=== PATIENT | male | born 1970 | race African-American/Black ===

== ENCOUNTER 2021-07-20 08:24 | Inpatient (IN) ==
[2021-07-20] MEDS ORDERED: SODIUM CHLORIDE 0.9% 500 ML IV STA (08:55)
--- NOTE | 2021-07-20 09:01 | Emergency Department Note ---
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 He has had been having trouble urinating and a Campos catheter was placed 4 days ago. He says this is been going on for 2 years off and on. His catheter is had blood in it for the last 4 days and passed clots initially. They did place a catheter 4 days ago. He has been drinking water and it is not clear. He feels his energy now but has a lot of suprapubic pain. No definite fever. No back pain no numbness weakness of the legs. No injury. He was seen recently for constipation but says that is gotten better. He has A. fib and is chronically on Coumadin. Denies any injury or trauma. Home Medications Medication Instructions Recorded Confirmed Type aspirin 81 mg tablet,delayed 81 mg PO DAILY 02/06/20 07/20/21 History release hydrochlorothiazide 25 mg tablet 25 mg PO DAILY 02/06/20 07/20/21 History lisinopril 20 mg tablet 20 mg PO DAILY 02/06/20 07/20/21 History glimepiride 1 mg tablet 1 mg PO QAM 04/18/21 07/20/21 History rosuvastatin 5 mg tablet 5 mg PO HS 04/18/21 07/20/21 History tamsulosin 0.4 mg capsule 0.8 mg PO DAILY 04/18/21 07/20/21 History warfarin 4 mg tablet 8 mg PO DAILY 04/18/21 07/20/21 History acetaminophen 500 mg tablet 1,000 mg PO TID PRN 07/08/21 07/20/21 History finasteride 5 mg tablet 5 mg PO DAILY 07/08/21 07/20/21 History metoprolol tartrate 100 mg tablet 100 mg PO BID 07/08/21 07/20/21 History polyethylene glycol 3350 17 gram 17 g PO TID PRN 07/08/21 07/20/21 History oral powder packet (Miralax) Allergies Allergy/AdvReac Type Severity Reaction Status Date / Time No Known Allergies Allergy Unverified 07/20/21 10:35 Past Med/Surg History Social History Smoking Status: Former smoker Preferred Language: Welsh Feels Safe at Home: Yes Review of Systems A total of 10 systems reviewed and were otherwise negative Physical Exam Vital Signs Vital Signs - 24 hr 07/20/21 08:37 07/20/21 09:19 07/20/21 10:25 Temperature 37.0 C Temperature Source Temporal Artery Scan Pulse Rate 89 Pulse Rate [Apical] 90 Respiratory Rate 18 23 Respiratory Effort / Characteristics Non-Labored Non-Labored Spontaneous Respiratory Depth Normal Normal Respiratory Pattern Regular Blood Pressure 137/82 Blood Pressure [Right Arm] 150/89 H Blood Pressure Mean 100 Blood Pressure Mean [Right Arm] 109 Blood Pressure Position Sitting Pulse Oximetry 96 98 96 Oxygen Delivery Method Room Air Room Air Room Air Sepsis Recent Fever Within 48 Hours No Sepsis New/Unexplained Change in Mental Status No Sepsis Action Taken by Nursing No Action Required 07/20/21 12:00 07/20/21 12:44 07/20/21 12:50 Temperature Temperature Source Pulse Rate Pulse Rate [Apical] 83 84 Respiratory Rate 18 17 18 Respiratory Effort / Characteristics Non-Labored Spontaneous Non-Labored Spontaneous Non-Labored Spontaneous Respiratory Depth Normal Normal Normal Respiratory Pattern Blood Pressure Blood Pressure [Right Arm] 122/83 99/60 L 120/65 Blood Pressure Mean Blood Pressure Mean [Right Arm] 96 73 83 Blood Pressure Position Pulse Oximetry 96 98 93 Oxygen Delivery Method Room Air Room Air Sepsis Recent Fever Within 48 Hours Sepsis New/Unexplained Change in Mental Status Sepsis Action Taken by Nursing 07/20/21 13:00 Temperature Temperature Source Pulse Rate Pulse Rate [Apical] 78 Respiratory Rate 22 Respiratory Effort / Characteristics Non-Labored Spontaneous Respiratory Depth Normal Respiratory Pattern Blood Pressure Blood Pressure [Right Arm] 106/73 Blood Pressure Mean Blood Pressure Mean [Right Arm] 84 Blood Pressure Position Pulse Oximetry 97 Oxygen Delivery Method Room Air Sepsis Recent Fever Within 48 Hours Sepsis New/Unexplained Change in Mental Status Sepsis Action Taken by Nursing General: Well developed well nourished middle-age male who appears uncomfortable mildly uncomfortable secondary to pain but otherwise in no acute respiratory distress, breathing comfortably on room air. Normal speech HEENT: Normal cephalic atraumatic. Pupils are equal round and reactive to lig ht. Extraocular movements are intact. Oropharynx is pink with moist mucous membranes. No swelling of the mouth lips or tongue. Neck: Supple with a midline trachea. No meningeal signs or stiffness, no JVD or bruits. No Stridor. Chest: Clear to auscultation bilaterally. No wheezes or rhonchi. No increased work of breathing. Heart: Regular rate and rhythm without murmurs or gallops. Abdomen: Soft, mildly tender in the suprapubic area, nondistended without rebound guarding or rigidity. Campos catheter is in place with bloody appearing urine in the bag. Extremities: No cyanosis clubbing or edema. No calf tenderness or assymetry Spine/Back. Non tender to palpation. No CVA tenderness Skin: Good turgor without rashes. Neurologic exam: Motor and sensation are intact and symmetrical throughout lower extremities. Course Administered Medications Discontinued Medications Sodium Chloride (Nss) 500 mls @ 999 mls/hr IV .Q31M STA Stop: 07/20/21 09:25 Last Infusion: 07/20/21 09:52 Dose: 0 mls/hr Documented by: [id number] Admin: 07/20/21 09:21 Dose: 999 mls/hr Documented by: [id number] Phytonadione 5 mg/ Dextrose 50.5 mls @ 101 mls/hr IV ONE ONE Stop: 07/20/21 11:37 Last Infusion: 07/20/21 12:58 Dose: 0 mls/hr Documented by: [id number] Admin: 07/20/21 12:25 Dose: 101 mls/hr Documented by: [id number] Ioversol (Optiray 320 100ml) 94 ml IV ONCE ONE Stop: 07/20/21 10:37 Last Admin: 07/20/21 10:38 Dose: 94 ml Documented by: [id number] Morphine Sulfate (Morphine Sulfate 4 Mg/Ml 1 Ml Carp\Vial) 4 mg IV NOW STA Stop: 07/20/21 10:12 Last Admin: 07/20/21 10:23 Dose: 4 mg Documented by: [id number] Morphine Sulfate (Morphine Sulfate 4 Mg/Ml 1 Ml Carp\Vial) 4 mg IV NOW STA Stop: 07/20/21 11:07 Last Admin: 07/20/21 11:23 Dose: 4 mg Documented by: [id number] Morphine Sulfate (Morphine Sulfate 4 Mg/Ml 1 Ml Carp\Vial) 4 mg IV NOW STA Stop: 07/20/21 13:58 Last Admin: 07/20/21 14:02 Dose: 4 mg Documented by: [id number] Ondansetron HCl (Ondansetron Inj 2 Mg/Ml 2 Ml Vial) 4 mg IV NOW STA Stop: 07/20/21 10:12 Last Admin: 07/20/21 10:22 Dose: 4 mg Documented by: [id number] Critical Care Time Critical Care Time: Yes Total Critical Care Time: 40 Due to the patient's ongoing pain and concern for ongoing bleed pelvic hematoma, supratherapeutic INR, need to reverse his INR, consultation with urologist and hospitalist and frequent reassessment and evaluation of the patient I have personally spent greater than 40 minutes of critical care time in the direct management of this patient. This includes bedside care, interpretation of diagnostic studies, and testing, discussion with consultants, patient, and family members, and other required patient management activities. This 40 minutes is in excess of all separately billable procedures. Medical Decision Making Differential Diagnosis Prostate disease, urinary retention, hematuria, anticoagulation use, intra-abdom inal process, infection, electrolyte or metabolic abnormality Medical Records Attestation: I reviewed the patient's medical records. Home Medications Current Medication List: was personally reviewed by me Laboratory Data Attestation: I reviewed the patient's lab results. Result diagrams: 07/20/21 08:25 07/20/21 08:25 Lab Results 07/20/21 07/20/21 07/20/21 Range/Units 08:25 08:25 08:25 WBC 12.17 H (4.8-10.8) K/uL RBC 4.86 (4.7-6.1) M/uL Hgb 15.0 (14.0-18.0) g/dL Hct 43.6 (42-52) % MCV 89.7 (80-100) fL MCH 30.9 (25-34) pg MCHC 34.4 (32-36) g/dL RDW Std Deviation 42.0 (36.4-46.3) fL RDW Coeff of Rossy 12.9 (11.5-14.5) % Plt Count 304 (130-400) K/uL MPV 10.3 (7.4-10.4) fL Immature Gran % (Auto) 0.3 % Neut % (Auto) 66.5 % Lymph % (Auto) 21.7 % Dundy % (Auto) 10.8 % Eos % (Auto) 0.6 % Baso % (Auto) 0.1 % Neut # (Auto) 8.09 H (1.4-6.5) K/uL Lymph # (Auto) 2.64 (1.2-3.4) K/uL Dundy # (Auto) 1.32 H (0.11-0.59) K/uL Eos # (Auto) 0.07 (0-0.5) K/uL Baso # (Auto) 0.01 (0-0.2) K/uL Immature Gran # (Auto) 0.04 H (0.00-0.02) K/uL PT 39.0 H (9.0-12.0) Seconds INR 3.9 H (0.9-1.1) APTT 51.6 H* (21.0-31.0) Seconds PTT Ratio 1.9 Sodium 131 L (136-145) mmol/L Potassium 4.7 (3.5-5.1) mmol/L Chloride 94 L (98-107) mmol/L Carbon Dioxide 28 (21-32) mmol/L Anion Gap 9 (3-11) BUN 17 (6-23) mg/dl Creatinine 1.19 (0.6-1.4) mg/dl Est Cr Clr Drug Dosing 80.8 ml/min Est GFR ( Amer) 80.3 ml/min Est GFR (Non-Af Amer) 69.3 ml/min BUN/Creatinine Ratio 14.3 (10-20) Glucose 161 H (70-99(Fasting)) mg/dl Calcium 9.5 (8.5-10.1) mg/dl Total Bilirubin 1.1 H (0.2-1.0) mg/dl AST 19 (13-39) U/L ALT 17 (7-52) U/L Alkaline Phosphatase 58 (34-104) U/L Total Protein 7.1 (6.0-8.3) gm/dl Albumin 4.0 (3.4-5.0) gm/dl Globulin 3.1 (2.5-4.0) gm/dl Albumin/Globulin Ratio 1.3 (0.9-2) Lipase 18 (11-82) U/L Prostate Specific Ag (0-4) ng/ml Urine Color Urine Appearance (Clear) Urine pH (4.5-7.5) Ur Specific [place] (1.000-1.030) Urine Protein (Negative) Urine Glucose (UA) (Negative) Urine Ketones (Negative) Urine Blood (Negative) Urine Nitrite (Negative) Urine Bilirubin (Negative) Urine Urobilinogen (Negative) Ur Leukocyte Esterase (Negative) Urine WBC (Auto) (0-5) /hpf Urine RBC (Auto) (0-4) /hpf U Hyaline Cast (Auto) (0-5) /lpf U Epithel Cells (Auto) (0-5) /lpf Urine Bacteria (Auto) (Negative) SARS-CoV-2, RNA, NAAT (NEGATIVE) Blood Type Blood Type Recheck Antibody Screen Crossmatch 07/20/21 07/20/21 07/20/21 Range/Units 10:55 11:24 11:40 WBC (4.8-10.8) K/uL RBC (4.7-6.1) M/uL Hgb (14.0-18.0) g/dL Hct (42-52) % MCV (80-100) fL MCH (25-34) pg MCHC (32-36) g/dL RDW Std Deviation (36.4-46.3) fL RDW Coeff of Rossy (11.5-14.5) % Plt Count (130-400) K/uL MPV (7.4-10.4) fL Immature Gran % (Auto) % Neut % (Auto) % Lymph % (Auto) % Dundy % (Auto) % Eos % (Auto) % Baso % (Auto) % Neut # (Auto) (1.4-6.5) K/uL Lymph # (Auto) (1.2-3.4) K/uL [place] # (Auto) (0.11-0.59) K/uL Eos # (Auto) (0-0.5) K/uL Baso # (Auto) (0-0.2) K/uL Immature Gran # (Auto) (0.00-0.02) K/uL PT (9.0-12.0) Seconds INR (0.9-1.1) APTT (21.0-31.0) Seconds PTT Ratio Sodium (136-145) mmol/L Potassium (3.5-5.1) mmol/L Chloride (98-107) mmol/L Carbon Dioxide (21-32) mmol/L Anion Gap (3-11) BUN (6-23) mg/dl Creatinine (0.6-1.4) mg/dl Est Cr Clr Drug Dosing ml/min Est GFR ( Amer) ml/min Est GFR (Non-Af Amer) ml/min BUN/Creatinine Ratio (10-20) Glucose (70-99(Fasting)) mg/dl Calcium (8.5-10.1) mg/dl Total Bilirubin (0.2-1.0) mg/dl AST (13-39) U/L ALT (7-52) U/L Alkaline Phosphatase (34-104) U/L Total Protein (6.0-8.3) gm/dl Albumin (3.4-5.0) gm/dl Globulin (2.5-4.0) gm/dl Albumin/Globulin Ratio (0.9-2) Lipase (11-82) U/L Prostate Specific Ag 103.838 H (0-4) ng/ml Urine Color Yellow Urine Appearance Clear (Clear) Urine pH 7.5 (4.5-7.5) Ur Specific [place] 1.017 (1.000-1.030) Urine Protein 1+ H (Negative) Urine Glucose (UA) Negative (Negative) Urine Ketones Negative (Negative) Urine Blood 3+ H (Negative) Urine Nitrite Negative (Negative) Urine Bilirubin Negative (Negative) Urine Urobilinogen Negative (Negative) Ur Leukocyte Esterase 1+ H (Negative) Urine WBC (Auto) 5-10 H (0-5) /hpf Urine RBC (Auto) >30 H (0-4) /hpf U Hyaline Cast (Auto) 0 (0-5) /lpf U Epithel Cells (Auto) 0-5 (0-5) /lpf Urine Bacteria (Auto) Negative (Negative) SARS-CoV-2, RNA, NAAT NEGATIVE (NEGATIVE) Blood Type Blood Type Recheck Antibody Screen Crossmatch 07/20/21 07/20/21 Range/Units 11:40 12:39 WBC (4.8-10.8) K/uL RBC (4.7-6.1) M/uL Hgb (14.0-18.0) g/dL Hct (42-52) % MCV (80-100) fL MCH (25-34) pg MCHC (32-36) g/dL RDW Std Deviation (36.4-46.3) fL RDW Coeff of Rossy (11.5-14.5) % Plt Count (130-400) K/uL MPV (7.4-10.4) fL Immature Gran % (Auto) % Neut % (Auto) % Lymph % (Auto) % [place] % (Auto) % Eos % (Auto) % Baso % (Auto) % Neut # (Auto) (1.4-6.5) K/uL Lymph # (Auto) (1.2-3.4) K/uL [place] # (Auto) (0.11-0.59) K/uL Eos # (Auto) (0-0.5) K/uL Baso # (Auto) (0-0.2) K/uL Immature Gran # (Auto) (0.00-0.02) K/uL PT (9.0-12.0) Seconds INR (0.9-1.1) APTT (21.0-31.0) Seconds PTT Ratio Sodium (136-145) mmol/L Potassium (3.5-5.1) mmol/L Chloride (98-107) mmol/L Carbon Dioxide (21-32) mmol/L Anion Gap (3-11) BUN (6-23) mg/dl Creatinine (0.6-1.4) mg/dl Est Cr Clr Drug Dosing ml/min Est GFR ( Amer) ml/min Est GFR (Non-Af Amer) ml/min BUN/Creatinine Ratio (10-20) Glucose (70-99(Fasting)) mg/dl Calcium (8.5-10.1) mg/dl Total Bilirubin (0.2-1.0) mg/dl AST (13-39) U/L ALT (7-52) U/L Alkaline Phosphatase (34-104) U/L Total Protein (6.0-8.3) gm/dl Albumin (3.4-5.0) gm/dl Globulin (2.5-4.0) gm/dl Albumin/Globulin Ratio (0.9-2) Lipase (11-82) U/L Prostate Specific Ag (0-4) ng/ml Urine Color Urine Appearance (Clear) Urine pH (4.5-7.5) Ur Specific [place] (1.000-1.030) Urine Protein (Negative) Urine Glucose (UA) (Negative) Urine Ketones (Negative) Urine Blood (Negative) Urine Nitrite (Negative) Urine Bilirubin (Negative) Urine Urobilinogen (Negative) Ur Leukocyte Esterase (Negative) Urine WBC (Auto) (0-5) /hpf Urine RBC (Auto) (0-4) /hpf U Hyaline Cast (Auto) (0-5) /lpf U Epithel Cells (Auto) (0-5) /lpf Urine Bacteria (Auto) (Negative) SARS-CoV-2, RNA, NAAT (NEGATIVE) Blood Type B Positive Blood Type Recheck B Positive Antibody Screen NEGATIVE Crossmatch See Detail Imaging Data Attestation: I personally reviewed and interpreted this imaging study as follows: My Impression: CT of the abdomen pelvis. I did review the films when I discussed it with Dr. Huggins and he does have a pelvic mass as well as a hematoma. Radiologist's Impression: Abdomen/Pelvis CT 07/20/21 10:11 CT SCAN OF THE ABDOMEN AND PELVIS WITH IV CONTRAST CLINICAL HISTORY: Lower abdominal pain. COMPARISON STUDY: Abdominal CT dated 02/07/2020. TECHNIQUE: Following the IV administration of 94 cc of Optiray 320, CT scan of the abdomen and pelvis is performed from the lung bases to the proximal femora. Images are reviewed in the axial, sagittal, and coronal planes. IV contrast was administered without complication. A dose lowering technique was utilized adhering to the principles of ALARA. CT DOSE: 592.45 mGy.cm FINDINGS: Lung bases: The heart is enlarged noting a small to moderate pericardial effusion. The lung bases are clear. Liver: The contrast-enhanced liver is normal in size, contour, and attenuation. There is no intrahepatic biliary ductal dilatation. The hepatic veins and portal veins are patent. Gallbladder: Unremarkable. Spleen: Normal in size and attenuation. Pancreas: Unremarkable. Adrenal glands: Unremarkable. Kidneys: The contrast enhanced kidneys are normal in size and without hydronephrosis. The kidneys enhance symmetrically. Bilateral renal cysts measure up to 3.3 cm. Additional subcentimeter cortical hypodensities also likely represent cysts but are too small for definitive characterization. Abdominal vasculature: The abdominal aorta is normal in course and caliber noting mild atherosclerotic calcification. Bowel: There is no bowel obstruction. Fecal retention is seen throughout the colon. The appendix is well-visualized and normal. Peritoneum: There is trace fluid in the left paracolic gutter. No intra-axial free air is identified. See below under pelvic viscera for discussion of pelvic findings/hematoma. There is a large fat-containing umbilical/periumbilical hernia. Lymphadenopathy: There is an enlarged right pelvic sidewall lymph node on image #343. This measures 2.6 x 1.4 cm. No iliac chain or retroperitoneal lymphadenopathy is identified. Pelvic viscera: The bladder is decompressed around a Campos catheter. The bladder wall is markedly thickened and hyperemic with surrounding inflammation. Nonspecific gas is seen within the bladder lumen. There is the suggestion of a mass lesion in the central pelvis slightly to the right of midline on image #357. This measures approximately 6 x 6 x 3.5 cm and may arise from the prostate. This extends into the right pelvic sidewall, extends inferiorly along the course of the urethra. There is a large complex fluid collection typical for a hematoma identified in the left lower pelvis. This is best seen on image #366 and measures approximately 12 x 11 x 6 cm. This is largely perirectal in location and extends from the level of the seminal vesicles nearly to the level of the anus. This contains an a hematocrit level and there is mild surrounding infiltration. This causes mass effect on the adjacent rectum which is deviated to the right. Skeletal structures: No lytic or blastic lesions are seen. IMPRESSION: 1. Findings suggest cystitis. Correlate with clinical findings and urinalysis. 2. Findings are highly suspicious for a lobulated mass lesion in the central pelvis as detailed above, likely arising from the prostate gland. Neoplasm is the diagnosis of exclusion. 3. There is a pathologically enlarged right pelvic sidewall lymph node. 4. There is a large complex fluid collection typical for a hematoma in the left lower pelvis. This is largely perirectal in location, and extends from the level of the seminal vesicles nearly to the anus. This causes mass effect on the adjacent rectum. 5. There is trace fluid in the left paracolic gutter. 6. Moderate colonic fecal retention. 7. Cardiomegaly with a small to moderate pericardial effusion. 8. Additional findings as above. Findings were discussed with Dr. Rae in the emergency department at the time of interpretation on 07/20/2021. ACT 112: Negative or not required by law. Electronically signed by: Saman Huggins M.D. 07/20/2021 11:12 AM MDM Narrative This patient comes in as described above, He was placed in room C9. He is here for treatment and evaluation of a what he describes as prostate issues he says he has had this off and on for years. He has a Campos catheter and that is pro ducing blood. He is also on a blood thinner. IV access established we did a bladder scan to see if he is retaining any and we flushed his catheter. In the meantime. blood work was obtained he was hydrated with IV normal saline and reassessed. He was not retaining any urine and his Campos flushed clear. He has no fever or white count to suggest significant infection he is not anemic with a hemoglobin of over 15. Has normal renal function. He continued have pain and required several dose of IV morphine. I did do a CT and Dr. Reyes, the radiologist called and discussed it with me as he has what appears to be a mass off the prostate as well as a hematoma that extends oh it is compressing the rectal area. He does not see any active extravasation. The patient's INR came back at 3.9. I did give him vitamin K 5 mg IV and he will need to hold the Coumadin. Without evidence of active bleeding, I do not feel he needs Kcentra at this point. I discussed this with Dr. Hernandez, the on-call urologist, who does feel that he needs to be admitted to medicine with holding of his blood thi nner reversal of his blood thinner and they can scope him. He felt that with the hematomas they hurt as they tend to get compressed but they also tend to stop bleeding. He will need to be monitored from a hemodynamic and hemoglobin standpoint. I did discuss the case with Dr. Vivek Ashraf and also typed and crossed him in the event and he would need a blood transfusion which at present he does not but were to be ready. The patient has remained stable and will be admitted for further treatment and evaluation. Impression & Plan Abdominal pain, Pelvic mass, Current use of intermediate card tender anticoagulation, Haematoma of pelvis, Pain in rectum, Lab test negative for COVID-19 virus Discharge Plan Visit Data Chief Complaint: Abdominal Pain Stated Complaint: ABD/PELVIC PAIN ED Provider: Jose Rae Discharge Problem: Abdominal pain, Pelvic mass, Current use of detention anticoagulation, Haematoma of pelvis, Pain in rectum, Lab test negative for COVID-19 virus Patient Disposition: Admitted As Inpatient Discharge Instructions Interventions: ED Discharge Assessment Last Done: 07/20/21 14:45 Discharge Problem: Abdominal pain Qualifiers: Abdominal location: lower abdomen, unspecified Qualified Code(s): R10.30 - Lower abdominal pain, unspecified
[2021-07-20 09:37] LABS: Basophils # (auto) 0.01 K/uL (0-0.2); Basophils % (auto) 0.1 %; Eosinophils # (auto) 0.07 K/uL (0-0.5); Eosinophils % (auto) 0.6 %; Hematocrit (blood only) 43.6 % (42-52); Immature Granulocytes # (auto) 0.04 K/uL (0.00-0.02); Immature Granulocytes % (auto) 0.3 %; Lymphocytes # (auto) 2.64 K/uL (1.2-3.4); Lymphocytes % (auto) 21.7 %; Mean Corpuscular Hemoglobin 30.9 pg (25-34); Mean Corpuscular Hgb Conc 34.4 g/dL (32-36); Mean Corpuscular Volume 89.7 fL (80-100); Mean Platelet Volume 10.3 fL (7.4-10.4); Monocytes # (auto) 1.32 K/uL (0.11-0.59); Monocytes % (auto) 10.8 %; Neutrophils # (auto) 8.09 K/uL (1.4-6.5); Neutrophils % (auto) 66.5 %; Platelet Count 304 K/uL (130-400); RDW Coefficient of Variation 12.9 % (11.5-14.5); Red Blood Count 4.86 M/uL (4.7-6.1); White Blood Count 12.17 K/uL (4.8-10.8)
[2021-07-20 09:54] LABS: Albumin Globulin Ratio 1.3 (0.9-2); BUN Creatinine Ratio 14.3 (10-20); Bilirubin,Total 1.1 mg/dl (0.2-1.0); Calcium 9.5 mg/dl (8.5-10.1); Creatinine Clr Calc Pharmacy 80.8 ml/min; Est GFR (African American) 80.3 ml/min; Est GFR (Non-African American) 69.3 ml/min; Globulin 3.1 gm/dl (2.5-4.0); Potassium 4.7 mmol/L (3.5-5.1); Total Protein 7.1 gm/dl (6.0-8.3)
[2021-07-20 10:01] LABS: INR 3.9 (0.9-1.1); Partial Thromboplastin Ratio 1.9
[2021-07-20] MEDS ORDERED: MoRPHine SULFATE 4 MG/ML 1 ML CARP\\VIAL IV STA ×3 (10:11→13:57)
[2021-07-20] MEDS ORDERED: ONDANSETRON INJ 2 MG/ML 2 ML VIAL IV STA (10:11)
[2021-07-20 10:19] LABS: Partial Thromboplastin Time 51.6 Seconds (21.0-31.0)
[2021-07-20] MEDS ORDERED: OPTIRAY 320 100ml IV ONE (10:36)
[2021-07-20] MEDS ORDERED: PHYTONADIONE 5 MG in DEXTROSE 5% 50 ML IV ONE (11:08)
--- NOTE | 2021-07-20 11:15 | CT Scan Report ---
CT SCAN OF THE ABDOMEN AND PELVIS WITH IV CONTRAST CLINICAL HISTORY: Lower abdominal pain. COMPARISON STUDY: Abdominal CT dated 02/07/2020. TECHNIQUE: Following the IV administration of 94 cc of Optiray 320, CT scan of the abdomen and pelvi s is performed from the lung bases to the proximal femora. Images are reviewed in the axial, sagittal , and coronal planes. IV contrast was administered without complication. A dose lowering technique wa s utilized adhering to the principles of ALARA. CT DOSE: 592.45 mGy.cm FINDINGS: Lung bases: The heart is enlarged noting a small to moderate pericardial effusion. The lung bases are clear. Liver: The contrast-enhanced liver is normal in size, contour, and attenuation. There is no intrahepa tic biliary ductal dilatation. The hepatic veins and portal veins are patent. Gallbladder: Unremarkable. Spleen: Normal in size and attenuation. Pancreas: Unremarkable. Adrenal glands: Unremarkable. Kidneys: The contrast enhanced kidneys are normal in size and without hydronephrosis. The kidneys enh ance symmetrically. Bilateral renal cysts measure up to 3.3 cm. Additional subcentimeter cortical hyp odensities also likely represent cysts but are too small for definitive characterization. Abdominal vasculature: The abdominal aorta is normal in course and caliber noting mild atheroscleroti c calcification. Bowel: There is no bowel obstruction. Fecal retention is seen throughout the colon. The appendix is well-visualized and normal. Peritoneum: There is trace fluid in the left paracolic gutter. No intra-axial free air is identified. See below under pelvic viscera for discussion of pelvic findings/hematoma. There is a large fat-cont aining umbilical/periumbilical hernia. Lymphadenopathy: There is an enlarged right pelvic sidewall lymph node on image #343. This measures 2 .6 x 1.4 cm. No iliac chain or retroperitoneal lymphadenopathy is identified. Pelvic viscera: The bladder is decompressed around a Campos catheter. The bladder wall is markedly thi ckened and hyperemic with surrounding inflammation. Nonspecific gas is seen within the bladder lumen. There is the suggestion of a mass lesion in the central pelvis slightly to the right of midline on i mage #357. This measures approximately 6 x 6 x 3.5 cm and may arise from the prostate. This extends i nto the right pelvic sidewall, extends inferiorly along the course of the urethra. There is a large c omplex fluid collection typical for a hematoma identified in the left lower pelvis. This is best seen on image #366 and measures approximately 12 x 11 x 6 cm. This is largely perirectal in location and extends from the level of the seminal vesicles nearly to the level of the anus. This contains an a he matocrit level and there is mild surrounding infiltration. This causes mass effect on the adjacent re ctum which is deviated to the right. Skeletal structures: No lytic or blastic lesions are seen. IMPRESSION: 1. Findings suggest cystitis. Correlate with clinical findings and urinalysis. 2. Findings are highly suspicious for a lobulated mass lesion in the central pelvis as detailed above , likely arising from the prostate gland. Neoplasm is the diagnosis of exclusion. 3. There is a pathologically enlarged right pelvic sidewall lymph node. 4. There is a large complex fluid collection typical for a hematoma in the left lower pelvis. This is largely perirectal in location, and extends from the level of the seminal vesicles nearly to the gabriela s. This causes mass effect on the adjacent rectum. 5. There is trace fluid in the left paracolic gutter. 6. Moderate colonic fecal retention. 7. Cardiomegaly with a small to moderate pericardial effusion. 8. Additional findings as above. Findings were discussed with Dr. Rae in the emergency department at the time of interpretation on 07/20/2021. ACT 112: Negative or not required by law. Electronically signed by: Saman Huggins M.D. 07/20/2021 11:12 AM
[2021-07-20 11:16] LABS: Appearance Urine Clear (Clear); Bacteria Urine Automated Negative (Negative); Bilirubin Urine Negative (Negative); Blood Urine 3+ (Negative); Cast Urine Automated 0 /lpf (0-5); Color Urine Yellow; Epithelial Cell Urine Auto 0-5 /lpf (0-5); Glucose Urine UA Negative (Negative); Ketones Urine Negative (Negative); Leukocyte Esterase Urine 1+ (Negative); Nitrite Urine Negative (Negative); RBC Urine Automated >30 /hpf (0-4); Specific Gravity Urine 1.017 (1.000-1.030); Urobilinogen Urine Negative (Negative); pH Urine 7.5 (4.5-7.5)
[2021-07-20] MEDS ORDERED: SODIUM CHLORIDE 0.9% 250 ML IV PRN (11:17)
[2021-07-20 11:20] LABS: Protein Urine 1+ (Negative)
--- NOTE | 2021-07-20 12:21 | History & Physical Report ---
Date of Service July 20, 2021 Assessment & Plan (1) Pelvic mass: Plan: - Lobulated, central pelvis measuring 6 x 6 x 3.5 cm, ? arise from prostate. Associated with 12 pound weight loss over the last 3 weeks, night sweats, fatigue, intermittent episodes of chills and fevers over the past few months. Family history of prostate cancer in a cousin, who recently . Associated with pathologic enlarged right pelvic sidewall lymph node. Concerning for malignancy. - PSA 103.838. Per patient, its been elevated for the past 3 years. No previous/baseline PSA in our system. - Urology consult placed, discussed with Dr. Hernandez. Patient will be n.p.o. at midnight pending possible cystoscopy in a.m. He is on Coumadin as well as ASA 81, today PT 39, INR 3.9, APTT 51.6, received vitamin K in ED. - Recheck coag panel in a.m. (2) Perirectal hematoma: Plan: - Left lower pelvis, largely perirectal location, extends from seminal vesicles to anus causing mass-effect of adjacent rectum. - No history of trauma or falls, this could be result of frequent Campos catheter placement versus subsequent effect of the pelvic mass. - Will hold aspirin and Coumadin, patient received vitamin K in ED. - PT/INR in AM. - Hgb stable at 15, will continue to monitor on CBC. (3) Constipation: Plan: - Patient was seen in our ED this month for constipation, was given laxatives. However patient now has a known pelvic mass and perirectal hematomathat is causing his rectum to be deviated, therefore it is unlikely continuation of stool softeners or laxatives will improve much. - Pending urology's decision to proceed with procedure tomorrow morning, can consider a GI versus general surgery consult in the future to discuss options to alleviate patient's constipation, i.e. therapeutic colonoscopy versus ostomy? (4) Hyponatremia: Plan: - Na 131, was 139 on outpatient labs from 05/28/2021. - Hold HCTZ. - Follow on labs. (5) Benign enlargement of prostate: Plan: - Takes Flomax 0.8 mg daily and finasteride 5 mg daily. - Campos catheter placed 4 days ago. With gross hematuria. - With complaints of fever/chills, elevated WBC, porsttae pain, will cover with ceftriaxone for prostatitis. (6) Hypertension: Plan: - Continue lisinopril 10 mg daily and metoprolol 100 mg twice daily. - Hold HCTZ due to hyponatremia. (7) Persistent atrial fibrillation: Plan: - Persistent since April 2020 per cardiology note. - Continue metoprolol as above, holding warfarin given hematoma and supratherapeutic INR. (8) Type 2 diabetes mellitus: Plan: - On glimepiride at home, will hold this while inpatient. - Accu-Chek achs with SSI. - A1c in AM. - Diabetic/HH diet. Will be n.p.o. at midnight pending possible procedure in a.m. (9) Dyslipidemia: Plan: - Continue rosuvastatin, increased from 5 mg to 10 mg daily at cardiology visit on 06/09. (10) Sleep apnea: Plan: - No formal diagnosis per records, Recommended to have sleep study by cardiology on 06/09 due to ongoing fatigue. He reports he has had it done, but was not given results. (11) CKD (chronic kidney disease) stage 2, GFR 60-89 ml/min: Plan: - eGFR 80.3, CrCl 80.8. - Seems to be about baseline, no evidence of KAT. Plan: - Admit to med/tele. - SCDs, chemo PPx contraindicated in setting of supratherapeutic INR, hematoma. - Full code. History of Present Illness Chief Complaint: Hematuria, urinary retention Primary Care Provider: LEE Mon Mr. Hernández is a 51-year-old male with a past medical history of DM2, HTN, HLD, BPH, and A. fib on warfarin who presents today with rectal pain and trouble urinating. Per patient, over the last 3 months he has had pain between his rectum and scrotum, describes it as if he is sitting on a ball. He is also been having ongoing constipation, saying he has not had a formed, normal bowel movement in 3 months, rather they have been infrequent liquid stools, but without rossy blood, do not appear dark or tarry. He has also had intermittent issues with urination, feeling as though it is burning when he goes and does not feel like he can empty his bladder fully. For this, he has had Campos's placed several times at the [facility] at the [facility], each time with blood clots and gross hematuria. This is all associated with a 12 pound weight loss over the past 3 weeks, night sweats, and fatigue. Patient does have history of A. fib, not sure if fatigue is due to this versus sleep apnea, for which he had a sleep study done recently, however has not been told of the results. In ED slightly hypertensive 150/89, other vital signs with normal limits and stable. Labs significant for WBC 12.17, PT 39, INR 3.9, PTT 51.6. Sodium 131, glucose 161, T bili 1.1. PSA pending. UA with blood, >30 RBCs, 5-10 WBCs, 1+ leuk esterase, negative for bacteria. COVID-negative. CT A/P significant for suspected hematoma in left lower pelvis, perirectal location with extension from Simulect cycles to anus causing mass-effect of rectum. Pathologically enlarged right pelvic sidewall lymph node. Lobulated mass lesion in central pelvis, measuring 6 x 6 x 3.5 cm, likely from prostate gland suspicious for neoplasm. Evidence of cystitis also seen. Patient received vitamin K, NS IVF, and morphine in ED, case was discussed with urology, and hospitalist service consulted for further evaluation and admission. Allergies Allergy/AdvReac Type Severity Reaction Status Date / Time No Known Allergies Allergy Unverified 07/20/21 10:35 Home Medications Medication Instructions Recorded Confirmed Type aspirin 81 mg tablet,delayed 81 mg PO DAILY 02/06/20 07/20/21 History release hydrochlorothiazide 25 mg tablet 25 mg PO DAILY 02/06/20 07/20/21 History lisinopril 20 mg tablet 20 mg PO DAILY 02/06/20 07/20/21 History glimepiride 1 mg tablet 1 mg PO QAM 04/18/21 07/20/21 History rosuvastatin 5 mg tablet 5 mg PO HS 04/18/21 07/20/21 History tamsulosin 0.4 mg capsule 0.8 mg PO DAILY 04/18/21 07/20/21 History warfarin 4 mg tablet 8 mg PO DAILY 04/18/21 07/20/21 History acetaminophen 500 mg tablet 1,000 mg PO TID PRN 07/08/21 07/20/21 History finasteride 5 mg tablet 5 mg PO DAILY 07/08/21 07/20/21 History metoprolol tartrate 100 mg tablet 100 mg PO BID 07/08/21 07/20/21 History polyethylene glycol 3350 17 gram 17 g PO TID PRN 07/08/21 07/20/21 History oral powder packet (Miralax) Past Med/Surg History Medical History (Updated 07/20/21 @ 15:55 by Catherine Williamson PA-C) CKD (chronic kidney disease) stage 2, GFR 60-89 ml/min Constipation Dyslipidemia Hypertension Perirectal hematoma Persistent atrial fibrillation Type 2 diabetes mellitus Social History Smoking Status: Former smoker Second Hand Exposure: No; Do You Dip or Chew Tobacco: No; Tobacco Cessation Education Requested by Patient: No Hx Alcohol Use: No Hx Substance Use: No Preferred Language: Guamanian Communication Ability: Effective Category Manager Required: No Beliefs That Will Affect Care: None Current Living Situation Comment: [facility] - guards at bedside. Other Information That Helps Us Care for You: No Feels Safe at Home: Yes Review of Systems Review of Systems: All systems reviewed & are unremarkable except as noted in HPI & below Physical Exam Physical Exam: General: awake, alert, verbalizes rectal pain but no apparent distress Head: Normocephalic, atraumatic ENT: PERRL, EOMI, no pharyngeal exudate, mucous membranes moist Chest: Clear to auscultation, on room air, no adventitious breath sounds Cardiac: Regular rate and rhythm, no murmur, no JVD, normal peripheral pulses, good capillary refill Abdominal: suprapubic tenderness; NABS x 4 quadrants, soft, nontender to palpation, no rebound, guarding or tenderness Extremities: Normal inspection, no peripheral edema or erythema, calfs nontender to palpation Psych: Normal mood and affect Neuro: AAO x 3, strength intact bilaterally and rated 5/5, no motor deficits, speech is clear, no peripheral sensory deficits Skin: no rash or erythema Results & Data Results & Data ([facility]) Vital Signs (Past 12 Hours) Vital Signs Temp Pulse Pulse Resp BP BP Pulse Ox 07/20/21 10:25 90 23 150/89 H 96 07/20/21 09:19 98 07/20/21 08:37 37.0 C 89 18 137/82 96 Laboratory Results Abnormal lab results 07/20/21 07/20/21 07/20/21 Range/Units 08:25 08:25 08:25 WBC 12.17 H (4.8-10.8) K/uL Neut # (Auto) 8.09 H (1.4-6.5) K/uL Warrick # (Auto) 1.32 H (0.11-0.59) K/uL Immature Gran # (Auto) 0.04 H (0.00-0.02) K/uL PT 39.0 H (9.0-12.0) Seconds INR 3.9 H (0.9-1.1) APTT 51.6 H* (21.0-31.0) Seconds Sodium 131 L (136-145) mmol/L Chloride 94 L (98-107) mmol/L Glucose 161 H (70-99(Fasting)) mg/dl Total Bilirubin 1.1 H (0.2-1.0) mg/dl Urine Protein (Negative) Urine Blood (Negative) Ur Leukocyte Esterase (Negative) Urine WBC (Auto) (0-5) /hpf Urine RBC (Auto) (0-4) /hpf Crossmatch 07/20/21 07/20/21 Range/Units 10:55 11:40 WBC (4.8-10.8) K/uL Neut # (Auto) (1.4-6.5) K/uL Warrick # (Auto) (0.11-0.59) K/uL Immature Gran # (Auto) (0.00-0.02) K/uL PT (9.0-12.0) Seconds INR (0.9-1.1) APTT (21.0-31.0) Seconds Sodium (136-145) mmol/L Chloride (98-107) mmol/L Glucose (70-99(Fasting)) mg/dl Total Bilirubin (0.2-1.0) mg/dl Urine Protein 1+ H (Negative) Urine Blood 3+ H (Negative) Ur Leukocyte Esterase 1+ H (Negative) Urine WBC (Auto) 5-10 H (0-5) /hpf Urine RBC (Auto) >30 H (0-4) /hpf Crossmatch See Detail Diagnostic Findings Abdomen/Pelvis CT 07/20/21 10:11 CT SCAN OF THE ABDOMEN AND PELVIS WITH IV CONTRAST CLINICAL HISTORY: Lower abdominal pain. COMPARISON STUDY: Abdominal CT dated 02/07/2020. TECHNIQUE: Following the IV administration of 94 cc of Optiray 320, CT scan of the abdomen and pelvis is performed from the lung bases to the proximal femora. Images are reviewed in the axial, sagittal, and coronal planes. IV contrast was administered without complication. A dose lowering technique was utilized adhering to the principles of ALARA. CT DOSE: 592.45 mGy.cm FINDINGS: Lung bases: The heart is enlarged noting a small to moderate pericardial effusion. The lung bases are clear. Liver: The contrast-enhanced liver is normal in size, contour, and attenuation. There is no intrahepatic biliary ductal dilatation. The hepatic veins and portal veins are patent. Gallbladder: Unremarkable. Spleen: Normal in size and attenuation. Pancreas: Unremarkable. Adrenal glands: Unremarkable. Kidneys: The contrast enhanced kidneys are normal in size and without hydronephrosis. The kidneys enhance symmetrically. Bilateral renal cysts measure up to 3.3 cm. Additional subcentimeter cortical hypodensities also likely repres ent cysts but are too small for definitive characterization. Abdominal vasculature: The abdominal aorta is normal in course and caliber noting mild atherosclerotic calcification. Bowel: There is no bowel obstruction. Fecal retention is seen throughout the colon. The appendix is well-visualized and normal. Peritoneum: There is trace fluid in the left paracolic gutter. No intra-axial free air is identified. See below under pelvic viscera for discussion of pelvic findings/hematoma. There is a large fat-containing umbilical/periumbilical hernia. Lymphadenopathy: There is an enlarged right pelvic sidewall lymph node on image #343. This measures 2.6 x 1.4 cm. No iliac chain or retroperitoneal lymphadenopathy is identified. Pelvic viscera: The bladder is decompressed around a Campos catheter. The bladder wall is markedly thickened and hyperemic with surrounding inflammation. Nonspecific gas is seen within the bladder lumen. There is the suggestion of a mass lesion in the central pelvis slightly to the right of midline on image #357. This measures approximately 6 x 6 x 3.5 cm and may arise from the prostate. This extends into the right pelvic sidewall, extends inferiorly along the course of the urethra. There is a large complex fluid collection typical for a hematoma identified in the left lower pelvis. This is best seen on image #366 and measures approximately 12 x 11 x 6 cm. This is largely perirectal in location and extends from the level of the seminal vesicles nearly to the level of the anus. This contains an a hematocrit level and there is mild surrounding infiltration. This causes mass effect on the adjacent rectum which is deviated to the right. Skeletal structures: No lytic or blastic lesions are seen. IMPRESSION: 1. Findings suggest cystitis. Correlate with clinical findings and urinalysis. 2. Findings are highly suspicious for a lobulated mass lesion in the central pelvis as detailed above, likely arising from the prostate gland. Neoplasm is t he diagnosis of exclusion. 3. There is a pathologically enlarged right pelvic sidewall lymph node. 4. There is a large complex fluid collection typical for a hematoma in the left lower pelvis. This is largely perirectal in location, and extends from the level of the seminal vesicles nearly to the anus. This causes mass effect on the adjacent rectum. 5. There is trace fluid in the left paracolic gutter. 6. Moderate colonic fecal retention. 7. Cardiomegaly with a small to moderate pericardial effusion. 8. Additional findings as above. Findings were discussed with Dr. Rae in the emergency department at the time of interpretation on 07/20/2021. ACT 112: Negative or not required by law. Electronically signed by: Saman Huggins M.D. 07/20/2021 11:12 AM Code Status & VTE Plan Code Status Full code. Supervising Physician Co-Signing Physician Notes I supervised Catherine Williamson PA-C on this admission. I interviewed and examined the patient independently of her. The plan is as written in the PA/DELIVERY DRIVER ASSISTANT's note except for any following changes/exceptions: None 51yo M w/ hx of afib who presents with likely prostate cancer. The patient has been experiencing constipation and abdominal issues for at least 2 months. Has had intermittent troubles with urination requiring a catheter. However, presented to the ER with increasing abdominal pain and found to have a large prostate mass with obstruction. Campos in the ER was flushed with some resolution of the hematuria. Discussed case with the on-call urologist who recommends reversing his anticoagulation with plan for cystoscop and possible further surgery at that point. PG Care Time/CCT Total # of Minutes Spent Total Time Spent with Patient: Total time spent is greater than 50% in coordination of care (as documented) at patient's floor/unit and/or counseling patient: Coding Level of Care Code 59519 Initial Inpt Care Lvl 3 Diagnoses Sleep apnea G47.30 Hypertension I10 Type 2 diabetes mellitus E11.9 Dyslipidemia E78.5 Persistent atrial fibrillation I48.19 Constipation K59.00 Constipation type: unspecified constipation type Benign enlargement of prostate N40.1; R33.8 Lower urinary tract symptom detail: urinary retention Lower urinary tract symptom presence: symptoms present Pelvic mass R19.00 Perirectal hematoma S36.62XA Hyponatremia E87.1 CKD (chronic kidney disease) stage 2, GFR 60-89 ml/min N18.2 (1) Benign enlargement of prostate Lower urinary tract symptom detail: urinary retention Lower urinary tract symptom presence: symptoms present Qualified Code(s): N40.1 - Benign prostatic hyperplasia with lower urinary tract symptoms; R33.8 - Other retention of urine (2) Constipation Constipation type: unspecified constipation type Qualified Code(s): K59.00 - Constipation, unspecified
[2021-07-20] MEDS ORDERED: GLUCOSE 10 TAB/TUBE PO PRN (15:07)
[2021-07-20] MEDS ORDERED: DEXTROSE 50% 50 ML SYRINGE IV PRN (15:07)
[2021-07-20] MEDS ORDERED: ACETAMINOPHEN 500 MG TAB PO PRN (15:07)
[2021-07-20] MEDS ORDERED: GLUCOSE 40% GEL 15 GM TUBE PO PRN (15:07)
[2021-07-20] MEDS ORDERED: POLYETHYLENE (MIRALAX) 17 GM PACK PO PRN (15:07)
[2021-07-20] MEDS ORDERED: CARBOHYDRATES FOR HYPOGLYCEMIA PO PRN (15:07)
[2021-07-20] MEDS ORDERED: ONDANSETRON INJ 2 MG/ML 2 ML VIAL IV PRN (15:07)
[2021-07-20] MEDS ORDERED: GLUCAGON FOR INJ 1 MG VIAL SQ PRN (15:07)
[2021-07-20] MEDS: MoRPHine SULFATE 4 MG/ML 1 ML CARP\\VIAL IV PRN ×2 (15:54→18:20)
[2021-07-20] MEDS ORDERED: METOPROLOL TARTRATE 1 MG/ML VIAL IV PRN (17:58)
[2021-07-20] MEDS ORDERED: cefTRIAXone SODIUM 2,000 MG in DEXTROSE 5% 50 ML IV SCH (18:00)
[2021-07-20] MEDS: INSULIN ASPART PER UNIT SC SCH ×2 (18:05→22:33)
[2021-07-20] MEDS: METOPROLOL TARTRATE 100 MG TAB PO SCH (20:48)
[2021-07-20] MEDS: ROSUVASTATIN CALCIUM 10 MG TAB PO SCH (20:48)
--- NOTE | 2021-07-20 21:28 | Urology Consultation ---
Date of Consultation July 20, 2021 Assessment & Plan (1) Haematoma of pelvis: Patient has been admitted on the hospitalist service we recommend proceeding as follows: Maintain Campos catheter for symptomatic relief. If this becomes clogged with clots he can be irrigated manually to relieve obstruction Hydrate with IV fluids Contain patient on antibiotics in form of Rocephin and tailor his antibiotics based on culture results Follow serial labs Hold patient's anticoagulation There is concern the patient has a prostate mass. Patient is made n.p.o. in the event that he will undergo cystoscopy tomorrow for further evaluation of this History of Present Illness Reason for Consultation: Hematuria, prostate mass Attending Physician: Vivek Ashraf MD History of Present Illness This is a 51-year-old male who presented to the emergency department secondary to difficulty urinating as well as perirectal pain. Patient notes for several months he has been having difficulty urinating. He says he has a great deal of difficulty initiating urine stream with some dysuria. He also notes that he cannot fully empty his bladder. He does report unspecified weight loss over the past several months. In addition the patient reports hematuria over the past approximately 3 days. He also notes he is passing some blood clots. In addition the patient reports perianal pain in the area between his scrotum and anus. Because the symptoms the patient presented to the emergency department where he had labs and imaging which independent reviewed. A CT scan of the abdomen and pelvis showed findings concerning for cystitis. He was also noted to have a lobulated mass in the central pelvic region that was felt to arise from the prostate gland. There is also noted to be a fluid complex in the left lower pelvis concerning for a hematoma. Labs include a CBC her white blood cell count was 12.1. Hemoglobin, hematocrit, and platelet count were all noted to be normal. He did have an INR of 3.9. Chemistry profile showed a sodium was 131 and potassium was 4.7. BUN and creatinine were normal. A urinalysis did show 1+ leukocyte Estrace but was otherwise on concerning for urinary tract infection. A COVID test was noted be negative. Since admission to the hospital the patient has had a Campos catheter placed and he has achieved symptomatic relief with this. He was in no distress at the time of my interview Allergies Allergy/AdvReac Type Severity Reaction Status Date / Time No Known Allergies Allergy Unverified 07/20/21 10:35 Home Medications Medication Instructions Recorded Confirmed Type aspirin 81 mg tablet,delayed 81 mg PO DAILY 02/06/20 07/20/21 History release hydrochlorothiazide 25 mg tablet 25 mg PO DAILY 02/06/20 07/20/21 History lisinopril 20 mg tablet 20 mg PO DAILY 02/06/20 07/20/21 History glimepiride 1 mg tablet 1 mg PO QAM 04/18/21 07/20/21 History rosuvastatin 5 mg tablet 5 mg PO HS 04/18/21 07/20/21 History tamsulosin 0.4 mg capsule 0.8 mg PO DAILY 04/18/21 07/20/21 History warfarin 4 mg tablet 8 mg PO DAILY 04/18/21 07/20/21 History acetaminophen 500 mg tablet 1,000 mg PO TID PRN 07/08/21 07/20/21 History finasteride 5 mg tablet 5 mg PO DAILY 07/08/21 07/20/21 History metoprolol tartrate 100 mg tablet 100 mg PO BID 07/08/21 07/20/21 History polyethylene glycol 3350 17 gram 17 g PO TID PRN 07/08/21 07/20/21 History oral powder packet (Miralax) Patient History Medical History CKD (chronic kidney disease) stage 2, GFR 60-89 ml/min Constipation Dyslipidemia Hypertension Perirectal hematoma Persistent atrial fibrillation Type 2 diabetes mellitus Social History Smoking Status: Former smoker Second Hand Exposure: No; Do You Dip or Chew Tobacco: No; Tobacco Cessation Education Requested by Patient: No Hx Alcohol Use: No Hx Substance Use: No Preferred Language: Urdu Communication Ability: Effective [employer] Required: No Beliefs That Will Affect Care: None Current Living Situation Comment: [facility] - guards at bedside. Other Information That Helps Us Care for You: No Feels Safe at Home: Yes Review of Systems Constitutional: no fever Eyes: no diplopia Ear, Nose, Mouth, Throat: no ear pain Respiratory: no cough Cardiovascular: no chest pain Gastrointestinal: no abdominal pain, no nausea and no vomiting Genitourinary: + as per Subjective / HPI Musculoskeletal: no back pain Integumentary: no rash Neurologic: no localized weakness Physical Exam Physical Exam: Patient's perineal area was examined. There were no cuts or excoriations. There were no areas of erythema, eschar, or areas of purulent drainage. There is no crepitus noted in the soft tissue Constitutional: WD/WN, vitals as above Eyes: no conjunctival abnormality ENMT: Ears: no hearing impairment and no external ear abnormality Mouth: no oropharynx abnormality Neck: trachea midline Respiratory: normal respiratory effort; no respiratory distress and no labored breathing Cardiovascular: Rate/Rhythm: regular rate and regular rhythm Gastrointestinal (Abdomen): Soft, nontender, nondistended Musculoskeletal: No calf tenderness Skin: no rashes Neurologic: moves all extremities Psychiatric: A+Ox3, euthymic affect Results & Data ([facility]) Vital Signs (Past 12 Hours) Vital Signs Temp Pulse Pulse Pulse Resp BP Pulse Ox 07/20/21 20:47 85 94/60 L 07/20/21 20:02 36.9 C 96 H 18 93/58 L 95 07/20/21 17:13 94 H 07/20/21 16:00 36.8 C 100 H 18 104/67 97 07/20/21 14:00 75 20 111/71 07/20/21 13:45 75 21 133/87 97 07/20/21 13:30 84 14 101/65 98 07/20/21 13:00 78 22 106/73 97 07/20/21 12:50 18 120/65 93 07/20/21 12:44 84 17 99/60 L 98 07/20/21 12:00 83 18 122/83 96 07/20/21 10:25 90 23 150/89 H 96 PG Care Time/CCT Total # of Minutes Spent Total Time Spent with Patient: Total time spent is greater than 50% in coordination of care (as documented) at patient's floor/unit and/or counseling patient: Coding Level of Care Code 12579 Inpt Consult Level 5 Diagnoses Haematoma of pelvis
[2021-07-20] MEDS: MoRPHine SULFATE 2 MG/ML CARP IV PRN (22:01)
[2021-07-21] MEDS: LACTATED RINGER'S 1,000 ML IV SCH ×3 (00:09→23:04)
[2021-07-21] MEDS: MoRPHine SULFATE 4 MG/ML 1 ML CARP\\VIAL IV PRN ×7 (03:19→23:03)
[2021-07-21] MEDS ORDERED: CIPROFLOXACIN / D5W 400 MG/200 ML BAG IV SCH (06:00)
[2021-07-21] MEDS: INSULIN ASPART PER UNIT SC SCH ×4 (08:15→21:48)
[2021-07-21] MEDS: TAMSULOSIN HCL 0.4 MG CAP PO SCH (08:16)
[2021-07-21] MEDS: FINASTERIDE 5 MG TAB PO SCH (08:16)
[2021-07-21] MEDS: METOPROLOL TARTRATE 100 MG TAB PO SCH ×2 (08:16→20:53)
[2021-07-21] MEDS: lisinopril 20 MG TAB PO SCH (08:16)
[2021-07-21 08:17] LABS: Basophils # (auto) 0.02 K/uL (0-0.2); Basophils % (auto) 0.2 %; Eosinophils # (auto) 0.11 K/uL (0-0.5); Eosinophils % (auto) 1.3 %; Hematocrit (blood only) 38.7 % (42-52); Hemoglobin 13.6 g/dL (14.0-18.0); Immature Granulocytes # (auto) 0.01 K/uL (0.00-0.02); Immature Granulocytes % (auto) 0.1 %; Lymphocytes # (auto) 2.24 K/uL (1.2-3.4); Lymphocytes % (auto) 26.3 %; Mean Corpuscular Hemoglobin 30.8 pg (25-34); Mean Corpuscular Hgb Conc 35.1 g/dL (32-36); Mean Corpuscular Volume 87.8 fL (80-100); Mean Platelet Volume 10.3 fL (7.4-10.4); Monocytes # (auto) 0.93 K/uL (0.11-0.59); Monocytes % (auto) 10.9 %; Neutrophils # (auto) 5.21 K/uL (1.4-6.5); Neutrophils % (auto) 61.2 %; Platelet Count 246 K/uL (130-400); RDW Standard Deviation 41.9 fL (36.4-46.3); Red Blood Count 4.41 M/uL (4.7-6.1); White Blood Count 8.52 K/uL (4.8-10.8)
[2021-07-21 08:33] LABS: INR 1.2 (0.9-1.1); Partial Thromboplastin Ratio 1.3; Partial Thromboplastin Time 36.1 Seconds (21.0-31.0); Prothrombin Time 12.8 Seconds (9.0-12.0)
--- NOTE | 2021-07-21 08:37 | Hospitalist Progress Note ---
Date of Service July 21, 2021 Assessment & Plan (1) Pelvic mass: Plan: Lobulated, central pelvis measuring 6 x 6 x 3.5 cm, ? arise from prostate. Associated with 12 pound weight loss over the last 3 weeks, night sweats, fatigue, intermittent episodes of chills and fevers over the past few months. Family history of prostate cancer in a cousin, who recently -- AGE 56 Associated with pathologic enlarged right pelvic sidewall lymph node. Concerning for malignancy PSA 103.838. * Per patient, its been elevated for the past 3 years. No previous/baseline PSA in our system. Urology consult placed NPO for cysto + TURP vs TURBT with Dr Hernandez this afternoon Ceftriaxone for possible On coumadin for hx afib (afib on monitor), given Vit K and INR acceptable today but will need to monitor on tele/reume when able Pain control, antiemetics prn Monitor labs ALso with BPH --Takes flomax 0.8mg daily, finasteride 5mg daily. --Jerez placed 4 days ago, with gross hematuria --> Complains of fever/chills/elevated WBC on admission with prostate pain and placed on ceftriaxone for coverage. (2) Perirectal hematoma: Plan: Left lower pelvis, largely perirectal location, extends from seminal vesicles to anus causing mass-effect of adjacent rectum. No history of trauma or falls, this could be result of frequent Jerez catheter placement versus subsequent effect of the pelvic mass. Will hold aspirin and Coumadin, patient received vitamin K in ED. PT/INR in AM --> INR 1.2 after VIt K Hgb stable at 13.6 and suspect some dilutional since being on IVF Jerez without continued hematuria Monitor CBC (3) Hyponatremia: Plan: Na 131, was 139 on outpatient labs from 05/28/2021. Hold HCTZ. IVF increased to 100cc/hr Will also check TSH with AM labs, especially given afib/constipation issues as well Monitor BMP in AM (4) Hypertension: Plan: Continue lisinopril 10 mg daily and metoprolol 100 mg twice daily. - Hold HCTZ due to hyponatremia. (5) Persistent atrial fibrillation: Plan: Persistent since April 2020 per cardiology note. - Continue metoprolol as above, holding warfarin given hematoma and supratherapeutic INR. Monitor on telemetry (6) Type 2 diabetes mellitus: Plan: On glimepiride at home, will hold this while inpatient. - Accu-Chek achs with SSI. A1c 8.1 - Diabetic/HH diet. Will be n.p.o. pending procedure Monitor BSgs (7) Dyslipidemia: Plan: Continue rosuvastatin, increased from 5 mg to 10 mg daily at cardiology visit on 06/09. (8) Sleep apnea: Plan: No formal diagnosis per records, Recommended to have sleep study by cardiology on 06/09 due to ongoing fatigue. He reports he has had it done, but was not given results. Consider overnight pulse ox study while inpatient to arrange for O2 HS if needed if unable to obtain records. Will check with billiard table assembler if able to follow up on this (9) CKD (chronic kidney disease) stage 2, GFR 60-89 ml/min: Plan: eGFR 80.3, CrCl 80.8. - Seems to be about baseline, no evidence of KAT. Constipation - Patient was seen in our ED this month for constipation, was given laxatives. However patient now has a known pelvic mass and perirectal hematoma that is causing his rectum to be deviated, therefore it is unlikely continuation of stool softeners or laxatives will improve much. - Pending urology's decision to proceed with procedure tomorrow morning, can consider a GI versus general surgery consult in the future to discuss options to alleviate patient's constipation, i.e. therapeutic colonoscopy versus ostomy? Plan: - Admit to med/tele. - SCDs, chemo PPx contraindicated in setting of supratherapeutic INR, hematoma. - Full code. Admission and Anticipated Discharge Date Admission Date: July 20, 2021 Supervising Physician Co-Signing Physician Notes Attending Attestation - Chart reviewed in detail, care plan d/w VINICIUS Cabezas. I agree w/ the lemons components of her documentation. Appreciate urology assistance; operative note from today reviewed. Florin Masters MD Subjective Patient evaluated this morning. Recently seen by Urology provider, plans for cysto + TURBT for TURP this afternoon. Remains NPO. Pain comes and goes, primarily between rectum and testicles. About every two hours, pain controlled with ordered medications. Did have some weight loss over past 2-3 months. No night sweats. Issues with associated constipation. Does have cousin who from Prostate Ca and believes he was about age 54 when this occurred. Unsure when diagnosed. No fever/chills. No chest pain, shortness of breath, abdominal pain, nausea or vomiting at this time. Questions/concerns addressed. Review of Systems Review of Systems: All systems reviewed & are unremarkable except as noted in HPI & below Physical Exam Physical Exam: General: WD male resting in bed, two guards at bedside, no acute distress and reportedly just got washed up HEENT: head normocephalic, atraumatic, mm slightly dry, trachea midline without deviation Resp: CTAB, no w/c/r, on room air CV: irregularly irregular, no m/r/g, no edema, calves non-tender, pulses palpable GI: +BS, distended, non-tender, no guarding/rigidity : jerez draining yellow urine MSK/Neuro: moves all extremities, follows commands, speech clear, no focal deficit, strength full throughout Skin: warm, dry, no rashes Results & Data Results & Data ([facility]) Vital Signs (Past 12 Hours) Vital Signs Temp Pulse Pulse Resp BP BP Pulse Ox 07/21/21 08:15 37.0 C 98 H 18 113/70 93 07/21/21 03:21 36.7 C 93 H 18 97/60 L 95 07/21/21 00:04 97 H 07/20/21 23:16 36.6 C 88 18 107/63 91 07/20/21 20:47 85 94/60 L Laboratory Results 07/21/21 07/21/21 07/21/21 Range/Units 07:28 07:28 07:28 WBC (4.8-10.8) K/uL RBC (4.7-6.1) M/uL Hgb (14.0-18.0) g/dL Hct (42-52) % MCV (80-100) fL MCH (25-34) pg MCHC (32-36) g/dL RDW Std Deviation (36.4-46.3) fL RDW Coeff of Rossy (11.5-14.5) % Plt Count (130-400) K/uL MPV (7.4-10.4) fL Immature Gran % (Auto) % Neut % (Auto) % Lymph % (Auto) % [place] % (Auto) % Eos % (Auto) % Baso % (Auto) % Neut # (Auto) (1.4-6.5) K/uL Lymph # (Auto) (1.2-3.4) K/uL [place] # (Auto) (0.11-0.59) K/uL Eos # (Auto) (0-0.5) K/uL Baso # (Auto) (0-0.2) K/uL Immature Gran # (Auto) (0.00-0.02) K/uL PT 12.8 H (9.0-12.0) Seconds INR 1.2 H (0.9-1.1) APTT 36.1 H (21.0-31.0) Seconds PTT Ratio 1.3 Sodium 131 L (136-145) mmol/L Potassium 4.2 (3.5-5.1) mmol/L Chloride 96 L (98-107) mmol/L Carbon Dioxide 28 (21-32) mmol/L Anion Gap 7 (3-11) BUN 21 (6-23) mg/dl Creatinine 1.08 (0.6-1.4) mg/dl Est Cr Clr Drug Dosing 89.4 ml/min Est GFR ( Amer) 90.3 ml/min Est GFR (Non-Af Amer) 77.9 ml/min BUN/Creatinine Ratio 19.4 (10-20) Glucose 130 H (70-99(Fasting)) mg/dl POC Glucose (70-99) mg/dl Estimat Average Glucose 186 mg/dl Hemoglobin A1c 8.1 H (4.5-5.6) % Calcium 8.9 (8.5-10.1) mg/dl Total Bilirubin (0.2-1.0) mg/dl AST (13-39) U/L ALT (7-52) U/L Alkaline Phosphatase (34-104) U/L Total Protein (6.0-8.3) gm/dl Albumin (3.4-5.0) gm/dl Globulin (2.5-4.0) gm/dl Albumin/Globulin Ratio (0.9-2) Lipase (11-82) U/L Prostate Specific Ag (0-4) ng/ml Urine Color Urine Appearance (Clear) Urine pH (4.5-7.5) Ur Specific [place] (1.000-1.030) Urine Protein (Negative) Urine Glucose (UA) (Negative) Urine Ketones (Negative) Urine Blood (Negative) Urine Nitrite (Negative) Urine Bilirubin (Negative) Urine Urobilinogen (Negative) Ur Leukocyte Esterase (Negative) Urine WBC (Auto) (0-5) /hpf Urine RBC (Auto) (0-4) /hpf U Hyaline Cast (Auto) (0-5) /lpf U Epithel Cells (Auto) (0-5) /lpf Urine Bacteria (Auto) (Negative) Nasal Screen MRSA (PCR) (Negative) SARS-CoV-2, RNA, NAAT (NEGATIVE) Blood Type Blood Type Recheck Antibody Screen Crossmatch 07/21/21 07/21/21 07/21/21 Range/Units 07:28 05:44 00:10 WBC 8.52 (4.8-10.8) K/uL RBC 4.41 L (4.7-6.1) M/uL Hgb 13.6 L (14.0-18.0) g/dL Hct 38.7 L (42-52) % MCV 87.8 (80-100) fL MCH 30.8 (25-34) pg MCHC 35.1 (32-36) g/dL RDW Std Deviation 41.9 (36.4-46.3) fL RDW Coeff of Rossy 13.0 (11.5-14.5) % Plt Count 246 (130-400) K/uL MPV 10.3 (7.4-10.4) fL Immature Gran % (Auto) 0.1 % Neut % (Auto) 61.2 % Lymph % (Auto) 26.3 % [place] % (Auto) 10.9 % Eos % (Auto) 1.3 % Baso % (Auto) 0.2 % Neut # (Auto) 5.21 (1.4-6.5) K/uL Lymph # (Auto) 2.24 (1.2-3.4) K/uL [place] # (Auto) 0.93 H (0.11-0.59) K/uL Eos # (Auto) 0.11 (0-0.5) K/uL Baso # (Auto) 0.02 (0-0.2) K/uL Immature Gran # (Auto) 0.01 (0.00-0.02) K/uL PT (9.0-12.0) Seconds INR (0.9-1.1) APTT (21.0-31.0) Seconds PTT Ratio Sodium (136-145) mmol/L Potassium (3.5-5.1) mmol/L Chloride (98-107) mmol/L Carbon Dioxide (21-32) mmol/L Anion Gap (3-11) BUN (6-23) mg/dl Creatinine (0.6-1.4) mg/dl Est Cr Clr Drug Dosing ml/min Est GFR ( Amer) ml/min Est GFR (Non-Af Amer) ml/min BUN/Creatinine Ratio (10-20) Glucose (70-99(Fasting)) mg/dl POC Glucose 130 H 119 H (70-99) mg/dl Estimat Average Glucose mg/dl Hemoglobin A1c (4.5-5.6) % Calcium (8.5-10.1) mg/dl Total Bilirubin (0.2-1.0) mg/dl AST (13-39) U/L ALT (7-52) U/L Alkaline Phosphatase (34-104) U/L Total Protein (6.0-8.3) gm/dl Albumin (3.4-5.0) gm/dl Globulin (2.5-4.0) gm/dl Albumin/Globulin Ratio (0.9-2) Lipase (11-82) U/L Prostate Specific Ag (0-4) ng/ml Urine Color Urine Appearance (Clear) Urine pH (4.5-7.5) Ur Specific [place] (1.000-1.030) Urine Protein (Negative) Urine Glucose (UA) (Negative) Urine Ketones (Negative) Urine Blood (Negative) Urine Nitrite (Negative) Urine Bilirubin (Negative) Urine Urobilinogen (Negative) Ur Leukocyte Esterase (Negative) Urine WBC (Auto) (0-5) /hpf Urine RBC (Auto) (0-4) /hpf U Hyaline Cast (Auto) (0-5) /lpf U Epithel Cells (Auto) (0-5) /lpf Urine Bacteria (Auto) (Negative) Nasal Screen MRSA (PCR) (Negative) SARS-CoV-2, RNA, NAAT (NEGATIVE) Blood Type Blood Type Recheck Antibody Screen Crossmatch 07/20/21 07/20/21 07/20/21 Range/Units 20:50 20:43 18:03 WBC (4.8-10.8) K/uL RBC (4.7-6.1) M/uL Hgb (14.0-18.0) g/dL Hct (42-52) % MCV (80-100) fL MCH (25-34) pg MCHC (32-36) g/dL RDW Std Deviation (36.4-46.3) fL RDW Coeff of Rossy (11.5-14.5) % Plt Count (130-400) K/uL MPV (7.4-10.4) fL Immature Gran % (Auto) % Neut % (Auto) % Lymph % (Auto) % [place] % (Auto) % Eos % (Auto) % Baso % (Auto) % Neut # (Auto) (1.4-6.5) K/uL Lymph # (Auto) (1.2-3.4) K/uL [place] # (Auto) (0.11-0.59) K/uL Eos # (Auto) (0-0.5) K/uL Baso # (Auto) (0-0.2) K/uL Immature Gran # (Auto) (0.00-0.02) K/uL PT (9.0-12.0) Seconds INR (0.9-1.1) APTT (21.0-31.0) Seconds PTT Ratio Sodium (136-145) mmol/L Potassium (3.5-5.1) mmol/L Chloride (98-107) mmol/L Carbon Dioxide (21-32) mmol/L Anion Gap (3-11) BUN (6-23) mg/dl Creatinine (0.6-1.4) mg/dl Est Cr Clr Drug Dosing ml/min Est GFR ( Amer) ml/min Est GFR (Non-Af Amer) ml/min BUN/Creatinine Ratio (10-20) Glucose (70-99(Fasting)) mg/dl POC Glucose 181 H 166 H (70-99) mg/dl Estimat Average Glucose mg/dl Hemoglobin A1c (4.5-5.6) % Calcium (8.5-10.1) mg/dl Total Bilirubin (0.2-1.0) mg/dl AST (13-39) U/L ALT (7-52) U/L Alkaline Phosphatase (34-104) U/L Total Protein (6.0-8.3) gm/dl Albumin (3.4-5.0) gm/dl Globulin (2.5-4.0) gm/dl Albumin/Globulin Ratio (0.9-2) Lipase (11-82) U/L Prostate Specific Ag (0-4) ng/ml Urine Color Urine Appearance (Clear) Urine pH (4.5-7.5) Ur Specific [place] (1.000-1.030) Urine Protein (Negative) Urine Glucose (UA) (Negative) Urine Ketones (Negative) Urine Blood (Negative) Urine Nitrite (Negative) Urine Bilirubin (Negative) Urine Urobilinogen (Negative) Ur Leukocyte Esterase (Negative) Urine WBC (Auto) (0-5) /hpf Urine RBC (Auto) (0-4) /hpf U Hyaline Cast (Auto) (0-5) /lpf U Epithel Cells (Auto) (0-5) /lpf Urine Bacteria (Auto) (Negative) Nasal Screen MRSA (PCR) Negative (Negative) SARS-CoV-2, RNA, NAAT (NEGATIVE) Blood Type Blood Type Recheck Antibody Screen Crossmatch 07/20/21 07/20/21 07/20/21 Range/Units 12:39 11:40 11:40 WBC (4.8-10.8) K/uL RBC (4.7-6.1) M/uL Hgb (14.0-18.0) g/dL Hct (42-52) % MCV (80-100) fL MCH (25-34) pg MCHC (32-36) g/dL RDW Std Deviation (36.4-46.3) fL RDW Coeff of Rossy (11.5-14.5) % Plt Count (130-400) K/uL MPV (7.4-10.4) fL Immature Gran % (Auto) % Neut % (Auto) % Lymph % (Auto) % [place] % (Auto) % Eos % (Auto) % Baso % (Auto) % Neut # (Auto) (1.4-6.5) K/uL Lymph # (Auto) (1.2-3.4) K/uL [place] # (Auto) (0.11-0.59) K/uL Eos # (Auto) (0-0.5) K/uL Baso # (Auto) (0-0.2) K/uL Immature Gran # (Auto) (0.00-0.02) K/uL PT (9.0-12.0) Seconds INR (0.9-1.1) APTT (21.0-31.0) Seconds PTT Ratio Sodium (136-145) mmol/L Potassium (3.5-5.1) mmol/L Chloride (98-107) mmol/L Carbon Dioxide (21-32) mmol/L Anion Gap (3-11) BUN (6-23) mg/dl Creatinine (0.6-1.4) mg/dl Est Cr Clr Drug Dosing ml/min Est GFR ( Amer) ml/min Est GFR (Non-Af Amer) ml/min BUN/Creatinine Ratio (10-20) Glucose (70-99(Fasting)) mg/dl POC Glucose (70-99) mg/dl Estimat Average Glucose mg/dl Hemoglobin A1c (4.5-5.6) % Calcium (8.5-10.1) mg/dl Total Bilirubin (0.2-1.0) mg/dl AST (13-39) U/L ALT (7-52) U/L Alkaline Phosphatase (34-104) U/L Total Protein (6.0-8.3) gm/dl Albumin (3.4-5.0) gm/dl Globulin (2.5-4.0) gm/dl Albumin/Globulin Ratio (0.9-2) Lipase (11-82) U/L Prostate Specific Ag 103.838 H (0-4) ng/ml Urine Color Urine Appearance (Clear) Urine pH (4.5-7.5) Ur Specific [place] (1.000-1.030) Urine Protein (Negative) Urine Glucose (UA) (Negative) Urine Ketones (Negative) Urine Blood (Negative) Urine Nitrite (Negative) Urine Bilirubin (Negative) Urine Urobilinogen (Negative) Ur Leukocyte Esterase (Negative) Urine WBC (Auto) (0-5) /hpf Urine RBC (Auto) (0-4) /hpf U Hyaline Cast (Auto) (0-5) /lpf U Epithel Cells (Auto) (0-5) /lpf Urine Bacteria (Auto) (Negative) Nasal Screen MRSA (PCR) (Negative) SARS-CoV-2, RNA, NAAT (NEGATIVE) Blood Type B Positive Blood Type Recheck B Positive Antibody Screen NEGATIVE Crossmatch See Detail 07/20/21 07/20/21 07/20/21 Range/Units 11:24 10:55 08:25 WBC (4.8-10.8) K/uL RBC (4.7-6.1) M/uL Hgb (14.0-18.0) g/dL Hct (42-52) % MCV (80-100) fL MCH (25-34) pg MCHC (32-36) g/dL RDW Std Deviation (36.4-46.3) fL RDW Coeff of Rossy (11.5-14.5) % Plt Count (130-400) K/uL MPV (7.4-10.4) fL Immature Gran % (Auto) % Neut % (Auto) % Lymph % (Auto) % [place] % (Auto) % Eos % (Auto) % Baso % (Auto) % Neut # (Auto) (1.4-6.5) K/uL Lymph # (Auto) (1.2-3.4) K/uL [place] # (Auto) (0.11-0.59) K/uL Eos # (Auto) (0-0.5) K/uL Baso # (Auto) (0-0.2) K/uL Immature Gran # (Auto) (0.00-0.02) K/uL PT 39.0 H (9.0-12.0) Seconds INR 3.9 H (0.9-1.1) APTT 51.6 H* (21.0-31.0) Seconds PTT Ratio 1.9 Sodium (136-145) mmol/L Potassium (3.5-5.1) mmol/L Chloride (98-107) mmol/L Carbon Dioxide (21-32) mmol/L Anion Gap (3-11) BUN (6-23) mg/dl Creatinine (0.6-1.4) mg/dl Est Cr Clr Drug Dosing ml/min Est GFR ( Amer) ml/min Est GFR (Non-Af Amer) ml/min BUN/Creatinine Ratio (10-20) Glucose (70-99(Fasting)) mg/dl POC Glucose (70-99) mg/dl Estimat Average Glucose mg/dl Hemoglobin A1c (4.5-5.6) % Calcium (8.5-10.1) mg/dl Total Bilirubin (0.2-1.0) mg/dl AST (13-39) U/L ALT (7-52) U/L Alkaline Phosphatase (34-104) U/L Total Protein (6.0-8.3) gm/dl Albumin (3.4-5.0) gm/dl Globulin (2.5-4.0) gm/dl Albumin/Globulin Ratio (0.9-2) Lipase (11-82) U/L Prostate Specific Ag (0-4) ng/ml Urine Color Yellow Urine Appearance Clear (Clear) Urine pH 7.5 (4.5-7.5) Ur Specific [place] 1.017 (1.000-1.030) Urine Protein 1+ H (Negative) Urine Glucose (UA) Negative (Negative) Urine Ketones Negative (Negative) Urine Blood 3+ H (Negative) Urine Nitrite Negative (Negative) Urine Bilirubin Negative (Negative) Urine Urobilinogen Negative (Negative) Ur Leukocyte Esterase 1+ H (Negative) Urine WBC (Auto) 5-10 H (0-5) /hpf Urine RBC (Auto) >30 H (0-4) /hpf U Hyaline Cast (Auto) 0 (0-5) /lpf U Epithel Cells (Auto) 0-5 (0-5) /lpf Urine Bacteria (Auto) Negative (Negative) Nasal Screen MRSA (PCR) (Negative) SARS-CoV-2, RNA, NAAT NEGATIVE (NEGATIVE) Blood Type Blood Type Recheck Antibody Screen Crossmatch 07/20/21 07/20/21 Range/Units 08:25 08:25 WBC 12.17 H (4.8-10.8) K/uL RBC 4.86 (4.7-6.1) M/uL Hgb 15.0 (14.0-18.0) g/dL Hct 43.6 (42-52) % MCV 89.7 (80-100) fL MCH 30.9 (25-34) pg MCHC 34.4 (32-36) g/dL RDW Std Deviation 42.0 (36.4-46.3) fL RDW Coeff of Rossy 12.9 (11.5-14.5) % Plt Count 304 (130-400) K/uL MPV 10.3 (7.4-10.4) fL Immature Gran % (Auto) 0.3 % Neut % (Auto) 66.5 % Lymph % (Auto) 21.7 % [place] % (Auto) 10.8 % Eos % (Auto) 0.6 % Baso % (Auto) 0.1 % Neut # (Auto) 8.09 H (1.4-6.5) K/uL Lymph # (Auto) 2.64 (1.2-3.4) K/uL [place] # (Auto) 1.32 H (0.11-0.59) K/uL Eos # (Auto) 0.07 (0-0.5) K/uL Baso # (Auto) 0.01 (0-0.2) K/uL Immature Gran # (Auto) 0.04 H (0.00-0.02) K/uL PT (9.0-12.0) Seconds INR (0.9-1.1) APTT (21.0-31.0) Seconds PTT Ratio Sodium 131 L (136-145) mmol/L Potassium 4.7 (3.5-5.1) mmol/L Chloride 94 L (98-107) mmol/L Carbon Dioxide 28 (21-32) mmol/L Anion Gap 9 (3-11) BUN 17 (6-23) mg/dl Creatinine 1.19 (0.6-1.4) mg/dl Est Cr Clr Drug Dosing 80.8 ml/min Est GFR ( Amer) 80.3 ml/min Est GFR (Non-Af Amer) 69.3 ml/min BUN/Creatinine Ratio 14.3 (10-20) Glucose 161 H (70-99(Fasting)) mg/dl POC Glucose (70-99) mg/dl Estimat Average Glucose mg/dl Hemoglobin A1c (4.5-5.6) % Calcium 9.5 (8.5-10.1) mg/dl Total Bilirubin 1.1 H (0.2-1.0) mg/dl AST 19 (13-39) U/L ALT 17 (7-52) U/L Alkaline Phosphatase 58 (34-104) U/L Total Protein 7.1 (6.0-8.3) gm/dl Albumin 4.0 (3.4-5.0) gm/dl Globulin 3.1 (2.5-4.0) gm/dl Albumin/Globulin Ratio 1.3 (0.9-2) Lipase 18 (11-82) U/L Prostate Specific Ag (0-4) ng/ml Urine Color Urine Appearance (Clear) Urine pH (4.5-7.5) Ur Specific [place] (1.000-1.030) Urine Protein (Negative) Urine Glucose (UA) (Negative) Urine Ketones (Negative) Urine Blood (Negative) Urine Nitrite (Negative) Urine Bilirubin (Negative) Urine Urobilinogen (Negative) Ur Leukocyte Esterase (Negative) Urine WBC (Auto) (0-5) /hpf Urine RBC (Auto) (0-4) /hpf U Hyaline Cast (Auto) (0-5) /lpf U Epithel Cells (Auto) (0-5) /lpf Urine Bacteria (Auto) (Negative) Nasal Screen MRSA (PCR) (Negative) SARS-CoV-2, RNA, NAAT (NEGATIVE) Blood Type Blood Type Recheck Antibody Screen Crossmatch Diagnostic Findings Abdomen/Pelvis CT 07/20/21 10:11 CT SCAN OF THE ABDOMEN AND PELVIS WITH IV CONTRAST CLINICAL HISTORY: Lower abdominal pain. COMPARISON STUDY: Abdominal CT dated 02/07/2020. TECHNIQUE: Following the IV administration of 94 cc of Optiray 320, CT scan of the abdomen and pelvis is performed from the lung bases to the proximal femora. Images are reviewed in the axial, sagittal, and coronal planes. IV contrast was administered without complication. A dose lowering technique was utilized adhering to the principles of ALARA. CT DOSE: 592.45 mGy.cm FINDINGS: Lung bases: The heart is enlarged noting a small to moderate pericardial effusion. The lung bases are clear. Liver: The contrast-enhanced liver is normal in size, contour, and attenuation. There is no intrahepatic biliary ductal dilatation. The hepatic veins and portal veins are patent. Gallbladder: Unremarkable. Spleen: Normal in size and attenuation. Pancreas: Unremarkable. Adrenal glands: Unremarkable. Kidneys: The contrast enhanced kidneys are normal in size and without hydronephrosis. The kidneys enhance symmetrically. Bilateral renal cysts measure up to 3.3 cm. Additional subcentimeter cortical hypodensities also likely represent cysts but are too small for definitive characterization. Abdominal vasculature: The abdominal aorta is normal in course and caliber noting mild atherosclerotic calcification. Bowel: There is no bowel obstruction. Fecal retention is seen throughout the colon. The appendix is well-visualized and normal. Peritoneum: There is trace fluid in the left paracolic gutter. No intra-axial free air is identified. See below under pelvic viscera for discussion of pelvic findings/hematoma. There is a large fat-containing umbilical/periumbilical hernia. Lymphadenopathy: There is an enlarged right pelvic sidewall lymph node on image #343. This measures 2.6 x 1.4 cm. No iliac chain or retroperitoneal lymphadenopathy is identified. Pelvic viscera: The bladder is decompressed around a Jerez catheter. The bladder wall is markedly thickened and hyperemic with surrounding inflammation. Nonspecific gas is seen within the bladder lumen. There is the suggestion of a mass lesion in the central pelvis slightly to the right of midline on image #357. This measures approximately 6 x 6 x 3.5 cm and may arise from the prostate. This extends into the right pelvic sidewall, extends inferiorly along the course of the urethra. There is a large complex fluid collection typical for a hematoma identified in the left lower pelvis. This is best seen on image #366 and measures approximately 12 x 11 x 6 cm. This is largely perirectal in location and extends from the level of the seminal vesicles nearly to the level of the anus. This contains an a hematocrit level and there is mild surrounding infiltration. This causes mass effect on the adjacent rectum which is deviated to the right. Skeletal structures: No lytic or blastic lesions are seen. IMPRESSION: 1. Findings suggest cystitis. Correlate with clinical findings and urinalysis. 2. Findings are highly suspicious for a lobulated mass lesion in the central pelvis as detailed above, likely arising from the prostate gland. Neoplasm is the diagnosis of exclusion. 3. There is a pathologically enlarged right pelvic sidewall lymph node. 4. There is a large complex fluid collection typical for a hematoma in the left lower pelvis. This is largely perirectal in location, and extends from the level of the seminal vesicles nearly to the anus. This causes mass effect on the adjacent rectum. 5. There is trace fluid in the left paracolic gutter. 6. Moderate colonic fecal retention. 7. Cardiomegaly with a small to moderate pericardial effusion. 8. Additional findings as above. Findings were discussed with Dr. Rae in the emergency department at the time of interpretation on 07/20/2021. ACT 112: Negative or not required by law. Electronically signed by: Saman Huggins M.D. 07/20/2021 11:12 AM PG Care Time/CCT Total # of Minutes Spent Total Time Spent with Patient: Total time spent is greater than 50% in coordination of care (as documented) at patient's floor/unit and/or counseling patient: Coding Level of Care Code 71416 Subseq Hosp Care Lvl 3 Diagnoses Pelvic mass R19.00 Perirectal hematoma S36.62XA Hyponatremia E87.1 Hypertension I10 Persistent atrial fibrillation I48.19 Type 2 diabetes mellitus E11.9 Dyslipidemia E78.5 Sleep apnea G47.30 CKD (chronic kidney disease) stage 2, GFR 60-89 ml/min N18.2
[2021-07-21 08:40] LABS: BUN Creatinine Ratio 19.4 (10-20); Calcium 8.9 mg/dl (8.5-10.1); Creatinine Clr Calc Pharmacy 89.4 ml/min; Est GFR (African American) 90.3 ml/min; Est GFR (Non-African American) 77.9 ml/min; Potassium 4.2 mmol/L (3.5-5.1)
[2021-07-21 09:03] LABS: Estimated Average Glucose 186 mg/dl; Hemoglobin A1C 8.1 % (4.5-5.6)
--- NOTE | 2021-07-21 09:20 | Urology Progress Note ---
Date of Service July 21, 2021 Assessment & Plan (1) Haematoma of pelvis: (2) Elevated PSA: Plan: 51yo M who presented with rectal pain, difficulty with urination, and hematuria. CT imaging obtained and was remarkable for a lobulated mass in the central pelvic region that was felt to arise from the prostate gland and a large complex fluid collection typical for a hematoma identified in the left lower pelvis. - Pt afebrile, hemodynamically stable. - White count and creatinine normal. Hemoglobin stable at 13.6. PSA 103.8. - INR 1.2 this morning. Anticoagulants on hold per primary team. - Plan of care reviewed with Dr. Hernandez. - Given the concern for bladder vs prostate mass suspicious for malignancy, will plan to proceed to OR today for TURBT with Dr. Hernandez. - Patient agreeable to proceeding, all questions were answered. - Risks and benefits to be reviewed with patient by Dr. Hernandez. OR notified. Covid test negative. Covered with scheduled IV Ceftriaxone. - Keep NPO. - Continue supportive care, antibiotic therapy, and pain management. - Will continue to follow. ATTENDING NOTE: Independently evaluated and assessed and examined. Agree with above. Large mass/pelvic lesion with possible pelvic hematoma with obstruction Risks and benefits discussed at length for procedure. These include bleeding, infection, injury to surrounding tissues or organs, and risks associated with anesthesia. Patient states understanding and agrees to proceed. Will sign consent and proceed. Plan for cystoscopy with possible resection. Admission and Anticipated Discharge Date Admission Date: July 20, 2021 Subjective Pt examined at bedside this AM, x2 guards at bedside. Awake, resting in bed on arrival. No acute distress. Denies fevers or chills. Denies nausea/vomiting. Still with perianal pain in the area between his scrotum and anus, has improved some with medication. Campos catheter intact, draining clear yellow urine. Has been NPO except for sips of water with meds. Review of Systems Constitutional: as per Subjective / HPI Gastrointestinal: as per Subjective / HPI Genitourinary: + as per Subjective / HPI Physical Exam Constitutional: well developed and well nourished; no acute distress Respiratory: no respiratory distress and no labored breathing Gastrointestinal (Abdomen): Inspection/Auscultation: abdomen normal to inspection Skin: No visible rashes or lesions to exposed skin areas Neurologic: awake Psychiatric: Orientation: alert, oriented x 3 and cooperative Genitourinary: Campos catheter intact, draining clear yellow urine Results & Data ([facility]) Vital Signs (Past 12 Hours) Vital Signs Temp Pulse Pulse Resp BP BP Pulse Ox 07/21/21 08:15 37.0 C 98 H 18 113/70 93 07/21/21 03:21 36.7 C 93 H 18 97/60 L 95 07/21/21 00:04 97 H 07/20/21 23:16 36.6 C 88 18 107/63 91 07/20/21 20:47 85 94/60 L PG Care Time/CCT Total # of Minutes Spent Total Time Spent with Patient: Total time spent is greater than 50% in coordination of care (as documented) at patient's floor/unit and/or counseling patient: Coding Level of Care Code 29872 Subseq Hosp Care Lvl 2 Diagnoses Haematoma of pelvis Elevated PSA R97.20
[2021-07-21] MEDS ORDERED: PROPOFOL IV EMULSION 10 MG/ML 20 ML VIAL IV ONE (10:44)
[2021-07-21] MEDS ORDERED: fentaNYL citrate 100 MCG/2 ML VIAL ONE (10:48)
[2021-07-21] MEDS ORDERED: MIDAZOLAM HCL 1 MG/ML 2ML VIAL ONE (10:48)
[2021-07-21] MEDS ORDERED: ATROPINE SULFATE 0.1 MG/ML 10ML SYR IV PRN (10:53)
[2021-07-21] MEDS ORDERED: HYDROmorphone INJ 1 MG/ML SYRINGE IV PRN (10:53)
[2021-07-21] MEDS ORDERED: ePHEDrine sulfate 50 MG/ML AMP IV PRN (10:53)
[2021-07-21] MEDS ORDERED: ONDANSETRON INJ 2 MG/ML 2 ML VIAL IV PRN (10:53)
--- NOTE | 2021-07-21 10:57 | Anesthesiology Consultation ---
Date of Service July 21, 2021 Assessment & Plan (1) Encounter for pre-operative examination: Chart Review Chart Review: Acceptable Risk for Surgery and Patient NOT seen in Pre Admission Testing Consults Requested none History Surgery Operation Date: 07/21/21 11:55 Proposed Procedures p Transurethral Resection Bladder Tumor - Bassam Hernandez, Height/Weight Height: 5 ft 7 in Weight: 100.7 kg Allergies Allergy/AdvReac Type Severity Reaction Status Date / Time No Known Allergies Allergy Unverified 07/20/21 10:35 Medications Home Medications Medication Instructions Recorded Confirmed Last Taken aspirin 81 mg tablet,delayed 81 mg PO DAILY 02/06/20 07/20/21 07/06/21 release hydrochlorothiazide 25 mg tablet 25 mg PO DAILY 02/06/20 07/20/21 07/06/21 lisinopril 20 mg tablet 20 mg PO DAILY 02/06/20 07/20/21 07/06/21 glimepiride 1 mg tablet 1 mg PO QAM 04/18/21 07/20/21 07/06/21 rosuvastatin 5 mg tablet 5 mg PO HS 04/18/21 07/20/21 07/01/21 tamsulosin 0.4 mg capsule 0.8 mg PO DAILY 04/18/21 07/20/21 07/06/21 warfarin 4 mg tablet 8 mg PO DAILY 04/18/21 07/20/21 07/07/21 acetaminophen 500 mg tablet 1,000 mg PO TID PRN 07/08/21 07/20/21 Unknown finasteride 5 mg tablet 5 mg PO DAILY 07/08/21 07/20/21 07/06/21 metoprolol tartrate 100 mg tablet 100 mg PO BID 07/08/21 07/20/21 07/06/21 polyethylene glycol 3350 17 gram 17 g PO TID PRN 07/08/21 07/20/21 Unknown oral powder packet (Miralax) Active Medications Generic Name Dose Route Start Last Admin Trade Name Freq PRN Reason Stop Dose Admin Finasteride 5 mg 07/21/21 09:00 07/21/21 08:16 Finasteride 5 Mg Tab PO 08/20/21 08:59 5 mg DAILY FABIANO Administration Lactated Ringer's 1,000 mls @ 100 mls/hr 07/21/21 00:01 07/21/21 00:09 Lr IV 08/20/21 00:00 80 mls/hr .Q10H FABIANO Administration Insulin Aspart 0 units 07/20/21 16:30 07/21/21 08:15 Insulin Aspart Per Unit SC 08/19/21 16:29 Not Given ACHS FABIANO Lisinopril 20 mg 07/21/21 09:00 07/21/21 08:16 Lisinopril 20 Mg Tab PO 08/20/21 08:59 20 mg DAILY FABIANO Administration Metoprolol Tartrate 100 mg 07/20/21 21:00 07/21/21 08:16 Metoprolol Tartrate 100 Mg Tab PO 08/19/21 20:59 100 mg BID FABIANO Administration Morphine Sulfate 2 mg 07/20/21 15:07 07/20/21 22:01 Morphine Sulfate 2 Mg/Ml Carp IV 08/03/21 15:06 2 mg Q2H PRN Administration Moderate Pain (4,5,6) on NRS Morphine Sulfate 4 mg 07/20/21 15:07 07/21/21 08:14 Morphine Sulfate 4 Mg/Ml 1 Ml Carp\Vial IV 08/03/21 15:06 4 mg Q2H PRN Administration Severe Pain (7,8,9,10) on NRS Rosuvastatin Calcium 10 mg 07/20/21 21:00 07/20/21 20:48 Rosuvastatin Calcium 10 Mg Tab PO 08/19/21 20:59 10 mg HS FABIANO Administration Tamsulosin HCl 0.8 mg 07/21/21 09:00 07/21/21 08:16 Tamsulosin Hcl 0.4 Mg Cap PO 08/20/21 08:59 0.8 mg DAILY FABIANO Administration NPO Date Last Intake of Fluids: 07/20/21 Time Last Intake of Fluids: 08:00 Last Intake of Fluids Comment: sips with meds Date Last Intake of Solids: 07/20/21 Time Last Intake of Solids: 21:00 Past Medical History Medical History (Updated 07/21/21 @ 11:04 by Liu Hardin MD) CKD (chronic kidney disease) stage 2, GFR 60-89 ml/min Constipation Current use of fdc anticoagulation Dyslipidemia Hypertension Hyponatremia Pelvic mass Perirectal hematoma Persistent atrial fibrillation Sleep apnea Type 2 diabetes mellitus Past Surgical History hand surgery and lip surgery Past Anesthesia History No Hx of Anesthesia Complications and No Family Hx of Anesthesia Complications History of PONV No Hx of PONV and No Hx of Motion Sickness Social History Smoking Status: Former smoker Do You Dip or Chew Tobacco: No Hx Alcohol Use: No Hx Substance Use: No Physical Exam Vital Signs Last Vital Signs Temp 37 C 07/21/21 10:30 Pulse 82 07/21/21 10:30 Resp 20 07/21/21 10:30 BP 105/75 07/21/21 10:30 Pulse Ox 97 07/21/21 10:30 Testing Laboratory Results 07/21/21 07:28 07/21/21 07:28 PT 12.8 Seconds (9.0-12.0) H 07/21/21 07: INR 1.2 (0.9-1.1) H 07/21/21 07: APTT 36.1 Seconds (21.0-31.0) H 07/21/21 07:28 Hemoglobin A1c 8.1 % (4.5-5.6) H 07/21/21 07:28 Urine Color Yellow 07/20/21 10:55 Urine Appearance Clear (Clear) 07/20/21 10:55 Urine pH 7.5 (4.5-7.5) 07/20/21 10:55 Ur Specific Achille 1.017 (1.000-1.030) 07/20/21 10:55 Urine Protein 1+ (Negative) H 07/20/21 10:55 Urine Glucose (UA) Negative (Negative) 07/20/21 10:55 Urine Ketones Negative (Negative) 07/20/21 10:55 Urine Nitrite Negative (Negative) 07/20/21 10:55 Ur Leukocyte Esterase 1+ (Negative) H 07/20/21 10:55 Urine WBC (Auto) 5-10 /hpf (0-5) H 07/20/21 10:55 Urine RBC (Auto) >30 /hpf (0-4) H 07/20/21 10:55 U Hyaline Cast (Auto) 0 /lpf (0-5) 07/20/21 10:55 U Epithel Cells (Auto) 0-5 /lpf (0-5) 07/20/21 10:55 Urine Bacteria (Auto) Negative (Negative) 07/20/21 10:55 Blood Type B Positive 07/20/21 11:40 Antibody Screen NEGATIVE 07/20/21 11:40 07/21/21 07/21/21 05:44 00:10 POC Glucose 130 H 119 H Electrocardiogram Date: 04/29/20 A fib. HR 62. Nonspecific ST changes. Echocardiogram Date: 03/19/21 Rhythm during this study is a fib. Normal LV systolic function with probably no regional abnormalities. Estimated EF 65% Small pericardial effusion.
[2021-07-21] MEDS ORDERED: CIPROFLOXACIN 400MG / 200ML D5W IV ONE (11:15)
[2021-07-21] MEDS ORDERED: ePHEDrine sulfate 50 MG/ML AMP ONE (11:49)
[2021-07-21] MEDS ORDERED: VASOPRESSIN 20 UNIT/ML VIAL ONE (11:49)
[2021-07-21] MEDS ORDERED: LIDOCAINE 2% 2 ML VIAL/AMP(20MG/ML) INFIL ONE (12:02)
--- NOTE | 2021-07-21 13:10 | Operative Report ---
PG Post Operative Report Pre & Post Diagnosis Operation Date: 07/21/21 11:55 Pre-Op Diagnosis: Hematoma of pelvis, elevated PSA Post-Op Diagnosis: Hematoma of pelvis, elevated PSA I identified the patient and participated in the time-out.: Yes Procedure Operation Date: 07/21/21 11:55 Actual Procedures p Transurethral Resection of prostate/mass, drainage of prostatic abscess, and exam under anesthesia - Bassam Hernandez DO Surgeon Bassam Hernandez, II, DO Glove [employer] Inspector None Estimated Blood Loss 5 Findings Consistent with Post-Op Diagnosis Very large mass versus fluid collection causing considerable mass-effect and displacement of rectum and inability to palpate the prostate transrectally. Considerable bulging with obstruction of the prostate on transurethral assessment with significant displacement of tissue with into the bladder causing severe obstructive issues. Bladder is severely inflamed with considerable edema and irritation. Purulent drainage coming from the bladder neck/prostatic region at approximately 7:00. Mid prostate from approximately 2:00 to 5:00 necrotic vascular appearing tissue on deep resection of prostate. Specimens Prostate resection Drains 24 Malay three-way catheter connected to CBI Anesthesia Type General Complications none Disposition Disposition: Recovery Room Indications Patient with obstruction and possible pelvic mass with extremely elevated PSA. Risks and benefits discussed at length. Description of Procedure Patient was consented and brought back to the operating room. Patient was placed under anesthesia in the supine position and moved to the dorsal lithotomy position. Patient was prepped and draped in the regular sterile fashion. A time out was completed. An exam under anesthesia with digital rectal exam was completed. A large masslike versus fluid filled tumor along the left pelvic wall causing considerable displacement of the rectum with difficulty palpating deep. No masses within the rectum were palpated. Considerable displacement by the mass or fluid collection. Does displace the prostate as well making palpation by DRAKE of the prostate unable to be completed. A 30degree Cystoscope was placed into the bladder and the entire bladder was examined. The UO's were identified as well as the bladder neck, trigone, dome, and the other important landmarks. The prostatic urethra and large lobes/adenoma was assessed and the veru and bladder neck identified and area/size was assessed. The bladder was found to be significantly inflamed. Severe obstruction was occurring with significant projection of prostate within the bladder causing considerable obstructive issues. Extremely high bladder neck with difficult access. The resection scope was placed and the fine bipolar loop was selected. Starting at the 5 and 7 o'clock positions, a channel was created from bladder neck to the veru. Throughout the 7 o'clock position a large pocket of purulent fluid was found and drained by unroofing the cystic areas. Large crypt/vascular appearing tissue was disrupted and purulent fluid was able to be drained. The channel was then further resected to allow better access into the bladder. Severe edema throughout the bladder neck and base of the bladder as well as significant edema and irritation at the dome. The left UO was able to be identified however the right UO was not able to be identified and appeared to be located within a more significant area of edema on the right trigone region. Additional tissue was resected from the anterior prostate as well as the lateral pierce. On the left side on resection a large vascular/necrotic appearing area was discovered. No purulence was noted however the tissue did appear significantly abnormal compared to the prostatic tissue. Did appear to be solid mass material versus adenoma with significant vascular tissue. Further resection was halted and bleeding was controlled throughout this area. The Specimen was removed and sent for analysis. The resection bed and any bleeding areas were fulgurated/cauterized and the entire area inspected. All bleeding was controlled. The bladder was inspected a final time. The bladder was emptied and irrigated. All specimen and debris was removed. The scope was removed with the bladder partially full. A catheter was placed and balloon elevated. This was easily irrigated. The patient was cleaned, aroused from anesthesia, and transferred to the pacu in stable condition having tolerated the procedure well with no complications. I was present and participated in all aspects of the procedure. The patient will be monitored in the PACU until transferred. We will plan to monitor the patient overnight. The general surgery team was alerted of the findings on the DRAKE. They recommended possible further assessment with interventional radiology for possible biopsy or drainage. We will plan to continue CBI for drainage. Will await pathology for final results. I attest to the content of the Intraoperative Record and any orders documented therein. Any exceptions are noted below.
[2021-07-21] MEDS: fentaNYL citrate 100 MCG/2 ML VIAL IV PRN ×4 (13:20→13:35)
--- NOTE | 2021-07-21 13:48 | Anesthesiology Progress Note ---
Date of Service July 21, 2021 Anesthesia Post Procedure Vital Signs Vital Signs: Temp Pulse Pulse Pulse Resp BP BP 07/21/21 13:40 89 18 116/87 07/21/21 13:30 88 18 121/80 07/21/21 13:20 92 H 18 110/83 07/21/21 13:11 36.7 C 104 H 18 97/81 L 07/21/21 10:30 37 C 82 20 105/75 07/21/21 08:15 37.0 C 98 H 18 113/70 07/21/21 08:00 100 H 07/21/21 03:21 36.7 C 93 H 18 97/60 L 07/21/21 00:04 97 H 07/20/21 23:16 36.6 C 88 18 107/63 07/20/21 20:47 85 94/60 L 07/20/21 20:02 36.9 C 96 H 18 93/58 L 07/20/21 17:13 94 H 07/20/21 16:00 36.8 C 100 H 18 104/67 07/20/21 14:00 75 20 111/71 Pulse Ox 07/21/21 13:40 94 07/21/21 13:30 100 07/21/21 13:20 100 07/21/21 13:11 100 07/21/21 10:30 97 07/21/21 08:15 93 07/21/21 08:00 07/21/21 03:21 95 07/21/21 00:04 07/20/21 23:16 91 07/20/21 20:47 07/20/21 20:02 95 07/20/21 17:13 07/20/21 16:00 97 07/20/21 14:00 Pain Intensity Lower Groin: Pain Intensity: 5 Transfer of Care Handoff Completed per policy Notes Mental Status: alert / awake / arousable and participated in evaluation Patient Amnestic to Procedure: Yes Nausea / Vomiting: adequately controlled Pain: improving with treatment Airway Patency, RR, SpO2: stable & adequate BP & HR: stable & adequate Hydration State: stable & adequate Anesthetic Complications: no major complications apparent and Pt Satisfied with anesthetic care
--- NOTE | 2021-07-21 16:12 | XCELERA ---
[id number]
[2021-07-21] MEDS: DOCUSATE SODIUM/SENNA 50/8.6MG TAB PO SCH (17:12)
[2021-07-21] MEDS: cefTRIAXone SODIUM 1,000 MG in DEXTROSE 5% 50 ML IV SCH (17:15)
[2021-07-21] MEDS: POLYETHYLENE (MIRALAX) 17 GM PACK PO SCH (20:53)
[2021-07-21] MEDS: ROSUVASTATIN CALCIUM 10 MG TAB PO SCH (20:53)
[2021-07-21] MEDS: ACETAMINOPHEN 325 MG TAB PO PRN (23:04)
[2021-07-21] MEDS: LIDOCAINE 2% JELLY 5 ML TUBE EXT PRN (23:04)
[2021-07-22] MEDS: MoRPHine SULFATE 4 MG/ML 1 ML CARP\\VIAL IV PRN ×4 (04:35→23:00)
--- NOTE | 2021-07-22 07:40 | Hospitalist Progress Note ---
Date of Service July 22, 2021 Assessment & Plan (1) Pelvic mass: Plan: Lobulated, central pelvis measuring 6 x 6 x 3.5 cm, ? arise from prostate. Associated with 12 pound weight loss over the last 3 weeks, night sweats, fatigue, intermittent episodes of chills and fevers over the past few months. Family history of prostate cancer in a cousin, who recently -- AGE 56 Associated with pathologic enlarged right pelvic sidewall lymph node. Concerning for malignancy PSA 103.838. * Per patient, its been elevated for the past 3 years. No previous/baseline PSA in our system. Urology consult placed POD#1 s/p Transurethral Resection of prostate/mass, drainage of prostatic abscess, and exam under anesthesia - Bassam Hernandez, DO Per Urology, our radiologist may be able to get to area of concern regarding concerns found on DRAKE as they alerted general surgery for possible biopsy or drainage Pathology pending Ceftriaxone for possible infection.--> Complains of fever/chills/elevated WBC on admission with prostate pain and placed on ceftriaxone for coverage however may not be infectious and could be from underlying malignancy. No urine cx on admission. Will ask lab to see if UA from admit able to be sent for culture (does not have sample from 07/20). Will repeat however has been on abx since admission, check procal Discussed with micro, all path sent from OR formalinized and unable to do culture from such. If improving on Ceftriaxone, will need to consider 6 wks cefdinir to cover for prostatitis. On coumadin for hx afib (afib on monitor), given Vit K and INR and has remained rate controlled on monitor. Resume when able but holding off currently in setting of hematoma ECHO obtained given pericardial effusion on CT scan--> with hypertrophic cardiomyopathy, EF >70%, moderate effusion noted. Cards on consult as well, appreciate assistance Stopped IVF for now, encouraging PO. HOlding diuretics for now given KAT with Cr up to 2 with normal baseline, likely degree of ATN from anesthesia/low BP. Denied lightheadedness/dizziness currently and d/c IVF as has been on continuous and possible slight JVD on examination Pain control, antiemetics prn -- add PO oxycodone as needed for oral option --> added bowel regimen as has not moved bowels since admission Discussed with Urology and General Surgery regarding need for pelvic mass biopsy vs need for drain. [place] nothing surgical at this time and can have repeat CT in 2-4 weeks for surveillance. ALso with BPH -Flomax 0.8mg daily, finasteride 5mg daily. --Jerez placed 4 days ago, with gross hematuria (2) Perirectal hematoma: Plan: Left lower pelvis, largely perirectal location, extends from seminal vesicles to anus causing mass-effect of adjacent rectum. No history of trauma or falls, this could be result of frequent Jerez catheter placement versus subsequent effect of the pelvic mass. Will hold aspirin and Coumadin, patient received vitamin K in ED. PT/INR in AM --> INR 1.2 after VIt K Hgb stable at but diluted some from continuous IVF Jerez without continued hematuria but improved with CBI Monitor CBC (3) Hyponatremia: Plan: Na 130, was 139 on outpatient labs from 05/28/2021. Hold HCTZ. Suspect volume overload from excess IVF. Will hold off further for now and monitor BMP in AM TSH wnl BMP in AM (4) Hypertension: Plan: Continue metoprolol 100 mg twice daily. - Hold HCTZ due to hyponatremia, holding lisinopril due to low BP Asymptomatic currently, 92/59 (5) Persistent atrial fibrillation: Plan: Persistent since April 2020 per cardiology note. Continue metoprolol as above, holding warfarin given hematoma and supratherapeutic INR. Monitor on telemetry -- has been rate controlled in 70-80s (6) Type 2 diabetes mellitus: Plan: On glimepiride at home, will hold this while inpatient. A1c 8.1 BSG AC/HS, SSI while inpatient BSGs acceptable, monitor (7) Dyslipidemia: Plan: Continue rosuvastatin, increased from 5 mg to 10 mg daily at cardiology visit on 06/09. (8) Sleep apnea: Plan: No formal diagnosis per records, Recommended to have sleep study by cardiology on 06/09 due to ongoing fatigue. He reports he has had it done, but was not given results. Consider overnight pulse ox study while inpatient to arrange for O2 HS if needed if unable to obtain records. Will check with copier operator if able to follow up on this but check overnight study in case and arrange O2 HS if needed (9) CKD (chronic kidney disease) stage 2, GFR 60-89 ml/min: Plan: eGFR 80.3, CrCl 80.8. Bumped to 2 today, likely KAT from hypotension. Repeat UA pending. Constipation Patient was seen in our ED this month for constipation, was given laxatives. However patient now has a known pelvic mass and perirectal hematoma that is causing his rectum to be deviated, therefore it is unlikely continuation of sto ol softeners or laxatives will improve much. Bowel regimen ordered --> passing lots of gas but no BM. Encouraged guards to get patient up/ambulating. Limit opiates/use PO when able Increased bowel regimen General surgery also on consult for above, can consider i.e. therapeutic colonoscopy versus ostomy? (10) Pericardial effusion: Plan: noted on CT Lyme checked, negative No CP/SOB ECHO obtained, moderate effusion, EF >70% with hypertrophic cardiomyopathy noted Slightly volume overloaded on exam, d/c IVF Cards on consult -- appreciate input Plan: - Admit to med/tele. - SCDs, chemo PPx contraindicated in setting of supratherapeutic INR, hematoma. - Full code Admission and Anticipated Discharge Date Admission Date: July 20, 2021 Subjective Patient evaluated this afternoon. Pain controlled, just received medication. Eating/drinking no issue. Urology clamped CBI this morning. Jerez remains in place, darker urine draining. States improvement in pain to rectum with IV meds but will order PO for non- severe pain. Also notes improvement in penile pain with addition of lidocaine jelly. No abdominal pain/nausea. Passing gas but has not moved his bowels. Has not been up out of bed much, and requested guards ambulate in room today to assist with BM. Denies fever/chill,chest pain, shortness of breath. Discussed Urology recs for general surgery/possible IR if unable to complete biopsy vs drainage of possible fluid collection noted on DRAKE during OR yesterday. Dr Negron on consult. Per Urology IJEOMA, possibly to arrange outpatient but unclear what actual wants from Dr Hernandez were regarding mass bx vs surgical drain as noted yesterday. Discussed with patient if need for more emergent/urgent IR not able to be performed at this institution will need to look into arranging transfer for IR. Patient states he just wants to do anything he needs to to feel better. Questions/concerns addressed at this time. Review of Systems Review of Systems: All systems reviewed & are unremarkable except as noted in HPI & below Physical Exam Physical Exam: General: WD male resting in bed, two guards at bedside, no acute distress HEENT: head normocephalic, atraumatic, mm moist, trachea midline without deviation Resp: CTAB, no w/c/r, on room air CV: irregularly irregular (rate 74bpm), no m/r/g, no edema, calves non-tender, pulses palpable GI: +BS, distended, non-tender, no guarding/rigidity : jerez draining concentrated darkened urine MSK/Neuro: moves all extremities, follows commands, speech clear, no focal deficit, strength full throughout Skin: warm, dry, no rashes Results & Data Results & Data ([facility]) Vital Signs (Past 12 Hours) Vital Signs Temp Pulse Pulse Resp BP BP Pulse Ox 07/22/21 05:16 79 07/22/21 04:31 102/69 07/22/21 04:13 36.7 C 70 18 99/61 L 98 07/21/21 23:29 36.8 C 73 18 81/57 L 96 Laboratory Results 07/22/21 07/22/21 07/22/21 Range/Units 11:50 07:56 07:00 WBC (4.8-10.8) K/uL RBC (4.7-6.1) M/uL Hgb (14.0-18.0) g/dL Hct (42-52) % MCV (80-100) fL MCH (25-34) pg MCHC (32-36) g/dL RDW Std Deviation (36.4-46.3) fL RDW Coeff of Rossy (11.5-14.5) % Plt Count (130-400) K/uL MPV (7.4-10.4) fL PT (9.0-12.0) Seconds INR (0.9-1.1) Sodium (136-145) mmol/L Potassium (3.5-5.1) mmol/L Chloride (98-107) mmol/L Carbon Dioxide (21-32) mmol/L Anion Gap (3-11) BUN (6-23) mg/dl Creatinine (0.6-1.4) mg/dl Est Cr Clr Drug Dosing ml/min Est GFR ( Amer) ml/min Est GFR (Non-Af Amer) ml/min BUN/Creatinine Ratio (10-20) Glucose (70-99(Fasting)) mg/dl POC Glucose 125 H 108 H (70-99) mg/dl Calcium (8.5-10.1) mg/dl Magnesium (1.7-2.4) mg/dl TSH (0.300-4.500) uIu/ml Lyme Disease IgG Ab Negative (Negative) Lyme Disease IgM Ab Negative (Negative) 07/22/21 07/22/21 07/22/21 Range/Units 07:00 07:00 07:00 WBC (4.8-10.8) K/uL RBC (4.7-6.1) M/uL Hgb (14.0-18.0) g/dL Hct (42-52) % MCV (80-100) fL MCH (25-34) pg MCHC (32-36) g/dL RDW Std Deviation (36.4-46.3) fL RDW Coeff of Rossy (11.5-14.5) % Plt Count (130-400) K/uL MPV (7.4-10.4) fL PT 12.2 H (9.0-12.0) Seconds INR 1.2 H (0.9-1.1) Sodium 130 L (136-145) mmol/L Potassium 4.3 (3.5-5.1) mmol/L Chloride 96 L (98-107) mmol/L Carbon Dioxide 30 (21-32) mmol/L Anion Gap 4 (3-11) BUN 35 H (6-23) mg/dl Creatinine 2.06 H D (0.6-1.4) mg/dl Est Cr Clr Drug Dosing 47.6 ml/min Est GFR ( Amer) 41.4 ml/min Est GFR (Non-Af Amer) 35.7 ml/min BUN/Creatinine Ratio 17.0 (10-20) Glucose 114 H (70-99(Fasting)) mg/dl POC Glucose (70-99) mg/dl Calcium 8.6 (8.5-10.1) mg/dl Magnesium 2.2 (1.7-2.4) mg/dl TSH 0.854 (0.300-4.500) uIu/ml Lyme Disease IgG Ab (Negative) Lyme Disease IgM Ab (Negative) 07/22/21 07/21/21 07/21/21 Range/Units 07:00 20:12 16:57 WBC 9.77 (4.8-10.8) K/uL RBC 4.11 L (4.7-6.1) M/uL Hgb 12.6 L (14.0-18.0) g/dL Hct 36.3 L (42-52) % MCV 88.3 (80-100) fL MCH 30.7 (25-34) pg MCHC 34.7 (32-36) g/dL RDW Std Deviation 42.0 (36.4-46.3) fL RDW Coeff of Rossy 13.1 (11.5-14.5) % Plt Count 246 (130-400) K/uL MPV 10.6 H (7.4-10.4) fL PT (9.0-12.0) Seconds INR (0.9-1.1) Sodium (136-145) mmol/L Potassium (3.5-5.1) mmol/L Chloride (98-107) mmol/L Carbon Dioxide (21-32) mmol/L Anion Gap (3-11) BUN (6-23) mg/dl Creatinine (0.6-1.4) mg/dl Est Cr Clr Drug Dosing ml/min Est GFR ( Amer) ml/min Est GFR (Non-Af Amer) ml/min BUN/Creatinine Ratio (10-20) Glucose (70-99(Fasting)) mg/dl POC Glucose 135 H 145 H (70-99) mg/dl Calcium (8.5-10.1) mg/dl Magnesium (1.7-2.4) mg/dl TSH (0.300-4.500) uIu/ml Lyme Disease IgG Ab (Negative) Lyme Disease IgM Ab (Negative) PG Care Time/CCT Total # of Minutes Spent Total Time Spent with Patient: Total time spent is greater than 50% in coordination of care (as documented) at patient's floor/unit and/or counseling patient: Coding Level of Care Code 24883 Subseq Hosp Care Lvl 3 Diagnoses Pelvic mass R19.00 Perirectal hematoma S36.62XA Hyponatremia E87.1 Hypertension I10 Persistent atrial fibrillation I48.19 Type 2 diabetes mellitus E11.9 Dyslipidemia E78.5 Sleep apnea G47.30 CKD (chronic kidney disease) stage 2, GFR 60-89 ml/min N18.2 Pericardial effusion I31.3
[2021-07-22 07:49] LABS: Hematocrit (blood only) 36.3 % (42-52); Hemoglobin 12.6 g/dL (14.0-18.0); Mean Corpuscular Hemoglobin 30.7 pg (25-34); Mean Corpuscular Hgb Conc 34.7 g/dL (32-36); Mean Corpuscular Volume 88.3 fL (80-100); Mean Platelet Volume 10.6 fL (7.4-10.4); Platelet Count 246 K/uL (130-400); RDW Coefficient of Variation 13.1 % (11.5-14.5); Red Blood Count 4.11 M/uL (4.7-6.1); White Blood Count 9.77 K/uL (4.8-10.8)
[2021-07-22 08:02] LABS: INR 1.2 (0.9-1.1); Prothrombin Time 12.2 Seconds (9.0-12.0)
[2021-07-22] MEDS: INSULIN ASPART PER UNIT SC SCH ×5 (08:05→21:24)
[2021-07-22] MEDS: LACTATED RINGER'S 1,000 ML IV SCH (08:06)
[2021-07-22] MEDS: TAMSULOSIN HCL 0.4 MG CAP PO SCH (08:06)
[2021-07-22] MEDS: FINASTERIDE 5 MG TAB PO SCH (08:07)
[2021-07-22] MEDS: DOCUSATE SODIUM/SENNA 50/8.6MG TAB PO SCH (08:07)
[2021-07-22] MEDS: METOPROLOL TARTRATE 100 MG TAB PO SCH ×2 (08:08→19:41)
[2021-07-22] MEDS: POLYETHYLENE (MIRALAX) 17 GM PACK PO SCH ×3 (08:08→19:42)
[2021-07-22 09:14] LABS: Calcium 8.6 mg/dl (8.5-10.1); Creatinine Clr Calc Pharmacy 47.6 ml/min; Est GFR (African American) 41.4 ml/min; Est GFR (Non-African American) 35.7 ml/min; Magnesium 2.2 mg/dl (1.7-2.4); Potassium 4.3 mmol/L (3.5-5.1)
[2021-07-22 09:21] LABS: Lyme Ab IgG w/WB Rflx Negative (Negative); Lyme Ab IgM w/WB Rflx Negative (Negative)
[2021-07-22] MEDS ORDERED: bisacodyL 5 MG TABEC PO ONE (12:28)
--- NOTE | 2021-07-22 13:07 | Urology Progress Note ---
Date of Service July 22, 2021 Assessment & Plan (1) Elevated PSA: (2) Haematoma of pelvis: Plan: Postop day 1 status post TUR with Dr. Hernandez Subjectively feels okay He feels less pressure He has a catheter in place which is causing expected levels of irritation He has not yet moved his bowels CBI has cleared his urine appropriately Pathology pending Ultimately, depending on the findings of pathology he may require further interrogation, possible interventional radiology biopsying the area further from the prostate and bladder to determine if this is driven by malignancy versus infection/inflammation Admission and Anticipated Discharge Date Admission Date: July 20, 2021 Subjective No major issues overnight Tolerated CBI and his catheter Denies any pain Not yet moving his bowels Physical Exam Physical Exam: Comfortable appearing Abdomen soft Urine clear with slow CBI Results & Data ([facility]) Vital Signs (Past 12 Hours) Vital Signs Temp Pulse Pulse Resp BP BP Pulse Ox 07/22/21 11:20 37.3 C 83 19 92/59 L 98 07/22/21 08:00 36.8 C 80 93 H 19 96/60 L 98 07/22/21 05:16 79 07/22/21 04:31 102/69 07/22/21 04:13 36.7 C 70 18 99/61 L 98 PG Care Time/CCT Total # of Minutes Spent Total Time Spent with Patient: Total time spent is greater than 50% in coordination of care (as documented) at patient's floor/unit and/or counseling patient: Coding Level of Care Code 86437 Subseq Hosp Care Lvl 2 Diagnoses Elevated PSA R97.20 Haematoma of pelvis
[2021-07-22] MEDS: LIDOCAINE 2% JELLY 5 ML TUBE EXT PRN (13:20)
--- NOTE | 2021-07-22 13:41 | Surgery Consultation ---
Date of Consultation July 22, 2021 Assessment & Plan (1) Haematoma of pelvis: Await pathology results from yesterdays TURP. CT was reviewed with radiology who is recommending against perc drainage at this time due to the likelihood that this is hematoma. INR was 3.9 on admission and normal white count and temps would also argue against abscess. If diagnosis remains in question, would recommend further evaluation by IR or colorectal surgery for drainage/biopsy. Supervising Physician Co-Signing Physician Notes Pnt d/w VINICIUS [place], labs and imaging reviewed, agree with above. pelvic mass and hematoma, elevated PSA. Mass/hematoma was seen on prior imaging study. unlikely to be abscess. await prostate biopsies, if inconclusive then IR for biopsy. surgery will follow peripherally. History of Present Illness Attending Physician: Ruel Del Rio MD History of Present Illness 51 y/o male inmate with complaints of difficulty urinating and hematuria and constipation or watery stools for the past 3 weeks. He had TURP yesterday and has discomfort from catheter and also perineal pressure he has been having for some time "like sitting on a ball." Had regular lunch. Has not had BM in past two days. Had Miralax and Dulcolax today. Allergies Allergy/AdvReac Type Severity Reaction Status Date / Time No Known Allergies Allergy Unverified 07/20/21 10:35 Home Medications Medication Instructions Recorded Confirmed Type aspirin 81 mg tablet,delayed 81 mg PO DAILY 02/06/20 07/20/21 History release hydrochlorothiazide 25 mg tablet 25 mg PO DAILY 02/06/20 07/20/21 History lisinopril 20 mg tablet 20 mg PO DAILY 02/06/20 07/20/21 History glimepiride 1 mg tablet 1 mg PO QAM 04/18/21 07/20/21 History rosuvastatin 5 mg tablet 5 mg PO HS 04/18/21 07/20/21 History tamsulosin 0.4 mg capsule 0.8 mg PO DAILY 04/18/21 07/20/21 History warfarin 4 mg tablet 8 mg PO DAILY 04/18/21 07/20/21 History acetaminophen 500 mg tablet 1,000 mg PO TID PRN 07/08/21 07/20/21 History finasteride 5 mg tablet 5 mg PO DAILY 07/08/21 07/20/21 History metoprolol tartrate 100 mg tablet 100 mg PO BID 07/08/21 07/20/21 History polyethylene glycol 3350 17 gram 17 g PO TID PRN 07/08/21 07/20/21 History oral powder packet (Miralax) Patient History Medical History CKD (chronic kidney disease) stage 2, GFR 60-89 ml/min Constipation Current use of nursing home anticoagulation Dyslipidemia Hypertension Hyponatremia Pelvic mass Perirectal hematoma Persistent atrial fibrillation Sleep apnea Type 2 diabetes mellitus Social History Smoking Status: Former smoker Second Hand Exposure: No; Do You Dip or Chew Tobacco: No; Tobacco Cessation Education Requested by Patient: No Hx Alcohol Use: No Hx Substance Use: No Preferred Language: Turkmen Communication Ability: Effective Research Professional Required: No Beliefs That Will Affect Care: None Current Living Situation Comment: [facility] - guards at bedside. Other Information That Helps Us Care for You: No Feels Safe at Home: Yes Review of Systems Constitutional: + weight loss; no fever and no chills Gastrointestinal: + abdominal pain, + bloating, + constipation and + diarrhea/loose stools; no nausea and no blood in stools Genitourinary: + difficulty urinating and + hematuria Physical Exam Constitutional: WD/WN, vitals as above Respiratory: normal respiratory effort; no respiratory distress Cardiovascular: RRR, no murmur, no edema Gastrointestinal (Abdomen): Inspection/Auscultation: abdomen not distended Percussion/Palpation: + abdomen tender (mild) and abdomen soft; no guarding Skin: no rashes, warm and dry Results & Data ([facility]) Vital Signs (Past 12 Hours) Vital Signs Temp Pulse Pulse Resp BP BP Pulse Ox 07/22/21 11:20 37.3 C 83 19 92/59 L 98 07/22/21 08:00 36.8 C 80 93 H 19 96/60 L 98 07/22/21 05:16 79 07/22/21 04:31 102/69 07/22/21 04:13 36.7 C 70 18 99/61 L 98 PG Care Time/CCT Total # of Minutes Spent Total Time Spent with Patient: Total time spent is greater than 50% in coordination of care (as documented) at patient's floor/unit and/or counseling patient: Coding Level of Care Code INT OBSERVATION CARE 70M LVL 3 Diagnoses Haematoma of pelvis
[2021-07-22] MEDS: oxyCODONE HCL IR 5 MG TAB (IMMEDIATE RELEASE) PO PRN ×2 (14:22→18:07)
--- NOTE | 2021-07-22 15:12 | Cardiology Consultation ---
Date of Consultation July 22, 2021 Assessment & Plan (1) Pericardial effusion: (2) Hypertrophic cardiomyopathy: (3) Unspecified atrial fibrillation: (4) Anticoagulant long-term use: 1. Pericardial effusion: His pericardial effusion appears to have increased from February 2021 when it was first identified on an echocardiogram done elsewhere until it is hard to be sure now when it is moderate although there is no sign of tamponade. Whether it is much different because we cannot compare the images side to side. There is no need to tap the effusion therapeutically since he does not show tamponade, however I did discuss this with Dr. Milton as a diagnostic tap however he does not feel that the effusion is large enough and he would graded as mild to moderate and therefore I do not think we should perform this procedure. 2. Hypertrophic cardiomyopathy: He does have a hypertrophic cardiomyopathy, he does have a history of hypertension although he is currently not hypertensive. Continuation of beta-blockade is probably the best option for this. 3. Atrial fibrillation: There are electrocardiograms in his records from April 2017 showing sinus rhythm, however by April 29, 2020 he was in atrial fibrillation and on Holter monitoring April 11, 2021 he remained in atrial f ibrillation. His left atrium is severely dilated. I believe he most likely has permanent atrial fibrillation at this time and I would recommend continuation of rate control rather than attempts at cardioversion or ablation (which apparently had been raised in the past). 4. Anticoagulation: He has been anticoagulated with warfarin, however that is being held and his INR is normal. I would continue to hold it until his evaluation has been completed. I would consider one of the newer agents when anticoagulation is reinstituted. History of Present Illness Reason for Consultation: Atrial fibrillation, pericardial effusion Attending Physician: Ruel Del Rio MD History of Present Illness This is a 51-year-old incarcerated male with a history of hypertension who has had atrial fibrillation initially documented in 2020. He was started on anticoagulation with warfarin and he is on rate control with metoprolol tartrate. He did have a Holter monitor performed on April 11, 2021 where his heart rate ranged from 42 to 194 bpm with an average of 77. He presented to the office on June 09, [address] He, he was having difficulty with dyspnea on exertion, fatigue and chest discomfort. A stress echo was recommended to evaluate his ventricular response to exercise and to look for myocardial ischemia. It was also recommended to consider switching to one of the newer oral anticoagulants from warfarin. He has been in the emergency room several times recently, most recently on July 20, 2021 with difficulty urinating. He was admitted, echocardiography done July 21, 2021 showed a hyperdynamic left ventricle with hypertrophic cardiomyopathy and severe left atrial dilatation. He did have mild to moderate mitral regurgitation and a moderate sized pericardial effusion. There was no evidence of tamponade. There is a prior echocardiogram in his records from March 19, 2021 where a small pericardial effusion was identified. He did have evaluation on July 21, 2021 of a mass near his prostate. This is possibly malignancy versus infection and inflammation. I discussed cardiovascular symptoms with him and he seems to feel well from that standpoint. He is anxious about his cardiac diagnoses but does not seem to have much in the way of cardiovascular symptoms. He exercises regularly and wanted to be sure that he could go back to doing that. He does not have lightheadedness, dizziness and seems unaware of his palpitations from atrial fibrillation. Allergies Allergy/AdvReac Type Severity Reaction Status Date / Time No Known Allergies Allergy Unverified 07/20/21 10:35 Home Medications Medication Instructions Recorded Confirmed Type aspirin 81 mg tablet,delayed 81 mg PO DAILY 02/06/20 07/20/21 History release hydrochlorothiazide 25 mg tablet 25 mg PO DAILY 02/06/20 07/20/21 History lisinopril 20 mg tablet 20 mg PO DAILY 02/06/20 07/20/21 History glimepiride 1 mg tablet 1 mg PO QAM 04/18/21 07/20/21 History rosuvastatin 5 mg tablet 5 mg PO HS 04/18/21 07/20/21 History tamsulosin 0.4 mg capsule 0.8 mg PO DAILY 04/18/21 07/20/21 History warfarin 4 mg tablet 8 mg PO DAILY 04/18/21 07/20/21 History acetaminophen 500 mg tablet 1,000 mg PO TID PRN 07/08/21 07/20/21 History finasteride 5 mg tablet 5 mg PO DAILY 07/08/21 07/20/21 History metoprolol tartrate 100 mg tablet 100 mg PO BID 07/08/21 07/20/21 History polyethylene glycol 3350 17 gram 17 g PO TID PRN 07/08/21 07/20/21 History oral powder packet (Miralax) Patient History Medical History CKD (chronic kidney disease) stage 2, GFR 60-89 ml/min Constipation Current use of bobbin cleaner anticoagulation Dyslipidemia Hypertension Hyponatremia Pelvic mass Perirectal hematoma Persistent atrial fibrillation Sleep apnea Type 2 diabetes mellitus Social History Smoking Status: Former smoker Second Hand Exposure: No; Do You Dip or Chew Tobacco: No; Tobacco Cessation Education Requested by Patient: No Hx Alcohol Use: No Hx Substance Use: No Preferred Language: Yemeni Communication Ability: Effective Relay Mechanic Required: No Beliefs That Will Affect Care: None Current Living Situation Comment: [facility] - guards at bedside. Other Information That Helps Us Care for You: No Feels Safe at Home: Yes Review of Systems Review of Systems: All systems reviewed & are unremarkable except as noted in HPI & below Physical Exam Physical Exam: Constitutional: Alert, cooperative and in no distress. HEENT: Unremarkable Neck: No jugular venous distention, carotid pulses are irregular but otherwise normal and equal bilaterally without bruits. Pulmonary: Clear to auscultation bilaterally. Cardiac: Irregular rhythm with no murmur, gallop or rub. Abdomen: Soft, nontender with normal bowel sounds. Extremities: No edema. Distal pulses intact. Neurologic: No focal findings. Gait was not tested. Skin: No rash, ecchymoses or petechiae. Results & Data ([facility]) Vital Signs (Past 12 Hours) Vital Signs Temp Pulse Pulse Resp BP BP Pulse Ox 07/22/21 11:20 37.3 C 83 19 92/59 L 98 07/22/21 08:00 36.8 C 80 93 H 19 96/60 L 98 07/22/21 05:16 79 07/22/21 04:31 102/69 07/22/21 04:13 36.7 C 70 18 99/61 L 98 Laboratory Results Coagulation 07/22/21 Range/Units 07:00 PT 12.2 H (9.0-12.0) Seconds CBC 07/22/21 Range/Units 07:00 WBC 9.77 (4.8-10.8) K/uL RBC 4.11 L (4.7-6.1) M/uL Hgb 12.6 L (14.0-18.0) g/dL Hct 36.3 L (42-52) % Plt Count 246 (130-400) K/uL Comprehensive Metabolic Panel 07/22/21 Range/Units 07:00 Sodium 130 L (136-145) mmol/L Potassium 4.3 (3.5-5.1) mmol/L Chloride 96 L (98-107) mmol/L Carbon Dioxide 30 (21-32) mmol/L BUN 35 H (6-23) mg/dl Creatinine 2.06 H D (0.6-1.4) mg/dl Glucose 114 H (70-99(Fasting)) mg/dl Calcium 8.6 (8.5-10.1) mg/dl Intake and Output 07/22/21 07/22/21 07/22/21 06:59 14:59 22:59 Intake Total 1093.333 / 5053.333 1516.666 / 1516.666 Output Total 550 / 550 850 / 850 Balance 543.333 / 4503.333 666.666 / 666.666 Intake: IV 843.333 / 3966.517 7059.666 / 1516.666 Lactated Ringer's 1,000 ml @ 75 843.333 / 0080.325 1477.666 / 1516.666 mls/hr IV .[id number] [facility] Rx#: [id number] Oral 250 / 450 Output: Urine Amount (Catheter) 550 / 550 850 / 850 3-way Urethral 550 / 550 850 / 850 Other: Weight 103.9 kg Weight Measurement Method Built in [facility] Diagnostic Findings Telemetry: Atrial fibrillation with a relatively well controlled heart rate averaging 70 to 100 bpm. PG Care Time/CCT Total # of Minutes Spent Total Time Spent with Patient: Total time spent is greater than 50% in coordination of care (as documented) at patient's floor/unit and/or counseling patient: Coding Level of Care Code 87860 Inpt Consult Level 4 Diagnoses Pericardial effusion I31.3 Hypertrophic cardiomyopathy I42.2 Unspecified atrial fibrillation I48.91 Anticoagulant long-term use Z79.01
[2021-07-22 16:24] LABS: Appearance Urine Clear (Clear); Bacteria Urine Automated Negative (Negative); Bilirubin Urine Negative (Negative); Blood Urine 3+ (Negative); Color Urine Yellow; Glucose Urine UA Negative (Negative); Ketones Urine Negative (Negative); Leukocyte Esterase Urine Trace (Negative); Nitrite Urine Negative (Negative); Protein Urine Negative (Negative); RBC Urine Automated 0-4 /hpf (0-4); Specific Gravity Urine 1.006 (1.000-1.030); Urobilinogen Urine Negative (Negative); pH Urine 5.5 (4.5-7.5)
[2021-07-22] MEDS: cefTRIAXone SODIUM 1,000 MG in DEXTROSE 5% 50 ML IV SCH (17:37)
[2021-07-22] MEDS: MoRPHine SULFATE 2 MG/ML CARP IV PRN ×2 (19:09→19:40)
[2021-07-22] MEDS: ACETAMINOPHEN 325 MG TAB PO PRN (19:42)
[2021-07-22] MEDS: ROSUVASTATIN CALCIUM 10 MG TAB PO SCH (19:42)
[2021-07-23] MEDS: oxyCODONE HCL IR 5 MG TAB (IMMEDIATE RELEASE) PO PRN ×2 (01:55→08:25)
[2021-07-23] MEDS: MoRPHine SULFATE 4 MG/ML 1 ML CARP\\VIAL IV PRN ×2 (04:16→13:30)
[2021-07-23] MEDS ORDERED: diphenhydrAMINE HCl 12.5 MG/5 ML UDC PO ONE (04:30)
[2021-07-23 07:20] LABS: Basophils # (auto) 0.01 K/uL (0-0.2); Basophils % (auto) 0.1 %; Eosinophils # (auto) 0.16 K/uL (0-0.5); Eosinophils % (auto) 1.7 %; Hematocrit (blood only) 36.9 % (42-52); Hemoglobin 12.6 g/dL (14.0-18.0); Immature Granulocytes # (auto) 0.02 K/uL (0.00-0.02); Immature Granulocytes % (auto) 0.2 %; Lymphocytes # (auto) 1.94 K/uL (1.2-3.4); Lymphocytes % (auto) 20.9 %; Mean Corpuscular Hemoglobin 30.6 pg (25-34); Mean Corpuscular Hgb Conc 34.1 g/dL (32-36); Mean Corpuscular Volume 89.6 fL (80-100); Mean Platelet Volume 10.1 fL (7.4-10.4); Neutrophils # (auto) 5.84 K/uL (1.4-6.5); Neutrophils % (auto) 63.1 %; Platelet Count 287 K/uL (130-400); RDW Coefficient of Variation 13.1 % (11.5-14.5); Red Blood Count 4.12 M/uL (4.7-6.1); White Blood Count 9.27 K/uL (4.8-10.8)
--- NOTE | 2021-07-23 07:26 | Hospitalist Progress Note ---
Date of Service July 23, 2021 Assessment & Plan (1) Pelvic mass: Plan: Lobulated, central pelvis measuring 6 x 6 x 3.5 cm, ? arise from prostate. Associated with pathologic enlarged right pelvic sidewall lymph node, concerning for malignancy Also noted 12 pound weight loss over the last 3 weeks, night sweats, fatigue, intermittent episodes of chills and fevers over the past few months. Family history of prostate cancer in a cousin, who recently -- AGE 56 PSA 103.838. Per patient, its been elevated for the past 3 years however we have no previous baseline in system Urology consulted POD#2 s/p Transurethral Resection of prostate/mass, drainage of prostatic abscess, and exam under anesthesia - Bassam Hernandez, DO Pathology pending Unable to cx path from OR as in formalin --> discussed if improving on rocephin, consider 6 weeks cefdinir to cover for prostatitis Ceftriaxone for possible infection given prostatic abscess noted to be drained on OR report and reports of fever/chills/leukocytosis on admission however could be also related to underlying malignancy and as discussed with Urology, they felt the purulant drainage more of a retention issue, however given overall clinical picture would tx extened course for prostatitis w/ abscess Stopped IVF for now, encouraging PO. Given lasix 20mg x 1 this morning for some volume overload as had been on continuous IVF. Held off yesterday due to KAT with Cr to 2 likely 2nd to ATN from hypotension evening before but given this morning with improvement in SpO2. CXR without acute process General surgery consulted to see about biopsy/drainage of fluid collection --> felt very likely to be hematoma and rec not to drain and have repeat imaging outpt 2-4 wks for surveillance Pain control --> morphine for breakthrough, had been given PO oxycodone but with itchiness/rash and required benadryl. Tramadol ordered to see if able to tolerate. Constipation --> encouraging ambulation. has been up moving in room more frequently. passing gas. small BM this morning. Continue bowel regimen. Suppository available prn if needed, consider enema if needed. KUB without obstruction. Consulted GI to see about possible sigmoidoscopy. Also [facility] with [facility] and inquired about f/u colorectal surgery/IR as outpatient and recs for repeat imaging in couple weeks to ensure improving. They are to call me back BPH--Flomax 0.8mg daily, finasteride 5mg daily. Maintain bowen (2) Perirectal hematoma: Plan: Left lower pelvis, largely perirectal location, extends from seminal vesicles to anus causing mass-effect of adjacent rectum. No history of trauma or falls, this could be result of frequent Bowen catheter placement versus subsequent effect of the pelvic mass Holding aspirin and Coumadin - patient received vitamin K in ED --> INR 1.2 after VIt K Hgb stable at but diluted some from continuous IVF but since have discontinued Bowen with improvement in hematuria but still RBC on UA Monitor CBC, check iron studies (3) Hyponatremia: Plan: Na 130, was 139 on outpatient labs from 05/28/2021. TSH wnl Continue to hold HCTZ, suspect volume overloaded though from continuous IVF and this has been stopped. Lasix 20mg x 1 now that Cr normalized and Na 134 on Am labs BMP in AM (4) Hypertension: Plan: Continue metoprolol 100 mg twice daily. Hold HCTZ due to hyponatremia, holding lisinopril due to low BP day prior and given Lasix 20mg PO x 1 today BP improved 135/76 today (5) Persistent atrial fibrillation: Plan: Persistent since April 2020 per cardiology note. Continue metoprolol as above, holding warfarin given hematoma and supratherapeutic INR. Monitor on telemetry -- has been rate controlled in 80-90s/low 100s today but did have increased pain when trying to have BM this morning and rates 140-160 when up to restroom --> Rates improved to 80-90s this afternoon Keep K>4, Mag >2 Coumadin vs DOAC when able to resume (6) Type 2 diabetes mellitus: Plan: On glimepiride at home, will hold this while inpatient. A1c 8.1 BSG AC/HS, SSI while inpatient BSGs acceptable, monitor (7) Dyslipidemia: Plan: Continue rosuvastatin, increased from 5 mg to 10 mg daily at cardiology visit on 06/09. (8) Sleep apnea: Plan: No formal diagnosis per records, Recommended to have sleep study by cardiology on 06/09 due to ongoing fatigue. He reports he has had it done, but was not given results. Likely would need BiPAP given apneic periods on overnight pox study but did not drop for extended periods of time, will need to follow up on outpt formal sleep study --Will check with soda flaker if able to follow up on this (9) CKD (chronic kidney disease) stage 2, GFR 60-89 ml/min: Plan: eGFR 80.3, CrCl 80.8. Bumped to 2 but after IVF discontinued/BP improved normalized (10) Pericardial effusion: Plan: noted on CT. No CP/SOB. No evidence for tamponade ECHO obtained, moderate effusion, EF >70% with hypertrophic cardiomyopathy noted Slightly volume overloaded on exam day prior and IVF discontinued Cards on consult -- appreciate input. Recommends against drainage at this time. Continue BB (11) Hypertrophic cardiomyopathy: Plan: noted on echo BB/BP control Plan: SCDs, chemo PPx contraindicated in setting of supratherapeutic INR, hematoma. Continued inpatient stay Admission and Anticipated Discharge Date Admission Date: July 20, 2021 Supervising Physician Co-Signing Physician Notes PA Supervision Note: I did not personally see or examine the patient today, but I verified all lemons points of VINICIUS Cabezas's assessment and plan with the following exceptions/additions: None Subjective Patient initially attempted to be seen early this afternoon. Some scrotal edema reported overnight, redness with itching after oxycodone and improved with Benadryl. Attempting to have BM in bathroom currently but tele pack fell/pulled on catheter and patient requesting pain medication at this time but did get small amount of formed stool out. Believes having increased rectal pain from hemorrhoids and straining. Patient evaluated later this afternoon. Improvement in pain with the morphine and resting comfortable. Had about a "spoonful" of stool this afternoon but passing some gas. No nausea/vomiting or increased abdominal pain. Has not gotten lidocaine to penis since yesterday, would like some today. Encouraged guards to get up every 2 hours to ambulate to assist with bowels and discussed GI consultation to see if they would be willing to perform c-scope vs sigmoidoscopy vs additional recs but that I also spoke [facility] and they will work on arranging outpatient colorectal surgery/IR. No fever/chills. No chest pain or shortness ofbreath, palpitations, lightheadedness, or dizziness at this time. Bowen draining clearer yellow urine in tubing, some concentration/darkened urine in the bag. No clots. Did have oxycodone last night and states while pain improved he did get itchy. Has issues with sleep and has taken benadryl at [facility] to help. Discussed visatril for tonight and also will order tramadol to see if any less side effects/improvement in pain control to allow to avoid morphine but is available as needed for breakthrough. Review of Systems Review of Systems: All systems reviewed & are unremarkable except as noted in HPI & below Physical Exam Physical Exam: General: WD male resting in bed, two guards at bedside, no acute distress HEENT: head normocephalic, atraumatic, mm moist, trachea midline without deviation Resp: CTAB, no w/c/r, on room air CV: irregularly irregular (rate 92bpm), no m/r/g, no edema, calves non-tender, pulses palpable GI: +BS, distended, non-tender, no guarding/rigidity : bowen draining clear yellow urine in tubing, penis with tenderness around catheter site, minimal scrotal swelling Rectum tender to palpation, external hemorrhoids MSK/Neuro: moves all extremities, follows commands, speech clear, no focal deficit, strength full throughout Skin: warm, dry, no rashes Results & Data Results & Data ([facility]) Vital Signs (Past 12 Hours) Vital Signs Temp Pulse Pulse Pulse Resp BP BP 07/23/21 07:12 88 07/23/21 05:37 97 H 07/23/21 04:43 36.7 C 97 H 20 137/85 07/23/21 02:29 72 07/22/21 23:11 36.8 C 91 H 18 100/63 07/22/21 22:36 90 07/22/21 19:27 37.9 C H 121 H 18 112/63 Pulse Ox Pulse Ox 07/23/21 07:12 07/23/21 05:37 07/23/21 04:43 93 07/23/21 02:29 93 07/22/21 23:11 91 07/22/21 22:36 92 07/22/21 19:27 96 Laboratory Results 07/23/21 07/23/21 07/23/21 Range/Units 12:51 12:26 07:54 WBC (4.8-10.8) K/uL RBC (4.7-6.1) M/uL Hgb (14.0-18.0) g/dL Hct (42-52) % MCV (80-100) fL MCH (25-34) pg MCHC (32-36) g/dL RDW Std Deviation (36.4-46.3) fL RDW Coeff of Rossy (11.5-14.5) % Plt Count (130-400) K/uL MPV (7.4-10.4) fL Immature Gran % (Auto) % Neut % (Auto) % Lymph % (Auto) % [place] % (Auto) % Eos % (Auto) % Baso % (Auto) % Neut # (Auto) (1.4-6.5) K/uL Lymph # (Auto) (1.2-3.4) K/uL [place] # (Auto) (0.11-0.59) K/uL Eos # (Auto) (0-0.5) K/uL Baso # (Auto) (0-0.2) K/uL Immature Gran # (Auto) (0.00-0.02) K/uL Sodium (136-145) mmol/L Potassium (3.5-5.1) mmol/L Chloride (98-107) mmol/L Carbon Dioxide (21-32) mmol/L Anion Gap (3-11) BUN (6-23) mg/dl Creatinine (0.6-1.4) mg/dl Est Cr Clr Drug Dosing ml/min Est GFR ( Amer) ml/min Est GFR (Non-Af Amer) ml/min BUN/Creatinine Ratio (10-20) Glucose (70-99(Fasting)) mg/dl POC Glucose 150 H 148 H (70-99) mg/dl Calcium (8.5-10.1) mg/dl Magnesium (1.7-2.4) mg/dl Total Bilirubin (0.2-1.0) mg/dl Direct Bilirubin (0-0.2) mg/dl AST (13-39) U/L ALT (7-52) U/L Alkaline Phosphatase (34-104) U/L Total Creatine Kinase 197 (30-223) U/L B-Natriuretic Peptide (0-100) pg/ml Total Protein (6.0-8.3) gm/dl Albumin (3.4-5.0) gm/dl Crossmatch 07/23/21 07/23/21 07/23/21 Range/Units 06:53 06:53 06:53 WBC 9.27 (4.8-10.8) K/uL RBC 4.12 L (4.7-6.1) M/uL Hgb 12.6 L (14.0-18.0) g/dL Hct 36.9 L (42-52) % MCV 89.6 (80-100) fL MCH 30.6 (25-34) pg MCHC 34.1 (32-36) g/dL RDW Std Deviation 43.0 (36.4-46.3) fL RDW Coeff of Rossy 13.1 (11.5-14.5) % Plt Count 287 (130-400) K/uL MPV 10.1 (7.4-10.4) fL Immature Gran % (Auto) 0.2 % Neut % (Auto) 63.1 % Lymph % (Auto) 20.9 % [place] % (Auto) 14.0 % Eos % (Auto) 1.7 % Baso % (Auto) 0.1 % Neut # (Auto) 5.84 (1.4-6.5) K/uL Lymph # (Auto) 1.94 (1.2-3.4) K/uL [place] # (Auto) 1.30 H (0.11-0.59) K/uL Eos # (Auto) 0.16 (0-0.5) K/uL Baso # (Auto) 0.01 (0-0.2) K/uL Immature Gran # (Auto) 0.02 (0.00-0.02) K/uL Sodium 134 L (136-145) mmol/L Potassium 4.4 (3.5-5.1) mmol/L Chloride 100 (98-107) mmol/L Carbon Dioxide 30 (21-32) mmol/L Anion Gap 4 (3-11) BUN 21 (6-23) mg/dl Creatinine 1.13 D (0.6-1.4) mg/dl Est Cr Clr Drug Dosing 86.4 ml/min Est GFR ( Amer) 85.5 ml/min Est GFR (Non-Af Amer) 73.8 ml/min BUN/Creatinine Ratio 18.6 (10-20) Glucose 145 H (70-99(Fasting)) mg/dl POC Glucose (70-99) mg/dl Calcium 8.8 (8.5-10.1) mg/dl Magnesium 2.1 (1.7-2.4) mg/dl Total Bilirubin 0.8 (0.2-1.0) mg/dl Direct Bilirubin 0.1 (0-0.2) mg/dl AST 36 (13-39) U/L ALT 37 (7-52) U/L Alkaline Phosphatase 72 (34-104) U/L Total Creatine Kinase (30-223) U/L B-Natriuretic Peptide 487 H (0-100) pg/ml Total Protein 6.4 (6.0-8.3) gm/dl Albumin 3.4 (3.4-5.0) gm/dl Crossmatch 07/22/21 07/20/21 Range/Units 20:12 11:40 WBC (4.8-10.8) K/uL RBC (4.7-6.1) M/uL Hgb (14.0-18.0) g/dL Hct (42-52) % MCV (80-100) fL MCH (25-34) pg MCHC (32-36) g/dL RDW Std Deviation (36.4-46.3) fL RDW Coeff of Rossy (11.5-14.5) % Plt Count (130-400) K/uL MPV (7.4-10.4) fL Immature Gran % (Auto) % Neut % (Auto) % Lymph % (Auto) % [place] % (Auto) % Eos % (Auto) % Baso % (Auto) % Neut # (Auto) (1.4-6.5) K/uL Lymph # (Auto) (1.2-3.4) K/uL [place] # (Auto) (0.11-0.59) K/uL Eos # (Auto) (0-0.5) K/uL Baso # (Auto) (0-0.2) K/uL Immature Gran # (Auto) (0.00-0.02) K/uL Sodium (136-145) mmol/L Potassium (3.5-5.1) mmol/L Chloride (98-107) mmol/L Carbon Dioxide (21-32) mmol/L Anion Gap (3-11) BUN (6-23) mg/dl Creatinine (0.6-1.4) mg/dl Est Cr Clr Drug Dosing ml/min Est GFR ( Amer) ml/min Est GFR (Non-Af Amer) ml/min BUN/Creatinine Ratio (10-20) Glucose (70-99(Fasting)) mg/dl POC Glucose 187 H (70-99) mg/dl Calcium (8.5-10.1) mg/dl Magnesium (1.7-2.4) mg/dl Total Bilirubin (0.2-1.0) mg/dl Direct Bilirubin (0-0.2) mg/dl AST (13-39) U/L ALT (7-52) U/L Alkaline Phosphatase (34-104) U/L Total Creatine Kinase (30-223) U/L B-Natriuretic Peptide (0-100) pg/ml Total Protein (6.0-8.3) gm/dl Albumin (3.4-5.0) gm/dl Crossmatch See Detail Diagnostic Findings KUB X-Ray 07/23/21 07:42 KUB HISTORY: constipation, pelvic mass COMPARISON: Abdomen and pelvis CT 07/20/2021. FINDINGS: Moderate well-formed stool again seen throughout the proximal colon. Gas-filled nondilated colon is also noted. No dilated loops of bowel to suggest an obstruction. The patient's known pelvic mass is better appreciated on the recent abdomen and pelvis CT. No renal calculi. No ureteral calculi. No pneumoperitoneum or pneumatosis. IMPRESSION: 1. Moderate well-formed stool again seen throughout the colon. 2. No dilated loops of bowel to suggest an obstruction at this time. ACT 112: Negative or not required by law. Electronically signed by: Charli Blanc M.D. 07/23/2021 10:29 AM Chest X-Ray 07/23/21 12:47 XR chest 1V portable HISTORY: 51 years-old Male eval volume overload/atelectasis volume overload. COMPARISON: Acute abdominal series radiographs 02/07/2020 TECHNIQUE: AP view of the chest FINDINGS: The cardiac silhouette is enlarged. No pneumothorax, pleural effusion, airspace consolidation or overt pulmonary edema. The bones of the chest appear grossly intact. Mild degenerative changes of the shoulders. IMPRESSION: Cardiomegaly without pulmonary edema. ACT 112: Negative or not required by law. The above report was generated using voice recognition software. It may contain grammatical, syntax or spelling errors. Electronically signed by: Krishna Gloria M.D. 07/23/2021 1:09 PM PG Care Time/CCT Total # of Minutes Spent Total Time Spent with Patient: Total time spent is greater than 50% in coordination of care (as documented) at patient's floor/unit and/or counseling patient: Coding Level of Care Code 72168 Subseq Hosp Care Lvl 3 Diagnoses Pelvic mass R19.00 Perirectal hematoma S36.62XA Hyponatremia E87.1 Hypertension I10 Persistent atrial fibrillation I48.19 Type 2 diabetes mellitus E11.9 Dyslipidemia E78.5 Sleep apnea G47.30 CKD (chronic kidney disease) stage 2, GFR 60-89 ml/min N18.2 Pericardial effusion I31.3 Hypertrophic cardiomyopathy I42.2
[2021-07-23 07:52] LABS: Albumin Level 3.4 gm/dl (3.4-5.0); BUN Creatinine Ratio 18.6 (10-20); Bilirubin Direct 0.1 mg/dl (0-0.2); Bilirubin,Total 0.8 mg/dl (0.2-1.0); Calcium 8.8 mg/dl (8.5-10.1); Creatinine Clr Calc Pharmacy 86.4 ml/min; Est GFR (African American) 85.5 ml/min; Est GFR (Non-African American) 73.8 ml/min; Magnesium 2.1 mg/dl (1.7-2.4); Potassium 4.4 mmol/L (3.5-5.1); Total Protein 6.4 gm/dl (6.0-8.3)
[2021-07-23] MEDS: DOCUSATE SODIUM/SENNA 50/8.6MG TAB PO SCH (08:18)
[2021-07-23] MEDS: INSULIN ASPART PER UNIT SC SCH ×4 (08:19→21:29)
[2021-07-23] MEDS: FINASTERIDE 5 MG TAB PO SCH (08:19)
[2021-07-23] MEDS: METOPROLOL TARTRATE 100 MG TAB PO SCH ×2 (08:19→19:55)
[2021-07-23] MEDS: POLYETHYLENE (MIRALAX) 17 GM PACK PO SCH ×3 (08:20→19:56)
[2021-07-23] MEDS: TAMSULOSIN HCL 0.4 MG CAP PO SCH (08:20)
[2021-07-23] MEDS ORDERED: FUROSEMIDE 20 MG TAB PO ONE (08:42)
[2021-07-23] MEDS ORDERED: bisacodyL 10 MG SUPP PR PRN (09:33)
--- NOTE | 2021-07-23 09:57 | Urology Progress Note ---
Date of Service July 23, 2021 Assessment & Plan (1) Elevated PSA: (2) Haematoma of pelvis: Plan: - POD #2 s/p Transurethral Resection of prostate/mass, drainage of prostatic abscess, and exam under anesthesia with Dr. Hernandez. - Afebrile, Labs reviewed - Wbc and creatinine normal. - No urine cx on admission.On Ceftriaxone for possible infection. - Campos catheter intact, draining clear yellow urine. - He has not yet moved his bowels. - Pathology pending. Plan - - Maintain Campos catheter. - Continue bowel regimen. - Continue supportive care, antibiotic therapy, and pain management. - Additional recommendations pending findings of pathology. - Will continue to follow. Admission and Anticipated Discharge Date Admission Date: July 20, 2021 Supervising Physician Co-Signing Physician Notes I have discussed Mr. Hernández's case with SYLVIA Lala and agree with the above documentation. Subjective Pt examined at bedside this AM. Awake, ambulating in room on arrival. Campos catheter intact, draining clear yellow urine. Low grade temp last evening of 37.9 - 07/22/2021 at 1927. +Flatus, no BM yet. Reported increased swelling of scrotum overnight, was given ice pack, and has resolved this morning. Denies nausea/vomiting. Denies significant pain at present. Review of Systems Constitutional: as per Subjective / HPI Gastrointestinal: as per Subjective / HPI Genitourinary: + as per Subjective / HPI Physical Exam Constitutional: no acute distress Respiratory: no respiratory distress and no labored breathing Gastrointestinal (Abdomen): Inspection/Auscultation: abdomen normal to inspection Neurologic: moves all extremities and awake Psychiatric: Orientation: alert, oriented x 3 and cooperative Genitourinary: Campos catheter intact, draining clear yellow urine. No scrotal swelling noted on exam this morning. Mild tenderness with palpation to posterior scrotum/perineum area. Results & Data ([facility]) Vital Signs (Past 12 Hours) Vital Signs Temp Pulse Pulse Pulse Pulse Resp BP 07/23/21 07:30 37.3 C 104 H 20 07/23/21 07:12 88 07/23/21 05:37 97 H 07/23/21 04:43 36.7 C 97 H 20 137/85 07/23/21 02:29 72 07/22/21 23:11 36.8 C 91 H 18 07/22/21 22:36 90 BP Pulse Ox Pulse Ox 07/23/21 07:30 136/96 94 07/23/21 07:12 07/23/21 05:37 07/23/21 04:43 93 07/23/21 02:29 93 07/22/21 23:11 100/63 91 07/22/21 22:36 92 PG Care Time/CCT Total # of Minutes Spent Total Time Spent with Patient: Total time spent is greater than 50% in coordination of care (as documented) at patient's floor/unit and/or counseling patient: Coding Level of Care Code 21790 Subseq Hosp Care Lvl 2 Diagnoses Elevated PSA R97.20 Haematoma of pelvis
--- NOTE | 2021-07-23 10:30 | XRay Report ---
KUB HISTORY: constipation, pelvic mass COMPARISON: Abdomen and pelvis CT 07/20/2021. FINDINGS: Moderate well-formed stool again seen throughout the proximal colon. Gas-filled nondilated colon is also noted. No dilated loops of bowel to suggest an obstruction. The patient's known pelvic mass is better appreciated on the recent abdomen and pelvis CT. No renal calculi. No ureteral calcul i. No pneumoperitoneum or pneumatosis. IMPRESSION: 1. Moderate well-formed stool again seen throughout the colon. 2. No dilated loops of bowel to suggest an obstruction at this time. ACT 112: Negative or not required by law. Electronically signed by: Charli Blanc M.D. 07/23/2021 10:29 AM
--- NOTE | 2021-07-23 13:10 | XRay Report ---
XR chest 1V portable HISTORY: 51 years-old Male eval volume overload/atelectasis volume overload. COMPARISON: Acute abdominal series radiographs 02/07/2020 TECHNIQUE: AP view of the chest FINDINGS: The cardiac silhouette is enlarged. No pneumothorax, pleural effusion, airspace consolidation or over t pulmonary edema. The bones of the chest appear grossly intact. Mild degenerative changes of the odette ulders. IMPRESSION: Cardiomegaly without pulmonary edema. ACT 112: Negative or not required by law. The above report was generated using voice recognition software. It may contain grammatical, syntax o r spelling errors. Electronically signed by: Krishna Gloria M.D. 07/23/2021 1:09 PM
[2021-07-23] MEDS: traMADol HCL 50 MG TABLET PO PRN (15:59)
[2021-07-23] MEDS: cefTRIAXone SODIUM 1,000 MG in DEXTROSE 5% 50 ML IV SCH (17:25)
[2021-07-23] MEDS: MoRPHine SULFATE 2 MG/ML CARP IV PRN ×2 (19:51→23:23)
[2021-07-23] MEDS: ROSUVASTATIN CALCIUM 10 MG TAB PO SCH (19:56)
[2021-07-23] MEDS: hydrOXYzine HCl 25 MG TAB PO SCH (21:30)
[2021-07-23] MEDS: LIDOCAINE 2% JELLY 5 ML TUBE EXT PRN (21:30)
[2021-07-24] MEDS ORDERED: MAGNESIUM HYDROXIDE SUSP 30 ML UDC PO PRN (01:11)
[2021-07-24] MEDS: MoRPHine SULFATE 4 MG/ML 1 ML CARP\\VIAL IV PRN (01:55)
[2021-07-24] MEDS ORDERED: HYDROmorphone INJ 0.5 MG/0.5 ML SYR IV STA (03:26)
[2021-07-24] MEDS ORDERED: ACETAMINOPHEN 500 MG TAB PO STA (03:26)
[2021-07-24 07:08] LABS: Basophils # (auto) 0.02 K/uL (0-0.2); Basophils % (auto) 0.2 %; Eosinophils % (auto) 1.1 %; Hematocrit (blood only) 35.6 % (42-52); Hemoglobin 12.2 g/dL (14.0-18.0); Immature Granulocytes # (auto) 0.01 K/uL (0.00-0.02); Immature Granulocytes % (auto) 0.1 %; Lymphocytes # (auto) 2.42 K/uL (1.2-3.4); Lymphocytes % (auto) 25.8 %; Mean Corpuscular Hemoglobin 30.5 pg (25-34); Mean Corpuscular Hgb Conc 34.3 g/dL (32-36); Mean Platelet Volume 9.7 fL (7.4-10.4); Monocytes # (auto) 1.22 K/uL (0.11-0.59); Neutrophils % (auto) 59.8 %; Platelet Count 280 K/uL (130-400); RDW Standard Deviation 42.4 fL (36.4-46.3); White Blood Count 9.37 K/uL (4.8-10.8)
--- NOTE | 2021-07-24 07:12 | Gastrointestinal Consultation ---
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 GI asked to evaluate regarding constipation and if he would benefit from a colonoscopy. No acute indication for colonoscopy, given external mass effect on colon, a colonic stent would be unlikely to improve any of his current symptoms or stay in place. I Will discuss this further with my attending. Agree with bowel purge and regimen to include Miralax 2 capfuls three times daily x 2 days followed by maintenance miralax 1 capful 2-3 times daily to aid in daily BMs. Ultimately, he should have a colonoscopy for colon cancer screening as he notes that this has not been completed. This can be arranged as an outpatient. Will defer to urology/general surgery team regarding pelvic mass and fluid collection. Thank you for allowing us to participate in the care of this patient. Please call with any acute changes, questions or concerns. Please see addendum below with additional recommendation from my supervising physician. Supervising Physician Co-Signing Physician Notes Patient is sleeping but arousable- voices no complaints when woken up, abdomen is soft, moving bowels slowly. Just drank his miralax. Labs/imaging reviewed S/p turp on 07/21 with findings of prostate cancer, now with concerns for hematoma/abscess with mild compression of the colon as a result likely leading to mild constipation. Would ensure he is on a regular bowel regimen. There appears to be no intrinsic colonic narrowing per imaging therefore no indication for a colonic stent at this time. Would ensure he is on a regular bowel regimen and an outpatient colonoscopy could be considered after 8-12 weeks when likely the hematoma/abscess hopefully will have resolved. History of Present Illness Reason for Consultation: colonscopy Requesting Physician: Brandy Attending Physician: Sara Nava MD History of Present Illness 51 year old male with history of afib anticoagulated who was admitted through the ED found to have a large pelvic mass, s/p transurethral resection of prostate/mass, drainage of prostatic abscess. Urology and general surgery following, GI was asked to evaluate for a colonoscopy. Pt was sen and evaluated, chart reviewed. Two guards at bedside. Notes he has had difficulty moving his bowels for a few months. Was started on laxative therapy by senior care staff a few weeks ago when he noted no BM in a week. Since starting, he has been moving soft/liquid stools with straining. Denies seeing any black or bloody stools. Feels bloated, full. No abd pain. No nausea, vomiting. Denies upper GI symptoms. Leading up to admission he had rossy hematuria and weight loss. 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 No dilated loops of bowel to suggest an obstruction at this time. CTAP 2021: Findings suggest cystitis. Correlate with clinical findings and urinalysis. Findings are highly suspicious for a lobulated mass lesion in the central pelvis as detailed above, likely arising from the prostate gland. Neoplasm is the diagnosis of exclusion.There is a pathologically enlarged right pelvic sidewall lymph node.There is a large complex fluid collection typical for a hematoma in the left lower pelvis. This is largely perirectal in location, and extends from the level of the seminal vesicles nearly to the anus. This causes mass effect on the adjacent rectum. There is trace fluid in the left paracolic gutter.Moderate colonic fecal retention. CTAP 2020: No bowel obstruction or bowel wall thickening. Campos catheter is noted within a decompressed urinary bladder. There is hematoma interposed between the urinary bladder and rectum obscuring the prostate measuring up to 6.7 cm with extension into the right extraperitoneal tissues of the lower pelvis. Trace hemorrhage is also noted extending into the urinary bladder lumen. This finding was called/faxed to the emergency department at time of dictation.12 x 9 mm lesion of the inferior pole right kidney is indeterminate. Correlation with a follow-up nonemergent MRI of the kidneys with and without the use of IV contrast is recommended to exclude a small renal cell carcinoma. This finding was also called/faxed to the emergency department at time of dictation. Colonoscopy: denies Allergies Allergy/AdvReac Type Severity Reaction Status Date / Time No Known Allergies Allergy Unverified 07/20/21 10:35 Home Medications Medication Instructions Recorded Confirmed Type aspirin 81 mg tablet,delayed 81 mg PO DAILY 02/06/20 07/20/21 History release hydrochlorothiazide 25 mg tablet 25 mg PO DAILY 02/06/20 07/20/21 History lisinopril 20 mg tablet 20 mg PO DAILY 02/06/20 07/20/21 History glimepiride 1 mg tablet 1 mg PO QAM 04/18/21 07/20/21 History rosuvastatin 5 mg tablet 5 mg PO HS 04/18/21 07/20/21 History tamsulosin 0.4 mg capsule 0.8 mg PO DAILY 04/18/21 07/20/21 History warfarin 4 mg tablet 8 mg PO DAILY 04/18/21 07/20/21 History acetaminophen 500 mg tablet 1,000 mg PO TID PRN 07/08/21 07/20/21 History finasteride 5 mg tablet 5 mg PO DAILY 07/08/21 07/20/21 History metoprolol tartrate 100 mg tablet 100 mg PO BID 07/08/21 07/20/21 History polyethylene glycol 3350 17 gram 17 g PO TID PRN 07/08/21 07/20/21 History oral powder packet (Miralax) Patient History Medical History CKD (chronic kidney disease) stage 2, GFR 60-89 ml/min Constipation 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 Feels Safe at Home: Yes Review of Systems Review of Systems: All systems reviewed & are unremarkable except as noted in HPI & below Physical Exam Constitutional: WD/WN, vitals as above Neck: normal visual inspection and trachea midline Respiratory: normal respiratory effort, lungs clear to auscultation Cardiovascular: Rate/Rhythm: + tachycardic Extremities: no edema Gastrointestinal (Abdomen): Inspection/Auscultation: abdomen normal to inspection, + abdomen distended and normal bowel sounds Percussion/Palpation: + abdomen tender (mild with palpation) and abdomen soft; no guarding and abdomen not rigid Skin: no rashes, warm and dry Results & Data ([facility]) Vital Signs (Past 12 Hours) Vital Signs Temp Pulse Pulse Resp BP BP Pulse Ox 07/24/21 04:32 37 C 95 H 18 149/97 H 97 07/24/21 00:32 37.5 C 96 H 18 173/104 H 96 07/23/21 21:49 37.2 C 80 20 161/110 H 93 Laboratory Results 07/24/21 07/24/21 07/24/21 Range/Units 07:57 06:42 06:42 WBC 9.37 (4.8-10.8) K/uL RBC 4.00 L (4.7-6.1) M/uL Hgb 12.2 L (14.0-18.0) g/dL Hct 35.6 L (42-52) % MCV 89.0 (80-100) fL MCH 30.5 (25-34) pg MCHC 34.3 (32-36) g/dL RDW Std Deviation 42.4 (36.4-46.3) fL RDW Coeff of Rossy 13.0 (11.5-14.5) % Plt Count 280 (130-400) K/uL MPV 9.7 (7.4-10.4) fL Immature Gran % (Auto) 0.1 % Neut % (Auto) 59.8 % Lymph % (Auto) 25.8 % [place] % (Auto) 13.0 % Eos % (Auto) 1.1 % Baso % (Auto) 0.2 % Neut # (Auto) 5.60 (1.4-6.5) K/uL Lymph # (Auto) 2.42 (1.2-3.4) K/uL [place] # (Auto) 1.22 H (0.11-0.59) K/uL Eos # (Auto) 0.10 (0-0.5) K/uL Baso # (Auto) 0.02 (0-0.2) K/uL Immature Gran # (Auto) 0.01 (0.00-0.02) K/uL Sodium 133 L (136-145) mmol/L Potassium 4.5 (3.5-5.1) mmol/L Chloride 99 (98-107) mmol/L Carbon Dioxide 30 (21-32) mmol/L Anion Gap 4 (3-11) BUN 12 (6-23) mg/dl Creatinine 0.99 (0.6-1.4) mg/dl Est Cr Clr Drug Dosing 97.8 ml/min Est GFR ( Amer) 100.4 ml/min Est GFR (Non-Af Amer) 86.6 ml/min BUN/Creatinine Ratio 12.1 (10-20) Glucose 162 H (70-99(Fasting)) mg/dl POC Glucose 161 H (70-99) mg/dl Calcium 8.8 (8.5-10.1) mg/dl Magnesium 2.0 (1.7-2.4) mg/dl Iron 34 L (35-175) mcg/dl TIBC 241 L (250-450) mcg/dl Unsaturated IBC 207 (155-355) mcg/dl Transferrin % Sat 14 L (20-50) % Ferritin 251.5 (8-388) ng/ml Total Creatine Kinase (30-223) U/L Crossmatch 07/23/21 07/23/21 07/23/21 Range/Units 20:55 17:10 12:51 WBC (4.8-10.8) K/uL RBC (4.7-6.1) M/uL Hgb (14.0-18.0) g/dL Hct (42-52) % MCV (80-100) fL MCH (25-34) pg MCHC (32-36) g/dL RDW Std Deviation (36.4-46.3) fL RDW Coeff of Rossy (11.5-14.5) % Plt Count (130-400) K/uL MPV (7.4-10.4) fL Immature Gran % (Auto) % Neut % (Auto) % Lymph % (Auto) % [place] % (Auto) % Eos % (Auto) % Baso % (Auto) % Neut # (Auto) (1.4-6.5) K/uL Lymph # (Auto) (1.2-3.4) K/uL [place] # (Auto) (0.11-0.59) K/uL Eos # (Auto) (0-0.5) K/uL Baso # (Auto) (0-0.2) K/uL Immature Gran # (Auto) (0.00-0.02) K/uL Sodium (136-145) mmol/L Potassium (3.5-5.1) mmol/L Chloride (98-107) mmol/L Carbon Dioxide (21-32) mmol/L Anion Gap (3-11) BUN (6-23) mg/dl Creatinine (0.6-1.4) mg/dl Est Cr Clr Drug Dosing ml/min Est GFR ( Amer) ml/min Est GFR (Non-Af Amer) ml/min BUN/Creatinine Ratio (10-20) Glucose (70-99(Fasting)) mg/dl POC Glucose 189 H 180 H (70-99) mg/dl Calcium (8.5-10.1) mg/dl Magnesium (1.7-2.4) mg/dl Iron (35-175) mcg/dl TIBC (250-450) mcg/dl Unsaturated IBC (155-355) mcg/dl Transferrin % Sat (20-50) % Ferritin (8-388) ng/ml Total Creatine Kinase 197 (30-223) U/L Crossmatch 07/23/21 07/20/21 Range/Units 12:26 11:40 WBC (4.8-10.8) K/uL RBC (4.7-6.1) M/uL Hgb (14.0-18.0) g/dL Hct (42-52) % MCV (80-100) fL MCH (25-34) pg MCHC (32-36) g/dL RDW Std Deviation (36.4-46.3) fL RDW Coeff of Rossy (11.5-14.5) % Plt Count (130-400) K/uL MPV (7.4-10.4) fL Immature Gran % (Auto) % Neut % (Auto) % Lymph % (Auto) % [place] % (Auto) % Eos % (Auto) % Baso % (Auto) % Neut # (Auto) (1.4-6.5) K/uL Lymph # (Auto) (1.2-3.4) K/uL [place] # (Auto) (0.11-0.59) K/uL Eos # (Auto) (0-0.5) K/uL Baso # (Auto) (0-0.2) K/uL Immature Gran # (Auto) (0.00-0.02) K/uL Sodium (136-145) mmol/L Potassium (3.5-5.1) mmol/L Chloride (98-107) mmol/L Carbon Dioxide (21-32) mmol/L Anion Gap (3-11) BUN (6-23) mg/dl Creatinine (0.6-1.4) mg/dl Est Cr Clr Drug Dosing ml/min Est GFR ( Amer) ml/min Est GFR (Non-Af Amer) ml/min BUN/Creatinine Ratio (10-20) Glucose (70-99(Fasting)) mg/dl POC Glucose 150 H (70-99) mg/dl Calcium (8.5-10.1) mg/dl Magnesium (1.7-2.4) mg/dl Iron (35-175) mcg/dl TIBC (250-450) mcg/dl Unsaturated IBC (155-355) mcg/dl Transferrin % Sat (20-50) % Ferritin (8-388) ng/ml Total Creatine Kinase (30-223) U/L Crossmatch See Detail
[2021-07-24 07:14] LABS: BUN Creatinine Ratio 12.1 (10-20); Calcium 8.8 mg/dl (8.5-10.1); Creatinine Clr Calc Pharmacy 97.8 ml/min; Est GFR (African American) 100.4 ml/min; Est GFR (Non-African American) 86.6 ml/min; Potassium 4.5 mmol/L (3.5-5.1)
[2021-07-24 07:31] LABS: Ferritin 251.5 ng/ml (8-388)
[2021-07-24] MEDS ORDERED: hydrALAZINE HCL 20 MG/ML VIAL IV STA (09:00)
[2021-07-24] MEDS ORDERED: IRON SUCROSE 300 MG in SODIUM CHLORIDE 0.9% 250 ML IV ONE (09:30)
--- NOTE | 2021-07-24 09:56 | Hospitalist Progress Note ---
Date of Service July 24, 2021 Assessment & Plan (1) Prostate cancer: Plan: Patient presented with lobulated, central pelvis measuring 6 x 6 x 3.5 cm, suspected to arise from prostate. Associated with pathologic enlarged right pelvic sidewall lymph node, concerning for malignancy. Area or fluid collection/mass could be tumor outgrew blood supply/maybe abscessed. He noted 12 pound weight loss over the last 3 weeks, night sweats, fatigue, intermittent episodes of chills and fevers over the past few months. Family history of prostate cancer in a cousin, who recently -- AGE 56 PSA 103.838. 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 Tertiary pattern 5 Oncology consulted, recs for CT chest and did a repeat A/P given "hematoma" causing mass effect on initial imaging * Was going to start docetaxel tomorrow, but concerns for the hematoma given presence as discussed since 2019 on prior imaging, and question if fluid collection malignant vs mass cystic structure and recs to have bx/drainage for further eval and wouldn't want to start therapy with active infection and worsen counts CTAP:No significant change in the large intermediate density left perirectal fluid collection which measures approximately 11 x 9 x 6 cm. This favors a hematoma. However, an abscess or less likely a cystic mass could also have a similar appearance. This results in significant mass effect along the rectum with severe decompression. The large bowel proximal to this site is mildly distended and filled with stool. Therefore, this is concerning for a developing large bowel obstruction. 2. There is again suggestion of an enhancing mass within the right deep pelvis which appears contiguous with the right side of the prostate gland and extends to the right seminal vesicle. This is highly suspicious for extraprostatic extension of a prostate malignancy. 3. A single enlarged and heterogeneous right pelvic sidewall lymph node concerning for metastatic disease. 4. Increase in size in a 1.4 cm exophytic hypodense lesion within the lower pole of the right kidney. This may represent a slightly complex cyst. Follow-up renal ultrasound or MRI is recommended to exclude the less likely possibility of a renal mass. General surgery consulted prior, no need to drain. Did discuss with on-call given updated CTAP and agreed needed addressed, but no safe way to drain at this institution (noted prostatic abscess drained on OR report from [facility] 07/21, no cx obtained but maintained on Rocephin without elevation in WBC/fever) --> Consideration for IR to bx/drain through ischiorectal fossa Pain control, decreased diet and encouraged ambulation. No n/v at this time but if develops, would drop NGT. Is passing gas but lots of rectal discomfort, likely from pass effect from above Contacted [facility], accepting physician Dr Ibrahim, when bed available. Imaging pushed for their radiologist to review Possible bed tonight, paperwork filled out. Face sheet faxed. Awaiting bed/transportation (2) Pelvic mass: Plan: as above (3) Perirectal hematoma: Plan: Left lower pelvis, largely perirectal location, extends from seminal vesicles to anus causing mass-effect of adjacent rectum. No history of trauma or falls, this could be result of frequent Bowen catheter placement versus subsequent effect of the pelvic mass Holding aspirin and Coumadin - patient received vitamin K in ED --> INR 1.2 after VIt K Hgb stable at but diluted some from continuous IVF but since have discontinued, may need to resume if need for NPO given possible developing LBO Bowen with improvement in hematuria hgb stable but checking iron studies --> Venofer ordered, repeat in AM if still inpatient vs at tertiary care Repeat CTAP as above for re-eval hematoma/fluid collection Tx planned (4) Hyponatremia: Plan: Na 130, was 139 on outpatient labs from 05/28/2021. TSH wnl Continue to hold HCTZ, suspect volume overloaded though from continuous IVF and this has been stopped. Lasix 20mg x 1 now that Cr normalized and Na 134 on Am labs Na 133, no further lasix given contrast as above for imaging to prevent worsening CR Monitor in am if still inpatient (5) Hypertension: Plan: Continue metoprolol 100 mg twice daily, holding HCTZ due to hyponatremia but will resume given elevated BNP and improvement in Na after administration of lasix on 07/23 and BP elevated Lisinopril continued given Cr back to normal (6) Persistent atrial fibrillation: Plan: Persistent since April 2020 per cardiology note. Continue metoprolol as above, holding warfarin given hematoma and supratherapeutic INR. Monitor on telemetry -- has been rate controlled in 80-90s/low 100s today but did have increased pain when trying to have BM this morning and rates 140-160 when up to restroom --> Rates improved to 80-90s this afternoon Keep K>4, Mag >2 Coumadin vs DOAC when able to resume (7) Type 2 diabetes mellitus: Plan: On glimepiride at home, will hold this while inpatient. A1c 8.1 BSG AC/HS, SSI while inpatient BSGs acceptable, monitor (8) Dyslipidemia: Plan: Continue rosuvastatin, increased from 5 mg to 10 mg daily at cardiology visit on 06/09. (9) Sleep apnea: Plan: No formal diagnosis per records, Recommended to have sleep study by cardiology on 06/09 due to ongoing fatigue. He reports he has had it done, but was not given results. Likely would need BiPAP given apneic periods on overnight pox study but did not drop for extended periods of time, will need to follow up on outpt formal sleep study --Will check with [employer] if able to follow up on this --> SLEEP STUDY FROM [facility] WITH AHI 45.9, needs CPAP (10) CKD (chronic kidney disease) stage 2, GFR 60-89 ml/min: Plan: eGFR 80.3, CrCl 80.8. Bumped to 2, normalized with improvement in BP. suspect degree of ATN post-op TURP (11) Pericardial effusion: Plan: noted on CT. No CP/SOB. No evidence for tamponade ECHO obtained, moderate effusion, EF >70% with hypertrophic cardiomyopathy noted Slightly volume overloaded on exam day prior and IVF discontinued Cards on consult -- appreciate input. Recommends against drainage at this time. Continue BB (12) Hypertrophic cardiomyopathy: Plan: noted on echo BB/BP control -- pain causing elevation in BP --> changed pain control, monitor response Hydralazine if needed (13) Anemia: Plan: normocytic iron studies checked, low, likely 2nd to malignancy venofer x 1 today, repeat tomorrow vs at tertiary if bed available tonight Plan: SCDs, chemo PPx contraindicated in setting of supratherapeutic INR, hematoma. Arranging transportation to [facility] when available Admission and Anticipated Discharge Date Admission Date: July 20, 2021 Supervising Physician Co-Signing Physician Notes PA Supervision Note: I personally saw and examined the patient. I verified all lemons points and agree with VINICIUS Cabezas with the following exceptions and/or additions: S-Pt having sensation of having to move his bowels and abd distension but no p ain, no nausea. Otherwise has questions about prognosis. Awaiting transfer O- Vitals reviewed Gen: [AAOx3, NAD] HEENT: [anicteric sclerae, EOMI] CV: [RRR no mgr nl S1S2] Pulm: [CTAB no wcr] Abd: [+BS +distended but soft, nontender] Ext: [no edema, 2+ DP pulses] Skin: [no rashes, warm/dry] Neuro: [full strength throughout] A/P-51 yo male here with prostate cancer and pelvic mass with suspected hematoma causing mass effect on rectum and possible developing large bowel obstruction. Make NPO and start maintenance fluids, watch closely while awaiting transfer to [place] Subjective eval this morning only had spooful BM yesterday, nothing since. is passing gas but having some abdominal discomfort lower abdomen. states pain worsened last evening and meds were effective. will switch and monitor results. discussed pathology and waiting to hear back from oncology. urology to see/discuss as well, as recs for possible hormonal therapy first then surgery. urology does not feel needs tx for bx or drainage of hematoma, which has been present on prior imaging results. Encouraged staff to continue ambulation attempts and bowel regimen to assist with BM. GI does not plan on inpatient c-scope. Discussed oxygen -- he denies any chest pain, shortness of breath. He states he thinks his numbers might have been low but not sure. RN did not get any information in report. Waiting outpt sleep report, possible apnea/need for cpap. BP elevated this morning but denies any headache/lightheadedness/dizziness. No palpitations but HR did get up to 180s when attempting to strain in restroom. Resting more around 90-100s today, likely element of pain. Remains in permanent afib. Discussed with Dr Valles, recs for Ct chest and bone scan prior to recs. Consult placed. If needed, can consider transfer for higher level of care pending eval by oncology, but per specialists, no need for bx or drainage of hematoma at this time (although clearly causing issue with ability to move bowels). Review of Systems Review of Systems: All systems reviewed & are unremarkable except as noted in HPI & below Physical Exam Physical Exam: General: WD male resting in bed, two guards at bedside, no acute distress but mildly uncomfortable HEENT: head normocephalic, atraumatic, mm moist, trachea midline without deviation Resp: CTAB, no w/c/r, on room air CV: irregularly irregular (rate 98bpm), no m/r/g, no edema, calves non-tender, pulses palpable GI: +BS (less active then yesterday but still present 4 quadrants), distended (more), tender to suprapubic region, no guarding/rigidity : bowen draining pink tinged urine, penis with tenderness around catheter site, minimal scrotal swelling Rectum tender to palpation, external hemorrhoids MSK/Neuro: moves all extremities, follows commands, speech clear, no focal deficit, strength full throughout Skin: warm, dry, no rashes Results & Data Results & Data ([facility]) Vital Signs (Past 12 Hours) Vital Signs Temp Pulse Pulse Resp BP BP Pulse Ox 07/24/21 08:17 36.6 C 91 H 16 144/101 H 100 07/24/21 04:32 37 C 95 H 18 149/97 H 97 07/24/21 00:32 37.5 C 96 H 18 173/104 H 96 Laboratory Results 07/24/21 07/24/21 07/24/21 Range/Units 07:57 06:42 06:42 WBC 9.37 (4.8-10.8) K/uL RBC 4.00 L (4.7-6.1) M/uL Hgb 12.2 L (14.0-18.0) g/dL Hct 35.6 L (42-52) % MCV 89.0 (80-100) fL MCH 30.5 (25-34) pg MCHC 34.3 (32-36) g/dL RDW Std Deviation 42.4 (36.4-46.3) fL RDW Coeff of Rossy 13.0 (11.5-14.5) % Plt Count 280 (130-400) K/uL MPV 9.7 (7.4-10.4) fL Immature Gran % (Auto) 0.1 % Neut % (Auto) 59.8 % Lymph % (Auto) 25.8 % [place] % (Auto) 13.0 % Eos % (Auto) 1.1 % Baso % (Auto) 0.2 % Neut # (Auto) 5.60 (1.4-6.5) K/uL Lymph # (Auto) 2.42 (1.2-3.4) K/uL [place] # (Auto) 1.22 H (0.11-0.59) K/uL Eos # (Auto) 0.10 (0-0.5) K/uL Baso # (Auto) 0.02 (0-0.2) K/uL Immature Gran # (Auto) 0.01 (0.00-0.02) K/uL Sodium 133 L (136-145) mmol/L Potassium 4.5 (3.5-5.1) mmol/L Chloride 99 (98-107) mmol/L Carbon Dioxide 30 (21-32) mmol/L Anion Gap 4 (3-11) BUN 12 (6-23) mg/dl Creatinine 0.99 (0.6-1.4) mg/dl Est Cr Clr Drug Dosing 97.8 ml/min Est GFR ( Amer) 100.4 ml/min Est GFR (Non-Af Amer) 86.6 ml/min BUN/Creatinine Ratio 12.1 (10-20) Glucose 162 H (70-99(Fasting)) mg/dl POC Glucose 161 H (70-99) mg/dl Calcium 8.8 (8.5-10.1) mg/dl Magnesium 2.0 (1.7-2.4) mg/dl Iron 34 L (35-175) mcg/dl TIBC 241 L (250-450) mcg/dl Unsaturated IBC 207 (155-355) mcg/dl Transferrin % Sat 14 L (20-50) % Ferritin 251.5 (8-388) ng/ml 07/23/21 07/23/21 Range/Units 20:55 17:10 WBC (4.8-10.8) K/uL RBC (4.7-6.1) M/uL Hgb (14.0-18.0) g/dL Hct (42-52) % MCV (80-100) fL MCH (25-34) pg MCHC (32-36) g/dL RDW Std Deviation (36.4-46.3) fL RDW Coeff of Rossy (11.5-14.5) % Plt Count (130-400) K/uL MPV (7.4-10.4) fL Immature Gran % (Auto) % Neut % (Auto) % Lymph % (Auto) % [place] % (Auto) % Eos % (Auto) % Baso % (Auto) % Neut # (Auto) (1.4-6.5) K/uL Lymph # (Auto) (1.2-3.4) K/uL [place] # (Auto) (0.11-0.59) K/uL Eos # (Auto) (0-0.5) K/uL Baso # (Auto) (0-0.2) K/uL Immature Gran # (Auto) (0.00-0.02) K/uL Sodium (136-145) mmol/L Potassium (3.5-5.1) mmol/L Chloride (98-107) mmol/L Carbon Dioxide (21-32) mmol/L Anion Gap (3-11) BUN (6-23) mg/dl Creatinine (0.6-1.4) mg/dl Est Cr Clr Drug Dosing ml/min Est GFR ( Amer) ml/min Est GFR (Non-Af Amer) ml/min BUN/Creatinine Ratio (10-20) Glucose (70-99(Fasting)) mg/dl POC Glucose 189 H 180 H (70-99) mg/dl Calcium (8.5-10.1) mg/dl Magnesium (1.7-2.4) mg/dl Iron (35-175) mcg/dl TIBC (250-450) mcg/dl Unsaturated IBC (155-355) mcg/dl Transferrin % Sat (20-50) % Ferritin (8-388) ng/ml Diagnostic Findings Chest CT 07/24/21 10:56 CT SCAN OF THE CHEST WITH IV CONTRAST CLINICAL HISTORY: Prostate cancer. COMPARISON STUDY: Chest x-ray dated 07/23/2021. TECHNIQUE: Following the IV administration of 95 cc of Optiray 320, CT scan of the thorax was performed from the thoracic inlet to the upper abdomen. Images are reviewed in the axial, sagittal, and coronal planes. IV contrast was administered without complication. A dose lowering technique was utilized adhering to the principles of ALARA. CT DOSE: 1107.77 mGy.cm FINDINGS: Thyroid: Normal in size and heterogeneous in attenuation. Thoracic aorta: There is mild atherosclerotic calcification of the thoracic aorta, which is normal in caliber and demonstrates bovine variant arch anatomy. No dissection is seen. Pulmonary vasculature: The pulmonary trunk is normal in caliber. There are no filling defects identified in the central pulmonary vessels to indicate pulmonary embolus. Note that this examination was not protocoled for evaluation of the pulmonary arteries. Heart: The heart is enlarged noting a small to moderate pericardial effusion. Lungs and pleural spaces: There are trace pleural effusions. No airspace consolidation is seen typical for pneumonia. The trachea and central airways are clear. Mediastinum: There are prominent subcentimeter mediastinal lymph nodes. These are not pathologically enlarged by size criteria. Lia: Clear. Axillae: There is no axillary lymphadenopathy. Upper abdomen: There is a small hiatal hernia. Partially visualized upper abdominal viscera is otherwise grossly unremarkable. Skeletal structures: The skeletal structures are osteopenic. Arthritic change is seen in the shoulders. No lytic or blastic bony lesions are seen. IMPRESSION: 1. There is no evidence of intrathoracic metastatic disease. 2. Cardiomegaly noting a small to moderate pericardial effusion. 3. There is no airspace consolidation typical for pneumonia. 4. Trace pleural effusions. 5. Additional findings as above ACT 112: Negative or not required by law. Electronically signed by: Saman Huggins M.D. 07/24/2021 1:07 PM Abdomen/Pelvis CT 07/24/21 11:[address] WITH IV CONTRAST CT DOSE: HISTORY: Prostate cancer. Evaluate for metastatic disease. Pelvic hematoma follow-up. re-eval hematoma TECHNIQUE: Multiaxial CT images of the abdomen and pelvis were performed following the use of intravenous contrast. A dose lowering technique was utilized adhering to the principles of ALARA. COMPARISON STUDY: Abdomen and pelvis CT 07/20/2021. FINDINGS: Small pericardial effusion and a trace right pleural effusion are noted. The heart is enlarged. This remains unchanged. The lung bases are clear. No pneumoperitoneum. No pneumatosis. No suspicious lytic or blastic osseous lesions. Small fat-containing periumbilical hernia again noted. The liver, spleen, adrenal glands, gallbladder, and pancreas unremarkable. There is a 1.5 cm exophytic hypodense lesion within the lower pole the right kidney containing a punctate peripheral calcification. This is indeterminate but could represent a hyperdense cyst. This is increased in size compared to the 2020 examination. The main portal vein is patent. No retroperitoneal lymphadenopathy. Normal caliber abdominal aorta. The bladder is decompressed by a Bowen catheter which appears in good position. Moderate bladder wall thickening and adjacent fat stranding remains unchanged. Large left perirectal intermediate density fluid collection is again noted. This measures approximately 11 x 9 x 6 cm and results in mass effect with severe decompression of the adjacent rectum. Proximal to this site the large bowel is mildly distended and filled with stool. Therefore, this could result present a developing large bowel obstruction. There is abnormal enhancing soft tissue focus seen along the right side of the prostate gland which extends superiorly into the right seminal vesicle. This measures approximately 4.6 x 2.6. This is along the right anterior surface of the left perirectal fluid collection. This could represent extraprostatic extension of a prostate malignancy. There is a heterogeneous enhancing enlarged right pelvic sidewall lymph node on image 350 which measures 2.9 x 1.2 cm. Normal appendix. No bowel wall thickening. IMPRESSION: 1. No significant change in the large intermediate density left perirectal fluid collection which measures approximately 11 x 9 x 6 cm. This favors a hematoma. However, an abscess or less likely a cystic mass could also have a similar appe arance. This results in significant mass effect along the rectum with severe decompression. The large bowel proximal to this site is mildly distended and filled with stool. Therefore, this is concerning for a developing large bowel obstruction. 2. There is again suggestion of an enhancing mass within the right deep pelvis which appears contiguous with the right side of the prostate gland and extends to the right seminal vesicle. This is highly suspicious for extraprostatic extension of a prostate malignancy. 3. A single enlarged and heterogeneous right pelvic sidewall lymph node concerning for metastatic disease. ACT 112: Negative or not required by law. Electronically signed by: Charli Blanc M.D. 07/24/2021 1:09 PM PG Care Time/CCT Total # of Minutes Spent Total Time Spent with Patient: Total time spent is greater than 50% in coordination of care (as documented) at patient's floor/unit and/or counseling patient: Prolonged Care Time Prolonged Care Time: Yes 120 additional minutes on top of usual time spent discussing with multiple specialists including Urology, General Surgery, Oncology, Gastroenterology at this institution, as well as surgical oncology at [facility], the [facility] medical provider this morning to review findings, and arranging transport to [facility] for internal medicine service Coding Level of Care Code 78675 Subseq Hosp Care Lvl 3 (25 - SIGNIFICANT, SEPARATELY IDENTIFIABLE ) Diagnoses Pelvic mass R19.00 Perirectal hematoma S36.62XA Hyponatremia E87.1 Hypertension I10 Persistent atrial fibrillation I48.19 Type 2 diabetes mellitus E11.9 Dyslipidemia E78.5 Sleep apnea G47.30 CKD (chronic kidney disease) stage 2, GFR 60-89 ml/min N18.2 Pericardial effusion I31.3 Hypertrophic cardiomyopathy I42.2 Prostate cancer C61 Anemia D64.9 Additional Codes Prolonged Care Time - Prolonged Care Time: Yes ([id number])
[2021-07-24] MEDS ORDERED: amLODIPine BESYLATE 5 MG TAB PO ONE (10:00)
[2021-07-24] MEDS: INSULIN ASPART PER UNIT SC SCH ×4 (10:07→22:13)
[2021-07-24] MEDS: METOPROLOL TARTRATE 100 MG TAB PO SCH ×2 (10:13→21:59)
[2021-07-24] MEDS: POLYETHYLENE (MIRALAX) 17 GM PACK PO SCH ×3 (10:13→21:59)
[2021-07-24] MEDS: DOCUSATE SODIUM/SENNA 50/8.6MG TAB PO SCH (10:13)
[2021-07-24] MEDS: FINASTERIDE 5 MG TAB PO SCH (10:13)
[2021-07-24] MEDS: TAMSULOSIN HCL 0.4 MG CAP PO SCH (10:13)
[2021-07-24] MEDS: HYDROmorphone INJ 0.5 MG/0.5 ML SYR IV PRN ×3 (10:17→20:10)
[2021-07-24] MEDS: LIDOCAINE 2% JELLY 5 ML TUBE EXT PRN ×2 (10:21→17:31)
--- NOTE | 2021-07-24 12:28 | Urology Progress Note ---
Date of Service July 24, 2021 Assessment & Plan (1) Haematoma of pelvis: (2) Prostate cancer: (3) Pain in rectum: (4) Pelvic mass: Plan: POD #3 s/p Transurethral Resection of prostate/mass, drainage of prostatic abscess, and exam under anesthesia Pathology has returned with a very high risk prostate cancer with initial PSA over 100. Patient is a pT1b [place] 4+3+5. Clinically on imaging concerning for possible involvement of the pelvic sidewall and clinically concerning. On DRAKE patient had a fixed pelvis which the large hematoma was causing a considerable amount of mass-effect on. A considerable mass-effect on the rectum and prostate from likely the large fluid collection/hematoma. Significantly abnormal tissue on transurethral resection which a large pocket of purulent material at the right side of median lobe and necrotic versus congested tissue along the left lateral lobe on deep resection. Endoscopic images were captured during the transurethral resection. Patient has been tolerating catheter. Has had good drainage without major issues. Is not having considerable amounts of gross hematuria or clot. Is continue to monitor. Patient had a wide area that was resected. Did discuss possible catheter removal however will plan to finalize further work-up. Extensively reviewed prostate cancer. Discussed concerns and issues. Discussed locally advanced disease including early advanced disease and possibility of metastatic disease. Discussed need for full staging imaging. Discussed different options for this. We will set patient up in coordination with the oncology team as well as the hospitalist team. Have recommended oncologic assessment and this patient is an excellent candidate for some of the more advanced management options including chemotherapies with docetaxel versus other therapies. Reviewed with patient some of these options. Discussed some of the expectations. Discussed expectations of prognosis and possible issues related to prostate cancer. Discussed possible issues and concerns. Also discussed patient's family history with a recent cousin who had passed from metastatic prostate cancer. Did discuss possible risks with patient's male family members. Discussion with the hospitalist team plans are in place to involve oncology. They also recommended the staging imaging. Patient is going to be set up for chest CT scan as the pelvic hematoma also needs to be reevaluated will likely do CT abdomen pelvis chest with contrast to fully assess. We will be paying particular attention to the pelvic lymph nodes as well as the pelvic hematoma. Patient will likely need bone scan. Alk phos level is not considerably elevated however with the concern for early systemic disease will need to fully evaluate. Will defer to oncology for discussion of options related to systemic therapies including androgen deprivation and chemotherapies. We will plan to continue to actively manage patient for catheter and possible removal depending on his improvement overall. Did discuss possible medications for management of some of the bladder discomforts and pains as well as the prostate irritation. Did warn patient that the concern up to this point has been the worsening of the patient's bowel function with medication such as anticholinergics. We will plan to continue to monitor for now. Patient is tolerating diet and passing flatus without considerable issue. We will continue continue to follow. Admission and Anticipated Discharge Date Admission Date: July 20, 2021 Subjective Postop from urologic surgery. Patient had presented with inability to have bowel movements and severe obstruction underwent CT scan which found a large pelvic hematoma/fluid collection with possible mass on the prostate. Patient underwent urgent resection with findings of considerable mass-effect on the rectum and prostate from likely the large fluid collection/hematoma. Significantly abnormal tissue on transurethral resection which a large pocket of purulent material at the right side of median lobe and necrotic versus congested tissue along the left lateral lobe on deep resection. Patient has Campos catheter in place with CBI. Patient has been tolerating well, but is having some pain and discomfort. Groin and posterior portion of scrotum have been mild sore. Having some abdominal distension/gas pains. Has tolerated catheter. Has not had severe pain or uncontrollable pain. Patient has been ambulating. Has not had considerable bowel movement or major change. Does have likely a moderate amount of mass-effect from pelvic hematoma. Continues to have considerable issues with bowel function. No new nausea or vomiting. Had tolerated anesthesia without major problems Tolerated diet postoperatively. Review of Systems Review of Systems: All systems reviewed & are unremarkable except as noted in HPI & below Physical Exam Physical Exam: General: Alert in no acute distress. HEENT: Normocephalic Atraumatic. Inspection normal. Cranial Nerves 2-12 Grossly intact. Normal inspection of face. Normal inspection of neck. Psychologic: Normal affect. Respiratory: Nonlabored. No use of accessory muscles. No tachypnea or dyspnea. Cardiovascular: No tachycardia Skin: [place] and Dry. No rashes or visible lesions. Abdomen: Appropriately tender. Moderately distended. No rebound or guarding : Campos in place draining light pink urine. Results & Data ([facility]) Vital Signs (Past 12 Hours) Vital Signs Temp Pulse Pulse Resp BP BP Pulse Ox 07/24/21 12:09 36.8 C 73 73 18 137/95 97 07/24/21 10:54 36.6 C 91 H 18 139/89 97 07/24/21 08:17 36.6 C 91 H 16 144/101 H 100 07/24/21 04:32 37 C 95 H 18 149/97 H 97 07/24/21 00:32 37.5 C 96 H 18 173/104 H 96 PG Care Time/CCT Total # of Minutes Spent Total Time Spent with Patient: Total time spent is greater than 50% in coordination of care (as documented) at patient's floor/unit and/or counseling patient: Coding Level of Care Code 77694 Subseq Hosp Care Lvl 3 Diagnoses Haematoma of pelvis Prostate cancer C61 Pain in rectum K62.89 Pelvic mass R19.00
[2021-07-24] MEDS ORDERED: OPTIRAY 320 100ml IV ONE (12:50)
--- NOTE | 2021-07-24 13:10 | CT Scan Report ---
CT SCAN OF THE CHEST WITH IV CONTRAST CLINICAL HISTORY: Prostate cancer. COMPARISON STUDY: Chest x-ray dated 07/23/2021. TECHNIQUE: Following the IV administration of 95 cc of Optiray 320, CT scan of the thorax was perform ed from the thoracic inlet to the upper abdomen. Images are reviewed in the axial, sagittal, and yoon nal planes. IV contrast was administered without complication. A dose lowering technique was utilize d adhering to the principles of ALARA. CT DOSE: 1107.77 mGy.cm FINDINGS: Thyroid: Normal in size and heterogeneous in attenuation. Thoracic aorta: There is mild atherosclerotic calcification of the thoracic aorta, which is normal in caliber and demonstrates bovine variant arch anatomy. No dissection is seen. Pulmonary vasculature: The pulmonary trunk is normal in caliber. There are no filling defects identif ied in the central pulmonary vessels to indicate pulmonary embolus. Note that this examination was no t protocoled for evaluation of the pulmonary arteries. Heart: The heart is enlarged noting a small to moderate pericardial effusion. Lungs and pleural spaces: There are trace pleural effusions. No airspace consolidation is seen typica l for pneumonia. The trachea and central airways are clear. Mediastinum: There are prominent subcentimeter mediastinal lymph nodes. These are not pathologically enlarged by size criteria. Lia: Clear. Axillae: There is no axillary lymphadenopathy. Upper abdomen: There is a small hiatal hernia. Partially visualized upper abdominal viscera is otherw ise grossly unremarkable. Skeletal structures: The skeletal structures are osteopenic. Arthritic change is seen in the shoulder s. No lytic or blastic bony lesions are seen. IMPRESSION: 1. There is no evidence of intrathoracic metastatic disease. 2. Cardiomegaly noting a small to moderate pericardial effusion. 3. There is no airspace consolidation typical for pneumonia. 4. Trace pleural effusions. 5. Additional findings as above ACT 112: Negative or not required by law. Electronically signed by: Saman Huggins M.D. 07/24/2021 1:07 PM
--- NOTE | 2021-07-24 13:10 | CT Scan Report ---
ABDOMEN AND PELVIS CT WITH IV CONTRAST CT DOSE: HISTORY: Prostate cancer. Evaluate for metastatic disease. Pelvic hematoma follow-up. re-eval hemato ma TECHNIQUE: Multiaxial CT images of the abdomen and pelvis were performed following the use of intrave nous contrast. A dose lowering technique was utilized adhering to the principles of ALARA. COMPARISON STUDY: Abdomen and pelvis CT 07/20/2021. FINDINGS: Small pericardial effusion and a trace right pleural effusion are noted. The heart is enlar ged. This remains unchanged. The lung bases are clear. No pneumoperitoneum. No pneumatosis. No suspic ious lytic or blastic osseous lesions. Small fat-containing periumbilical hernia again noted. The faustino er, spleen, adrenal glands, gallbladder, and pancreas unremarkable. There is a 1.5 cm exophytic hypod ense lesion within the lower pole the right kidney containing a punctate peripheral calcification. Th is is indeterminate but could represent a hyperdense cyst. This is increased in size compared to the 2020 examination. The main portal vein is patent. No retroperitoneal lymphadenopathy. Normal caliber abdominal aorta. The bladder is decompressed by a Campos catheter which appears in good position. Mode rate bladder wall thickening and adjacent fat stranding remains unchanged. Large left perirectal inte rmediate density fluid collection is again noted. This measures approximately 11 x 9 x 6 cm and resul ts in mass effect with severe decompression of the adjacent rectum. Proximal to this site the large b owel is mildly distended and filled with stool. Therefore, this could result present a developing lar ge bowel obstruction. There is abnormal enhancing soft tissue focus seen along the right side of the prostate gland which extends superiorly into the right seminal vesicle. This measures approximately 4 .6 x 2.6. This is along the right anterior surface of the left perirectal fluid collection. This coul d represent extraprostatic extension of a prostate malignancy. There is a heterogeneous enhancing enl arged right pelvic sidewall lymph node on image 350 which measures 2.9 x 1.2 cm. Normal appendix. No bowel wall thickening. IMPRESSION: 1. No significant change in the large intermediate density left perirectal fluid collection which malika sures approximately 11 x 9 x 6 cm. This favors a hematoma. However, an abscess or less likely a cysti c mass could also have a similar appearance. This results in significant mass effect along the rectum with severe decompression. The large bowel proximal to this site is mildly distended and filled with stool. Therefore, this is concerning for a developing large bowel obstruction. 2. There is again suggestion of an enhancing mass within the right deep pelvis which appears contiguo us with the right side of the prostate gland and extends to the right seminal vesicle. This is highly suspicious for extraprostatic extension of a prostate malignancy. 3. A single enlarged and heterogeneous right pelvic sidewall lymph node concerning for metastatic dis ease. ACT 112: Negative or not required by law. Electronically signed by: Charli Blanc M.D. 07/24/2021 1:09 PM
[2021-07-24] MEDS: traMADol HCL 50 MG TABLET PO PRN ×2 (13:22→21:58)
[2021-07-24] MEDS: hydroCHLOROthiazide 25 MG TAB PO SCH (15:27)
--- NOTE | 2021-07-24 16:15 | Discharge Summary ---
Date of Service July 24, 2021 Admission HPI Per Admitting Provider Mr. Hernández is a 51-year-old male with a past medical history of DM2, HTN, HLD, BPH, and A. fib on warfarin who presents today with rectal pain and trouble urinating. Per patient, over the last 3 months he has had pain between his rectum and scrotum, describes it as if he is sitting on a ball. He is also been having ongoing constipation, saying he has not had a formed, normal bowel movement in 3 months, rather they have been infrequent liquid stools, but without rossy blood, do not appear dark or tarry. He has also had intermittent issues with urination, feeling as though it is burning when he goes and does not feel like he can empty his bladder fully. For this, he has had Bowen's placed several times at the [facility] the care home, each time with blood clots and gross hematuria. This is all associated with a 12 pound weight loss over the past 3 weeks, night sweats, and fatigue. Patient does have history of A. fib, not sure if fatigue is due to this versus sleep apnea, for which he had a sleep study done recently, however has not been told of the results. In ED slightly hypertensive 150/89, other vital signs with normal limits and stable. Labs significant for WBC 12.17, PT 39, INR 3.9, PTT 51.6. Sodium 131, glucose 161, T bili 1.1. PSA pending. UA with blood, >30 RBCs, 5-10 WBCs, 1+ leuk esterase, negative for bacteria. COVID-negative. CT A/P significant for suspected hematoma in left lower pelvis, perirectal location with extension from Simulect cycles to anus causing mass-effect of rectum. Pathologically enlarged right pelvic sidewall lymph node. Lobulated mass lesion in central pelvis, measuring 6 x 6 x 3.5 cm, likely from prostate gland suspicious for neoplasm. Evidence of cystitis also seen. Patient received vitamin K, NS IVF, and morphine in ED, case was discussed with urology, and hospitalist service consulted for further evaluation and admission. Admission Exam Per Admitting Provider General: awake, alert, verbalizes rectal pain but no apparent distress Head: Normocephalic, atraumatic ENT: PERRL, EOMI, no pharyngeal exudate, mucous membranes moist Chest: Clear to auscultation, on room air, no adventitious breath sounds Cardiac: Regular rate and rhythm, no murmur, no JVD, normal peripheral pulses, good capillary refill Abdominal: suprapubic tenderness; NABS x 4 quadrants, soft, nontender to palpation, no rebound, guarding or tenderness Extremities: Normal inspection, no peripheral edema or erythema, calfs nontender to palpation Psych: Normal mood and affect Neuro: AAO x 3, strength intact bilaterally and rated 5/5, no motor deficits, speech is clear, no peripheral sensory deficits Skin: no rash or erythema Principal Diagnosis Pelvic Mass, Prostate Ca Discharge Exam General: WD male resting in bed, two guards at bedside, no acute distress but mildly uncomfortable (states improving pain since medication) HEENT: head normocephalic, atraumatic, mm moist, trachea midline without deviation Resp: CTAB, no w/c/r, on room air CV: irregularly irregular (rate 92bpm), no m/r/g, no edema, calves non-tender, pulses palpable GI: +BS, distended, non-tender, no guarding/rigidity : bowen draining clear yellow urine in tubing, penis with tenderness around catheter site, minimal scrotal swelling Rectum tender to palpation, external hemorrhoids MSK/Neuro: moves all extremities, follows commands, speech clear, no focal deficit, strength full throughout Skin: warm, dry, no rashes Discharge Data Allergies Allergy/AdvReac Type Severity Reaction Status Date / Time No Known Allergies Allergy Unverified 07/20/21 10:35 Consultations 07/20/21 12:17 ED Decision to Admit Stat 07/20/21 15:07 Consult Urology Routine 07/22/21 07:42 Consult Cardiology Routine 07/22/21 12:09 Consult General Surgery Routine 07/23/21 13:33 Consult Gastroenterology Routine 07/24/21 09:36 Consult Oncology Routine Procedures Performed Operation Date: 07/21/21 11:55 Actual Procedures p Transurethral Resection Bladder Tumor(Not Applicable) - Bassam Hernandez DO Ordered Studies 07/20/21 10:11 CT abd pelvis IV con only Stat 07/24/21 10:56 CT chest diagnostic w con Routine 07/24/21 11:01 CT abd pelvis IV con only Urgent Hospital Course (1) Pelvic mass: Lobulated, central pelvis measuring 6 x 6 x 3.5 cm, ? arise from prostate. Associated with pathologic enlarged right pelvic sidewall lymph node, concerning for malignancy Also noted 12 pound weight loss over the last 3 weeks, night sweats, fatigue, intermittent episodes of chills and fevers over the past few months. Family history of prostate cancer in a cousin, who recently -- AGE 56 PSA 103.838. Per patient, its been elevated for the past 3 years however we have no previous baseline in system Urology consulted POD#2 s/p Transurethral Resection of prostate/mass, drainage of prostatic abscess, and exam under anesthesia - Bassam Hernandez, DO Pathology pending Unable to cx path from OR as in formalin --> discussed if improving on rocephin, consider 6 weeks cefdinir to cover for prostatitis Ceftriaxone for possible infection given prostatic abscess noted to be drained on OR report and reports of fever/chills/leukocytosis on admission however could be also related to underlying malignancy and as discussed with Urology, they felt the purulant drainage more of a retention issue, however given overall clinical picture would tx extened course for prostatitis w/ abscess Stopped IVF for now, encouraging PO. Given lasix 20mg x 1 this morning for some volume overload as had been on continuous IVF. Held off yesterday due to KAT with Cr to 2 likely 2nd to ATN from hypotension evening before but given this morning with improvement in SpO2. CXR without acute process General surgery consulted to see about biopsy/drainage of fluid collection --> felt very likely to be hematoma and rec not to drain and have repeat imaging outpt 2-4 wks for surveillance Pain control --> morphine for breakthrough, had been given PO oxycodone but with itchiness/rash and required benadryl. Tramadol ordered to see if able to tolerate. Constipation --> encouraging ambulation. has been up moving in room more frequently. passing gas. small BM this morning. Continue bowel regimen. Suppository available prn if needed, consider enema if needed. KUB without obstruction. Consulted GI to see about possible sigmoidoscopy. Also spoke with care home [facility] and inquired about f/u colorectal surgery/IR as outpatient and recs for repeat imaging in couple weeks to ensure improving. They are to call me back BPH--Flomax 0.8mg daily, finasteride 5mg daily. 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 Tertiary pattern 5. Discussed with Urology pathology returned, to see patient today to discuss as well Continues with bowen Continues to have issues with bowel movement but is passing gas, small amt stool 07/23. Discussed with Oncology, obtaining CT chest for eval met disease and also repeating CTAP to re-eval hematoma Consideration for hormonal therapy prior to intervention vs treatment pending eval for metastatic disease Bone scan also ordered Correction able to arrange outpt colorectal once back at care home, unless needs arise sooner/need for tx (2) Perirectal hematoma: Left lower pelvis, largely perirectal location, extends from seminal vesicles to anus causing mass-effect of adjacent rectum. No history of trauma or falls, this could be result of frequent Bowen catheter placement versus subsequent effect of the pelvic mass Holding aspirin and Coumadin - patient received vitamin K in ED --> INR 1.2 after VIt K Hgb stable at but diluted some from continuous IVF but since have discontinued Bowen with improvement in hematuria hgb stable but checking iron studies --> Venofer ordered, repeat in AM Repeat CTAP as above for re-eval hematoma (3) Hyponatremia: Na 130, was 139 on outpatient labs from 05/28/2021. TSH wnl Continue to hold HCTZ, suspect volume overloaded though from continuous IVF and this has been stopped. Lasix 20mg x 1 now that Cr normalized and Na 134 on Am labs Na 133, consider additional dose lasix today, lungs not overly congested but has been on 2L while sleeping/pain meds (got sleep study outpt and sign sleep apnea, ordered CPAP for tonight if able to tolerate) BMP in AM (4) Hypertension: Continue metoprolol 100 mg twice daily, holding HCTZ due to hyponatremia but will resume given elevated BNP and improvement in Na after administration of lasix on 07/23 and BP elevated Lisinopril continued given Cr back to normal (5) Persistent atrial fibrillation: Persistent since April 2020 per cardiology note. Continue metoprolol as above, holding warfarin given hematoma and supratherapeutic INR. Monitor on telemetry -- has been rate controlled in 80-90s/low 100s today but did have increased pain when trying to have BM this morning and rates 140-160 when up to restroom --> Rates improved to 80-90s this afternoon Keep K>4, Mag >2 Coumadin vs DOAC when able to resume (6) Type 2 diabetes mellitus: On glimepiride at home, will hold this while inpatient. A1c 8.1 BSG AC/HS, SSI while inpatient BSGs acceptable, monitor (7) Dyslipidemia: Continue rosuvastatin, increased from 5 mg to 10 mg daily at cardiology visit on 06/09. (8) Sleep apnea: No formal diagnosis per records, Recommended to have sleep study by cardiology on 06/09 due to ongoing fatigue. He reports he has had it done, but was not given results. Likely would need BiPAP given apneic periods on overnight pox study but did not drop for extended periods of time, will need to follow up on outpt formal sleep study --Will check with [facility] if able to follow up on this (9) CKD (chronic kidney disease) stage 2, GFR 60-89 ml/min: eGFR 80.3, CrCl 80.8. Bumped to 2 but after IVF discontinued/BP improved normalized (10) Pericardial effusion: noted on CT. No CP/SOB. No evidence for tamponade ECHO obtained, moderate effusion, EF >70% with hypertrophic cardiomyopathy noted Slightly volume overloaded on exam day prior and IVF discontinued Cards on consult -- appreciate input. Recommends against drainage at this time. Continue BB (11) Hypertrophic cardiomyopathy: noted on echo BB/BP control (12) Prostate cancer: SCDs, chemo PPx contraindicated in setting of supratherapeutic INR, hematoma. Continued inpatient stay Discharge Plan Discharge Items Patient Disposition: Transfer Acute Care Hospital Reason For Visit: PELVIC MASS AND PERIRECTAL HEMATOMA W URINARY RETE Discharge Diagnosis: Prostate Ca, Pelvic mass causing obstruction Goals: You have been hospitalized for an urgent problem which required surgery. During your stay at [facility], we have made an effort to correct the problem that brought you to the hospital while keeping you as comfortable as possible. Surgery and medications were used to bring your condition under control and your discharge instructions will include directions for any medications you should take after leaving the hospital. Please make sure to follow the advice of your surgeon regarding follow up with the surgeon and with your primary care provider. Activity: As commented below Follow-up/Referrals: Yaa HOWARD [Primary Care Provider] - Stand-Alone Forms: My [facility] Medications and DC Order Prescriptions: No Action tamsulosin 0.4 mg capsule 0.8 mg PO DAILY RF: 0 rosuvastatin 5 mg tablet 5 mg PO HS RF: 0 glimepiride 1 mg tablet 1 mg PO QAM RF: 0 warfarin 4 mg tablet 8 mg PO DAILY RF: 0 aspirin [Aspirin Low-Strength] 81 mg Tablet,Delayed Release (Dr/Ec) 81 mg PO DAILY RF: 0 lisinopril 20 mg Tablet 20 mg PO DAILY RF: 0 hydrochlorothiazide 25 mg Tablet 25 mg PO DAILY RF: 0 metoprolol tartrate 100 mg Tablet 100 mg PO BID RF: 0 finasteride 5 mg Tablet 5 mg PO DAILY RF: 0 polyethylene glycol 3350 [Miralax] 17 gram Powder In Packet 17 g PO TID PRN (Reason: Constipation) RF: 0 acetaminophen 500 mg Tablet 1,000 mg PO TID PRN (Reason: Unknown) RF: 0 Krames/Other Patient Handouts: Managing Type 2 Diabetes Admission Data Admit Date/Time: 07/20/21 13:29 Attending Provider: Sara Nava Admit Provider: Vivek Ashraf Primary Care Provider: Yaa HOWARD Other Providers: Vivek Ashraf ; Bassam Hernandez ; Tyrone Norris ; Zaid Negron ; Marilee Alcala ; Zulema Valles Coding Diagnoses Pelvic mass R19.00 Perirectal hematoma S36.62XA Hyponatremia E87.1 Hypertension I10 Persistent atrial fibrillation I48.19 Type 2 diabetes mellitus E11.9 Dyslipidemia E78.5 Sleep apnea G47.30 CKD (chronic kidney disease) stage 2, GFR 60-89 ml/min N18.2 Pericardial effusion I31.3 Hypertrophic cardiomyopathy I42.2 Prostate cancer C61
--- NOTE | 2021-07-24 17:29 | Discharge Summary ---
Date of Service July 24, 2021 Admission HPI Per Admitting Provider Chief Complaint: Hematuria, urinary retention Primary Care Provider: LEE Mon Mr. Hernández is a 51-year-old male with a past medical history of DM2, HTN, HLD, BPH, and A. fib on warfarin who presents today with rectal pain and trouble urinating. Per patient, over the last 3 months he has had pain between his rectum and scrotum, describes it as if he is sitting on a ball. He is also been having ongoing constipation, saying he has not had a formed, normal bowel movement in 3 months, rather they have been infrequent liquid stools, but without rossy blood, do not appear dark or tarry. He has also had intermittent issues with urination, feeling as though it is burning when he goes and does not feel like he can empty his bladder fully. For this, he has had Bowen's placed several times at the [facility], each time with blood clots and gross hematuria. This is all associated with a 12 pound weight loss over the past 3 weeks, night sweats, and fatigue. Patient does have history of A. fib, not sure if fatigue is due to this versus sleep apnea, for which he had a sleep study done recently, however has not been told of the results. In ED slightly hypertensive 150/89, other vital signs with normal limits and stable. Labs significant for WBC 12.17, PT 39, INR 3.9, PTT 51.6. Sodium 131, glucose 161, T bili 1.1. PSA pending. UA with blood, >30 RBCs, 5-10 WBCs, 1+ leuk esterase, negative for bacteria. COVID-negative. CT A/P significant for suspected hematoma in left lower pelvis, perirectal location with extension from Simulect cycles to anus causing mass-effect of rectum. Pathologically enlarged right pelvic sidewall lymph node. Lobulated mass lesion in central pelvis, measuring 6 x 6 x 3.5 cm, likely from prostate gland suspicious for neoplasm. Evidence of cystitis also seen. Patient received vitamin K, NS IVF, and morphine in ED, case was discussed with urology, and hospitalist service consulted for further evaluation and admission. Admission Exam Per Admitting Provider General: awake, alert, verbalizes rectal pain but no apparent distress Head: Normocephalic, atraumatic ENT: PERRL, EOMI, no pharyngeal exudate, mucous membranes moist Chest: Clear to auscultation, on room air, no adventitious breath sounds Cardiac: Regular rate and rhythm, no murmur, no JVD, normal peripheral pulses, good capillary refill Abdominal: suprapubic tenderness; NABS x 4 quadrants, soft, nontender to palpation, no rebound, guarding or tenderness Extremities: Normal inspection, no peripheral edema or erythema, calfs nontender to palpation Psych: Normal mood and affect Neuro: AAO x 3, strength intact bilaterally and rated 5/5, no motor deficits, speech is clear, no peripheral sensory deficits Skin: no rash or erythema Principal Diagnosis Prostate CA,Zuleima- Rectal/Pelvic Mass, Fluid Collection causing mass effect on rectum Discharge Exam General: WD male resting in bed, two guards at bedside, no acute distress but mildly uncomfortable HEENT: head normocephalic, atraumatic, mm moist, trachea midline without deviation Resp: CTAB, no w/c/r, on room air CV: irregularly irregular, normal rate, no m/r/g, no edema, calves non-tender, pulses palpable GI: +BS, moderate distension but improved from yesterday, tender to suprapubic region, no guarding/rigidity : bowen draining pink tinged urine MSK/Neuro: moves all extremities, follows commands, speech clear, no focal deficit, strength full throughout Skin: warm, dry, no rashes Discharge Data Allergies Allergy/AdvReac Type Severity Reaction Status Date / Time No Known Allergies Allergy Unverified 07/20/21 10:35 Consultations 07/20/21 12:17 ED Decision to Admit Stat 07/20/21 15:07 Consult Urology Routine 07/22/21 07:42 Consult Cardiology Routine 07/22/21 12:09 Consult General Surgery Routine 07/23/21 13:33 Consult Gastroenterology Routine 07/24/21 09:36 Consult Oncology Routine Procedures Performed Operation Date: 07/21/21 11:55 Actual Procedures p Transurethral Resection Bladder Tumor(Not Applicable) - Bassam Hernandez, Ordered Studies 07/20/21 10:11 CT abd pelvis IV con only Stat 07/24/21 10:56 CT chest diagnostic w con Routine 07/24/21 11:01 CT abd pelvis IV con only Urgent Hospital Course (1) Prostate cancer: Patient presented with lobulated, central pelvis measuring 6 x 6 x 3.5 cm, suspected to arise from prostate. Associated with pathologic enlarged right pelvic sidewall lymph node, concerning for malignancy. Area or fluid collection/mass could be tumor outgrew blood supply/maybe abscessed. He noted 12 pound weight loss over the last 3 weeks, night sweats, fatigue, intermittent episodes of chills and fevers over the past few months. Family history of prostate cancer in a cousin, who recently -- AGE 56 PSA 103.838. 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 Tertiary pattern 5 Oncology consulted, recs for CT chest and did a repeat A/P given "hematoma" causing mass effect on initial imaging * Was going to start docetaxel, but concerns for the hematoma given presence as discussed since 2020 on prior imaging, and question if fluid collection malignant vs mass cystic structure and recs to have bx/drainage for further eval and wouldn't want to start therapy with active infection and worsen counts CT A/P:No significant change in the large intermediate density left perirectal fluid collection which measures approximately 11 x 9 x 6 cm. This favors a hematoma. However, an abscess or less likely a cystic mass could also have a similar appearance. This results in significant mass effect along the rectum with severe decompression. The large bowel proximal to this site is mildly distended and filled with stool. Therefore, this is concerning for a developing large bowel obstruction. 2. There is again suggestion of an enhancing mass within the right deep pelvis which appears contiguous with the right side of the prostate gland and extends to the right seminal vesicle. This is highly suspicious for extraprostatic extension of a prostate malignancy. 3. A single enlarged and heterogeneous right pelvic sidewall lymph node concerning for metastatic disease. 4. Increase in size in a 1.4 cm exophytic hypodense lesion within the lower pole of the right kidney. This may represent a slightly complex cyst. Follow-up renal ultrasound or MRI is recommended to exclude the less likely possibility of a renal mass. General surgery consulted prior, no need to drain. Did discuss with on-call given updated CTAP and agreed needed addressed, but no safe way to drain at this institution (noted prostatic abscess drained on OR report from [facility] 07/21, no cx obtained but maintained on Rocephin without elevation in WBC/fever) --> Consideration for IR to bx/drain through ischiorectal fossa Pain control, decreased diet and encouraged ambulation. No n/v at this time but if develops, would drop NGT. Is passing gas and some stool but lots of rectal discomfort, likely from mass effect [place] [facility] physician Dr Ibrahim, when bed available. Imaging pushed for their radiologist to review (2) Pelvic mass: as above (3) Perirectal hematoma: Left lower pelvis, largely perirectal location, extends from seminal vesicles to anus causing mass-effect of adjacent rectum. No history of trauma or falls, question if coming from tumor in setting of taking anticoagulation Holding aspirin and Coumadin - patient received vitamin K in ED --> INR 1.2 Hgb stable Bowen with improvement in hematuria Hgb stable but checking iron studies --> Venofer given x 1 Repeat CTAP as above for re-eval hematoma/fluid collection show sno active extravasation (4) Hyponatremia: Na 130, was 139 on outpatient labs from 05/28/2021. TSH wnl improved to 133 could be secondary to HCTZ monitor BMP (5) Hypertension: Continue metoprolol 100 mg twice daily, holding HCTZ due to hyponatremia Lisinopril continued given Cr back to normal (6) Persistent atrial fibrillation: Persistent since April 2020 per cardiology note. Continue metoprolol as above, holding warfarin given hematoma and supratherapeutic INR. Monitored on telemetry -- has been rate controlled in 80-90s/low 100s today but did have increased pain when trying to have BM this morning and rates 140-160 when up to restroom Keep K>4, Mag >2 Coumadin when able to resume as DOAC not typically available in [facility] system (7) Type 2 diabetes mellitus: On glimepiride at home, will hold this while inpatient. A1c 8.1 BSG AC/HS, SSI while inpatient BSGs acceptable, monitor (8) Dyslipidemia: Continue rosuvastatin, increased from 5 mg to 10 mg daily at cardiology visit on 06/09. (9) Sleep apnea: No formal diagnosis per records, Recommended to have sleep study by cardiology on 06/09 due to ongoing fatigue. --> SLEEP STUDY FROM CORRECTION WITH AHI 45.9, likely need CPAP (10) CKD (chronic kidney disease) stage 2, GFR 60-89 ml/min: eGFR 80.3, CrCl 80.8. Bumped to 2, normalized with improvement in BP. suspect degree of ATN post-op TURP (11) Pericardial effusion: noted on CT. No CP/SOB. No evidence for tamponade ECHO obtained, moderate effusion, EF >70% with hypertrophic cardiomyopathy noted Cards on consult -- appreciate input. Recommends against drainage at this time. Continue BB follow as outpt (12) Hypertrophic cardiomyopathy: noted on echo BB/BP control -- pain causing elevation in BP (13) Anemia: normocytic iron studies checked, low, likely 2nd to malignancy/bleeding venofer x 1 given SCDs, chemo PPx contraindicated in setting of supratherapeutic INR, hematoma. Dispo-dc to [facility] today for eval for perirectal mass/collection drainage Total Time Total Time Spent Total Time Spent (In Minutes): 40 min Discharge Plan Discharge Items Patient Disposition: Transfer Acute Care Hospital Reason For Visit: PELVIC MASS AND PERIRECTAL HEMATOMA W URINARY RETE Discharge Diagnosis: Prostate Ca, Pelvic mass causing obstruction Goals: You have been hospitalized for an urgent problem which required surgery. During your stay at [facility], we have made an effort to correct the problem that brought you to the hospital while keeping you as comfortable as possible. Surgery and medications were used to bring your condition under control and your discharge instructions will include directions for any medications you should take after leaving the hospital. Please make sure to follow the advice of your surgeon regarding follow up with the surgeon and with your primary care provider. Activity: As commented below Non-emergency contact: Primary Care Provider Call non-emergency contact if: you have any medication questions and your symptoms worsen Follow-up/Referrals: Yaa HOWARD [Primary Care Provider] - Diet: Nothing by Mouth Addtl Attending Provider Instructions: Transferred to [facility] Pending Studies at Discharge: Yes (blood cultures-no growth to date) Stand-Alone Forms: My [facility] Skilled Items Patient informed of condition?: Yes DNR: No Discharge Level of Care: Other Communicable Disease: No Discharge Prognosis: Stable Lines: Saline Lock Urinary Catheter: Yes Medications and DC Order Prescriptions: New polyethylene glycol 3350 [Miralax] 17 gram Powder In Packet 17 g PO TID Qty: 90 RF: 0 sennosides-docusate sodium [Senokot-S] 8.6-50 mg Tablet 1 tab PO QAM Qty: 30 RF: 0 ceftriaxone 1 gram recon soln 1 g IV DAILY Qty: 10 RF: 0 Continued tamsulosin 0.4 mg capsule 0.8 mg PO DAILY RF: 0 rosuvastatin 5 mg tablet 5 mg PO HS RF: 0 lisinopril 20 mg Tablet 20 mg PO DAILY RF: 0 metoprolol tartrate 100 mg Tablet 100 mg PO BID RF: 0 finasteride 5 mg Tablet 5 mg PO DAILY RF: 0 polyethylene glycol 3350 [Miralax] 17 gram Powder In Packet 17 g PO TID PRN (Reason: Constipation) RF: 0 acetaminophen 500 mg Tablet 1,000 mg PO TID PRN (Reason: Unknown) RF: 0 Discontinued glimepiride 1 mg tablet 1 mg PO QAM RF: 0 warfarin 4 mg tablet 8 mg PO DAILY RF: 0 aspirin [Aspirin Low-Strength] 81 mg Tablet,Delayed Release (Dr/Ec) 81 mg PO DAILY RF: 0 hydrochlorothiazide 25 mg Tablet 25 mg PO DAILY RF: 0 Discharge Orders: Discharge Order (Routine); Ordered 07/25/21 Ordered By: Sara Lopez/Other Patient Handouts: Managing Type 2 Diabetes Admission Data Admit Date/Time: 07/20/21 13:29 Attending Provider: Sara Nava Admit Provider: Vivek Ashraf Primary Care Provider: Yaa HOWARD Other Providers: Vivek Ashraf ; Bassam Hernandez ; Tyrone Norris ; Zaid Negron ; Marilee Alcala ; Zulema Valles Other Interventions: Discharge Summary Assessment (RN) Last Done: 07/25/21 09:40 Coding Level of Care Code D/C DAY MANAGEMENT >30 MINS Diagnoses Prostate cancer C61 Pelvic mass R19.00 Perirectal hematoma S36.62XA Hyponatremia E87.1 Hypertension I10 Persistent atrial fibrillation I48.19 Type 2 diabetes mellitus E11.9 Dyslipidemia E78.5 Sleep apnea G47.30 CKD (chronic kidney disease) stage 2, GFR 60-89 ml/min N18.2 Pericardial effusion I31.3 Hypertrophic cardiomyopathy I42.2 Anemia D64.9
[2021-07-24] MEDS: cefTRIAXone SODIUM 1,000 MG in DEXTROSE 5% 50 ML IV SCH (17:34)
--- NOTE | 2021-07-24 17:56 | Consultation Report ---
DATE OF SERVICE: 07/24/2021. REASON FOR CONSULTATION: New prostate cancer. HISTORY OF PRESENT ILLNESS: The patient is a 51-year-old gentleman who is currently an inmate at [facility], who presented on 07/20/2021 with complaints of rectal pain and difficulty urinating. On arrival to the emergency room, CT abdomen and pelvis was performed, which revealed findings suspicious for cystitis as well as lobulated mass lesion in the central pelvis, likely arising from the prostate gland suspicious for malignancy, pathologically enlarged right pelvic sidewall lymph node and large complex fluid collection typical for hematoma in the left lower pelvis. Of note, patient indicated that he had had a longstanding history of elevated PSA for which he did not undergo workup and also indicated that he also had a cousin who from prostate cancer in his 50s. The patient was then evaluated by Dr. Hernandez, who performed transurethral resection of prostate mass and drainage of prostatic abscess on 07/21/2021. Pathology revealed Gagna 4+3 equal to 7 acinar adenocarcinoma. PAST MEDICAL HISTORY: 1. Diabetes mellitus type 2. 2. Hypertension. 3. Hyperlipidemia. 4. BPH. 5. Atrial fibrillation, on chronic anticoagulation. PAST SURGICAL HISTORY: Nonsignificant. MEDICATIONS PRIOR TO ADMISSION: 1. Aspirin 81 mg p.o. daily. 2. Hydrochlorothiazide 25 mg p.o. daily. 3. Lisinopril 20 mg p.o. daily. 4. Glimepiride 1 mg p.o. q.a.m. 5. Rosuvastatin 5 mg p.o. at bedtime. 6. Tamsulosin 0.4 mg p.o. daily. 7. Warfarin 8 mg p.o. daily. 8. Tylenol as needed. 9. Finasteride 5 mg p.o. daily. 10. Metoprolol 100 mg p.o. b.i.d. 11. MiraLax as needed. SOCIAL HISTORY: Denies smoking, alcohol and illicit drug use. FAMILY HISTORY: Significant for prostate cancer in his cousin in his 50s. REVIEW OF SYSTEMS: CONSTITUTIONAL: Endorses weight loss. Denies fever, chills, or night sweats. CARDIOVASCULAR: Denies chest pain, palpitations, dizziness, or diaphoresis. RESPIRATORY: Denies shortness of breath, hemoptysis or cough. GASTROINTESTINAL: Denies diarrhea, hematemesis, melena, nausea, vomiting or dyspepsia. GENITOURINARY: Endorses urinary frequency. Denies hematuria or dysuria. NEUROLOGIC: Denies headaches or dizziness. LYMPHATICS AND HEMATOLOGIC: Denies abnormal bleeding or new adenopathy. MUSCULOSKELETAL: Denies bone pain. PHYSICAL EXAMINATION: VITAL SIGNS: Blood pressure 137/95, heart rate 73, respiratory rate 18, temperature 36.8, oxygen saturation 97% on 2 liters per minute intranasal oxygen. CONSTITUTIONAL: Vitals are stable. EYES: Without conjunctival erythema or icterus. RESPIRATORY: Lung sounds were generally clear bilaterally. CARDIOVASCULAR: Heart was irregularly irregular. GASTROINTESTINAL: Abdomen is soft with normal bowel sounds. He has no palpable hepatosplenomegaly. LYMPHATIC SYSTEM: No palpable peripheral lymphadenopathy. EXTREMITIES: Negative for edema. LABORATORY DATA: CBC on 07/24/2021 revealed white count of 9.37, hemoglobin 12.2, hematocrit 37.6, platelet count 280,000. Chemistry significant for sodium of 133, potassium 4.5, chloride 99, bicarbonate 30. IMAGING STUDIES: CT abdomen and pelvis performed on 07/20/2021. Impression: 1. Findings suggest cystitis. 2. Findings are highly suspicious for lobulated mass lesion in the central pelvis, likely arising from the prostate gland. Neoplasm is a diagnosis of exclusion. 3. Pathologically enlarged right pelvic sidewall lymph node. 4. There is large complex fluid collection typical for hematoma in the left lower pelvis. This is largely perirectal in location and extends from the level of the seminal vesicles nearly to the anus, this causes mass effect on the adjacent rectum. 5. There is trace fluid in the left paracolic gutter. 6. Moderate colonic fecal retention. 7. Cardiomegaly with a small to moderate pericardial effusion. IMPRESSION: 1. Newly diagnosed adenocarcinoma of the prostate, [place] 4+3 with pelvic mass, possibly arising from the prostate. 2. Large complex fluid collection, possible hematoma in the left lower pelvis. 3. Pathologically enlarged right pelvic sidewall lymph node. Pleasant 51-year-old gentleman with family history of prostate cancer who was recently diagnosed with [place] 4+3 adenocarcinoma of the prostate. Based on imaging, he seems to have possible extension into the pelvic sidewall of his prostate cancer. At this time, we would recommend full staging workup with a CT chest and bone scan to rule out distant metastatic disease. Would also recommend checking a PSA as well as testosterone levels. If staging studies confirm distant metastatic disease, he would require androgen deprivation therapy with Lupron in addition to either IV chemotherapy with docetaxel or complete androgen blockade with abiraterone or enzalutamide or apalutamide. Addendum: Following discussion with radiology, it is unclear what the large chronic lower pelvic mass is and as such would recommend considering transfer to tertiary center for possible exploration/resection of mass given concern for bowel obstruction. Thank you for this consult. The patient would be followed up in Oncology clinic upon discharge from hospital. Please feel free to call if you have any further questions. Job ID: [id number] [facility] HOSPITALNida
[2021-07-24] MEDS ORDERED: SODIUM CHLORIDE 0.9% 1000ML 1,000 ML IV SCH (19:30)
[2021-07-24] MEDS: hydrOXYzine HCl 25 MG TAB PO SCH (21:58)
[2021-07-24] MEDS: ROSUVASTATIN CALCIUM 10 MG TAB PO SCH (21:59)
[2021-07-25] MEDS: HYDROmorphone INJ 0.5 MG/0.5 ML SYR IV PRN ×3 (00:22→09:31)
[2021-07-25] MEDS: ACETAMINOPHEN 325 MG TAB PO PRN (02:33)
[2021-07-25 08:00] VITALS: TEMP 98.8; O2SAT 97
[2021-07-25] MEDS: lisinopril 20 MG TAB PO SCH (09:26)
[2021-07-25] MEDS: FINASTERIDE 5 MG TAB PO SCH (09:26)
[2021-07-25] MEDS: TAMSULOSIN HCL 0.4 MG CAP PO SCH (09:26)
[2021-07-25] MEDS: hydroCHLOROthiazide 25 MG TAB PO SCH (09:26)
[2021-07-25] MEDS: DOCUSATE SODIUM/SENNA 50/8.6MG TAB PO SCH (09:26)
[2021-07-25] MEDS: INSULIN ASPART PER UNIT SC SCH (09:27)
[2021-07-25] MEDS: POLYETHYLENE (MIRALAX) 17 GM PACK PO SCH (09:27)
[2021-07-25 09:42] VITALS: BP 161/92; PULSE 90
--- NOTE | 2021-07-25 09:43 | Urology Progress Note ---
Date of Service July 25, 2021 Assessment & Plan (1) Haematoma of pelvis: (2) Prostate cancer: (3) Pain in rectum: (4) Pelvic mass: Plan: - POD #4 s/p Transurethral Resection of prostate/mass, drainage of prostatic abscess, and exam under anesthesia with Dr. Hernandez. - Pathology returned with high risk prostate cancer with initial PSA over 100. Patient is a pT1b [place] 4+3+5. - Oncology consulted, recommended staging imaging and reevaluation of pelvic hematoma. - Repeat CTAP noted no significant change in fluid collection. - Consideration for IR to bx/drain pelvic hematoma. - Pt afebrile, hemodynamically stable. - No urine cx on admission.On Ceftriaxone for possible infection. - Campos catheter intact, currently draining clear yellow urine. Plan - - Maintain Campos catheter. - Continue supportive care, antibiotic therapy, and pain management. - Pt awaiting transfer to [facility] this morning for IR bx/drainage. - Will continue to follow. Admission and Anticipated Discharge Date Admission Date: July 20, 2021 Subjective Pt examined at bedside this AM. Awake, resting in bed on arrival. No acute distress. Campos catheter intact, draining clear yellow urine. No fevers. Awaiting transfer to [facility] this morning. Review of Systems Constitutional: as per Subjective / HPI Genitourinary: + as per Subjective / HPI Physical Exam Constitutional: no acute distress Respiratory: no respiratory distress and no labored breathing Gastrointestinal (Abdomen): Inspection/Auscultation: abdomen normal to inspection Neurologic: moves all extremities and awake Psychiatric: Orientation: alert, oriented x 3 and cooperative Genitourinary: Campos catheter intact, draining clear yellow urine. Results & Data ([facility]) Vital Signs (Past 12 Hours) Vital Signs Temp Pulse Pulse Pulse Resp BP BP 07/25/21 07:59 37.1 C 100 H 16 136/86 07/25/21 07:50 97 H 07/25/21 04:58 36.9 C 90 18 161/92 H 07/25/21 00:48 128 H 07/24/21 23:00 36.8 C 98 H 18 172/113 H 07/24/21 22:17 95 H 17 Pulse Ox 07/25/21 07:59 97 07/25/21 07:50 07/25/21 04:58 96 07/25/21 00:48 07/24/21 23:00 92 07/24/21 22:17 95 PG Care Time/CCT Total # of Minutes Spent Total Time Spent with Patient: Total time spent is greater than 50% in coordination of care (as documented) at patient's floor/unit and/or counseling patient: Coding Level of Care Code 92027 Subseq Hosp Care Lvl 2 Diagnoses Haematoma of pelvis Prostate cancer C61 Pain in rectum K62.89 Pelvic mass R19.00
[2021-07-25] MEDS: METOPROLOL TARTRATE 100 MG TAB PO SCH (10:22)
[2021-07-25] MEDS: traMADol HCL 50 MG TABLET PO PRN (10:27)
== END 2021-07-25 10:37 | disposition short-term general hospital (02) | DRG 713 ==
LOC: ED 08:24 → 2W 13:29 → SUATTDRO 13:29 → 2W 14:45

== ENCOUNTER 2021-08-06 12:28 | Inpatient (IN) ==
[2021-08-06 13:41] LABS: Basophils # (auto) 0.04 K/uL (0-0.2); Basophils % (auto) 0.5 %; Eosinophils % (auto) 2.4 %; Hematocrit (blood only) 38.3 % (42-52); Hemoglobin 13.7 g/dL (14.0-18.0); Immature Granulocytes # (auto) 0.01 K/uL (0.00-0.02); Immature Granulocytes % (auto) 0.1 %; Lymphocytes # (auto) 2.68 K/uL (1.2-3.4); Lymphocytes % (auto) 32.8 %; Mean Corpuscular Hemoglobin 31.9 pg (25-34); Mean Corpuscular Hgb Conc 35.8 g/dL (32-36); Mean Corpuscular Volume 89.1 fL (80-100); Mean Platelet Volume 9.8 fL (7.4-10.4); Monocytes # (auto) 0.97 K/uL (0.11-0.59); Monocytes % (auto) 11.9 %; Neutrophils # (auto) 4.28 K/uL (1.4-6.5); Neutrophils % (auto) 52.3 %; Platelet Count 349 K/uL (130-400); RDW Coefficient of Variation 12.9 % (11.5-14.5); RDW Standard Deviation 41.8 fL (36.4-46.3); White Blood Count 8.18 K/uL (4.8-10.8)
[2021-08-06 14:08] LABS: Albumin Globulin Ratio 1.1 (0.9-2); Albumin Level 4.1 gm/dl (3.4-5.0); BUN Creatinine Ratio 16.8 (10-20); Bilirubin,Total 0.5 mg/dl (0.2-1.0); Calcium 9.7 mg/dl (8.5-10.1); Creatinine Clr Calc Pharmacy 60.6 ml/min; Est GFR (African American) 58.4 ml/min; Est GFR (Non-African American) 50.4 ml/min; Globulin 3.8 gm/dl (2.5-4.0); Potassium 5.4 mmol/L (3.5-5.1); Total Protein 7.9 gm/dl (6.0-8.3)
[2021-08-06] MEDS ORDERED: DEXTROSE 50% 50 ML SYRINGE IV ONE (14:43)
[2021-08-06] MEDS ORDERED: NovoLIN-R INSULIN PER UNIT CHARGE IV STA (14:43)
--- NOTE | 2021-08-06 14:50 | Emergency Department Note ---
History of Present Illness General Chief complaint: Constipation Stated complaint: BOWEL BLOCKAGE, [facility] FALG[facility] CALLED Time Seen by Provider: 08/06/21 14:24 Source: patient and other (trudy GALLAGHER from neuropathy present) History of Present Illness Provider complaint: Abdominal pain Onset (ago): week(s) Location: abdomen and right Radiation: non-radiation Pain Consistency: + intermittent Maximum Pain Intensity: 8 Quality: + aching Exacerbated By: + other (Palpation) Associated symptoms: no chest pain, no cough, no fever/chills, no nausea/vomiting or no shortness of breath This is a 51-year-old male sent here from [facility] presenting for evaluation of right lower quadrant abdominal pain and constipation. The patient has had the symptoms for weeks. He describes it as an ache in his right lower quadrant. No modifying factors. He rates it an 8 out of 10 in severity. He does state that he had a mass near his prostate which was removed here. He was subsequently diagnosed with a hematoma and then sent to [place]. He had the hematoma drained but then it recollected as the patient was on Eliquis for A. fib. He was subsequently taken off of A. fib. He was sent to the hospital here on the and had a repeat CT scan which showed the hematoma. The patient states that he had a very large bowel movement after using laxatives and he was sent back to the intermediate. He states over the past 3 days he has been passing gas and very small amounts of stool. He is not nauseous or vomiting. He states his abdominal pain has not changed at all. He denies any fever, chest pain, shortness of breath, cough or cold symptoms or urinary symptoms. He has a Campos catheter with normal output. Home Medications Medication Instructions Recorded Confirmed Type lisinopril 20 mg tablet 20 mg PO DAILY 02/06/20 08/06/21 History rosuvastatin 5 mg tablet 5 mg PO HS 04/18/21 08/06/21 History tamsulosin 0.4 mg capsule 0.8 mg PO DAILY 04/18/21 08/06/21 History acetaminophen 500 mg tablet 1,000 mg PO TID PRN 07/08/21 08/06/21 History finasteride 5 mg tablet 5 mg PO DAILY 07/08/21 08/06/21 History metoprolol tartrate 100 mg tablet 100 mg PO BID 07/08/21 08/06/21 History polyethylene glycol 3350 17 gram 17 g PO TID PRN 07/08/21 08/06/21 History oral powder packet (Miralax) acetaminophen 300 mg-codeine 30 mg 2 tab PO Q4H PRN 08/03/21 08/06/21 History tablet bisacodyl 5 mg tablet,delayed 5 mg PO BID 08/03/21 08/06/21 History release glimepiride 1 mg tablet 1 mg PO QAM 08/03/21 08/06/21 History hydrochlorothiazide 25 mg tablet 25 mg PO DAILY 08/03/21 08/06/21 History lactulose 20 gram/30 mL oral 20 g PO TID PRN 08/03/21 08/06/21 History solution lidocaine HCl 2 % mucosal jelly 1 applic TOPICAL BID PRN 08/03/21 08/06/21 History sulfamethoxazole 800 1 tab PO BID 08/03/21 08/06/21 History mg-trimethoprim 160 mg tablet (Bactrim DS) Allergies Allergy/AdvReac Type Severity Reaction Status Date / Time oxycodone AdvReac Mild Unknown Unverified 08/06/21 16:22 Past Med/Surg History Medical History CKD (chronic kidney disease) stage 2, GFR 60-89 ml/min Constipation Current use of correction anticoagulation Dyslipidemia Hypertension Hyponatremia Pelvic mass Perirectal hematoma Persistent atrial fibrillation Sleep apnea Type 2 diabetes mellitus Social History Smoking Status: Never smoker Tobacco Type: Cigarettes Second Hand Exposure: No; Hx Alcohol Use: No Hx Substance Use: No Preferred Language: American Communication Ability: Effective Change Management Analyst Required: No Beliefs That Will Affect Care: None Current Living Situation Comment: [facility] - guards at bedside. Feels Safe at Home: Yes Review of Systems See HPI for pertinent positives & negatives. and A total of 10 systems reviewed and were otherwise negative Physical Exam Vital Signs Vital Signs - 24 hr 08/06/21 12:43 08/06/21 14:28 08/06/21 16:00 Temperature 37 C Temperature Source Oral Pulse Rate 84 Pulse Rate [Apical] 88 89 Pulse Rhythm [Apical] Irregular Respiratory Rate 18 18 17 Respiratory Effort / Characteristics Non-Labored Respiratory Depth Blood Pressure 101/76 Blood Pressure [Right Arm] 111/80 173/105 H Blood Pressure Mean 84 Blood Pressure Mean [Right Arm] 90 127 Blood Pressure Position Sitting Pulse Oximetry 100 99 98 Oxygen Delivery Method Room Air Room Air Room Air Sepsis Recent Fever Within 48 Hours No Sepsis New/Unexplained Change in Mental Status No Sepsis Action Taken by Nursing No Action Required 08/06/21 16:43 08/06/21 17:34 08/06/21 19:00 Temperature Temperature Source Pulse Rate Pulse Rate [Apical] 89 89 Pulse Rhythm [Apical] Respiratory Rate 18 19 Respiratory Effort / Characteristics Respiratory Depth Blood Pressure Blood Pressure [Right Arm] 164/121 H 137/86 123/91 Blood Pressure Mean Blood Pressure Mean [Right Arm] 135 103 101 Blood Pressure Position Pulse Oximetry 96 99 Oxygen Delivery Method Room Air Sepsis Recent Fever Within 48 Hours Sepsis New/Unexplained Change in Mental Status Sepsis Action Taken by Nursing 08/06/21 19:32 Temperature Temperature Source Pulse Rate Pulse Rate [Apical] 88 Pulse Rhythm [Apical] Respiratory Rate 18 Respiratory Effort / Characteristics Non-Labored Spontaneous Respiratory Depth Normal Blood Pressure Blood Pressure [Right Arm] 113/79 Blood Pressure Mean Blood Pressure Mean [Right Arm] 90 Blood Pressure Position Pulse Oximetry 96 Oxygen Delivery Method Sepsis Recent Fever Within 48 Hours Sepsis New/Unexplained Change in Mental Status Sepsis Action Taken by Nursing Constitutional: Vital signs reviewed. Eyes: Pupils are equal round reactive to light. Conjunctiva are noninjected. ENT: Pharynx is clear without erythema or exudate. Mucous membranes are moist. Neck supple without meningeal signs. Respiratory: Clear to auscultation bilaterally. Breath sounds are equal bilaterally. Cardiovascular: Irregularly irregular rhythm. Normal rate. GI: Soft, nondistended with tenderness over a what appears to be subcutaneous sausagelike mass in the right lower quadrant. There is no increased warmth or fluctuance. There is no erythema surrounding it. Bowel sounds are present. Musculoskeletal: No peripheral edema. No lower extremity tenderness. Integumentary: No cyanosis. or jaundice. Neurological: The patient is awake and alert. No focal deficits. Psychiatric: Normal affect. Not anxious appearing. Course Administered Medications Discontinued Medications Dextrose (Dextrose 50% 50 Ml Syringe) 25 ml IV NOW ONE Stop: 08/06/21 14:44 Last Admin: 08/06/21 15:13 Dose: 25 ml Documented by: [id number] Sodium Chloride (Nss 1000ml) 1,000 mls @ 999 mls/hr IV .Q1H1M ONE Stop: 08/06/21 16:02 Last Infusion: 08/06/21 16:14 Dose: 0 mls/hr Documented by: [id number] Admin: 08/06/21 15:13 Dose: 999 mls/hr Documented by: [id number] Insulin Human Regular (Novolin-R Insulin Per Unit Charge) 5 units IV NOW STA Stop: 08/06/21 14:44 Last Admin: 08/06/21 15:13 Dose: 5 units Documented by: [id number] Cosigned by: [id number] Lidocaine HCl (Lidocaine Viscous 2% 15 Ml Udc) 3 ml TOP NOW ONE Stop: 08/06/21 18:02 Last Admin: 08/06/21 18:14 Dose: 3 ml Documented by: [id number] Medical Decision Making Differential Diagnosis Bowel obstruction, partial bowel obstruction, hematoma, abscess, prostate cancer Medical Records Attestation: I reviewed the patient's medical records. I did perform a limited focused review of portions of the patient's old chart on the electronic medical record. The patient was just seen here several days ago for constipation and similar symptoms. He had a CT of the abdomen pelvis which showed persistent hematoma in the pelvis causing mass-effect on the rectum. He was noted to have developed some subcu edema over the right lower quadrant since last CT. He was also admitted prior to that for a mass in his abdomen which was drained by Dr. Hernandez of urology. Home Medications Current Medication List: was personally reviewed by me Laboratory Data Result diagrams: 08/06/21 13:15 08/06/21 13:15 Lab Results 08/06/21 08/06/21 08/06/21 Range/Units 13:15 13:15 15:19 WBC 8.18 (4.8-10.8) K/uL RBC 4.30 L (4.7-6.1) M/uL Hgb 13.7 L (14.0-18.0) g/dL Hct 38.3 L (42-52) % MCV 89.1 (80-100) fL MCH 31.9 (25-34) pg MCHC 35.8 (32-36) g/dL RDW Std Deviation 41.8 (36.4-46.3) fL RDW Coeff of [place] 12.9 (11.5-14.5) % Plt Count 349 (130-400) K/uL MPV 9.8 (7.4-10.4) fL Immature Gran % (Auto) 0.1 % Neut % (Auto) 52.3 % Lymph % (Auto) 32.8 % [place] % (Auto) 11.9 % Eos % (Auto) 2.4 % Baso % (Auto) 0.5 % Neut # (Auto) 4.28 (1.4-6.5) K/uL Lymph # (Auto) 2.68 (1.2-3.4) K/uL [place] # (Auto) 0.97 H (0.11-0.59) K/uL Eos # (Auto) 0.20 (0-0.5) K/uL Baso # (Auto) 0.04 (0-0.2) K/uL Immature Gran # (Auto) 0.01 (0.00-0.02) K/uL Sodium 131 L (136-145) mmol/L Potassium 5.4 H (3.5-5.1) mmol/L Chloride 99 (98-107) mmol/L Carbon Dioxide 27 (21-32) mmol/L Anion Gap 5 (3-11) BUN 26 H (6-23) mg/dl Creatinine 1.55 H (0.6-1.4) mg/dl Est Cr Clr Drug Dosing 60.6 ml/min Est GFR ( Amer) 58.4 ml/min Est GFR (Non-Af Amer) 50.4 ml/min BUN/Creatinine Ratio 16.8 (10-20) Glucose 103 H (70-99(Fasting)) mg/dl Calcium 9.7 (8.5-10.1) mg/dl Total Bilirubin 0.5 (0.2-1.0) mg/dl AST 30 (13-39) U/L ALT 45 (7-52) U/L Alkaline Phosphatase 90 (34-104) U/L Total Protein 7.9 (6.0-8.3) gm/dl Albumin 4.1 (3.4-5.0) gm/dl Globulin 3.8 (2.5-4.0) gm/dl Albumin/Globulin Ratio 1.1 (0.9-2) Lipase 41 (11-82) U/L Urine Color Yellow Urine Appearance Clear (Clear) Urine pH 6.5 (4.5-7.5) Ur Specific [place] 1.018 (1.000-1.030) Urine Protein Trace H (Negative) Urine Glucose (UA) Negative (Negative) Urine Ketones Negative (Negative) Urine Blood 2+ H (Negative) Urine Nitrite Negative (Negative) Urine Bilirubin Negative (Negative) Urine Urobilinogen Negative (Negative) Ur Leukocyte Esterase Trace H (Negative) Urine WBC (Auto) 1-5 (0-5) /hpf Urine RBC (Auto) 10-30 H (0-4) /hpf U Hyaline Cast (Auto) 1-5 (0-5) /lpf U Epithel Cells (Auto) 10-20 H (0-5) /lpf Urine Bacteria (Auto) Negative (Negative) Imaging Data Radiologist's Impression: Abdomen/Pelvis CT 08/06/21 14:43 CT SCAN OF THE ABDOMEN AND PELVIS WITHOUT IV CONTRAST CLINICAL HISTORY: Lower abdominal pain. COMPARISON STUDY: Prior abdominal CT scans, most recently dated 08/03/2021. TECHNIQUE: Unenhanced CT scan of the abdomen and pelvis is performed from the lung bases to the proximal femora. Images are reviewed in the axial, sagittal, and coronal planes. IV contrast was not administered for this examination. Note that the examination was performed in suboptimal fashion without oral and IV contrast. A dose lowering technique was utilized adhering to the principles of ALARA. CT DOSE: 484.05 mGy.cm FINDINGS: Lung bases: The heart is enlarged noting a small to moderate pericardial effusion. The lung bases are clear. Liver: The unenhanced liver is normal in size, contour, and attenuation. There is no intrahepatic biliary ductal dilatation. Gallbladder: Unremarkable. Spleen: Normal in size and attenuation. Pancreas: The unenhanced pancreas is grossly unremarkable. Adrenal glands: Unremarkable. Kidneys: The abdomen and kidneys are normal in size and without hydronephrosis. No renal calculi are identified. A 3.1 cm cyst is noted in the right upper pole. Abdominal vasculature: The abdominal aorta is normal in course and caliber noting mild atherosclerotic calcification. Bowel: There is no bowel obstruction. Moderate fecal retention is seen throughout the colon. The appendix is well-visualized and normal. Peritoneum: No intraperitoneal free air or abdominal ascites is seen. See below under pelvic viscera for discussion of pelvic findings/collection. There is a large fat-containing umbilical/periumbilical hernia. Lymphadenopathy: There is an enlarged right pelvic sidewall lymph node on image #350. This measures 2.5 x 1.3 cm. No iliac chain or retroperitoneal lymphadenop athy is identified. Pelvic viscera: The bladder is decompressed around a Campos catheter. The bladder wall is thickening with surrounding infiltration. Gas is noted within the bladder lumen. A mass lesion is again suggested in the central pelvis arising from the prostate. This is best seen on axial image 364 and is not well delineated without IV contrast. Again seen is a large complex fluid collection in the left lower pelvis. This is best seen on image #373 and measures approximately 12 x 10 x 6.5 cm. This is largely perirectal in location and extends from the level of the seminal vesicles nearly to the level of the anus. This causes mass effect on the adjacent rectum which is deviated to the right. Skeletal structures: No lytic or blastic lesions are seen. IMPRESSION: 1. No significant change as compared to 08/03/2021. 2. Again seen is a large complex fluid collection in the left pelvis which causes significant mass effect on the rectum. 3. The previously suggested mass lesion the central pelvis arising from the pr ostate gland is not well delineated without IV contrast. 4. Findings suggest cystitis. Correlate with clinical findings and urinalysis. 5. Unchanged appearance of a pathologically enlarged right pelvic sidewall lymph node. 6. Moderate colonic fecal retention. 7. Cardiomegaly with a small to moderate pericardial effusion. 8. Additional findings as above. ACT 112: Negative or not required by law. Electronically signed by: Saman Huggins M.D. 08/06/2021 4:40 PM ECG Data Attestation: I personally reviewed and interpreted this ECG as follows: Indication: + abdominal pain Rate (beats per minute): 93 Rhythm: + atrial fibrillation ECG Intervals/blocks: + Normal QRS ECG [place]: + Left axis deviation ECG ST segments: no ST elevation ECG Findings: no PVCs or no Peaked T waves Comparison ECG Date: no prior available MDM Narrative I did evaluate the patient as noted above. The patient states he was sent here to see an oncologist. He states that he is woken up from sleep and told to go to the hospital. He has had ongoing issues with constipation due to a intra- abdominal mass and hematoma. He denies any symptoms of obstruction such as nausea vomiting or significant abdominal pain. He has had abdominal pain for weeks which is unchanged. I did obtain history from the patient as well as the nurse Trudy from [facility]. IV access was established. I did place an order for continuous cardiac monitoring. The monitor showed Atrial fibrillation at a rate of 88 bpm. I did order and personally review the patient's 12-lead EKG as described above. He has no acute ischemic changes. I did order a urine analysis. He has no convincing signs of infection. I did order and review the patient's blood work as noted in the electronic medical record. CBC shows a mild anemia with a hemoglobin 13.7. CMP is unremarkable other than a sodium of 131, potassium of 5.4. His BUN and creatinine are elevated at 26 and 1.5 respectively. When he was discharged from the hospital after his admission his last creatinine was 0.99. I did treated with IV insulin and glucose. I did order a CT of the abdomen and pelvis. I did review the images myself as well as the radiology report as described above. His CT is not much changed from 3 days ago. He continues to have a mass as well as hematoma. I did talk to Dr. Liang of urology who stated he would inform Dr. Hernandez but was not sure if there would be any surgical intervention needed. I did speak to Dr. Malini Rivera of urology at [facility]. She did read through the notes of his last admission. She stated that it appeared that they did not feel repeat drainage of the hematoma was indicated and carries significant risk. She stated that he is scheduled to see urology next month and will contact his urologist to see if they can bump that up sooner. I did discuss this with the patient who was very concerned about not having the hematoma drained given his continued issues with constipation and discomfort. He requested that I talk to somebody else so I did speak to Dr. Yen who is the hospitalist at [facility]. She reiterated that there was no current indication for hematoma drainage and that it would put him at risk. I did discuss this with him. He will be hospitalized here for his KAT and hyperkalemia. I did discuss case with the hospitalist and caser up. He did have some discomfort at the meatus of his penis due to the Campos and so he was given some viscous lidocaine which she states he was given previously and helped. Impression & Plan KAT (acute kidney injury), Pelvic mass, Haematoma of pelvis, Acute hyperkalemia, Acute hyponatremia Discharge Plan Visit Data Chief Complaint: Constipation Stated Complaint: BOWEL BLOCKAGE, SCI FALGUNI CALLED ED Provider: Lauri Montes De Oca Discharge Problem: KAT (acute kidney injury), Pelvic mass, Haematoma of pelvis, Acute hyperkalemia, Acute hyponatremia Patient Disposition: Admitted As Inpatient Discharge Instructions Interventions: ED Discharge Assessment Last Done: 08/06/21 21:09
[2021-08-06] MEDS ORDERED: SODIUM CHLORIDE 0.9% 1000ML 1,000 ML IV ONE (15:02)
[2021-08-06 15:39] LABS: Appearance Urine Clear (Clear); Bacteria Urine Automated Negative (Negative); Bilirubin Urine Negative (Negative); Blood Urine 2+ (Negative); Color Urine Yellow; Glucose Urine UA Negative (Negative); Ketones Urine Negative (Negative); Leukocyte Esterase Urine Trace (Negative); Nitrite Urine Negative (Negative); Protein Urine Trace (Negative); Specific Gravity Urine 1.018 (1.000-1.030); Urobilinogen Urine Negative (Negative); pH Urine 6.5 (4.5-7.5)
--- NOTE | 2021-08-06 16:11 | Electrocardiogram Report ---
Test Reason : Blood Pressure : / mmHG Vent. Rate : 093 BPM Atrial Rate : 241 BPM P-R Int : 000 ms QRS Dur : 076 ms QT Int : 342 ms P-R-T Axes : 000 -34 013 degrees QTc Int : 425 ms Atrial fibrillation Left axis deviation Poor R wave progression, consider anterior FL vs. lead placement vs. LVH Abnormal ECG No previous ECGs available Confirmed by Benny Warner ([id number]) on 08/06/2021 4:10:39 PM Referred By: Confirmed By:Sal Warner
--- NOTE | 2021-08-06 16:42 | CT Scan Report ---
CT SCAN OF THE ABDOMEN AND PELVIS WITHOUT IV CONTRAST CLINICAL HISTORY: Lower abdominal pain. COMPARISON STUDY: Prior abdominal CT scans, most recently dated 08/03/2021. TECHNIQUE: Unenhanced CT scan of the abdomen and pelvis is performed from the lung bases to the proxi mal femora. Images are reviewed in the axial, sagittal, and coronal planes. IV contrast was not admin istered for this examination. Note that the examination was performed in suboptimal fashion without o ral and IV contrast. A dose lowering technique was utilized adhering to the principles of ALARA. CT DOSE: 484.05 mGy.cm FINDINGS: Lung bases: The heart is enlarged noting a small to moderate pericardial effusion. The lung bases are clear. Liver: The unenhanced liver is normal in size, contour, and attenuation. There is no intrahepatic renuka iary ductal dilatation. Gallbladder: Unremarkable. Spleen: Normal in size and attenuation. Pancreas: The unenhanced pancreas is grossly unremarkable. Adrenal glands: Unremarkable. Kidneys: The abdomen and kidneys are normal in size and without hydronephrosis. No renal calculi are identified. A 3.1 cm cyst is noted in the right upper pole. Abdominal vasculature: The abdominal aorta is normal in course and caliber noting mild atheroscleroti c calcification. Bowel: There is no bowel obstruction. Moderate fecal retention is seen throughout the colon. The appe ndix is well-visualized and normal. Peritoneum: No intraperitoneal free air or abdominal ascites is seen. See below under pelvic viscera for discussion of pelvic findings/collection. There is a large fat-containing umbilical/periumbilical hernia. Lymphadenopathy: There is an enlarged right pelvic sidewall lymph node on image #350. This measures 2 .5 x 1.3 cm. No iliac chain or retroperitoneal lymphadenopathy is identified. Pelvic viscera: The bladder is decompressed around a Campos catheter. The bladder wall is thickening w ith surrounding infiltration. Gas is noted within the bladder lumen. A mass lesion is again suggested in the central pelvis arising from the prostate. This is best seen on axial image 364 and is not wel l delineated without IV contrast. Again seen is a large complex fluid collection in the left lower pe lvis. This is best seen on image #373 and measures approximately 12 x 10 x 6.5 cm. This is largely pe rirectal in location and extends from the level of the seminal vesicles nearly to the level of the an us. This causes mass effect on the adjacent rectum which is deviated to the right. Skeletal structures: No lytic or blastic lesions are seen. IMPRESSION: 1. No significant change as compared to 08/03/2021. 2. Again seen is a large complex fluid collection in the left pelvis which causes significant mass ef fect on the rectum. 3. The previously suggested mass lesion the central pelvis arising from the prostate gland is not wel l delineated without IV contrast. 4. Findings suggest cystitis. Correlate with clinical findings and urinalysis. 5. Unchanged appearance of a pathologically enlarged right pelvic sidewall lymph node. 6. Moderate colonic fecal retention. 7. Cardiomegaly with a small to moderate pericardial effusion. 8. Additional findings as above. ACT 112: Negative or not required by law. Electronically signed by: Saman Huggins M.D. 08/06/2021 4:40 PM
[2021-08-06] MEDS ORDERED: LIDOCAINE VISCOUS 2% 15 ML UDC TOP ONE (18:01)
--- NOTE | 2021-08-06 19:59 | History & Physical Report ---
Date of Service August 06, 2021 Assessment & Plan (1) Pelvic mass: Plan: 51yo male with recent hospitalization for prostate mass, pelvic hematoma s/p TURP, Campos placement and drainage presenting with difficulty having a bowel movement. Imaging with persistence of fluid collection as well as pelvic mass that is causing significant mass effect on the rectum, moderate fecal retention. Prostate CA Ganga 7 -Obtain records and images from [facility] [facility] -Continue bowel regimen Bisacodyl, Senna, Colace, Lactulose and Miralax -Maintain Campos catheter -Urology consultation appreciated -Oncology consultation appreciated -Will keep NPO after midnight tonight (2) Haematoma of pelvis: Plan: s/p drainage with apparent reaccumulation -Obtain records from [facility] -Monitor CBC -Continue to hold anticoagulation (3) KAT (acute kidney injury): Plan: On chronic kidney disease stage 2. Mild elevation of BUN and Cr. Mild elevation of K to 5.5. No EKG changes. Patient has been on Bactrim which may be causing laboratory findings -IV hydration with LR at 125mL/hr -Avoid nephrotoxic agents -Will hold Bactrim as well as Lisinopril, HCTZ -Renal dosing where needed -Repeat chemistry in AM (4) Unspecified atrial fibrillation: Plan: Rate controlled. No anticoagulation due to pelvic hematoma -Continue metoprolol 100mg po BID -Hold anticoagulation (5) Dyslipidemia: Plan: Chronic -Continue Crestor 5mg po qHS (6) Hypertension: Plan: Blood pressure acceptable -Continue Metoprolol -Hold Lisinopril, HCTZ -Continue to monitor (7) Type 2 diabetes mellitus: Plan: Blood sugar acceptable -Lantus 5u BID -ISS -Hold Glimepride -Check A1C (8) Sleep apnea: Plan: Trial of CPAP (9) Urinary retention: Plan: Maintain Campos. Monitor output -Continue Finasteride and Flomax Plan: F/E/N - LR at 125mL/hr, Mg repletion, NPO after midnight Ppx - SCDs Code - Full per discussion with patient Dispo -Observation to medical History of Present Illness Chief Complaint: Difficulty passing stool Primary Care Provider: LEE Yaa Hernández is a 51yo male with history of HTN, HLP, DM, AF previously on Eliquis anticoagulation presenting with difficulty having a BM. Patient was admitted to [facility] from 07/20 - 07/24 with complaint of rectal pain and difficulty urinating and constipation. Patient had a CT of the abdomen which was suspicious for cystitis as well as a large lobulated mass lesion in the central pelvis measuring 6 x 6 x 3.5cm thought to be secondary to prostate malignancy. Also with pathologically enlarged right pelvic sidewall lymph node and large complex fluid collection typical for hematoma in the left lower pelvis. Patient had a TURP and drainage of prostatic abscess on 07/21/21 by Urology. 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 Elevated PSA of 103.838. Patient was evaluated by Oncology as well during that hospitalization. Was considering starting Docetaxel but was concerned about the pelvic fluid collection (hematoma vs abscess). Patient was ultimately sent to [facility] for drainage of fluid collection. Patient returns today with complaint of difficulty having a bowel movement. He is taking an aggressive bowel regimen at home consisting of Bisacodyl, Lactulose, Miralax. He reports passing liquid stool, no blood/melena. Has not had a normal bowel movement for weeks. Campos is in place draining clear, yellow urine. Patient manages Campos at home. Reports no difficulties. Has had consistent UOP. Patient seen by Dr. Sanford in the ER who discussed case with Urology as well as Hospitalist service at [facility]. Discussed with [facility] as well. Patient denies fever, chills, chest pain, cough, SOB, abdominal pain, nausea, vomiting. No additional complaints at this time. He does not like taking his current bowel regimen as it causes him to have diarrhea and to shake. ER Course: Insulin/Dextrose, NSS x 1 liter Allergies Allergy/AdvReac Type Severity Reaction Status Date / Time oxycodone AdvReac Mild Unknown Unverified 08/06/21 16:22 Home Medications Medication Instructions Recorded Confirmed Type lisinopril 20 mg tablet 20 mg PO DAILY 02/06/20 08/06/21 History rosuvastatin 5 mg tablet 5 mg PO HS 04/18/21 08/06/21 History tamsulosin 0.4 mg capsule 0.8 mg PO DAILY 04/18/21 08/06/21 History acetaminophen 500 mg tablet 1,000 mg PO TID PRN 07/08/21 08/06/21 History finasteride 5 mg tablet 5 mg PO DAILY 07/08/21 08/06/21 History metoprolol tartrate 100 mg tablet 100 mg PO BID 07/08/21 08/06/21 History polyethylene glycol 3350 17 gram 17 g PO TID PRN 07/08/21 08/06/21 History oral powder packet (Miralax) acetaminophen 300 mg-codeine 30 mg 2 tab PO Q4H PRN 08/03/21 08/06/21 History tablet bisacodyl 5 mg tablet,delayed 5 mg PO BID 08/03/21 08/06/21 History release glimepiride 1 mg tablet 1 mg PO QAM 08/03/21 08/06/21 History hydrochlorothiazide 25 mg tablet 25 mg PO DAILY 08/03/21 08/06/21 History lactulose 20 gram/30 mL oral 20 g PO TID PRN 08/03/21 08/06/21 History solution lidocaine HCl 2 % mucosal jelly 1 applic TOPICAL BID PRN 08/03/21 08/06/21 History sulfamethoxazole 800 1 tab PO BID 08/03/21 08/06/21 History mg-trimethoprim 160 mg tablet (Bactrim DS) Past Med/Surg History Medical History (Updated 08/06/21 @ 22:38 by Sherrie Boyd DO) CKD (chronic kidney disease) stage 2, GFR 60-89 ml/min Constipation Current use of [facility] Dyslipidemia Hypertension Hyponatremia Pelvic mass Perirectal hematoma Persistent atrial fibrillation Sleep apnea Type 2 diabetes mellitus Social History Smoking Status: Never smoker Tobacco Type: Cigarettes Second Hand Exposure: No; Hx Alcohol Use: No Hx Substance Use: No Preferred Language: Swiss Communication Ability: Effective Kettle Firer Required: No Beliefs That Will Affect Care: None Current Living Situation Comment: [facility] - guards at bedside. Feels Safe at Home: Yes Review of Systems Review of Systems: All systems reviewed & are unremarkable except as noted in HPI & below Physical Exam Physical Exam: General: patient resting comfortably, NAD, non-toxic in appearance, AA&O x 4 Skin: warm, dry, intact, no rashes or lesions HEENT: NC/AT, PERRL, EOMI, anicteric sclera, conjunctiva without injection, external ear normal to inspection and nontender, nares patent, moist mucus membranes, dentition intact, no oropharyngeal lesions, neck supple, trachea midline, no LAD, no thyromegaly, no JVD Heart: +S1/S2, irregularly irregular, no m/r/g Lungs: equal air entry bilaterally, no rales/rhonchi/wheezes Abd: +BS, soft, NT/ND, no masses/organomegaly/ascites, firm tender area in RLQ marked with pen - states this is where he was given injections while at [place] - Campos in place draining clear, yellow urine, no bleeding Ext: warm, 2+ pulses in UE/LE bilaterally, no clubbing/cyanosis or edema Neuro: nonfocal, patient AA&O x 4, speech intact, no facial droop, moving all extremities on command with equal strength 5/5 Results & Data Results & Data ([facility]) Vital Signs (Past 12 Hours) Vital Signs Temp Pulse Pulse Resp BP BP Pulse Ox 08/06/21 19:32 88 18 113/79 96 08/06/21 19:00 89 19 123/91 99 08/06/21 17:34 89 18 137/86 96 08/06/21 16:43 164/121 H 08/06/21 16:00 89 17 173/105 H 98 08/06/21 14:28 88 18 111/80 99 08/06/21 12:43 37 C 84 18 101/76 100 Laboratory Results Laboratory Results WBC 8.18 K/uL (4.8-10.8) 08/06/21 13:15 RBC 4.30 M/uL (4.7-6.1) L 08/06/21 13:15 Hgb 13.7 g/dL (14.0-18.0) L 08/06/21 13:15 Hct 38.3 % (42-52) L 08/06/21 13:15 MCV 89.1 fL (80-100) 08/06/21 13:15 MCH 31.9 pg (25-34) 08/06/21 13:15 MCHC 35.8 g/dL (32-36) 08/06/21 13:15 RDW Std Deviation 41.8 fL (36.4-46.3) 08/06/21 13:15 RDW Coeff of Rossy 12.9 % (11.5-14.5) 08/06/21 13:15 Plt Count 349 K/uL (130-400) 08/06/21 13:15 MPV 9.8 fL (7.4-10.4) 08/06/21 13:15 Immature Gran % (Auto) 0.1 % 08/06/21 13:15 Neut % (Auto) 52.3 % 08/06/21 13:15 Lymph % (Auto) 32.8 % 08/06/21 13:15 Solano % (Auto) 11.9 % 08/06/21 13:15 Eos % (Auto) 2.4 % 08/06/21 13:15 Baso % (Auto) 0.5 % 08/06/21 13:15 Neut # (Auto) 4.28 K/uL (1.4-6.5) 08/06/21 13:15 Lymph # (Auto) 2.68 K/uL (1.2-3.4) 08/06/21 13:15 Solano # (Auto) 0.97 K/uL (0.11-0.59) H 08/06/21 13:15 Eos # (Auto) 0.20 K/uL (0-0.5) 08/06/21 13:15 Baso # (Auto) 0.04 K/uL (0-0.2) 08/06/21 13:15 Immature Gran # (Auto) 0.01 K/uL (0.00-0.02) 08/06/21 13:15 Sodium 131 mmol/L (136-145) L 08/06/21 13:15 Potassium 5.4 mmol/L (3.5-5.1) H 08/06/21 13:15 Chloride 99 mmol/L (98-107) 08/06/21 13:15 Carbon Dioxide 27 mmol/L (21-32) 08/06/21 13:15 Anion Gap 5 (3-11) 08/06/21 13:15 BUN 26 mg/dl (6-23) H 08/06/21 13:15 Creatinine 1.55 mg/dl (0.6-1.4) H 08/06/21 13:15 Est Cr Clr Drug Dosing 60.6 ml/min 08/06/21 13:15 Est GFR ( Amer) 58.4 ml/min 08/06/21 13:15 Est GFR (Non-Af Amer) 50.4 ml/min 08/06/21 13:15 BUN/Creatinine Ratio 16.8 (10-20) 08/06/21 13:15 Glucose 103 mg/dl (70-99(Fasting)) H 08/06/21 13:15 Calcium 9.7 mg/dl (8.5-10.1) 08/06/21 13:15 Phosphorus 4.5 mg/dl (2.5-4.9) 08/06/21 13:15 Magnesium 2.3 mg/dl (1.7-2.4) 08/06/21 13:15 Total Bilirubin 0.5 mg/dl (0.2-1.0) 08/06/21 13:15 AST 30 U/L (13-39) 08/06/21 13:15 ALT 45 U/L (7-52) 08/06/21 13:15 Alkaline Phosphatase 90 U/L (34-104) 08/06/21 13:15 Total Protein 7.9 gm/dl (6.0-8.3) 08/06/21 13:15 Albumin 4.1 gm/dl (3.4-5.0) 08/06/21 13:15 Globulin 3.8 gm/dl (2.5-4.0) 08/06/21 13:15 Albumin/Globulin Ratio 1.1 (0.9-2) 08/06/21 13:15 Lipase 41 U/L (11-82) 08/06/21 13:15 Urine Color Yellow 08/06/21 15:19 Urine Appearance Clear (Clear) 08/06/21 15:19 Urine pH 6.5 (4.5-7.5) 08/06/21 15:19 Ur Specific Richards 1.018 (1.000-1.030) 08/06/21 15:19 Urine Protein Trace (Negative) H 08/06/21 15:19 Urine Glucose (UA) Negative (Negative) 08/06/21 15:19 Urine Ketones Negative (Negative) 08/06/21 15:19 Urine Blood 2+ (Negative) H 08/06/21 15:19 Urine Nitrite Negative (Negative) 08/06/21 15:19 Urine Bilirubin Negative (Negative) 08/06/21 15:19 Urine Urobilinogen Negative (Negative) 08/06/21 15:19 Ur Leukocyte Esterase Trace (Negative) H 08/06/21 15:19 Urine WBC (Auto) 1-5 /hpf (0-5) 08/06/21 15:19 Urine RBC (Auto) 10-30 /hpf (0-4) H 08/06/21 15:19 U Hyaline Cast (Auto) 1-5 /lpf (0-5) 08/06/21 15:19 U Epithel Cells (Auto) 10-20 /lpf (0-5) H 08/06/21 15:19 Urine Bacteria (Auto) Negative (Negative) 08/06/21 15:19 SARS-CoV-2, RNA, NAAT NEGATIVE (NEGATIVE) 08/06/21 Unknown Impressions Abdomen/Pelvis CT 08/06/21 14:43 CT SCAN OF THE ABDOMEN AND PELVIS WITHOUT IV CONTRAST CLINICAL HISTORY: Lower abdominal pain. COMPARISON STUDY: Prior abdominal CT scans, most recently dated 08/03/2021. TECHNIQUE: Unenhanced CT scan of the abdomen and pelvis is performed from the lung bases to the proximal femora. Images are reviewed in the axial, sagittal, and coronal planes. IV contrast was not administered for this examination. Note that the examination was performed in suboptimal fashion without oral and IV contrast. A dose lowering technique was utilized adhering to the principles of ALARA. CT DOSE: 484.05 mGy.cm FINDINGS: Lung bases: The heart is enlarged noting a small to moderate pericardial effusion. The lung bases are clear. Liver: The unenhanced liver is normal in size, contour, and attenuation. There is no intrahepatic biliary ductal dilatation. Gallbladder: Unremarkable. Spleen: Normal in size and attenuation. Pancreas: The unenhanced pancreas is grossly unremarkable. Adrenal glands: Unremarkable. Kidneys: The abdomen and kidneys are normal in size and without hydronephrosis. No renal calculi are identified. A 3.1 cm cyst is noted in the right upper pole. Abdominal vasculature: The abdominal aorta is normal in course and caliber noting mild atherosclerotic calcification. Bowel: There is no bowel obstruction. Moderate fecal retention is seen throughout the colon. The appendix is well-visualized and normal. Peritoneum: No intraperitoneal free air or abdominal ascites is seen. See below under pelvic viscera for discussion of pelvic findings/collection. There is a large fat-containing umbilical/periumbilical hernia. Lymphadenopathy: There is an enlarged right pelvic sidewall lymph node on image #350. This measures 2.5 x 1.3 cm. No iliac chain or retroperitoneal lymphadenopathy is identified. Pelvic viscera: The bladder is decompressed around a Campos catheter. The bladder wall is thickening with surrounding infiltration. Gas is noted within the bladder lumen. A mass lesion is again suggested in the central pelvis arising from the prostate. This is best seen on axial image 364 and is not well delineated without IV contrast. Again seen is a large complex fluid collection in the left lower pelvis. This is best seen on image #373 and measures approximately 12 x 10 x 6.5 cm. This is largely perirectal in location and extends from the level of the seminal vesicles nearly to the level of the anus. This causes mass effect on the adjacent rectum which is deviated to the right. Skeletal structures: No lytic or blastic lesions are seen. IMPRESSION: 1. No significant change as compared to 08/03/2021. 2. Again seen is a large complex fluid collection in the left pelvis which causes significant mass effect on the rectum. 3. The previously suggested mass lesion the central pelvis arising from the prostate gland is not well delineated without IV contrast. 4. Findings suggest cystitis. Correlate with clinical findings and urinalysis. 5. Unchanged appearance of a pathologically enlarged right pelvic sidewall lymph node. 6. Moderate colonic fecal retention. 7. Cardiomegaly with a small to moderate pericardial effusion. 8. Additional findings as above. ACT 112: Negative or not required by law. Electronically signed by: Saman Huggins M.D. 08/06/2021 4:40 PM Code Status & VTE Plan VTE Prophylaxis Plan VTE Prophylaxis will be ordered: Yes PG Care Time/CCT Total # of Minutes Spent Total Time Spent with Patient: Total time spent is greater than 50% in coordination of care (as documented) at patient's floor/unit and/or counseling patient: Coding Level of Care Code INT OBSERVATION CARE 70M LVL 3 Diagnoses KAT (acute kidney injury) N17.9 Pelvic mass R19.00 Unspecified atrial fibrillation I48.91 Haematoma of pelvis Dyslipidemia E78.5 Hypertension I10 Type 2 diabetes mellitus E11.9 Sleep apnea G47.30 Urinary retention R33.9
[2021-08-06] MEDS ORDERED: POLYETHYLENE (MIRALAX) 17 GM PACK PO PRN (21:39)
[2021-08-06] MEDS ORDERED: DEXTROSE 50% 50 ML SYRINGE IV PRN (21:39)
[2021-08-06] MEDS ORDERED: DOCUSATE SODIUM 100 MG CAP PO PRN (21:39)
[2021-08-06] MEDS ORDERED: GLUCOSE 10 TABS/TUBE PO PRN (21:39)
[2021-08-06] MEDS ORDERED: CARBOHYDRATES FOR HYPOGLYCEMIA PO PRN (21:39)
[2021-08-06] MEDS ORDERED: GLUCOSE 40% GEL 15 GM TUBE PO PRN (21:39)
[2021-08-06] MEDS ORDERED: GLUCAGON FOR INJ 1 MG VIAL SQ PRN (21:39)
[2021-08-06 22:12] LABS: Magnesium 2.3 mg/dl (1.7-2.4); Phosphorus 4.5 mg/dl (2.5-4.9)
[2021-08-06] MEDS: INSULIN ASPART PER UNIT SC SCH (22:47)
[2021-08-06] MEDS: bisacodyL 5 MG TABEC PO SCH (22:47)
[2021-08-06] MEDS: INSULIN GLARGINE SOLOSTAR 100 UNITS/ML 3 ML PEN SC SCH (22:50)
[2021-08-06] MEDS: METOPROLOL TARTRATE 100 MG TAB PO SCH (22:52)
[2021-08-06] MEDS: LACTULOSE SYRUP 20 GM/30 ML UDC PO SCH (22:53)
[2021-08-06] MEDS: ROSUVASTATIN CALCIUM 5 MG TAB PO SCH (22:53)
[2021-08-06] MEDS: LACTATED RINGER'S 1,000 ML IV SCH (22:57)
[2021-08-06] MEDS: ACETAMINOPHEN W/CODEINE #3 1 TAB PO PRN (23:01)
[2021-08-06] MEDS: cefTRIAXone SODIUM 2,000 MG in DEXTROSE 5% 50 ML IV SCH (23:17)
--- NOTE | 2021-08-06 23:34 | Urology Consultation ---
Date of Consultation August 06, 2021 Assessment & Plan (1) Prostate cancer: Patient has been admitted on the hospitalist service. From a urologic standpoint we recommend proceeding as follows: Maintain Campos catheter for bladder drainage Continue patient on bowel regimen which will hopefully assist with having bowel movements I discussed case with my attending physician Dr. Liang who notes it would be ideal to let patient recover more fully from his recent urologic procedures. Once he is more fully recovered discussion will be had with the patient about the possibility of addressing his prostate cancer. History of Present Illness Reason for Consultation: Prostate mass/fluid collection Attending Physician: Sherrie Boyd DO History of Present Illness This is a 51-year-old male who is known to the urology service. Patient was initially seen by [facility] physician group urology on July 20 of this year. He presented to the emergency department secondary to difficulty urinating as well as perirectal pain. The patient notes that the symptoms have been ongoing for several months and he reported symptoms such as difficulty initiating a urine stream along with some dysuria and inability to completely empty his bladder. During that visit the patient had a CT scan of the abdomen and pelvis that showed findings concerning for cystitis as well as a lobulated mass in the central pelvic region that was felt to arise from the prostate gland. The patient was ultimately taken to the operating room by Dr. Hernandez on 07/21/2021 where he underwent a transurethral resection of the prostate with drainage of a prostatic abscess and an exam under anesthesia. There was concern that patient's mass was impeding his rectum so a surgical consultation was obtained. Is felt by general surgery that the mass in question likely represented a hematoma and was recommended the patient be transferred to a tertiary care facility where this can be drained by an interventional radiologist or colorectal surgeon. The patient was ultimately discharged to [facility] to undergo this procedure and he was transferred there on 07/24/2021. It is nowhere the mention that the pathology from the procedure performed by Dr. Hernandez did show adenocarcinoma of the prostate. The patient notes that he read presented to [facility] emergency department today as he is having difficulty moving his bowels. He says despite having aggressive bowel regimen he is having considerable pain and difficulty moving his bowels. He notes that his bowel movements have been not been normal for weeks. He does report that when he was at [facility] they did attempt a drainage procedure but he is unsure of the exact details of this. He also notes that he had a Campos catheter that was placed at [facility] and has been in place since. He does report some discomfort from the Campos catheter. He denies any abdominal pain. He also denies any nausea or vomiting. He notes that his appetite is somewhat decreased from usual. Again his main complaint is difficulty moving his bowels and he does note that when his bowels move he has considerable rectal pain. Today in the emergency department the patient had labs and imaging which I independent reviewed. Patient was noted to have a large complex fluid collection in the left pelvis causing mass-effect on the rectum. Labs include a CBC her white blood cell count and platelet count were normal. His hemoglobin and hematocrit were 13.7 and 38.3. Chemistry profile showed sodium and potassium are 131 and 5.4. BUN and creatinine were 26 and 1.5. There is no significant elevation of LFTs or lipase. Urinalysis showed trace leukocyte Estrace but was otherwise not indicative of urinary tract infection. COVID test was noted be negative. At the time of my interview he was resting comfortably in bed in no distress. Allergies Allergy/AdvReac Type Severity Reaction Status Date / Time oxycodone AdvReac Mild Unknown Unverified 08/06/21 16:22 Home Medications Medication Instructions Recorded Confirmed Type lisinopril 20 mg tablet 20 mg PO DAILY 02/06/20 08/06/21 History rosuvastatin 5 mg tablet 5 mg PO HS 04/18/21 08/06/21 History tamsulosin 0.4 mg capsule 0.8 mg PO DAILY 04/18/21 08/06/21 History acetaminophen 500 mg tablet 1,000 mg PO TID PRN 07/08/21 08/06/21 History finasteride 5 mg tablet 5 mg PO DAILY 07/08/21 08/06/21 History metoprolol tartrate 100 mg tablet 100 mg PO BID 07/08/21 08/06/21 History polyethylene glycol 3350 17 gram 17 g PO TID PRN 07/08/21 08/06/21 History oral powder packet (Miralax) acetaminophen 300 mg-codeine 30 mg 2 tab PO Q4H PRN 08/03/21 08/06/21 History tablet bisacodyl 5 mg tablet,delayed 5 mg PO BID 08/03/21 08/06/21 History release glimepiride 1 mg tablet 1 mg PO QAM 08/03/21 08/06/21 History hydrochlorothiazide 25 mg tablet 25 mg PO DAILY 08/03/21 08/06/21 History lactulose 20 gram/30 mL oral 20 g PO TID PRN 08/03/21 08/06/21 History solution lidocaine HCl 2 % mucosal jelly 1 applic TOPICAL BID PRN 08/03/21 08/06/21 History sulfamethoxazole 800 1 tab PO BID 08/03/21 08/06/21 History mg-trimethoprim 160 mg tablet (Bactrim DS) Patient History Medical History CKD (chronic kidney disease) stage 2, GFR 60-89 ml/min Constipation Current use of [facility] antico[facility] Dyslipidemia Hypertension Hyponatremia Pelvic mass Perirectal hematoma Persistent atrial fibrillation Sleep apnea Type 2 diabetes mellitus Social History Smoking Status: Never smoker Tobacco Type: Cigarettes Second Hand Exposure: No; Hx Alcohol Use: No Hx Substance Use: No Preferred Language: [place] Islander Communication Ability: Effective Specialist Managers Required: No Beliefs That Will Affect Care: None Current Living Situation Comment: [facility] - guards at bedside. Feels Safe at Home: Yes Review of Systems Constitutional: no fever and no chills Eyes: no eye pain Ear, Nose, Mouth, Throat: no ear pain Respiratory: no cough and no dyspnea Cardiovascular: no chest pain Gastrointestinal: as per Subjective / HPI and + constipation; no abdominal pain, no nausea and no vomiting Genitourinary: + as per Subjective / HPI Musculoskeletal: no back pain Integumentary: no rash Neurologic: no localized weakness Physical Exam Constitutional: WD/WN, vitals as above Eyes: no conjunctival abnormality ENMT: Ears: no hearing impairment Mouth: no oropharynx abnormality Neck: trachea midline Respiratory: normal respiratory effort; no respiratory distress and no labored breathing Cardiovascular: Rate/Rhythm: regular rate and regular rhythm Gastrointestinal (Abdomen): Abdomen is soft and nondistended. There is no pa in with palpation Musculoskeletal: No lower extremity edema or calf tenderness Skin: no rashes Neurologic: moves all extremities Psychiatric: A+Ox3, euthymic affect Genitourinary: No CVA tenderness with percussion bilaterally. The patient had a Campos catheter in place which she notes has been in place since his previous hospitalization. The Campos catheter is patent and draining clear yellow urine. Results & Data ([facility]) Vital Signs (Past 12 Hours) Vital Signs Temp Pulse Pulse Resp BP BP Pulse Ox 08/06/21 21:09 99 H 18 130/85 08/06/21 20:42 96 H 16 112/70 98 08/06/21 19:32 88 18 113/79 96 08/06/21 19:00 89 19 123/91 99 08/06/21 17:34 89 18 137/86 96 08/06/21 16:43 164/121 H 08/06/21 16:00 89 17 173/105 H 98 08/06/21 14:28 88 18 111/80 99 08/06/21 12:43 37 C 84 18 101/76 100 PG Care Time/CCT Total # of Minutes Spent Total Time Spent with Patient: Total time spent is greater than 50% in coordination of care (as documented) at patient's floor/unit and/or counseling patient: Coding Level of Care Code 61389 Inpt Consult Level 5 Diagnoses Prostate cancer C61
[2021-08-07 06:45] LABS: Basophils # (auto) 0.07 K/uL (0-0.2); Eosinophils # (auto) 0.29 K/uL (0-0.5); Eosinophils % (auto) 4.2 %; Hematocrit (blood only) 35.8 % (42-52); Hemoglobin 12.7 g/dL (14.0-18.0); Immature Granulocytes # (auto) 0.01 K/uL (0.00-0.02); Immature Granulocytes % (auto) 0.1 %; Lymphocytes # (auto) 3.01 K/uL (1.2-3.4); Lymphocytes % (auto) 43.5 %; Mean Corpuscular Hemoglobin 31.6 pg (25-34); Mean Corpuscular Hgb Conc 35.5 g/dL (32-36); Mean Corpuscular Volume 89.1 fL (80-100); Mean Platelet Volume 10.4 fL (7.4-10.4); Monocytes # (auto) 0.81 K/uL (0.11-0.59); Monocytes % (auto) 11.7 %; Neutrophils # (auto) 2.73 K/uL (1.4-6.5); Neutrophils % (auto) 39.5 %; Platelet Count 292 K/uL (130-400); RDW Coefficient of Variation 13.1 % (11.5-14.5); RDW Standard Deviation 42.9 fL (36.4-46.3); Red Blood Count 4.02 M/uL (4.7-6.1); White Blood Count 6.92 K/uL (4.8-10.8)
[2021-08-07 07:00] LABS: Albumin Level 3.5 gm/dl (3.4-5.0); BUN Creatinine Ratio 15.7 (10-20); Bilirubin,Total 0.5 mg/dl (0.2-1.0); Creatinine Clr Calc Pharmacy 85.7 ml/min; Est GFR (African American) 90.3 ml/min; Est GFR (Non-African American) 77.9 ml/min; Potassium 4.9 mmol/L (3.5-5.1); Total Protein 6.7 gm/dl (6.0-8.3)
[2021-08-07] MEDS: LACTATED RINGER'S 1,000 ML IV SCH (07:07)
[2021-08-07] MEDS: INSULIN ASPART PER UNIT SC SCH ×4 (08:46→20:57)
[2021-08-07] MEDS: METOPROLOL TARTRATE 100 MG TAB PO SCH ×2 (08:47→23:59)
[2021-08-07] MEDS: FINASTERIDE 5 MG TAB PO SCH (08:47)
[2021-08-07] MEDS: LACTULOSE SYRUP 20 GM/30 ML UDC PO SCH ×3 (08:48→20:56)
[2021-08-07] MEDS: INSULIN GLARGINE SOLOSTAR 100 UNITS/ML 3 ML PEN SC SCH ×2 (08:48→20:57)
[2021-08-07] MEDS: DOCUSATE SODIUM/SENNA 50/8.6MG TAB PO SCH (08:48)
[2021-08-07] MEDS: TAMSULOSIN HCL 0.4 MG CAP PO SCH (08:48)
[2021-08-07] MEDS: bisacodyL 5 MG TABEC PO SCH ×2 (08:53→20:55)
--- NOTE | 2021-08-07 09:20 | Hospitalist Progress Note ---
Date of Service August 07, 2021 Assessment & Plan (1) Pelvic mass: Plan: 51yo male with recent hospitalization for prostate mass, pelvic hematoma s/p TURP, Bowen placement and drainage presenting with difficulty having a bowel movement. Prior admission earlier in the month with similar issues with constipation/mass effect and requirement of transfer to [facility] for drainage of fluid collection/addressing of pelvic mass/tissue sample--> Does not appear any sample collected of tissue. Prior pathology s/p TURP with Prostate CA [facility] 7 Imaging with persistent fluid collection and pelvic mass w/ significant mass effect on rectum/moderate fecal retention Per discussion with residential REVIEW CONSULTANT, patient had hematoma drainage, then subsequent imaging with reaccumulation which was going to be drained but then for some reason opted against such. * Was sent on Bactrim for suspected prostatitis, admit with KAT (since resolved with IVF and switch to ceftriaxone) * No culture obtained from any drainage at that time * Presented to ER w/ similar complaints over the weekend. Repeat CT similar but patient with BM and discharged back to the residential prior to ongoing issues and repeat need for hospitalization Requested formal records from [facility] Continue bowen catheter * Urology consulted -- no plans inpatient intervention at this time, including prostatectomy for concerns prostate bleeding and causing reaccumulation of hematoma (eliquis has been on hold since reaccumulation, hx afib likley permanent per discussion with Dr Norris and review of holter monitor, rate controlled) General surgery on consult * rec oncology for tx prostate ca, benefit from rad/onc * Diverting colostomy as last resort -- I did discuss with patient and he would consider if absolutely necessary, but discussed could be permanent. He would like to see other options first prior to this. Reasonable. Continued on Ceftriaxone in place of Bactrim as placed last admit for possible prostatitis (very likely given prior abscess noted on OP report but no cx obtained at that time). WBC wnl I had already spoken to Dr Valles, to review imaging with Dr Huggins who read scans, possible give Docetaxil (patient received Lupron injection and started on daily casodex per residential provider) Will consult radiation oncology as well Diet ordered -- passing gas, but no BM. COntinues on bisacodyl, senna, colace, lactulose TID and miralax Ambulation encouraged and has been ambulating in room quite a bit Pain control, IVF ordered with 2L IVF but will hold off further IVF for now and monitor Pending course may ultimately need to reach out to additional tertiary facilities to discuss transfer (2) Haematoma of pelvis: Plan: s/p drainage with apparent reaccumulation -Obtain records from [facility] -- HIM consulted (did get quick review from [facility] but needing full records) -Continue to hold anticoagulation (had been on hold per MD) Did check iron studies which were low last admission and given venofer consider repeating studies/venofer if needed but Hgb stable and given 2L IVF CBC in AM (3) KAT (acute kidney injury): Plan: On chronic kidney disease stage 2. Mild elevation of BUN and Cr likely dehydration/medication as on Bactrim for prostatitis at d/c from [facility] Hyperkalemia resolved with IVF -- given 2L LR Holding Bactrim (placed on rocephin), lisinopril/HCTZ Renal dose meds/avoid nephrotoxic agents Cr improved and back to baseline but will hold off diuretics for now and monitor BMP in AM (4) Unspecified atrial fibrillation: Plan: Rate controlled. No anticoagulation due to pelvic hematoma -Continue metoprolol 100mg po BID (5) Dyslipidemia: Plan: Chronic -Continue Crestor 5mg po qHS (6) Hypertension: Plan: Blood pressure acceptable -Continue Metoprolol -Hold Lisinopril, HCTZ -Continue to monitor (7) Type 2 diabetes mellitus: Plan: Blood sugar acceptable. A1c 8.1 -Lantus 5u BID -ISS -Hold Glimepride Monitor BSGs (8) Sleep apnea: Plan: Trial of CPAP ordered (9) Urinary retention: Plan: Maintain Bowen. Monitor output -Continue Finasteride and Flomax DVT prophylaxis Chemical held in setting of hematoma Will order SCDs & encouraged ambulation -- guards have been good about getting him up/frequent ambulation to assist with bowel movements Plan: changed to full admission ok on med/surg for now but if needing any IV cardiac meds/need for NPO, consider moving to monitored bed Admission and Anticipated Discharge Date Admission Date: August 06, 2021 Supervising Physician Co-Signing Physician Notes PA Supervision Note: I did not personally see or examine the patient today, but I verified all lemons points of VINICIUS Cabezas's assessment and plan with the following exceptions/additions: None Subjective Patient evaluated this morning. Ambulating back from bathroom with IV pole and bowen catheter. Eating/drinking without issue. Pain controlled with ordered medications. Continued issue with constipation but passing lots of gas. Some irritation from bowen, and will order lidocaine jelly as effective last admission. Discussed urology to see/evaluate. Asked to consider prostatectomy. General surgery also on board, could consider diverting colostomy as last resort. Discussed with patient, would like to hold off if possible and consider urology. Got injection for chemo, has "knot" to his R lower abdomen, circled. Oncology to see. Was planning on outpatient PET. Consideration for starting docetaxel to help bulk/salvage. Continued ambulation encouraged and guards compliant with such. Would consider calling additional tertiary facilities if needed pending further eval/recs. Questions/concerns addressed. Review of Systems Review of Systems: All systems reviewed & are unremarkable except as noted in HPI & below Physical Exam Physical Exam: General: WN/WD male walking back from bathroom, bowen bag in hand, NAD, alert/oriented x 4 HEENT: head normocephalic, atraumatic, mmm, trachea midline without deviation Resp: CTAB, no w/c/r, on room air CV: irregularly irregular, no m/r/g, no calf edema, cap refill wnl GI: +BS throughout, +distended, non-tender, no rebound/guarding. firm area RLQ (prior infection site, within markings) : bowen with clear yellow urine in bag MSK/Neuro: moves all extremities, follows commands, no slurred speech/facial droop. CN intact grossly.Strength equal bilaterally Gait observed and normal Skin: warm, dry -- hardened area RLQ as mentioned from prior injection, non- tender, no drainage Results & Data Results & Data ([facility]) Vital Signs (Past 12 Hours) Vital Signs Temp Pulse Resp BP Pulse Ox 08/07/21 08:16 36.7 C 74 16 103/68 96 08/06/21 22:00 36.8 C 92 H 115/76 97 Laboratory Results 08/07/21 08/07/21 08/07/21 Range/Units 11:48 08:02 05:30 WBC (4.8-10.8) K/uL RBC (4.7-6.1) M/uL Hgb (14.0-18.0) g/dL Hct (42-52) % MCV (80-100) fL MCH (25-34) pg MCHC (32-36) g/dL RDW Std Deviation (36.4-46.3) fL RDW Coeff of Rossy (11.5-14.5) % Plt Count (130-400) K/uL MPV (7.4-10.4) fL Immature Gran % (Auto) % Neut % (Auto) % Lymph % (Auto) % [place] % (Auto) % Eos % (Auto) % Baso % (Auto) % Neut # (Auto) (1.4-6.5) K/uL Lymph # (Auto) (1.2-3.4) K/uL [place] # (Auto) (0.11-0.59) K/uL Eos # (Auto) (0-0.5) K/uL Baso # (Auto) (0-0.2) K/uL Immature Gran # (Auto) (0.00-0.02) K/uL Sodium (136-145) mmol/L Potassium (3.5-5.1) mmol/L Chloride (98-107) mmol/L Carbon Dioxide (21-32) mmol/L Anion Gap (3-11) BUN (6-23) mg/dl Creatinine (0.6-1.4) mg/dl Est Cr Clr Drug Dosing ml/min Est GFR ( Amer) ml/min Est GFR (Non-Af Amer) ml/min BUN/Creatinine Ratio (10-20) Glucose (70-99(Fasting)) mg/dl POC Glucose 161 H 104 H (70-99) mg/dl Calcium (8.5-10.1) mg/dl Phosphorus (2.5-4.9) mg/dl Magnesium (1.7-2.4) mg/dl Total Bilirubin (0.2-1.0) mg/dl Direct Bilirubin (0-0.2) mg/dl AST (13-39) U/L ALT (7-52) U/L Alkaline Phosphatase (34-104) U/L Total Protein (6.0-8.3) gm/dl Albumin (3.4-5.0) gm/dl Urine Color Urine Appearance (Clear) Urine pH (4.5-7.5) Ur Specific [place] (1.000-1.030) Urine Protein (Negative) Urine Glucose (UA) (Negative) Urine Ketones (Negative) Urine Blood (Negative) Urine Nitrite (Negative) Urine Bilirubin (Negative) Urine Urobilinogen (Negative) Ur Leukocyte Esterase (Negative) Urine WBC (Auto) (0-5) /hpf Urine RBC (Auto) (0-4) /hpf U Hyaline Cast (Auto) (0-5) /lpf U Epithel Cells (Auto) (0-5) /lpf Urine Bacteria (Auto) (Negative) Nasal Screen MRSA (PCR) Negative (Negative) SARS-CoV-2, RNA, NAAT (NEGATIVE) 08/07/21 08/07/21 08/06/21 Range/Units 05:25 05:25 Unknown WBC 6.92 (4.8-10.8) K/uL RBC 4.02 L (4.7-6.1) M/uL Hgb 12.7 L (14.0-18.0) g/dL Hct 35.8 L (42-52) % MCV 89.1 (80-100) fL MCH 31.6 (25-34) pg MCHC 35.5 (32-36) g/dL RDW Std Deviation 42.9 (36.4-46.3) fL RDW Coeff of Rossy 13.1 (11.5-14.5) % Plt Count 292 (130-400) K/uL MPV 10.4 (7.4-10.4) fL Immature Gran % (Auto) 0.1 % Neut % (Auto) 39.5 % Lymph % (Auto) 43.5 % [place] % (Auto) 11.7 % Eos % (Auto) 4.2 % Baso % (Auto) 1.0 % Neut # (Auto) 2.73 (1.4-6.5) K/uL Lymph # (Auto) 3.01 (1.2-3.4) K/uL [place] # (Auto) 0.81 H (0.11-0.59) K/uL Eos # (Auto) 0.29 (0-0.5) K/uL Baso # (Auto) 0.07 (0-0.2) K/uL Immature Gran # (Auto) 0.01 (0.00-0.02) K/uL Sodium 132 L (136-145) mmol/L Potassium 4.9 (3.5-5.1) mmol/L Chloride 101 (98-107) mmol/L Carbon Dioxide 25 (21-32) mmol/L Anion Gap 6 (3-11) BUN 17 (6-23) mg/dl Creatinine 1.08 D (0.6-1.4) mg/dl Est Cr Clr Drug Dosing 85.7 ml/min Est GFR ( Amer) 90.3 ml/min Est GFR (Non-Af Amer) 77.9 ml/min BUN/Creatinine Ratio 15.7 (10-20) Glucose 90 (70-99(Fasting)) mg/dl POC Glucose (70-99) mg/dl Calcium 9.0 (8.5-10.1) mg/dl Phosphorus (2.5-4.9) mg/dl Magnesium (1.7-2.4) mg/dl Total Bilirubin 0.5 (0.2-1.0) mg/dl Direct Bilirubin 0.0 (0-0.2) mg/dl AST 24 (13-39) U/L ALT 36 (7-52) U/L Alkaline Phosphatase 74 (34-104) U/L Total Protein 6.7 (6.0-8.3) gm/dl Albumin 3.5 (3.4-5.0) gm/dl Urine Color Urine Appearance (Clear) Urine pH (4.5-7.5) Ur Specific [place] (1.000-1.030) Urine Protein (Negative) Urine Glucose (UA) (Negative) Urine Ketones (Negative) Urine Blood (Negative) Urine Nitrite (Negative) Urine Bilirubin (Negative) Urine Urobilinogen (Negative) Ur Leukocyte Esterase (Negative) Urine WBC (Auto) (0-5) /hpf Urine RBC (Auto) (0-4) /hpf U Hyaline Cast (Auto) (0-5) /lpf U Epithel Cells (Auto) (0-5) /lpf Urine Bacteria (Auto) (Negative) Nasal Screen MRSA (PCR) (Negative) SARS-CoV-2, RNA, NAAT NEGATIVE (NEGATIVE) 08/06/21 08/06/21 08/06/21 Range/Units 22:24 15:19 13:15 WBC (4.8-10.8) K/uL RBC (4.7-6.1) M/uL Hgb (14.0-18.0) g/dL Hct (42-52) % MCV (80-100) fL MCH (25-34) pg MCHC (32-36) g/dL RDW Std Deviation (36.4-46.3) fL RDW Coeff of Rossy (11.5-14.5) % Plt Count (130-400) K/uL MPV (7.4-10.4) fL Immature Gran % (Auto) % Neut % (Auto) % Lymph % (Auto) % [place] % (Auto) % Eos % (Auto) % Baso % (Auto) % Neut # (Auto) (1.4-6.5) K/uL Lymph # (Auto) (1.2-3.4) K/uL [place] # (Auto) (0.11-0.59) K/uL Eos # (Auto) (0-0.5) K/uL Baso # (Auto) (0-0.2) K/uL Immature Gran # (Auto) (0.00-0.02) K/uL Sodium (136-145) mmol/L Potassium (3.5-5.1) mmol/L Chloride (98-107) mmol/L Carbon Dioxide (21-32) mmol/L Anion Gap (3-11) BUN (6-23) mg/dl Creatinine (0.6-1.4) mg/dl Est Cr Clr Drug Dosing ml/min Est GFR ( Amer) ml/min Est GFR (Non-Af Amer) ml/min BUN/Creatinine Ratio (10-20) Glucose (70-99(Fasting)) mg/dl POC Glucose 203 H (70-99) mg/dl Calcium (8.5-10.1) mg/dl Phosphorus 4.5 (2.5-4.9) mg/dl Magnesium 2.3 (1.7-2.4) mg/dl Total Bilirubin (0.2-1.0) mg/dl Direct Bilirubin (0-0.2) mg/dl AST (13-39) U/L ALT (7-52) U/L Alkaline Phosphatase (34-104) U/L Total Protein (6.0-8.3) gm/dl Albumin (3.4-5.0) gm/dl Urine Color Yellow Urine Appearance Clear (Clear) Urine pH 6.5 (4.5-7.5) Ur Specific [place] 1.018 (1.000-1.030) Urine Protein Trace H (Negative) Urine Glucose (UA) Negative (Negative) Urine Ketones Negative (Negative) Urine Blood 2+ H (Negative) Urine Nitrite Negative (Negative) Urine Bilirubin Negative (Negative) Urine Urobilinogen Negative (Negative) Ur Leukocyte Esterase Trace H (Negative) Urine WBC (Auto) 1-5 (0-5) /hpf Urine RBC (Auto) 10-30 H (0-4) /hpf U Hyaline Cast (Auto) 1-5 (0-5) /lpf U Epithel Cells (Auto) 10-20 H (0-5) /lpf Urine Bacteria (Auto) Negative (Negative) Nasal Screen MRSA (PCR) (Negative) SARS-CoV-2, RNA, NAAT (NEGATIVE) Diagnostic Findings Abdomen/Pelvis CT 08/06/21 14:43 CT SCAN OF THE ABDOMEN AND PELVIS WITHOUT IV CONTRAST CLINICAL HISTORY: Lower abdominal pain. COMPARISON STUDY: Prior abdominal CT scans, most recently dated 08/03/2021. TECHNIQUE: Unenhanced CT scan of the abdomen and pelvis is performed from the lung bases to the proximal femora. Images are reviewed in the axial, sagittal, and coronal planes. IV contrast was not administered for this examination. Note that the examination was performed in suboptimal fashion without oral and IV contrast. A dose lowering technique was utilized adhering to the principles of ALARA. CT DOSE: 484.05 mGy.cm FINDINGS: Lung bases: The heart is enlarged noting a small to moderate pericardial effusion. The lung bases are clear. Liver: The unenhanced liver is normal in size, contour, and attenuation. There is no intrahepatic biliary ductal dilatation. Gallbladder: Unremarkable. Spleen: Normal in size and attenuation. Pancreas: The unenhanced pancreas is grossly unremarkable. Adrenal glands: Unremarkable. Kidneys: The abdomen and kidneys are normal in size and without hydronephrosis. No renal calculi are identified. A 3.1 cm cyst is noted in the right upper pole. Abdominal vasculature: The abdominal aorta is normal in course and caliber noting mild atherosclerotic calcification. Bowel: There is no bowel obstruction. Moderate fecal retention is seen throughout the colon. The appendix is well-visualized and normal. Peritoneum: No intraperitoneal free air or abdominal ascites is seen. See below under pelvic viscera for discussion of pelvic findings/collection. There is a large fat-containing umbilical/periumbilical hernia. Lymphadenopathy: There is an enlarged right pelvic sidewall lymph node on image #350. This measures 2.5 x 1.3 cm. No iliac chain or retroperitoneal lymphadenopathy is identified. Pelvic viscera: The bladder is decompressed around a Bowen catheter. The bladder wall is thickening with surrounding infiltration. Gas is noted within the bladder lumen. A mass lesion is again suggested in the central pelvis arising from the prostate. This is best seen on axial image 364 and is not well delineated without IV contrast. Again seen is a large complex fluid collection in the left lower pelvis. This is best seen on image #373 and measures approximately 12 x 10 x 6.5 cm. This is largely perirectal in location and extends from the level of the seminal vesicles nearly to the level of the anus. This causes mass effect on the adjacent rectum which is deviated to the right. Skeletal structures: No lytic or blastic lesions are seen. IMPRESSION: 1. No significant change as compared to 08/03/2021. 2. Again seen is a large complex fluid collection in the left pelvis which causes significant mass effect on the rectum. 3. The previously suggested mass lesion the central pelvis arising from the prostate gland is not well delineated without IV contrast. 4. Findings suggest cystitis. Correlate with clinical findings and urinalysis. 5. Unchanged appearance of a pathologically enlarged right pelvic sidewall lymph node. 6. Moderate colonic fecal retention. 7. Cardiomegaly with a small to moderate pericardial effusion. 8. Additional findings as above. ACT 112: Negative or not required by law. Electronically signed by: Saman Huggins M.D. 08/06/2021 4:40 PM PG Care Time/CCT Total # of Minutes Spent Total Time Spent with Patient: Total time spent is greater than 50% in coordination of care (as documented) at patient's floor/unit and/or counseling patient: Prolonged Care Time Prolonged Care Time: Yes additional 60 minuted spent discussion with residential provider, hematology/oncology, general surgery as well as review of imaging/time with patient Coding Level of Care Code 29496 Subseq Hosp Care Lvl 3 Diagnoses Pelvic mass R19.00 Haematoma of pelvis KAT (acute kidney injury) N17.9 Unspecified atrial fibrillation I48.91 Dyslipidemia E78.5 Hypertension I10 Type 2 diabetes mellitus E11.9 Sleep apnea G47.30 Urinary retention R33.9 Additional Codes Prolonged Care Time - Prolonged Care Time: Yes ([id number])
--- NOTE | 2021-08-07 10:23 | Surgery Consultation ---
Date of Consultation August 07, 2021 Assessment & Plan (1) Haematoma of pelvis: This is a 51yM prisoner with a PMH of DM2, HTN, CKD, afib on anticoagulation, who was recently diagnosed with prostate cancer who presents to the [facility] ED on 08/06/21 with complaints of trouble having bowel movements. Of significance the patient was recently admitted to the hospital from 07/20/21- 07/24/21 where he was found to have a prostatic mass with associated pelvic fluid collection concerning for hematoma. He went to the OR on 07/21/21 with Urology for a TURP and pathology returned + for adenocarcinoma of the prostate. During this time he was found to have an associated pelvic fluid collection concerning for a hematoma where he was subsequently transferred to [place] on 07/24/21 for IR drainage. Unfortunately the collection had reaccumulated and patient is symptomatic. We have been consulted as the patient returns to the hospital with troubles having a BM and CT scan findings revealing the pelvic hematoma and mass causing mass effect on the rectum. At this time we recommend Oncology consultation for treatment of patient's prostate cancer. He may benefit from Radiation Oncology prior to considering surgical intervention. Urology is on board and no plans for acute surgical intervention at this time from their point of view. A diverting colostomy could be considered down the road but this is would not be the first step in his treatment plan. Continue bowel regimen. Anticoagulation is currently on hold to prevent further bleeding. as above. I believe tissue diagnosis of the pelvis "mass" seen on CT needs to be accomplished. again, as a last resort a diverting stoma could be done but I believe diagnosis of the mass and definitive plan established first. (2) Prostate cancer: History of Present Illness Attending Physician: Sara Nava MD History of Present Illness This is a 51yM prisoner with a PMH of DM2, HTN, CKD, afib on anticoagulation, who was recently diagnosed with prostate cancer who presents to the [facility] ED on 08/06/21 with complaints of trouble having bowel movements. Of significance the patient was recently admitted to the hospital from 07/20/21- 07/24/21 where he was found to have a prostatic mass with associated pelvic fluid collection. He went to the OR on 07/21/21 with Urology for a TURP and pathology returned + for adenocarcinoma of the prostate. During this time he was found to have an associated pelvic fluid collection concerning for a hematoma where he was subsequently transferred to [place] on 07/24/21 for IR drainage. Unfortunately the collection had reaccumulated. He tells me he was switched from Coumadin to Eliquis and had only taken one dose of the Eliquis, which has since then been held. The patient returns to the hospital with trouble passing his BMs. Of note he did present to our ER on 07/31 with similar symptoms and CT scan showing the pelvic fluid collection and known pelvic mass. After laxatives he was able to pass a decent BM and was sent back to senior care, but now unfortunately returns with similar symptoms. In the ER a CT a/p was obtained that revealed large complex fluid collection in the left pelvis which causes significant mass effect on the rectum along with the previously suggested mass lesion the central pelvis arising from the prostate gland. Patient denies any nausea/vomiting. Reports + abdominal bloating. Having very small BM's. Allergies Allergy/AdvReac Type Severity Reaction Status Date / Time oxycodone AdvReac Mild Unknown Unverified 08/06/21 16:22 Home Medications Medication Instructions Recorded Confirmed Type lisinopril 20 mg tablet 20 mg PO DAILY 02/06/20 08/06/21 History rosuvastatin 5 mg tablet 5 mg PO HS 04/18/21 08/06/21 History tamsulosin 0.4 mg capsule 0.8 mg PO DAILY 04/18/21 08/06/21 History acetaminophen 500 mg tablet 1,000 mg PO TID PRN 07/08/21 08/06/21 History finasteride 5 mg tablet 5 mg PO DAILY 07/08/21 08/06/21 History metoprolol tartrate 100 mg tablet 100 mg PO BID 07/08/21 08/06/21 History polyethylene glycol 3350 17 gram 17 g PO TID PRN 07/08/21 08/06/21 History oral powder packet (Miralax) acetaminophen 300 mg-codeine 30 mg 2 tab PO Q4H PRN 08/03/21 08/06/21 History tablet bisacodyl 5 mg tablet,delayed 5 mg PO BID 08/03/21 08/06/21 History release glimepiride 1 mg tablet 1 mg PO QAM 08/03/21 08/06/21 History hydrochlorothiazide 25 mg tablet 25 mg PO DAILY 08/03/21 08/06/21 History lactulose 20 gram/30 mL oral 20 g PO TID PRN 08/03/21 08/06/21 History solution lidocaine HCl 2 % mucosal jelly 1 applic TOPICAL BID PRN 08/03/21 08/06/21 History sulfamethoxazole 800 1 tab PO BID 08/03/21 08/06/21 History mg-trimethoprim 160 mg tablet (Bactrim DS) Patient History Medical History CKD (chronic kidney disease) stage 2, GFR 60-89 ml/min Constipation 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 Dyslipidemia Hypertension Hyponatremia Pelvic mass Perirectal hematoma Persistent atrial fibrillation Sleep apnea Type 2 diabetes mellitus Social History Smoking Status: Former smoker Tobacco Type: Cigarettes Second Hand Exposure: No; Do You Dip or Chew Tobacco: No; Hx Alcohol Use: No Hx Substance Use: No Preferred Language: Slovenian Climatology Professor Required: No Beliefs That Will Affect Care: None Current Living Situation: Other Current Living Situation Comment: senior care Feels Safe at Home: Yes Safety Concerns: Feels Safe At This Time Assistive Devices: None Review of Systems Constitutional: no fever and no chills Gastrointestinal: + bloating and + constipation; no nausea and no vomiting Physical Exam Physical Exam: awake/alert, no acute distress Respiratory: normal respiratory effort Gastrointestinal (Abdomen): + bloated Results & Data ([facility]) Vital Signs (Past 12 Hours) Vital Signs Temp Pulse Resp BP Pulse Ox 08/07/21 08:16 36.7 C 74 16 103/[address] SCAN OF THE ABDOMEN AND PELVIS WITHOUT IV CONTRAST CLINICAL HISTORY: Lower abdominal pain. COMPARISON STUDY: Prior abdominal CT scans, most recently dated 08/03/2021. TECHNIQUE: Unenhanced CT scan of the abdomen and pelvis is performed from the lung bases to the proximal femora. Images are reviewed in the axial, sagittal, and coronal planes. IV contrast was not administered for this examination. Note that the examination was performed in suboptimal fashion without oral and IV contrast. A dose lowering technique was utilized adhering to the principles of ALARA. CT DOSE: 484.05 mGy.cm FINDINGS: Lung bases: The heart is enlarged noting a small to moderate pericardial effusion. The lung bases are clear. Liver: The unenhanced liver is normal in size, contour, and attenuation. There is no intrahepatic biliary ductal dilatation. Gallbladder: Unremarkable. Spleen: Normal in size and attenuation. Pancreas: The unenhanced pancreas is grossly unremarkable. Adrenal glands: Unremarkable. Kidneys: The abdomen and kidneys are normal in size and without hydronephrosis. No renal calculi are identified. A 3.1 cm cyst is noted in the right upper pole. Abdominal vasculature: The abdominal aorta is normal in course and caliber noting mild atherosclerotic calcification. Bowel: There is no bowel obstruction. Moderate fecal retention is seen throughout the colon. The appendix is well-visualized and normal. Peritoneum: No intraperitoneal free air or abdominal ascites is seen. See below under pelvic viscera for discussion of pelvic findings/collection. There is a large fat-containing umbilical/periumbilical hernia. Lymphadenopathy: There is an enlarged right pelvic sidewall lymph node on image #350. This measures 2.5 x 1.3 cm. No iliac chain or retroperitoneal lymphadenopathy is identified. Pelvic viscera: The bladder is decompressed around a Campos catheter. The bladder wall is thickening with surrounding infiltration. Gas is noted within the bladder lumen. A mass lesion is again suggested in the central pelvis arising from the prostate. This is best seen on axial image 364 and is not well delineated without IV contrast. Again seen is a large complex fluid collection in the left lower pelvis. This is best seen on image #373 and measures approximately 12 x 10 x 6.5 cm. This is largely perirectal in location and extends from the level of the seminal vesicles nearly to the level of the anus. This causes mass effect on the adjacent rectum which is deviated to the right. Skeletal structures: No lytic or blastic lesions are seen. IMPRESSION: 1. No significant change as compared to 08/03/2021. 2. Again seen is a large complex fluid collection in the left pelvis which causes significant mass effect on the rectum. 3. The previously suggested mass lesion the central pelvis arising from the prostate gland is not well delineated without IV contrast. 4. Findings suggest cystitis. Correlate with clinical findings and urinalysis. 5. Unchanged appearance of a pathologically enlarged right pelvic sidewall lymph node. 6. Moderate colonic fecal retention. 7. Cardiomegaly with a small to moderate pericardial effusion. 8. Additional findings as above. ACT 112: Negative or not required by law. Electronically signed by: Saman Huggins M.D. 08/06/2021 4:40 PM PG Care Time/CCT Total # of Minutes Spent Total Time Spent with Patient: Total time spent is greater than 50% in coordination of care (as documented) at patient's floor/unit and/or counseling patient: Coding Level of Care Code 16505 Inpt Consult Level 4 Diagnoses Haematoma of pelvis Prostate cancer C61
[2021-08-07] MEDS: LIDOCAINE 2% JELLY 5 ML TUBE EXT PRN (16:06)
--- NOTE | 2021-08-07 16:37 | Radiation OncologyConsultation ---
Date of Consultation August 07, 2021 Assessment & Plan (1) Prostate cancer: (2) Pelvic mass: Assessment: Mr. 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 The patient was initiated on Lupron and Casodex at [facility] but has not received any subsequent therapy. The patient was seen by Dr. Valles from medical oncology who did recommend outpatient therapy including Lupron and other antiandrogen treatments as well as docetaxel. The patient has been evaluated by urology who is recommending conservative management this point. The patient is also been seen by surgery who is also recommended further evaluating the complex pelvic mass which is partially obstructing the rectum. The patient is now being evaluated regarding the role of radiation therapy. Recommendation: 1. Recommend further work-up regarding the complex pelvic mass. MRI of the pelvis with and without contrast could be beneficial to better characterize the mass and its etiology. 2. With respect to the prostate cancer, androgen deprivation therapy is an appropriate treatment option with or without further systemic treatment options. Radiation therapy may also be considered in the future in combination with androgen deprivation therapy given the fact that the patient does not have any bone metastatic disease. At this point, I would not recommend any radiation therapy given the fact that we still do not know the etiology of this complex rectal mass which has been there since February 2020. Plan: 1. No radiation therapy planned at this point. Radiation therapy may be considered in the future for consolidation depending on the patient's response. Radiation therapy may also be considered palliatively if there is difficulty removing the Campos catheter due to continued urinary obstruction and/or hematuria. 2. MRI of pelvis with and without contrast may better help characterize the etiology of this mass. 3. Patient should be seen in the outpatient setting by medical oncology to continue systemic therapy for his prostate cancer. 4. Continue all other management as per primary medical team. 5. Please call us if further recommendations are required. History of Present Illness Attending Physician: Sara Nava MD History of Present Illness 02/07/2020. CT of abdomen/pelvis. IMPRESSION: 1. No bowel obstruction or bowel wall thickening. 2. Campos catheter is noted within a decompressed urinary bladder. There is hematoma interposed between the urinary bladder and rectum obscuring the prostate measuring up to 6.7 cm with extension into the right extraperitoneal tissues of the lower pelvis. Trace hemorrhage is also noted extending into the urinary bladder lumen. This finding was called/faxed to the emergency department at time of dictation. 3. 12 x 9 mm lesion of the inferior pole right kidney is indeterminate. Correlation with a follow-up nonemergent MRI of the kidneys with and without the use of IV contrast is recommended to exclude a small renal cell carcinoma . This finding was also called/faxed to the emergency department at time of dictation. 4. Additional findings as above. 07/20/2021. CT of abdomen/pelvis. IMPRESSION: 1. Findings suggest cystitis. Correlate with clinical findings and urinalysis. 2. Findings are highly suspicious for a lobulated mass lesion in the central pelvis as detailed above, likely arising from the prostate gland. Neoplasm is the diagnosis of exclusion. 3. There is a pathologically enlarged right pelvic sidewall lymph node. 4. There is a large complex fluid collection typical for a hematoma in the left lower pelvis. This is largely perirectal in location, and extends from the level of the seminal vesicles nearly to the anus. This causes mass effect on the adjacent rectum. 5. There is trace fluid in the left paracolic gutter. 6. Moderate colonic fecal retention. 7. Cardiomegaly with a small to moderate pericardial effusion. 8. Additional findings as above. 07/21/2021. Transurethral resection of prostate/mass, drainage of prostatic abscess and exam under anesthesia. Findings: Very large mass versus fluid collection causing considerable mass-effect and displacement of rectum and inability to palpate the prostate transrectally. Considerable bulging with obstruction of the prostate on transurethral assessment with significant displacement of tissue with into the bladder causing severe obstructive issues. Bladder is severely inflamed with considerable edema and irritation. 07/21/2021. Prostate, transurethral resection: - Acinar adenocarcinoma, [place] grade group 3 (4+3=7). Tertiary pattern 5. Comment: Approximately 30% of the specimen is involved. Cautery artifact limits grading somewhat but there appears to be approximately 55% pattern 4. Tertiary pattern 5 represents ~1% of the tumor. Perineural invasion is noted. 07/24/2021. CT chest. IMPRESSION: 1. There is no evidence of intrathoracic metastatic disease. 2. Cardiomegaly noting a small to moderate pericardial effusion. 3. There is no airspace consolidation typical for pneumonia. 4. Trace pleural effusions. 5. Additional findings as above. 07/24/2021. Medical oncology consultation with Dr. Valles. Recommendation is for Lupron with potential abiraterone or enzalutamide. Consideration for docetaxel. Transfer to tertiary referral center for potential biopsy of pelvic mass. 07/24/2021. CT of abdomen/pelvis. IMPRESSION: 1. No significant change in the large intermediate density left perirectal fluid collection which measures approximately 11 x 9 x 6 cm. This favors a hematoma. However, an abscess or less likely a cystic mass could also have a similar appearance. This results in significant mass effect along the rectum with severe decompression. The large bowel proximal to this site is mildly distended and filled with stool. Therefore, this is concerning for a developing large bowel obstruction. 2. There is again suggestion of an enhancing mass within the right deep pelvis which appears contiguous with the right side of the prostate gland and extends to the right seminal vesicle. This is highly suspicious for extraprostatic extension of a prostate malignancy. 3. A single enlarged and heterogeneous right pelvic sidewall lymph node concerning for metastatic disease. 07/25/2021. Patient transferred to [facility] for further work-up and care. According to patient, he did receive Lupron and Casodex while in the hospital. 07/29/2021. CT of abdomen/pelvis. Impression: Interval decrease in size of left pelvic fluid collection when compared to outside exam, noting interval aspiration of the collection. It is unclear if the residual collection reflects reaccumulation or residual material. This exerts adjacent mass-effect on the rectosigmoid colon. While the proximal colon is stool-filled, there are no overt signs of bowel obstruction. 07/30/2021. Bone scan. Impression: No scintigraphic evidence of skeletal metastatic disease. 08/03/2021. CT of abdomen/pelvis. IMPRESSION: 1. Overall, no significant change in the large cystic left perirectal collection demonstrating a thickened wall. This demonstrates significant mass effect and rightward displacement of the rectum with a persistent partial large bowel obstruction. This is indeterminate but could represent a hematoma or cystic mass. An abscess could also have a similar appearance in the appropriate clinical setting. 2. There is again suggestion of an enhancing mass within the right deep pelvis which appears contiguous with the right of the prostate gland and extends to the right seminal vesicle. This is concerning for extra prostatic extension of a prostate malignancy. 3. A single enlarged right pelvic sidewall lymph node remains unchanged. 4. Redemonstration of the 1.5 cm indeterminate exophytic hypodense lesion within the lower pole the right kidney. This could represent a hyperdense cyst. Consider follow-up nonemergent renal ultrasound for further evaluation. 5. Skin thickening and subcutaneous fat stranding within the right lower quadrant abdominal wall which is new from the prior study. This may represent a cellulitis. 6. A small pericardial effusion, unchanged. 7. Additional findings as described above. 08/06/2021. Patient presents to emergency room with rectal obstruction. Admitted to hospital for further work-up and evaluation. 08/06/2021. CT of abdomen/pelvis. IMPRESSION: 1. No significant change as compared to 08/03/2021. 2. Again seen is a large complex fluid collection in the left pelvis which causes significant mass effect on the rectum. 3. The previou sly suggested mass lesion the central pelvis arising from the prostate gland is not well delineated without IV contrast. 4. Findings suggest cystitis. Correlate with clinical findings and urinalysis. 5. Unchanged appearance of a pathologically enlarged right pelvic sidewall lymph node. 6. Moderate colonic fecal retention. 7. Cardiomegaly with a small to moderate pericardial effusion. 8. Additional findings as above. 08/06/2021. Urology consultation. Recommendation is for continued Campso catheter for bladder drainage. No other recommendations at this point. 08/06/2021. Surgical consultation. Recommendation is to determine cause of rectal mass. Diversion in future is also a possibility. Oncology should be consulted to discuss prostate cancer management. Radiation oncology referral al so recommended. Allergies Allergy/AdvReac Type Severity Reaction Status Date / Time oxycodone AdvReac Mild Unknown Unverified 08/06/21 16:22 Home Medications Medication Instructions Recorded Confirmed Type lisinopril 20 mg tablet 20 mg PO DAILY 02/06/20 08/06/21 History rosuvastatin 5 mg tablet 5 mg PO HS 04/18/21 08/06/21 History tamsulosin 0.4 mg capsule 0.8 mg PO DAILY 04/18/21 08/06/21 History acetaminophen 500 mg tablet 1,000 mg PO TID PRN 07/08/21 08/06/21 History finasteride 5 mg tablet 5 mg PO DAILY 07/08/21 08/06/21 History metoprolol tartrate 100 mg tablet 100 mg PO BID 07/08/21 08/06/21 History polyethylene glycol 3350 17 gram 17 g PO TID PRN 07/08/21 08/06/21 History oral powder packet (Miralax) acetaminophen 300 mg-codeine 30 mg 2 tab PO Q4H PRN 08/03/21 08/06/21 History tablet bisacodyl 5 mg tablet,delayed 5 mg PO BID 08/03/21 08/06/21 History release glimepiride 1 mg tablet 1 mg PO QAM 08/03/21 08/06/21 History hydrochlorothiazide 25 mg tablet 25 mg PO DAILY 08/03/21 08/06/21 History lactulose 20 gram/30 mL oral 20 g PO TID PRN 08/03/21 08/06/21 History solution lidocaine HCl 2 % mucosal jelly 1 applic TOPICAL BID PRN 08/03/21 08/06/21 History sulfamethoxazole 800 1 tab PO BID 08/03/21 08/06/21 History mg-trimethoprim 160 mg tablet (Bactrim DS) Patient History Medical History CKD (chronic kidney disease) stage 2, GFR 60-89 ml/min Constipation Current use of group home anticoagulation Dyslipidemia Hypertension Hyponatremia Pelvic mass Perirectal hematoma Persistent atrial fibrillation Sleep apnea Type 2 diabetes mellitus Social History Smoking Status: Former smoker Tobacco Type: Cigarettes Second Hand Exposure: No; Do You Dip or Chew Tobacco: No; Hx Alcohol Use: No Hx Substance Use: No 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 Patient complains of difficulty with bowel movements as well. Physical Exam Constitutional: WD/WN, vitals as above Skin: no rashes, warm and dry Psychiatric: A+Ox3, euthymic affect Time Spent Attending I spent 15 minutes in preparation for this consultation including reviewing all the clinical records, reviewing laboratory studies, pathology reports and imaging results. I spent 20 minutes with direct face to face interaction with the patient and/or family including performing a physical exam and answering all questions. I spent 20 minutes documenting this patient's visit.
--- NOTE | 2021-08-07 18:36 | Consultation Report ---
DATE OF SERVICE: 08/07/2021. REASON FOR CONSULTATION: Prostate cancer. HISTORY OF PRESENT ILLNESS: The patient is a 51-year-old gentleman who I had initially met during his hospitalization from 07/20/2021 till 07/25/2021. Patient presented to the ER again on 08/06/2021 with severe constipation, rectal pain and presented with difficulty having a bowel movement. Of note, during the patient's hospitalization on 07/20/2021 till 07/25/2021, discussed options for treatment with the patient including androgen deprivation therapy with Lupron in addition to either IV chemotherapy with docetaxel or complete androgen blockade with abiraterone/enzalutamide/apalutamide. However, during the hospitalization it was noted that he had a large chronic lower pelvic mass for which he was transferred to [facility] . On 07/26/2021, he underwent CT-guided drainage of fluid collection with removal of 120 mL of dark blood associated with instant relief and multiple bowel movements. Given concern for hematoma, his Eliquis for atrial fibrillation was discontinued. CT abdomen and pelvis on 07[place]29/2021 [place] [facility] [place] revealed interval decrease in size of left pelvic fluid collection following aspiration. Nuclear medicine bone scan on 07/30/2021 revealed no evidence of skeletal metastasis The patient was evaluated by -Oncology and received degarelix 240mg SQ loading dose. He was also started on bicalutamide 50 mg p.o. every daily. During my evaluation of patient today, he states that he does not recall being given bicalutamide at the [facility]. Complains of persistent constipation and occasional lower abdominal pain. Currently, has an indwelling Campos catheter. PAST MEDICAL HISTORY: 1. Diabetes mellitus type 2. 2. Hypertension. 3. Hyperlipidemia. 4. BPH. 5. Atrial fibrillation, no longer on chronic anticoagulation. PAST SURGICAL HISTORY: Nonsignificant. MEDICATIONS PRIOR TO ADMISSION: 1. Aspirin 81 mg p.o. daily. 2. Hydrochlorothiazide 25 mg p.o. daily. 3. Lisinopril 20 mg p.o. daily. 4. Glimepiride 1 mg p.o. q.a.m. 5. Rosuvastatin 5 mg p.o. at bedtime. 6. Tamsulosin 0.4 mg p.o. daily. 7. Finasteride 5 mg p.o. daily. 8. Metoprolol 100 mg p.o. b.i.d. SOCIAL HISTORY: Denies smoking, alcohol and illicit drug use. FAMILY HISTORY: Significant for prostate cancer in his cousin in his 50s. REVIEW OF SYSTEMS: CONSTITUTIONAL: He endorses significant weight loss. Denies fever, chills or night sweats. CARDIOVASCULAR: He denies chest pain, palpitations, dizziness, or diaphoresis. RESPIRATORY: Denies shortness of breath, hemoptysis or cough. GASTROINTESTINAL: He endorses constipation. Denies diarrhea, hematemesis, melena, nausea, vomiting or dyspepsia. GENITOURINARY: Currently, has indwelling Campos catheter. NEUROLOGIC: Negative for headaches or dizziness. LYMPHATICS/HEMATOLOGIC: Denies abnormal bleeding or new adenopathy. PHYSICAL EXAMINATION: VITAL SIGNS: Blood pressure 111/74, heart rate 87, respiratory rate 16, temperature 37.1, oxygen saturation 97% on room air. EYES: Without conjunctivae erythema or icterus. RESPIRATORY: Lung sounds were generally clear bilaterally. CARDIOVASCULAR: Heart rate was irregularly irregular. GASTROINTESTINAL: The abdomen is soft with normal bowel sounds. No palpable hepatosplenomegaly. LYMPHATIC SYSTEM: No palpable peripheral lymphadenopathy. EXTREMITIES: Negative for edema. LABORATORY DATA: CBC on 08/07/2021 revealed white count of 6.92, hemoglobin of 12.7, hematocrit of 35.8, platelet count of 292,000. Chemistry significant for sodium of 132, potassium 4.9, chloride 101, carbon dioxide 25, BUN 17, creatinine 1.08. IMAGING STUDIES: 1. CT abdomen and pelvis on 08/06/2021 revealed no significant change compared to 08/03/2021. 2. Again, seen was a large complex fluid collection in the left pelvis, which causes significant mass effect in the rectum. 3. Previously suggested mass lesion in the central pelvis arising from the prostate gland, is not well delineated without IV contrast. 4. Findings suggests cystitis. 5. Unchanged appearance of pathologically enlarged right pelvic sidewall lymph node. 6. Moderate colonic fecal retention. 7. Cardiomegaly with small to moderate pericardial effusion. ASSESSMENT: 1. Recently diagnosed adenocarcinoma of the prostate, Lima 4+3. 2. Large complex fluid collection, possible hematoma in the left lower pelvis. 3. Pathologically enlarged right pelvic sidewall lymph node. 4. Constipation, likely due to a large complex fluid collection in the left pelvis. A 51-year-old gentleman recently diagnosed with Lima 4+3 adenocarcinoma of the prostate. Recently obtained full staging workup including CT chest, abdomen and pelvis as well as bone scan were negative for distant metastatic disease. He recently received androgen deprivation therapy with degarelix 240mg earlier this month while admitted at [facility]. He was also started on Casodex at [facility] [place] which does not seem to have been continued while in the penitentiary. Since he has no evidence of distant metastatic disease, would recommend total androgen blockade with radiation. If for some reason, radiation is not possible and obsruction from prostate malignancy does not improve with total androgen blockade, would recommend IV chemotherapy with docetaxel. In the meantime, recommend checking his PSA to assess for response to recent treatment. Thank you for this consult. Oncology will see the patient upon discharge from hospital. Please feel free to call if you have any further questions. Job ID: [id number] MTDD
[2021-08-07] MEDS: ACETAMINOPHEN W/CODEINE #3 1 TAB PO PRN (20:55)
[2021-08-07] MEDS: ROSUVASTATIN CALCIUM 5 MG TAB PO SCH (20:56)
[2021-08-07] MEDS: cefTRIAXone SODIUM 2,000 MG in DEXTROSE 5% 50 ML IV SCH (20:56)
[2021-08-07] MEDS ORDERED: GADOBUTROL 65ML VIAL IV ONE (23:29)
[2021-08-08] MEDS: ACETAMINOPHEN W/CODEINE #3 1 TAB PO PRN ×4 (01:02→22:53)
[2021-08-08 06:00] LABS: Hemoglobin 12.7 g/dL (14.0-18.0); Mean Corpuscular Hemoglobin 30.2 pg (25-34); Mean Corpuscular Hgb Conc 34.3 g/dL (32-36); Mean Corpuscular Volume 88.1 fL (80-100); Mean Platelet Volume 9.9 fL (7.4-10.4); Platelet Count 288 K/uL (130-400); RDW Coefficient of Variation 13.1 % (11.5-14.5); RDW Standard Deviation 42.2 fL (36.4-46.3); White Blood Count 7.32 K/uL (4.8-10.8)
[2021-08-08 06:23] LABS: BUN Creatinine Ratio 15.4 (10-20); Calcium 9.1 mg/dl (8.5-10.1); Creatinine Clr Calc Pharmacy 79.1 ml/min; Est GFR (Non-African American) 70.8 ml/min; Magnesium 2.1 mg/dl (1.7-2.4); Potassium 4.6 mmol/L (3.5-5.1)
--- NOTE | 2021-08-08 07:32 | Magnetic Resonance Report ---
MRI OF THE PELVIS WITH AND WITHOUT CONTRAST CLINICAL HISTORY: Pelvic mass, prostate cancer, ?prostate vs rectal. COMPARISON STUDY: CT of the abdomen and pelvis August 03, 2021. CT of the abdomen and pelvis August 06. TECHNIQUE: Utilizing a 1.5 Yanna magnet and dedicated coil, multiplanar, multiecho imaging of the pel vis was performed pre and postcontrast ministration. Intravenous injection of 9 cc of Gadavist was un eventful. FINDINGS: No suspicious marrow replacement is identified within the visualized skeletal structures. A n enlarged right pelvic sidewall lymph node measures 2 x 1.1 cm. This is similar to earlier CTs datin g back to July 20, 2021. No additional enlarged pelvic lymph nodes are present. Note is made of a 9.3 x 5.7 cm T1 and T2 hyperintense left perirectal fluid collection. This is similar to prior CT. This co llection contains septations as well as intermediate signal intensity T2 material along the posterior inferior aspect of this collection. This has a hypointense rim. Significant mass effect upon the rec niyah with rightward displacement is again noted. This is suggestive of a hematoma. A Campos balloon wit hin the bladder is noted. Bladder wall thickening is again noted. Although suboptimally assessed on t his nondedicated exam, there is a possible mass within the right aspect of the prostate which may ext end to the right seminal vesicle. This measures approximately 4 x 2.1 cm. IMPRESSION: 1. No change in a 9.3 x 5.7 cm left perirectal fluid collection. The signal characteristics are consi stent with a hematoma. Significant mass effect upon the rectum with rightward displacement. 2. Suspected mass within the right aspect of the prostate which extends into the seminal vesicle. Thi s is suspicious for prostate carcinoma. 3. No change in a mildly enlarged right pelvic sidewall lymph nodes suggestive of rajesh spread of dis ease. ACT 112: Negative or not required by law. Electronically signed by: Stephen Hodges M.D. 08/08/2021 7:31 AM
--- NOTE | 2021-08-08 08:24 | Hospitalist Progress Note ---
Date of Service August 08, 2021 Assessment & Plan (1) Pelvic mass: Plan: 51yo male with recent hospitalization for prostate mass, pelvic hematoma s/p TURP, Bowen placement and drainage presenting with difficulty having a bowel movement. Prior admission earlier in the month with similar issues with constipation/mass effect and requirement of transfer to [facility] for drainage of fluid collection/addressing of pelvic mass/tissue sample--> Does not appear any sample collected of tissue. Prior pathology s/p TURP with Prostate CA [facility] with persistent fluid collection and pelvic mass w/ significant mass effect on rectum/moderate fecal retention Sent to [facility] earlier this month for IR/drainage -- no cx sent but sent on Bactrim extended course for suspected prostatitis. Formal records requested Urology consulted * no plans inpatient intervention at this time, including prostatectomy for concerns prostate bleeding and causing reaccumulation of hematoma (eliquis has been on hold since reaccumulation, hx afib likley permanent per discussion with Dr Norris and review of holter monitor, rate controlled) * continue bowen catheter to prevent issues with retention General surgery on consult * rec oncology for tx prostate ca, benefit from rad/onc * Diverting colostomy as last resort -- I did discuss with patient and he would consider if absolutely necessary, but discussed could be permanent. He would like to see other options first prior to this. Reasonable. Continued on Ceftriaxone in place of Bactrim as placed last admit for possible prostatitis -- very likely given prior abscess noted on OP report but no cx obtained at that time. WBC remains wnl, afebrile Oncology on consult Dr Valles, reviewed images, intiially thought possible give Docetaxil (patient received Lupron injection and started on daily casodex per group home provider) however bone scan WITHOUT evidence for mets dz Patient actually got Degarelix earlier this month, could consider monthly with ultimate plan Lurpon K0easyry Repeat PSA level IMPROVED 16.156 prior was 103 earlier this month MRI Pelvis obtained for further eval pelvic mass/consideration for XRT * IMPRESSION:1. No change in a 9.3 x 5.7 cm left perirectal fluid collection. The signal characteristics are consistent with a hematoma. Significant mass effect upon the rectum with rightward displacement. 2. Suspected mass within the right aspect of the prostate which extends into the seminal vesicle. This is suspicious for prostate carcinoma. 3. No change in a mildly enlarged right pelvic sidewall lymph nodes suggestive of rajesh spread of disease. Rad/onc to arrange outpatient XRT Hematology to continue ADT therapy but will need formal outpatient consultation as well as coordination with colorectal possibly [facility] to review case/imaging, felt more of a urological issue, would not transfer for intervention of any kind at this time Spoke with omar Ferrer to reach back out to [facility] to discuss. I had radiology push images for review and awaiting call back from Dr Aguilar, as Dr Duff in [place] but not insulation inspector at this time Depending on discussion/review, consideration for inpatient vs outpatient follow up Vs consideration for transfer for possible IR if they could consider getting tissue sample from L lower pelvic mass as well Tolerating diet and having couple small BMs today, continues to pass gas Continue aggressive bowel regimen bisacodyl, senna, colace, lactulose TID and miralax Encouraged ambulation Pain control -- limit as tolerated and ok w/ T3 prn If able to have continued BMs/no obstruction could consider outpatient basis but given entire picture fear patient to bounce back if no intervention taken sooner rather than later (2) Haematoma of pelvis: Plan: s/p drainage with apparent reaccumulation -Obtain records from [facility] -- HIM consulted (did get quick review from [facility] but needing full records) -Continue to hold anticoagulation (had been on hold per MD) Did check iron studies which were low last admission and given venofer consider repeating studies/venofer if needed but Hgb stable and given 2L IVF CBC in AM (3) KAT (acute kidney injury): Plan: On chronic kidney disease stage 2. Mild elevation of BUN and Cr likely dehydration/medication as on Bactrim for prostatitis at d/c from [facility] Hyperkalemia resolved with IVF -- given 2L LR but holding further IVF for now. No bactrim (remains on rocephin) and holding HCTZ/DICKSON Renal dose meds/avoid nephrotoxic agents Cr stable, monitor (4) Unspecified atrial fibrillation: Plan: Rate controlled, permanent per last admit/review holter No anticoagulation due to pelvic hematoma -Continue metoprolol 100mg po BID (5) Dyslipidemia: Plan: Chronic -Continue Crestor 5mg po qHS (6) Hypertension: Plan: Blood pressure acceptable -Continue Metoprolol -Hold Lisinopril, HCTZ -Continue to monitor (7) Type 2 diabetes mellitus: Plan: Blood sugar acceptable. A1c 8.1 -Lantus 5u BID -ISS -Hold Glimepride BSGs acceptable (8) Sleep apnea: Plan: Trial of CPAP ordered (9) Urinary retention: Plan: Maintain Bowen. Monitor output -Continue Finasteride and Flomax DVT prophylaxis Chemical held in setting of hematoma Will order SCDs & encouraged ambulation -- guards have been good about getting him up/frequent ambulation to assist with bowel movements Plan: ok on med/surg for now but if needing any IV cardiac meds/need for NPO, consider moving to monitored bed awaiting call back from [facility] colorectal to discuss case as currently stable/passing gas/moving BM but worried if d/c without intervention will bounce back prior to getting treatment needed in follow up Will need close coordination with group home to arrange follow up (has appt with hematology beginning August but unable to be moved up any sooner) Admission and Anticipated Discharge Date Admission Date: August 07, 2021 Supervising Physician Co-Signing Physician Notes PA Supervision Note: I did not personally see or examine the patient today, but I verified all lemons points of VINICIUS Cabezas's assessment and plan with the following exceptions/additions: None Subjective Patient evaluated this morning. Had couple BM, straining to do so. Continuing to eat Urine remaining clear. Discussed PSA level decreased. Will attempt to reach out to colorectal surgeon today to review case/additional recommendations. Discussed there is a colorectal surgeon who comes to [facility] at least once a week and if not "unstable" and maybe she is coming soon, could arrange for close follow-up/intervention vs consideration to transfer. Patient agreeable to plan. No fever, chills, chest pain, shortness of breath, nausea, vomiting or dysuria although noting bowen is irritating. Lidocaine jelly available and discussed maintaining due to bowel issues to prevent retention problems. Review of Systems Review of Systems: All systems reviewed & are unremarkable except as noted in HPI & below Physical Exam Physical Exam: General: WN/WD male resting in bed, NAD HEENT: head normocephalic, atraumatic, mmm, trachea midline without deviation Resp: CTAB, no w/c/r, on room air CV: irregularly irregular (rate 70s), no m/r/g, no calf edema, cap refill wnl GI: +BS throughout, +distended (less), non-tender, no rebound/guarding. firm area RLQ (prior infection site, within markings, less indurated) : bowen with clear yellow urine in bag MSK/Neuro: moving all extremities, follows commands, no slurred speech/facial droop. CN intact grossly.Strength equal bilaterally Skin: warm, dry -- hardened area RLQ as mentioned from prior injection, non- tender, no drainage Results & Data Results & Data ([facility]) Vital Signs (Past 12 Hours) Vital Signs Temp Pulse Resp BP Pulse Ox 08/08/21 08:20 36.9 C 78 16 122/80 94 08/07/21 22:21 36.8 C 90 18 121/85 97 Laboratory Results 08/08/21 08/08/21 08/08/21 Range/Units 12:05 08:04 05:26 WBC (4.8-10.8) K/uL RBC (4.7-6.1) M/uL Hgb (14.0-18.0) g/dL Hct (42-52) % MCV (80-100) fL MCH (25-34) pg MCHC (32-36) g/dL RDW Std Deviation (36.4-46.3) fL RDW Coeff of Rossy (11.5-14.5) % Plt Count (130-400) K/uL MPV (7.4-10.4) fL Sodium (136-145) mmol/L Potassium (3.5-5.1) mmol/L Chloride (98-107) mmol/L Carbon Dioxide (21-32) mmol/L Anion Gap (3-11) BUN (6-23) mg/dl Creatinine (0.6-1.4) mg/dl Est Cr Clr Drug Dosing ml/min Est GFR ( Amer) ml/min Est GFR (Non-Af Amer) ml/min BUN/Creatinine Ratio (10-20) Glucose (70-99(Fasting)) mg/dl POC Glucose 164 H 108 H (70-99) mg/dl Calcium (8.5-10.1) mg/dl Magnesium (1.7-2.4) mg/dl Prostate Specific Ag 16.156 H (0-4) ng/ml 08/08/21 08/08/21 08/07/21 Range/Units 05:26 05:26 20:39 WBC 7.32 (4.8-10.8) K/uL RBC 4.20 L (4.7-6.1) M/uL Hgb 12.7 L (14.0-18.0) g/dL Hct 37.0 L (42-52) % MCV 88.1 (80-100) fL MCH 30.2 (25-34) pg MCHC 34.3 (32-36) g/dL RDW Std Deviation 42.2 (36.4-46.3) fL RDW Coeff of Rossy 13.1 (11.5-14.5) % Plt Count 288 (130-400) K/uL MPV 9.9 (7.4-10.4) fL Sodium 133 L (136-145) mmol/L Potassium 4.6 (3.5-5.1) mmol/L Chloride 102 (98-107) mmol/L Carbon Dioxide 26 (21-32) mmol/L Anion Gap 5 (3-11) BUN 18 (6-23) mg/dl Creatinine 1.17 (0.6-1.4) mg/dl Est Cr Clr Drug Dosing 79.1 ml/min Est GFR ( Amer) 82.0 ml/min Est GFR (Non-Af Amer) 70.8 ml/min BUN/Creatinine Ratio 15.4 (10-20) Glucose 109 H (70-99(Fasting)) mg/dl POC Glucose 156 H (70-99) mg/dl Calcium 9.1 (8.5-10.1) mg/dl Magnesium 2.1 (1.7-2.4) mg/dl Prostate Specific Ag (0-4) ng/ml 08/07/21 Range/Units 17:01 WBC (4.8-10.8) K/uL RBC (4.7-6.1) M/uL Hgb (14.0-18.0) g/dL Hct (42-52) % MCV (80-100) fL MCH (25-34) pg MCHC (32-36) g/dL RDW Std Deviation (36.4-46.3) fL RDW Coeff of Rossy (11.5-14.5) % Plt Count (130-400) K/uL MPV (7.4-10.4) fL Sodium (136-145) mmol/L Potassium (3.5-5.1) mmol/L Chloride (98-107) mmol/L Carbon Dioxide (21-32) mmol/L Anion Gap (3-11) BUN (6-23) mg/dl Creatinine (0.6-1.4) mg/dl Est Cr Clr Drug Dosing ml/min Est GFR ( Amer) ml/min Est GFR (Non-Af Amer) ml/min BUN/Creatinine Ratio (10-20) Glucose (70-99(Fasting)) mg/dl POC Glucose 127 H (70-99) mg/dl Calcium (8.5-10.1) mg/dl Magnesium (1.7-2.4) mg/dl Prostate Specific Ag (0-4) ng/ml Diagnostic Findings Pelvis MRI 08/07/21 16:13 MRI OF THE PELVIS WITH AND WITHOUT CONTRAST CLINICAL HISTORY: Pelvic mass, prostate cancer, ?prostate vs rectal. COMPARISON STUDY: CT of the abdomen and pelvis August 03, 2021. CT of the abdomen and pelvis August 06, 2021. TECHNIQUE: Utilizing a 1.5 Yanna magnet and dedicated coil, multiplanar, multiecho imaging of the pelvis was performed pre and postcontrast ministration. Intravenous injection of 9 cc of Gadavist was uneventful. FINDINGS: No suspicious marrow replacement is identified within the visualized skeletal structures. An enlarged right pelvic sidewall lymph node measures 2 x 1.1 cm. This is similar to earlier CTs dating back to July 20, 2021. No additional enlarged pelvic lymph nodes are present. Note is made of a 9.3 x 5.7 cm T1 and T2 hyperintense left perirectal fluid collection. This is similar to prior CT. This collection contains septations as well as intermediate signal intensity T2 material along the posterior inferior aspect of this collection. This has a hypointense rim. Significant mass effect upon the rectum with rightward displacement is again noted. This is suggestive of a hematoma. A Bowen balloon within the bladder is noted. Bladder wall thickening is again noted. Although suboptimally assessed on this nondedicated exam, there is a possible mass within the right aspect of the prostate which may extend to the right seminal vesicle. This measures approximately 4 x 2.1 cm. IMPRESSION: 1. No change in a 9.3 x 5.7 cm left perirectal fluid collection. The signal characteristics are consistent with a hematoma. Significant mass effect upon the rectum with rightward displacement. 2. Suspected mass within the right aspect of the prostate which extends into the seminal vesicle. This is suspicious for prostate carcinoma. 3. No change in a mildly enlarged right pelvic sidewall lymph nodes suggestive of rajesh spread of disease. ACT 112: Negative or not required by law. Electronically signed by: Stephen Hodges M.D. 08/08/2021 7:31 AM PG Care Time/CCT Total # of Minutes Spent Total Time Spent with Patient: Total time spent is greater than 50% in coordination of care (as documented) at patient's floor/unit and/or counseling patient: Prolonged Care Time Prolonged Care Time: Yes additional 120 minutes spent talking to specialists, calls to outside specialists to coordinate care moving forward/chemo/radiation, spoke with [facility] [place] 15-20 minutes Coding Level of Care Code 06128 Subseq Hosp Care Lvl 3 Diagnoses Pelvic mass R19.00 Haematoma of pelvis KAT (acute kidney injury) N17.9 Unspecified atrial fibrillation I48.91 Dyslipidemia E78.5 Hypertension I10 Type 2 diabetes mellitus E11.9 Sleep apnea G47.30 Urinary retention R33.9 Additional Codes Prolonged Care Time - Prolonged Care Time: Yes ([id number])
[2021-08-08] MEDS: bisacodyL 5 MG TABEC PO SCH ×2 (08:41→21:01)
[2021-08-08] MEDS: METOPROLOL TARTRATE 100 MG TAB PO SCH ×2 (08:41→21:01)
[2021-08-08] MEDS: TAMSULOSIN HCL 0.4 MG CAP PO SCH (08:42)
[2021-08-08] MEDS: FINASTERIDE 5 MG TAB PO SCH (08:42)
[2021-08-08] MEDS: LACTULOSE SYRUP 20 GM/30 ML UDC PO SCH ×3 (08:42→21:00)
[2021-08-08] MEDS: DOCUSATE SODIUM/SENNA 50/8.6MG TAB PO SCH (08:42)
[2021-08-08] MEDS: INSULIN GLARGINE SOLOSTAR 100 UNITS/ML 3 ML PEN SC SCH ×2 (09:31→20:58)
[2021-08-08] MEDS: INSULIN ASPART PER UNIT SC SCH ×4 (09:31→20:58)
--- NOTE | 2021-08-08 10:17 | Urology Progress Note ---
Date of Service August 08, 2021 Assessment & Plan (1) Urinary retention: (2) Prostate cancer: (3) Pelvic mass: (4) Constipation: Plan: I reviewed Mr. Hernández's case with him in detail. We discussed that he has prostate cancer, and based on imaging there is suspicion that it has extended beyond the prostate. We discussed that radical prostatectomy would not be curative for his disease at this point. Operative intervention in the setting of the hematoma would have increased risks, therefore it is not a good option for him. We reviewed that options for his prostate cancer treatment would likely be androgen deprivation therapy (which he is receiving), possible radiation therapy or possible chemotherapy. We reviewed that there is some uncertainty regarding perirectal mass. We discussed there is a chance this represents a separate malignancy, but we do not have any pathology for now. We discussed that prior to further definitive intervention, ideally we would like to characterize this mass further, and there is ongoing discussion about how best to do that. We discussed his pelvic hematoma and its correlation with his constipation and retention of stool. Since it was drained once but recurred fairly rapidly, recurrence would likely happen again if we proceeded with drainage. For now we are trying to find a bowel regimen that works for him. Reviewed his urinary retention. I discussed his surgery with Dr. Hernandez -it sounds as though his urethra should be wide open, but there is potential mass- effect from the fluid collection in the pelvis causing urinary retention. He failed a voiding trial at [place]. I think would be reasonable to try another voiding trial, however Mr. Hernández did not want to do this at the moment, as he did not want to have the catheter replaced. Finally, we reviewed that he is scheduled to be discussed at tumor conference next week, and that hopefully we will have more of a definitive plan after that meeting. Plan: No role for radical prostatectomy work on bowel regimen pt received injection for androgen deprivation at nursery await tumor board discussion next week hold off voiding trial for now. Admission and Anticipated Discharge Date Admission Date: August 07, 2021 Subjective Patient is feeling okay this morning He is passing some stool, but still feels like he has to force it Campos catheter is draining well. He is eager to be rid of it, but failed a voiding trial while he was at [place] and is concerned about catheter replacement here. Reports lower abdominal/pelvic pain for the past couple years Tolerating a diet, no nausea or vomiting Creatinine has normalized from his admission level, no leukocytosis. Review of Systems Gastrointestinal: Passing some stool, working on bowel regimen Physical Exam Physical Exam: Well-appearing, NAD Gastrointestinal (Abdomen): Abdomen is distended but soft Musculoskeletal: Grossly normal Genitourinary: Campos catheter draining clear yellow urine Results & Data ([facility]) Vital Signs (Past 12 Hours) Vital Signs Temp Pulse Resp BP Pulse Ox 08/08/21 08:20 36.9 C 78 16 122/80 94 08/07/21 22:21 36.8 C 90 18 121/85 97 PG Care Time/CCT Total # of Minutes Spent Total Time Spent with Patient: Total time spent is greater than 50% in coordination of care (as documented) at patient's floor/unit and/or counseling patient: Coding Level of Care Code 93455 Subseq Hosp Care Lvl 2 Diagnoses Urinary retention R33.9 Prostate cancer C61 Pelvic mass R19.00 Constipation K59.00
--- NOTE | 2021-08-08 13:38 | Radiation Oncology Progress Nt ---
Date of Service August 08, 2021 Assessment & Plan (1) Prostate cancer: Plan: 1. The left perirectal fluid collection has not changed currently in size. 2. He continues off anticoagulation. 3. There are concerns of reaccumulation if the fluid is aspirated. 4. The patient is under treatment in that he has received a Lupron injection. He also took a pill for short time. This was possibly Casodex. 5. We are going to present his case at the multidisciplinary tumor board on 08/12/2021. 6. He continues on his current regimen of stool softeners and laxatives. 8. Continues follow-up with urology. 9. There is currently no need for an urgent start of radiation therapy. Would like to wait for improvement/stability of the perirectal fluid collection. He will also have improvement in the pelvic adenopathy due to the initiation of androgen deprivation. This will factor into the treatment planning donald. Admission and Anticipated Discharge Date Admission Date: August 07, 2021 Supervising Physician Co-Signing Physician Notes Patient's case was discussed with midlevel provider. Clinical information harpal lam. We will plan to discuss the patient's case at our multidisciplinary tumor board next week. I have spoken with Dr. Valles from medical oncology and agree that local radiation therapy in conjunction with androgen deprivation therapy may be a long-term appropriate option for the patient. I have recommended holding radiation therapy until the patient's catheter has been removed and the patient is doing better. Prior to starting radiation therapy, I do believe it is important to better understand the etiology of the hematoma complex mass posterior to the prostate which is obstructing the rectum. Subjective Patient is being seen in follow-up today. Present in the room today are 2 guards. When I entered the room Dr. Liang was there. He had been reviewing with him the findings of his recent MRI. Patient was lying comfortably. He did state that he was able to have some liquid bowel movement today. He has been receiving a stool softener and lactulose. He is also receiving MiraLAX. He is eating well and there is been no nausea or vomiting. Review of Systems Gastrointestinal: no nausea, no vomiting and no cramping Did have a liquid bowel movement this morning. Physical Exam Constitutional: WD/WN, vitals as above Eyes: PERRL, conjunctivae normal, anicteric sclerae Respiratory: normal respiratory effort Gastrointestinal (Abdomen): Inspection/Auscultation: abdomen normal to inspection; abdomen not distended Percussion/Palpation: abdomen soft; abdomen nontender Skin: no rashes, warm and dry Psychiatric: A+Ox3, euthymic affect Results & Data ([place]) Vital Signs (Past 12 Hours) Vital Signs Temp Pulse Resp BP Pulse Ox 08/08/21 08:20 36.9 C 78 16 122/80 94 Diagnostic Findings [facility], [id number] Magnetic Resonance Report Patient: AMEYA KEY [id number] Date: 08/07/21MR#: [id number]: [facility] [place] INSTITUTION DRAcct ID:[id number]: [facility]NERB[facility]: 1970[facility] Zip: [place] [id number]: [id number]: 3ESex: MRoom/Bed: [id number] Phy: Sara Nava, MDDiagnosis: CONSTIPATION PELVIC MASS W MASS EFFECT PROSTATE Espinoza Phy: SCI BennerService Date: 08/07/21Fam Phy:Interpreting Phy: Stephen Hodges MDAdmit Phy: Sherrie Boyd DGayleOGayle Ordering Phy: Mary Cabezas PA-C cc: ~ MRI OF THE PELVIS WITH AND WITHOUT CONTRAST CLINICAL HISTORY: Pelvic mass, prostate cancer, ?prostate vs rectal. COMPARISON STUDY: CT of the abdomen and pelvis August 03, 2021. CT of the abdomen and pelvis August 06, 2021. TECHNIQUE: Utilizing a 1.5 Yanna magnet and dedicated coil, multiplanar, multiecho imaging of the pelvis was performed pre and postcontrast ministration. Intravenous injection of 9 cc of Gadavist was uneventful. FINDINGS: No suspicious marrow replacement is identified within the visualized skeletal structures. An enlarged right pelvic sidewall lymph node measures 2 x 1.1 cm. This is similar to earlier CTs dating back to July 20, 2021. No additional enlarged pelvic lymph nodes are present. Note is made of a 9.3 x 5.7 cm T1 and T2 hyperintense left perirectal fluid collection. This is similar to prior CT. This collection contains septations as well as intermediate signal intensity T2 material along the posterior inferior aspect of this collection. This has a hypointense rim. Significant mass effect upon the rectum with rightward displacement is again noted. This is suggestive of a hematoma. A Campos balloon within the bladder is noted. Bladder wall thickening is again noted. Although suboptimally assessed on this nondedicated exam, there is a possible mass within the right aspect of the prostate which may extend to the right seminal vesicle. This measures approximately 4 x 2.1 cm. IMPRESSION: 1. No change in a 9.3 x 5.7 cm left perirectal fluid collection. The signal characteristics are consistent with a hematoma. Significant mass effect upon the rectum with rightward displacement. 2. Suspected mass within the right aspect of the prostate which extends into the seminal vesicle. This is suspicious for prostate carcinoma. 3. No change in a mildly enlarged right pelvic sidewall lymph nodes suggestive of rajesh spread of disease. ACT 112: Negative or not required by law. Electronically signed by: Stephen Hodges M.D. 08/08/2021 7:31 AM Dictated: 08/08/21 0710Transcribed: 08/08/21 0710
[2021-08-08] MEDS ORDERED: DOCUSATE SODIUM 100 MG CAP PO ONE (16:40)
[2021-08-08] MEDS: LIDOCAINE 2% JELLY 5 ML TUBE EXT PRN (18:25)
[2021-08-08] MEDS: cefTRIAXone SODIUM 2,000 MG in DEXTROSE 5% 50 ML IV SCH (21:02)
[2021-08-08] MEDS: ROSUVASTATIN CALCIUM 5 MG TAB PO SCH (21:02)
[2021-08-09] MEDS: DOCUSATE SODIUM/SENNA 50/8.6MG TAB PO SCH (08:11)
[2021-08-09] MEDS: LACTULOSE SYRUP 20 GM/30 ML UDC PO SCH ×3 (08:11→20:41)
[2021-08-09] MEDS: bisacodyL 5 MG TABEC PO SCH ×2 (08:11→20:38)
[2021-08-09] MEDS: FINASTERIDE 5 MG TAB PO SCH (08:11)
[2021-08-09] MEDS: METOPROLOL TARTRATE 100 MG TAB PO SCH ×2 (08:11→20:38)
[2021-08-09] MEDS: TAMSULOSIN HCL 0.4 MG CAP PO SCH (08:11)
[2021-08-09 08:43] LABS: Hematocrit (blood only) 39.7 % (42-52); Hemoglobin 13.8 g/dL (14.0-18.0); Mean Corpuscular Hemoglobin 31.2 pg (25-34); Mean Corpuscular Hgb Conc 34.8 g/dL (32-36); Mean Corpuscular Volume 89.6 fL (80-100); Mean Platelet Volume 9.8 fL (7.4-10.4); Platelet Count 301 K/uL (130-400); RDW Coefficient of Variation 12.9 % (11.5-14.5); Red Blood Count 4.43 M/uL (4.7-6.1); White Blood Count 5.77 K/uL (4.8-10.8)
--- NOTE | 2021-08-09 08:49 | Hospitalist Progress Note ---
Date of Service August 09, 2021 Assessment & Plan (1) Pelvic mass: Plan: 51yo male with recent hospitalization for prostate mass, pelvic hematoma s/p TURP, Bowen placement and drainage presenting with difficulty having a bowel movement. Prior admission earlier in the month with similar issues with constipation/mass effect and requirement of transfer to [facility] for drainage of fluid collection/addressing of pelvic mass/tissue sample--> Does not appear any sample collected of tissue. Prior pathology s/p TURP with Prostate CA [facility] 7 Imaging with persistent fluid collection and pelvic mass w/ significant mass effect on rectum/moderate fecal retention Sent to [facility] [facility] earlier this month for IR/drainage -- no cx sent but sent on Bactrim extended course for suspected prostatitis. Formal records requested, not yet received Urology consulted * no plans inpatient intervention at this time, including prostatectomy for concerns prostate bleeding and causing reaccumulation of hematoma (Eliquis has been on hold since reaccumulation, hx afib likely permanent per discussion with Dr Norris and review of holter monitor, rate controlled) * continue bowen catheter to prevent issues with retention General surgery on consult * rec oncology for tx prostate ca, benefit from rad/onc * Diverting colostomy as last resort -- I did discuss with patient and he would consider if absolutely necessary, but discussed could be permanent. He would like to see other options first prior to this. Reasonable. Continued on Ceftriaxone in place of Bactrim as placed last admit for possible prostatitis * -- very likely given prior abscess noted on OP report but no cx obtained at that time. * WBC remains wnl, afebrile Oncology on consult * Dr Valles, reviewed images, initially thought possible give Docetaxil (patient received Lupron injection and started on daily casodex per correction provider) however bone scan WITHOUT evidence for mets dz * Patient actually got Degarelix earlier this month, could consider monthly with ultimate plan Lurpon [id number] * Repeat PSA level decreased from 103--> 16.15 * Ideally continue ADT + XRT * Rad/onc consulted --> outpatient XRT to be arranged, but discussing at Tumor Board Wednesday * CEA NOT ELEVATED (obtained after discussion with Dr Aguilar) MRI Pelvis obtained for further eval pelvic mass/consideration for XRT * IMPRESSION:1. No change in a 9.3 x 5.7 cm left perirectal fluid collection. The signal characteristics are consistent with a hematoma. Significant mass effect upon the rectum with rightward displacement. 2. Suspected mass within the right aspect of the prostate which extends into the seminal vesicle. This is suspicious for prostate carcinoma. 3. No change in a mildly enlarged right pelvic sidewall lymph nodes suggestive of rajesh spread of disease. Reached out to [facility] Dr Seth from colorectal to review case/imaging, felt more of a urological issue, would not transfer for intervention of any kind at this time Discussed with colorectal surgeon, Dr Aguilar, possible presacral mass/cystic fluid collection but awaiting ability to review imaging previously sent Spoke with omar Ferrer to reach back out to [facility] to discuss. I had radiology push images for review and awaiting call back from Dr Aguilar, as Dr Duff in [place] but not cotton breeder at this time Depending on discussion/review, consideration for inpatient vs outpatient follow up Vs consideration for transfer for possible IR if they could consider getting tissue sample from L lower pelvic mass as well Tolerating diet and having couple small BMs 5/20, continues to pass gas, no increased abd pain/n or vomiting Continue aggressive bowel regimen bisacodyl, senna, colace, lactulose TID and miralax Encouraged ambulation Pain control -- limit as tolerated and ok w/ T3 prn If able to have continued BMs/no obstruction could consider outpatient basis but given entire picture fear patient to bounce back if no intervention taken sooner rather than later and would at minimum keep until Wednesday for tumor board discussion vs transfer out if needed (2) Haematoma of pelvis: Plan: s/p drainage with apparent reaccumulation Requested records from [facility] [facility] -- HIM consulted (did get quick review from [facility] but needing full records) Continue to hold anticoagulation (had been on hold per MD) Did check iron studies which were low last admission and given venofer consider repeating studies/venofer if needed but Hgb stable and given 2L IVF hgb remains stable (3) KAT (acute kidney injury): Plan: On chronic kidney disease stage 2. Mild elevation of BUN and Cr likely dehydration/medication as on Bactrim for prostatitis at d/c from [facility] Hyperkalemia resolved with IVF -- given 2L LR but holding further IVF for now. No bactrim (remains on rocephin) and holding HCTZ/DICKSON Renal dose meds/avoid nephrotoxic agents Cr stable and improved, monitor (4) Unspecified atrial fibrillation: Plan: Rate controlled, permanent per last admit/review holter No anticoagulation due to pelvic hematoma -Continue metoprolol 100mg po BID (5) Dyslipidemia: Plan: Chronic -Continue Crestor 5mg po qHS (6) Hypertension: Plan: Blood pressure acceptable 118/82 -Continue Metoprolol -Hold Lisinopril, HCTZ -Continue to monitor (7) Type 2 diabetes mellitus: Plan: Blood sugar acceptable. A1c 8.1 -Lantus 5u BID -ISS -Hold Glimepride BSGs acceptable (8) Sleep apnea: Plan: Trial of CPAP ordered (9) Urinary retention: Plan: Maintain Bowen. Monitor output -Continue Finasteride and Flomax DVT prophylaxis Chemical held in setting of hematoma Will order SCDs & encouraged ambulation -- guards have been good about getting him up/frequent ambulation to assist with bowel movements Plan: continued inpatient stay Admission and Anticipated Discharge Date Admission Date: August 07, 2021 Supervising Physician Co-Signing Physician Notes PA Supervision Note: I did not personally see or examine the patient today, but I verified all lemons points of VINICIUS Cabezas's assessment and plan with the following exceptions/additions: None Subjective Patient evaluated this morning. Doing alright. Having some penile pain from Bowen but getting lidocaine jelly with relief. No abdominal pain/nausea and is passing some gas but no BM. Plans on ambulating later this morning. No nausea/vomiting. Discussed tumor board review for Wednesday, and awaiting imaging for review with Dr Aguilar from [facility] [facility] to eval if can intervene sooner/what his thoughts are regarding this lesion. No fever/chills, no chest pain, shortness of breath. Bowen with clear yellow urine in bag. Questions/concerns addressed at this time. Review of Systems Review of Systems: All systems reviewed & are unremarkable except as noted in HPI & below Physical Exam Physical Exam: General: WN/WD male resting in bed, NAD HEENT: head normocephalic, atraumatic, mmm, trachea midline without deviation Resp: CTAB, no w/c/r, on room air CV: irregularly irregular (rate 70s), no m/r/g, no calf edema, cap refill wnl GI: +BS throughout, +distended, non-tender, no rebound/guarding. firm area RLQ (prior infection site, within markings, less indurated) : bowen with clear yellow urine in bag MSK/Neuro: moving all extremities, follows commands, no slurred speech/facial droop. CN intact grossly.Strength equal bilaterally Skin: warm, dry -- hardened area RLQ as mentioned from prior injection, non- tender, no drainage Results & Data Results & Data ([facility]) Vital Signs (Past 12 Hours) Vital Signs Temp Pulse Resp BP Pulse Ox 08/09/21 07:50 36.6 C 73 18 118/82 96 08/08/21 22:53 36.8 C 84 16 119/84 96 Laboratory Results 08/09/21 08/09/21 08/09/21 Range/Units 08:20 08:20 07:54 WBC 5.77 (4.8-10.8) K/uL RBC 4.43 L (4.7-6.1) M/uL Hgb 13.8 L (14.0-18.0) g/dL Hct 39.7 L (42-52) % MCV 89.6 (80-100) fL MCH 31.2 (25-34) pg MCHC 34.8 (32-36) g/dL RDW Std Deviation 42.0 (36.4-46.3) fL RDW Coeff of Rossy 12.9 (11.5-14.5) % Plt Count 301 (130-400) K/uL MPV 9.8 (7.4-10.4) fL Sodium 133 L (136-145) mmol/L Potassium 4.4 (3.5-5.1) mmol/L Chloride 101 (98-107) mmol/L Carbon Dioxide 27 (21-32) mmol/L Anion Gap 5 (3-11) BUN 14 (6-23) mg/dl Creatinine 0.95 (0.6-1.4) mg/dl Est Cr Clr Drug Dosing 97.4 ml/min Est GFR ( Amer) 105.5 ml/min Est GFR (Non-Af Amer) 91.0 ml/min BUN/Creatinine Ratio 14.7 (10-20) Glucose 121 H (70-99(Fasting)) mg/dl POC Glucose 119 H (70-99) mg/dl Calcium 9.4 (8.5-10.1) mg/dl Magnesium 2.1 (1.7-2.4) mg/dl Carcinoembryonic Ag (0-2.5) ng/ml 08/08/21 08/08/21 08/08/21 Range/Units 20:36 17:25 17:10 WBC (4.8-10.8) K/uL RBC (4.7-6.1) M/uL Hgb (14.0-18.0) g/dL Hct (42-52) % MCV (80-100) fL MCH (25-34) pg MCHC (32-36) g/dL RDW Std Deviation (36.4-46.3) fL RDW Coeff of Rossy (11.5-14.5) % Plt Count (130-400) K/uL MPV (7.4-10.4) fL Sodium (136-145) mmol/L Potassium (3.5-5.1) mmol/L Chloride (98-107) mmol/L Carbon Dioxide (21-32) mmol/L Anion Gap (3-11) BUN (6-23) mg/dl Creatinine (0.6-1.4) mg/dl Est Cr Clr Drug Dosing ml/min Est GFR ( Amer) ml/min Est GFR (Non-Af Amer) ml/min BUN/Creatinine Ratio (10-20) Glucose (70-99(Fasting)) mg/dl POC Glucose 170 H 118 H (70-99) mg/dl Calcium (8.5-10.1) mg/dl Magnesium (1.7-2.4) mg/dl Carcinoembryonic Ag 1.1 (0-2.5) ng/ml 08/08/21 Range/Units 12:05 WBC (4.8-10.8) K/uL RBC (4.7-6.1) M/uL Hgb (14.0-18.0) g/dL Hct (42-52) % MCV (80-100) fL MCH (25-34) pg MCHC (32-36) g/dL RDW Std Deviation (36.4-46.3) fL RDW Coeff of Rossy (11.5-14.5) % Plt Count (130-400) K/uL MPV (7.4-10.4) fL Sodium (136-145) mmol/L Potassium (3.5-5.1) mmol/L Chloride (98-107) mmol/L Carbon Dioxide (21-32) mmol/L Anion Gap (3-11) BUN (6-23) mg/dl Creatinine (0.6-1.4) mg/dl Est Cr Clr Drug Dosing ml/min Est GFR ( Amer) ml/min Est GFR (Non-Af Amer) ml/min BUN/Creatinine Ratio (10-20) Glucose (70-99(Fasting)) mg/dl POC Glucose 164 H (70-99) mg/dl Calcium (8.5-10.1) mg/dl Magnesium (1.7-2.4) mg/dl Carcinoembryonic Ag (0-2.5) ng/ml PG Care Time/CCT Total # of Minutes Spent Total Time Spent with Patient: Total time spent is greater than 50% in coordination of care (as documented) at patient's floor/unit and/or counseling patient: Coding Level of Care Code 11197 Subseq Hosp Care Lvl 3 Diagnoses Pelvic mass R19.00 Haematoma of pelvis KAT (acute kidney injury) N17.9 Unspecified atrial fibrillation I48.91 Dyslipidemia E78.5 Hypertension I10 Type 2 diabetes mellitus E11.9 Sleep apnea G47.30 Urinary retention R33.9
[2021-08-09] MEDS: INSULIN ASPART PER UNIT SC SCH ×4 (08:55→20:37)
[2021-08-09] MEDS: INSULIN GLARGINE SOLOSTAR 100 UNITS/ML 3 ML PEN SC SCH ×2 (08:56→20:36)
[2021-08-09 09:13] LABS: BUN Creatinine Ratio 14.7 (10-20); Calcium 9.4 mg/dl (8.5-10.1); Creatinine Clr Calc Pharmacy 97.4 ml/min; Est GFR (African American) 105.5 ml/min; Magnesium 2.1 mg/dl (1.7-2.4); Potassium 4.4 mmol/L (3.5-5.1)
[2021-08-09] MEDS: ACETAMINOPHEN W/CODEINE #3 1 TAB PO PRN ×2 (13:20→21:31)
[2021-08-09] MEDS: LIDOCAINE 2% JELLY 5 ML TUBE EXT PRN (13:21)
[2021-08-09] MEDS ORDERED: bisacodyL 10 MG SUPP PR PRN (18:13)
[2021-08-09] MEDS: ROSUVASTATIN CALCIUM 5 MG TAB PO SCH (20:38)
[2021-08-09] MEDS: cefTRIAXone SODIUM 2,000 MG in DEXTROSE 5% 50 ML IV SCH (21:31)
[2021-08-10] MEDS: ACETAMINOPHEN W/CODEINE #3 1 TAB PO PRN ×3 (02:12→21:44)
--- NOTE | 2021-08-10 07:55 | Hospitalist Progress Note ---
Date of Service August 10, 2021 Assessment & Plan (1) Pelvic mass: Plan: 51yo male with recent hospitalization for prostate mass, pelvic hematoma s/p TURP, Bowen placement and drainage presenting with difficulty having a bowel movement. Prior admission earlier in the month with similar issues with constipation/mass effect and requirement of transfer to [facility] for drainage of fluid collection/addressing of pelvic mass/tissue sample--> Does not appear any sample collected of tissue. Prior pathology s/p TURP with Prostate CA Ganga 7 Imaging with persistent fluid collection and pelvic mass w/ significant mass effect on rectum/moderate fecal retention [place] [facility] [facility] [place]/drainage -- no cx sent but sent on Bactrim extended course for suspected prostatitis. Formal records requested, not yet received Urology consulted * no plans inpatient intervention at this time, including prostatectomy for concerns prostate bleeding and causing reaccumulation of hematoma (Eliquis has been on hold since reaccumulation, hx afib likely permanent per discussion with Dr Norris and review of holter monitor, rate controlled) * continue bowen catheter to prevent issues with retention General surgery on consult * rec oncology for tx prostate ca, benefit from rad/onc * Diverting colostomy as last resort -- I did discuss with patient and he would consider if absolutely necessary, but discussed could be permanent. He would like to see other options first prior to this. Reasonable. Continued on Ceftriaxone in place of Bactrim as placed last admit for possible prostatitis * -- very likely given prior abscess noted on OP report but no cx obtained at that time. * WBC remains wnl, afebrile Oncology on consult * Dr Valles, reviewed images, initially thought possible give Docetaxil (patient received Lupron injection and started on daily casodex per custodial provider) however bone scan WITHOUT evidence for mets dz * Patient actually got Degarelix earlier this month, could consider monthly with ultimate plan Lurpon [id number] * Repeat PSA level decreased from 103--> 16.15 * Ideally continue ADT + XRT * Rad/onc consulted --> outpatient XRT to be arranged, but discussing at Tumor Board Wednesday * CEA NOT ELEVATED (obtained after discussion with Dr Aguilar) MRI Pelvis obtained for further eval pelvic mass/consideration for XRT * IMPRESSION:1. No change in a 9.3 x 5.7 cm left perirectal fluid collection. The signal characteristics are consistent with a hematoma. Significant mass effect upon the rectum with rightward displacement. 2. Suspected mass within the right aspect of the prostate which extends into the seminal vesicle. This is suspicious for prostate carcinoma. 3. No change in a mildly enlarged right pelvic sidewall lymph nodes suggestive of rajesh spread of disease. Reached out to [facility] Dr Seth from colorectal to review case/imaging, felt more of a urological issue, would not transfer for intervention of any kind at this time Spoke with Dr Valles, rec to reach back out to [facility] to discuss. * Discussed with Dr Aguilar, to review imaging and get back to me regarding consideration for inpatient vs outpatient follow-up * Dr Aguilar believes all issues related from prostate based on imaging from 2020 review * -Not obstructed from colon standpoint, but if occurred could consider diverting ileostomy if danger of becoming obstructed. * Rec to tx prostate Tumor board discussion on Wednesday Tolerating diet and having couple small BMs 08/08, continues to pass gas, no increased abd pain/n or vomiting Continue aggressive bowel regimen bisacodyl, senna, Colace, lactulose TID and Miralax Pain control -- limit as tolerated and ok w/ T3 prn 1-2 tablets as needed Encouraged ambulation Does remain stable currently, however as discussed high risk for re-admission until underlying issue addressed and will remain inpatient * If able to have continued BMs/no obstruction could consider outpatient basis but given entire picture fear patient to bounce back if no intervention taken sooner rather than later and would at minimum keep until Wednesday for tumor board discussion vs transfer out if needed (2) Haematoma of pelvis: Plan: s/p drainage with apparent reaccumulation [place] [facility] [place] HIM consulted (did get quick review from Yaa but needing full records) Continue to hold anticoagulation (had been on hold per MD) Did check iron studies which were low last admission and given venofer consider repeating studies/venofer if needed but Hgb stable and given 2L IVF hgb remains stable (3) KAT (acute kidney injury): Plan: On chronic kidney disease stage 2. Mild elevation of BUN and Cr likely dehydration/medication as on Bactrim for prostatitis at d/[place] [facility] [place] Hyperkalemia resolved with IVF -- given 2L LR but holding further IVF for now. No bactrim (remains on rocephin) and holding HCTZ/DICKSON Renal dose meds/avoid nephrotoxic agents Cr stable and improved, monitor (4) Unspecified atrial fibrillation: Plan: Rate controlled, permanent per last admit/review holter No anticoagulation due to pelvic hematoma -Continue metoprolol 100mg po BID (5) Dyslipidemia: Plan: Chronic -Continue Crestor 5mg po qHS (6) Hypertension: Plan: Blood pressure acceptable 108/61 -Continue Metoprolol -Hold Lisinopril, HCTZ Continue to monitor (7) Type 2 diabetes mellitus: Plan: Blood sugar acceptable. A1c 8.1 -Lantus 5u BID -ISS -Hold Glimepride BSGs acceptable (8) Sleep apnea: Plan: Trial of CPAP ordered (9) Urinary retention: Plan: Maintain Bowen. Monitor output -- acceptable. Remains clear yellow in bowen Continue Finasteride and Flomax DVT prophylaxis Chemical held in setting of hematoma SCDs, ambulation Plan: continued inpatient stay, tumor board review on wednesday Admission and Anticipated Discharge Date Admission Date: August 07, 2021 Supervising Physician Co-Signing Physician Notes VINICIUS Supervision Note: I did not personally see or examine the patient today, but I verified all lemons points of VINICIUS Cabezas's assessment and plan with the following exceptions/additions: None Subjective Patient evaluated this morning. Resting comfortably in bed at this time. Eating/drinking and actually had BM last evening and one overnight. Continues to pass gas. Awaiting call back from colorectal but otherwise planning for tumor board review of case and will remain inpatient until that time. No fever/chills, chest pain, palpitations, nausea, abdominal pain, vomiting. Some penile irritation persist with bowen but controlled and understands need to maintain. Continues to drain clear yellow urine. Review of Systems Review of Systems: All systems reviewed & are unremarkable except as noted in HPI & below Physical Exam Physical Exam: General: WN/WD male resting in bed, NAD HEENT: head normocephalic, atraumatic, mmm, trachea midline without deviation Resp: CTAB, no w/c/r, on room air CV: irregularly irregular (rate 80s), no m/r/g, no calf edema, cap refill wnl GI: LESS distension, increased BS throughout, nontender/no guarding, RLQ induration from prior injection site improved : bowen with clear yellow urine in bag MSK/Neuro: moving all extremities, follows commands, no slurred speech/facial droop. CN intact grossly.Strength equal bilaterally Skin: warm, dry -- hardened area RLQ as mentioned from prior injection, non- tender, no drainage Results & Data Results & Data ([facility]) Vital Signs (Past 12 Hours) Vital Signs Temp Pulse Resp BP Pulse Ox 08/09/21 22:46 36.9 C 85 15 115/76 97 Laboratory Results 08/09/21 08/09/21 08/09/21 Range/Units 20:23 16:55 12:06 WBC (4.8-10.8) K/uL RBC (4.7-6.1) M/uL Hgb (14.0-18.0) g/dL Hct (42-52) % MCV (80-100) fL MCH (25-34) pg MCHC (32-36) g/dL RDW Std Deviation (36.4-46.3) fL RDW Coeff of Rossy (11.5-14.5) % Plt Count (130-400) K/uL MPV (7.4-10.4) fL Sodium (136-145) mmol/L Potassium (3.5-5.1) mmol/L Chloride (98-107) mmol/L Carbon Dioxide (21-32) mmol/L Anion Gap (3-11) BUN (6-23) mg/dl Creatinine (0.6-1.4) mg/dl Est Cr Clr Drug Dosing ml/min Est GFR ( Amer) ml/min Est GFR (Non-Af Amer) ml/min BUN/Creatinine Ratio (10-20) Glucose (70-99(Fasting)) mg/dl POC Glucose 147 H 118 H 96 (70-99) mg/dl Calcium (8.5-10.1) mg/dl Magnesium (1.7-2.4) mg/dl 08/09/21 08/09/21 08/09/21 Range/Units 08:20 08:20 07:54 WBC 5.77 (4.8-10.8) K/uL RBC 4.43 L (4.7-6.1) M/uL Hgb 13.8 L (14.0-18.0) g/dL Hct 39.7 L (42-52) % MCV 89.6 (80-100) fL MCH 31.2 (25-34) pg MCHC 34.8 (32-36) g/dL RDW Std Deviation 42.0 (36.4-46.3) fL RDW Coeff of Rossy 12.9 (11.5-14.5) % Plt Count 301 (130-400) K/uL MPV 9.8 (7.4-10.4) fL Sodium 133 L (136-145) mmol/L Potassium 4.4 (3.5-5.1) mmol/L Chloride 101 (98-107) mmol/L Carbon Dioxide 27 (21-32) mmol/L Anion Gap 5 (3-11) BUN 14 (6-23) mg/dl Creatinine 0.95 (0.6-1.4) mg/dl Est Cr Clr Drug Dosing 97.4 ml/min Est GFR ( Amer) 105.5 ml/min Est GFR (Non-Af Amer) 91.0 ml/min BUN/Creatinine Ratio 14.7 (10-20) Glucose 121 H (70-99(Fasting)) mg/dl POC Glucose 119 H (70-99) mg/dl Calcium 9.4 (8.5-10.1) mg/dl Magnesium 2.1 (1.7-2.4) mg/dl PG Care Time/CCT Total # of Minutes Spent Total Time Spent with Patient: Total time spent is greater than 50% in coordination of care (as documented) at patient's floor/unit and/or counseling patient: Coding Level of Care Code 19828 Subseq Hosp Care Lvl 3 Diagnoses Pelvic mass R19.00 Haematoma of pelvis KAT (acute kidney injury) N17.9 Unspecified atrial fibrillation I48.91 Dyslipidemia E78.5 Hypertension I10 Type 2 diabetes mellitus E11.9 Sleep apnea G47.30 Urinary retention R33.9
[2021-08-10] MEDS ORDERED: MAGNESIUM CITRATE 296 ML/BTL PO ONE (08:00)
[2021-08-10] MEDS: LACTULOSE SYRUP 20 GM/30 ML UDC PO SCH ×3 (08:35→21:06)
[2021-08-10] MEDS: FINASTERIDE 5 MG TAB PO SCH (08:35)
[2021-08-10] MEDS: METOPROLOL TARTRATE 100 MG TAB PO SCH ×2 (08:35→21:05)
[2021-08-10] MEDS: TAMSULOSIN HCL 0.4 MG CAP PO SCH (08:35)
[2021-08-10] MEDS: bisacodyL 5 MG TABEC PO SCH ×2 (08:36→21:06)
[2021-08-10] MEDS: DOCUSATE SODIUM/SENNA 50/8.6MG TAB PO SCH (08:36)
[2021-08-10 08:40] LABS: Hematocrit (blood only) 38.2 % (42-52); Hemoglobin 13.2 g/dL (14.0-18.0); Mean Corpuscular Hemoglobin 30.4 pg (25-34); Mean Corpuscular Hgb Conc 34.6 g/dL (32-36); Mean Platelet Volume 9.8 fL (7.4-10.4); Platelet Count 289 K/uL (130-400); RDW Standard Deviation 42.2 fL (36.4-46.3); Red Blood Count 4.34 M/uL (4.7-6.1); White Blood Count 6.35 K/uL (4.8-10.8)
[2021-08-10 09:08] LABS: BUN Creatinine Ratio 17.4 (10-20); Calcium 9.1 mg/dl (8.5-10.1); Creatinine Clr Calc Pharmacy 100.6 ml/min; Est GFR (African American) 109.7 ml/min; Est GFR (Non-African American) 94.6 ml/min; Potassium 4.6 mmol/L (3.5-5.1)
[2021-08-10] MEDS: INSULIN GLARGINE SOLOSTAR 100 UNITS/ML 3 ML PEN SC SCH ×2 (09:16→21:03)
[2021-08-10] MEDS: INSULIN ASPART PER UNIT SC SCH ×4 (09:23→21:03)
[2021-08-10] MEDS: LIDOCAINE 2% JELLY 5 ML TUBE EXT PRN (13:12)
[2021-08-10] MEDS: ROSUVASTATIN CALCIUM 5 MG TAB PO SCH (21:05)
[2021-08-10] MEDS: cefTRIAXone SODIUM 2,000 MG in DEXTROSE 5% 50 ML IV SCH (21:06)
[2021-08-11] MEDS: bisacodyL 5 MG TABEC PO SCH (08:22)
[2021-08-11] MEDS: METOPROLOL TARTRATE 100 MG TAB PO SCH (08:22)
[2021-08-11] MEDS: ACETAMINOPHEN W/CODEINE #3 1 TAB PO PRN ×2 (08:22→13:31)
[2021-08-11] MEDS: TAMSULOSIN HCL 0.4 MG CAP PO SCH (08:22)
[2021-08-11] MEDS: FINASTERIDE 5 MG TAB PO SCH (08:22)
[2021-08-11] MEDS: DOCUSATE SODIUM/SENNA 50/8.6MG TAB PO SCH (08:22)
[2021-08-11] MEDS: LACTULOSE SYRUP 20 GM/30 ML UDC PO SCH ×2 (08:23→13:31)
[2021-08-11] MEDS: LIDOCAINE 2% JELLY 5 ML TUBE EXT PRN (08:23)
[2021-08-11] MEDS: INSULIN ASPART PER UNIT SC SCH ×2 (08:49→12:43)
[2021-08-11] MEDS: INSULIN GLARGINE SOLOSTAR 100 UNITS/ML 3 ML PEN SC SCH (08:50)
--- NOTE | 2021-08-11 12:46 | Discharge Summary ---
Date of Service August 11, 2021 Admission HPI Per Admitting Provider Ramesh Hernández is a 51yo male with history of HTN, HLP, DM, AF previously on Eliquis anticoagulation presenting with difficulty having a BM. Patient was admitted to [facility] from 07/20 - 07/24 with complaint of rectal pain and di fficulty urinating and constipation. Patient had a CT of the abdomen which was suspicious for cystitis as well as a large lobulated mass lesion in the central pelvis measuring 6 x 6 x 3.5cm thought to be secondary to prostate malignancy. Also with pathologically enlarged right pelvic sidewall lymph node and large complex fluid collection typical for hematoma in the left lower pelvis. Patient had a TURP and drainage of prostatic abscess on 07/21/21 by Urology. 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 Elevated PSA of 103.838. Patient was evaluated by Oncology as well during that hospitalization. Was considering starting Docetaxel but was concerned about the pelvic fluid collection (hematoma vs abscess). Patient was ultimately sent to [facility] [place] for [place] of fluid collection. Patient returns today with complaint of difficulty having a bowel movement. He is taking an aggressive bowel regimen at home consisting of Bisacodyl, Lactulose, Miralax. He reports passing liquid stool, no blood/melena. Has not had a normal bowel movement for weeks. Bowen is in place draining clear, yellow urine. Patient manages Bowen at home. Reports no difficulties. Has had consistent UOP. Patient seen by Dr. Sanford in the ER who discussed case with Urology as well as Hospitalist service at [facility] [place]. Discussed with [facility] Urology as well. Patient denies fever, chills, chest pain, cough, SOB, abdominal pain, nausea, vomiting. No additional complaints at this time. He does not like taking his current bowel regimen as it causes him to have diarrhea and to shake. ER Course: Insulin/Dextrose, NSS x 1 liter Principal Diagnosis Metastatic prostate cancer, perirectal hematoma, constipation, acute kidney injury Discharge Exam Constitutional WD/WN, vitals as above Eyes + anicteric sclerae ENMT external ear and nose normal, oropharynx normal Neck trachea midline, no thyromegaly Respiratory normal respiratory effort, lungs clear to auscultation Cardiovascular Rate/Rhythm: regular rate and + irregularly irregular Heart Sounds: no murmur Extremities: no edema Chest (Breasts) Chest: normal inspection of chest Gastrointestinal (Abdomen) normal bowel sounds, soft, nontender, no hepatosplenomegaly Musculoskeletal Extremities: extremities normal to inspection; no cyanosis and no clubbing Skin no rashes, warm and dry Neurologic moves all extremities and awake; no focal motor deficits Psychiatric A+Ox3, euthymic affect Lymphatic no lymphedema Discharge Data Allergies Allergy/AdvReac Type Severity Reaction Status Date / Time oxycodone AdvReac Mild Unknown Unverified 08/06/21 16:22 Consultations 08/06/21 21:39 Consult Oncology Routine Consult Urology Routine 08/07/21 08:46 Consult General Surgery Routine Consult Health Information Management Routine 08/07/21 15:32 Consult Radiation Oncology Routine Ordered Studies 08/06/21 14:43 CT abd pelvis wo con Stat 08/07/21 16:13 MR pelvis wo/w con Routine Hospital Course (1) Pelvic mass: 51yo male with recent hospitalization for prostate mass now s/p TURP and found to have metastatic prostate cancer, now with indwelling Bowen, pelvic/perirectal hematoma, who presents with difficulty having a bowel moveme nt. Prior admission earlier in the month with similar issues with constipation/mass effect and requirement of transfer to [facility] for drainage of fluid collection/addressing of pelvic mass/tissue sample Prior pathology s/p TURP with Prostate CA [place] 7 Imaging with persistent fluid collection and pelvic mass w/ significant mass effect on rectum/moderate fecal retention Sent to [facility] [place] earlier this month for IR/drainage -- no cx sent but sent on Bactrim extended course for suspected prostatitis. Formal records requested, not yet received Urology consulted * no plans inpatient intervention at this time, including prostatectomy for concerns prostate bleeding and causing reaccumulation of hematoma (Eliquis has been on hold since reaccumulation, hx afib likely permanent per discussion with Dr Norris and review of holter monitor, rate controlled) * continue bowen catheter to prevent issues with retention. Follow-up with urology in the office for trial of void within the next couple of weeks General surgery on consult * rec oncology for tx prostate ca, benefit from rad/onc * Diverting colostomy as last resort if not able to improve with his constipation * He was having much less abdominal pain and was passing stool regularly with an aggressive bowel regimen prior to discharge Continued on Ceftriaxone in place of Bactrim for prostatitis and will be discharged on 4 more weeks of Cipro 500 Mg p.o. twice daily * WBC remains wnl, afebrile Oncology on consult * Dr Valles, reviewed images, initially thought possible give Docetaxil however bone scan WITHOUT evidence for metastatic disease, therefore he will be treated with androgen deprivation and radiation * Patient received 1 dose of Degarelix earlier this month at [facility] and will plan to continue monthly with Lupron injections * Restart Casodex 50 mg p.o. once daily on discharge-the half-way has ordered the sent * Repeat PSA level decreased from 103--> 16.15 after starting degarelix * Tumor board reviewing his case on 08/12 and will call the half-way doctor with any updates on treatment * Rad/onc consulted --> outpatient XRT to be arranged * CEA NOT ELEVATED-Case was discussed with colorectal surgery from [place] and determined no colorectal involvement is necessary as this pelvic mass and hematoma are all related to the prostate cancer MRI Pelvis obtained for further eval pelvic mass/consideration for XRT * IMPRESSION:1. No change in a 9.3 x 5.7 cm left perirectal fluid collection. The signal characteristics are consistent with a hematoma. Significant mass effect upon the rectum with rightward displacement. 2. Suspected mass within the right aspect of the prostate which extends into the seminal vesicle. This is suspicious for prostate carcinoma. 3. No change in a mildly enlarged right pelvic sidewall lymph nodes suggestive of rajesh spread of disease. -Continue aggressive bowel regimen bisacodyl 5 Mg p.o. twice daily, senna, Colace, lactulose TID scheduled and Miralax as needed -Continue pain control with T#3 prn 1-2 tablets as needed -Encouraged ambulation -I discussed his care with the half-way physician at length on the phone on the day of discharge. I also discussed his care with urology, radiation oncology, and medical oncology on the day of discharge who are in agreement with discharge and following up as an outpatient basis for all specialties (2) Haematoma of pelvis: s/p drainage with IR with apparent reaccumulation His hemoglobin remained stable Continue to hold anticoagulation for now but can consider restarting this in a few weeks after prostate cancer is further treated and risk of bleeding is reduced Should have follow-up imaging in the next couple of months Follow CBC as an outpatient (3) KAT (acute kidney injury): On chronic kidney disease stage 2. Mild elevation of BUN and Cr likely dehydration/medication as on Bactrim for prostatitis at d/c from [facility] [place] as well as taking DICKSON inhibitor and HCTZ Hyperkalemia resolved with IVF Renal dose meds/avoid nephrotoxic agents Cr stable and improved, monitor as an outpatient -Discontinued lisinopril and HCTZ -Discontinue Bactrim and replace with Cipro (4) Unspecified atrial fibrillation: Rate controlled, permanent per last admit/review holter No anticoagulation due to pelvic hematoma -Continue metoprolol 100mg po BID (5) Dyslipidemia: Chronic -Continue Crestor 5mg po qHS (6) Hypertension: Blood pressure acceptable 108/61 even off lisinopril and HCTZ -Continue Metoprolol only -Discontinued lisinopril, HCTZ Continue to monitor as an outpatient (7) Type 2 diabetes mellitus: Blood sugar acceptable. A1c 8.1 Continue glimepiride (8) Sleep apnea: Not on CPAP Follow-up as an outpatient (9) Urinary retention: Maintain Bowen. Monitor output -- acceptable. Remains clear yellow in bowen Continue Finasteride and Flomax Follow-up with urology for trial of void DVT prophylaxis-SCDs Disposition-stable for discharge back to the half-way with close follow-up with oncology, radiation oncology, neurology Total Time Total Time Spent Total Time Spent (In Minutes): 45 minutes Discharge Plan Discharge Items [facility]position[facility] Reason For Visit: CONSTIPATION PELVIC MASS W MASS EFFECT PROSTATE CA Discharge Diagnosis: Pelvic hematoma, Prostate cancer, constipation, Acute kidney injury, Prostatitis Condition on Discharge: Fair Activity: As commented below Lifting: Gradually increase as tolerated Bathing: No limitations Exercise/Sports: Gradually increase as tolerated Weightbearing: Full weightbearing Non-emergency contact: Primary Care Provider and Oncologist Call non-emergency contact if: you have any medication questions, your symptoms worsen, your pain is not controlled, your pain is worsening, your pain is unusual for you, your pain is concerning for you, you have a fever and your temperature is above 101 Follow-up/Referrals: Marcin Bradley MD [Physician] - (Please call for appointment for Radiation Oncology ) Bassam Hernandez DO [Physician] - (Please follow up for trial of void and prostate cancer as scheduled.) Yaa HOWARD [Primary Care Provider] - Zulema Valles MD [Physician] - (Please follow up as scheduled with oncology for your prostate cancer.) Diet: Carb Consistent or DM2 and Heart Healthy Addtl Attending Provider Instructions: Please continue the aggressive bowel regimen with lactulose, bisacodyl, and senna/docusate as this is working well for you. Continue the T#3 as needed for pain. Please remain OFF your blood thinner (Eliquis) until cleared to restart it by your Oncologist. You will continue on Casodex as well as monthly injections of Lupron with Oncology for your prostate cancer. You will also be starting Radiation therapy in the next few weeks. Keep your follow up appointment with Oncology as planned. Follow up with Urology as scheduled for a trial of void to remove your Bowen catheter. It is helpful for you to walk around as much as possible to keep your bowels moving regularly. Pending Studies at Discharge: No Stand-Alone Forms: My [facility] Skilled Items Patient informed of condition?: Yes Discharge Level of Care: Other Communicable Disease: No Discharge Prognosis: Improving Lines: None Urinary Catheter: Yes Medications and DC Order Prescriptions: New bisacodyl 10 mg Suppository 10 mg OK DAILY PRN (Reason: constipation) Qty: 12 RF: 0 sennosides-docusate sodium [Senokot-S] 8.6-50 mg Tablet 1 tab PO QAM Qty: 30 RF: 0 bicalutamide [Casodex] 50 mg tablet 50 mg PO DAILY Qty: 30 RF: 0 ciprofloxacin HCl [Cipro] 500 mg tablet 500 mg PO BID Qty: 56 RF: 0 Continued tamsulosin 0.4 mg capsule 0.8 mg PO DAILY RF: 0 rosuvastatin 5 mg tablet 5 mg PO HS RF: 0 metoprolol tartrate 100 mg Tablet 100 mg PO BID RF: 0 finasteride 5 mg Tablet 5 mg PO DAILY RF: 0 polyethylene glycol 3350 [Miralax] 17 gram Powder In Packet 17 g PO TID PRN (Reason: Constipation) RF: 0 lidocaine HCl 2 % Jelly 1 applic TOPICAL BID PRN (Reason: Other) RF: 0 acetaminophen-codeine 300-30 mg Tablet 2 tab PO Q4H PRN (Reason: Pain) RF: 0 glimepiride 1 mg Tablet 1 mg PO QAM RF: 0 bisacodyl 5 mg Tablet,Delayed Release (Dr/Ec) 5 mg PO BID RF: 0 acetaminophen 500 mg Tablet 1,000 mg PO TID PRN (Reason: mid-moderate pain) Qty: 30 RF: 0 Changed lactulose 20 gram/30 mL Solution 20 g PO TID Qty: 0 RF: 0 Discontinued lisinopril 20 mg Tablet 20 mg PO DAILY RF: 0 hydrochlorothiazide 25 mg Tablet 25 mg PO DAILY RF: 0 sulfamethoxazole-trimethoprim [Bactrim DS] 800-160 mg Tablet 1 tab PO BID RF: 0 Discharge Orders: Discharge Order (Routine); Ordered 08/11/21 Ordered By: Sara Nava Admission Data Admit Date/Time: 08/07/21 15:46 Attending Provider: Sara Nava Admit Provider: Sherrie Boyd Primary Care Provider: Yaa HOWARD Other Providers: Zulema Valles ; Chinmay Liang ; Costa Lopez ; Marcin Bradley Other Interventions: Discharge Summary Assessment (RN) Last Done: 08/11/21 13:18 Coding Level of Care Code D/C DAY MANAGEMENT >30 MINS Diagnoses Pelvic mass R19.00 Haematoma of pelvis KAT (acute kidney injury) N17.9 Unspecified atrial fibrillation I48.91 Dyslipidemia E78.5 Hypertension I10 Type 2 diabetes mellitus E11.9 Sleep apnea G47.30 Urinary retention R33.9
--- NOTE | 2021-08-17 05:39 | Coding Query ---
CODING QUERY To promote full compliance with coding requirements relating to patient care, provider participation is requested in all cases of dextrine mixer uncertainty. Please assist us with the question(s) below: Coding Question(s): Pelvic hematoma s/p TURP is documented. Please specify below if the hematoma is a postop complication or incidental finding. Physician's Response(s): ( ) Postoperative complication of pelvic hematoma ( ) Pelvic hematoma as incidental finding postoperative ( x ) Other, please specify- the pelvic hematoma was preexisting to the TURP- see previous admissions and previous images from prior to TURP. It is NOT a postoperative complication and is most likely related to the prostate cancer that he has Thank you Catalina Drew Principal Diagnosis: "that condition established after study, to be chiefly responsible for occasioning the admission of the patient to the hospital for care." Co-Existing Principal Diagnosis: "when two or more diagnoses equally meet the criteria for principal diagnosis as determined by the circumstances of admission, diagnostic work up, and/or therapy provided, and the Alphabetic Index, Tabular List, or another coding guideline does not provide sequencing direction, any one of the diagnoses may be sequenced first." "When the physician has documented what appears to be a current diagnosis in the body of the record, but has not included the diagnosis in the final diagnostic statement, the physician should be asked whether the diagnosis should be added." (Source [facility]oding [facility] 2 QTR90. p3-4) KEN
== END 2021-08-11 14:57 | DRG 723 ==
LOC: ED 12:28 → 3E 12:28 → SUATTDRO 19:59 → 3E 21:09

== ENCOUNTER 2021-10-06 12:41 | Inpatient (IN) ==
[2021-10-06] MEDS ORDERED: dilTIAZem HCl 5 MG/ML 5 ML VIAL IV STA (13:07)
[2021-10-06] MEDS ORDERED: STAT IV Infusion **Titration per Protocol STA (13:07)
[2021-10-06] MEDS ORDERED: dilTIAZem HCL 125 MG in DEXTROSE 5% 100 ML IV SCH (13:15)
--- NOTE | 2021-10-06 13:19 | Emergency Department Note ---
Impression & Plan Atrial fibrillation with rapid ventricular response ED Provider Note INFORMANT: Patient ED PROVIDER(S): Casa Deleon MD CHIEF COMPLAINT: Palpitations and recurrent A. fib PLAN: Disposition: Admitted Condition: Good Outpatient prescription management: none Referral: None MEDICAL DECISION MAKING: Patient presented back to the emergency department from the [facility] due to rapid atrial fibrillation. Clinically he is doing well at this point but was tachycardic. An IV was established. Blood work was obtained. The patient's CBC, chemistry panel and other labs were unremarkable. He was started on Cardizem drip. He did have better rate control with this but was still mildly tachycardic. Under the circumstances further management in the hospital was felt to be appropriate. [facility] Patient was evaluated in the ER for further management. Triage Nursing notes reviewed and agree them. Vital Signs: reviewed and remarkable for tachycardia Differential diagnosis: Premature contractions, electrolyte abnormality, cardiac dysrhythmia, thyroid dysfunction, pulmonary embolism, infection, gastrointestinal, as well as other pathologies. Diagnostics interpreted by me: ECG: Twelve-lead ECG reveals atrial fibrillation with rapid ventricular response at [address] elevation or depression. No PVCs. Cardiac Monitoring:Cardiac monitoring ordered by me: The patient was placed on c ontinuous cardiac monitoring and observed. It revealed atrial fibrillation at 147 bpm. Imaging studies: Cardiomegaly with mild pulmonary vascular congestion HPI: The patient is a 51year old male who presents to the Emergency Room with complaints of palpitations and recurrent rapid A. fib. This started again today and is noted by the [facility] staff. The patient has a history of A. fib. He was here yesterday and received IV Lopressor, IV Cardizem, IV Lasix and was discharged. He had a reported history of A. fib. He was not anticoagulated due to a history of internal bleeding. The patient also notes the following a ssociated symptoms, none. The patient has been given no new medications for relieving factors. Current pain is rated as 0/10. Pt denies LOC, headache, fevers, chills, diaphoresis, visual changes, neck pain, chest pain, breathing difficulties, nausea, vomiting, abdominal pain, back pain, melena, hematochezia, urinary symptoms, numbness, weakness, or other complaints. ROS: See above HPI for pertinent positives & negatives. A total of 10 systems reviewed and were otherwise negative. PAST MEDICAL HISTORY:See Below , BPH, urinary retention, A. fib PAST SURGICAL HISTORY:See Below, TURP FAMILY HISTORY:See Below SOCIAL HISTORY:See Below, incarcerated HOME MEDICATIONS:See Below ALLERGIES:See Below VITALS:See Below PHYSICAL EXAMINATION: GENERAL: Awake, alert, well-appearing, in no distress HENT: Normocephalic, atraumatic. Oropharynx unremarkable. EYES: Normal conjunctiva. Sclera non-icteric. NECK: Inspection normal. Non-tender. Supple. No nuchal rigidity. FROM. No masses. RESPIRATORY: Clear to auscultation. No wheezes. No rales. Normal respiratory effort. CARDIAC: Very tachycardic rate. Irregular rhythm. No murmurs. No rubs. Extremities warm and well perfused. Pulses equal. No JVD. GI: Soft, non-distended. No tenderness to palpation. No rebound or guarding. No masses. RECTAL: Deferred. MUSCULOSKELETAL: Atraumatic. Chest examination reveals no tenderness. The back is symmetrical on inspection without obvious abnormality. There is no CVA tenderness to palpation. No joint edema. LOWER EXTREMITIES: Calves are equal size bilaterally and non-tender. No edema. No discoloration. NEURO: Normal sensorium. No sensory or motor deficits noted. SKIN: No rash or jaundice noted. 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 Dyslipidemia Hypertension Hyponatremia Pelvic mass Perirectal hematoma Persistent atrial fibrillation Sleep apnea Type 2 diabetes mellitus Social History Smoking Status: Former smoker Tobacco Type: Cigarettes Second Hand Exposure: No; Do You Dip or Chew Tobacco: No; Tobacco Cessation Education Requested by Patient: No Hx Alcohol Use: No Hx Substance Use: No Preferred Language: Kazakh Communication Ability: Effective Muck Miner Required: No Beliefs That Will Affect Care: None Current Living Situation: Other Current Living Situation Comment: [facility] Other Information That Helps Us Care for You: No Feels Safe at Home: No Is there a partner from a previous relationship who is making you feel unsafe now?: No Any Concerns about Your Family Situation: No Would You Like to Speak to Someone About Your Situation: No Safety Concerns: Feels Safe At This Time Assistive Devices: None Allergies Allergies Allergy/AdvReac Type Severity Reaction Status Date / Time oxycodone AdvReac Mild ITCHING Verified 10/06/21 16:19 Home Meds Home Medications Medication Instructions Recorded Confirmed rosuvastatin 5 mg tablet 5 mg PO HS 04/18/21 10/06/21 tamsulosin 0.4 mg capsule 0.8 mg PO HS 04/18/21 10/06/21 finasteride 5 mg tablet 5 mg PO DAILY 07/08/21 10/06/21 metoprolol tartrate 100 mg tablet 100 mg PO BID 07/08/21 10/06/21 ammonium lactate 12 % topical cream 1 applic topical BID 10/05/21 10/06/21 amoxicillin 875 mg-potassium 1 tab PO BID 10/05/21 10/06/21 clavulanate 125 mg tablet glimepiride 1 mg tablet 1 mg PO QAM 10/05/21 10/06/21 mirtazapine 15 mg tablet 15 mg PO HS 10/05/21 10/06/21 multivitamin 1 tab PO QAM 10/05/21 10/06/21 oxybutynin chloride 5 mg tablet 5 mg PO DAILY 10/05/21 10/06/21 phenylephrine 0.25 %-mineral oil 1 applic NC BID PRN Hemorrhoids 10/05/21 10/06/21 14 %-petrolatm 74.9 % rectal ointment (Preparation H) polyethylene glycol 3350 17 17 g PO TID PRN Constipation 10/05/21 10/06/21 gram/dose oral powder (Miralax) zinc oxide-cod liver oil topical 1 applic topical TID 10/05/21 10/06/21 ointment Previous Rx's Medication Instructions Recorded acetaminophen 500 mg tablet 1,000 mg PO TID PRN mid-moderate 08/11/21 pain #30 tabs bicalutamide 50 mg tablet (Casodex) 50 mg PO DAILY #30 tabs 08/11/21 Results & Data (ED) Vital Signs Vital Signs - 24 hr 10/06/21 12:45 10/06/21 13:13 10/06/21 12:58 Temperature 36.2 C L Temperature Source Temporal Artery Scan Pulse Rate 95 H 165 H Pulse Rate [Apical] 153 H Pulse Rate from SpO2 Sensor Pulse Rhythm [Apical] Irregular Respiratory Rate 18 20 18 Respiratory Effort / Characteristics Non-Labored Non-Labored Spontaneous Respiratory Depth Normal Normal Respiratory Pattern Regular Regular Blood Pressure 146/89 H Blood Pressure [Right Arm] 152/115 H Blood Pressure Mean 108 Blood Pressure Mean [Right Arm] 127 Blood Pressure Position Sitting Blood Pressure Position [Right Arm] Lying Pulse Oximetry 95 96 Oxygen Delivery Method Room Air Room Air Sepsis Recent Fever Within 48 Hours No Sepsis New/Unexplained Change in Mental Status No Sepsis Action Taken by Nursing No Action Required 10/06/21 13:00 10/06/21 13:08 10/06/21 13:08 Temperature Temperature Source Pulse Rate 132 H 139 H Pulse Rate [Apical] Pulse Rate from SpO2 Sensor Pulse Rhythm [Apical] Respiratory Rate 22 24 Respiratory Effort / Characteristics Respiratory Depth Respiratory Pattern Blood Pressure 152/115 H Blood Pressure [Right Arm] Blood Pressure Mean 127 Blood Pressure Mean [Right Arm] Blood Pressure Position Blood Pressure Position [Right Arm] Pulse Oximetry Oxygen Delivery Method Sepsis Recent Fever Within 48 Hours Sepsis New/Unexplained Change in Mental Status Sepsis Action Taken by Nursing 10/06/21 13:21 10/06/21 13:21 10/06/21 13:30 Temperature Temperature Source Pulse Rate 129 H Pulse Rate [Apical] Pulse Rate from SpO2 Sensor 123 H Pulse Rhythm [Apical] Respiratory Rate 23 Respiratory Effort / Characteristics Respiratory Depth Respiratory Pattern Blood Pressure 170/111 H 142/111 H Blood Pressure [Right Arm] Blood Pressure Mean 130 121 Blood Pressure Mean [Right Arm] Blood Pressure Position Blood Pressure Position [Right Arm] Pulse Oximetry 96 Oxygen Delivery Method Sepsis Recent Fever Within 48 Hours Sepsis New/Unexplained Change in Mental Status Sepsis Action Taken by Nursing 10/06/21 13:30 10/06/21 13:45 10/06/21 13:45 Temperature Temperature Source Pulse Rate 108 H 129 H Pulse Rate [Apical] Pulse Rate from SpO2 Sensor 98 H 111 H Pulse Rhythm [Apical] Respiratory Rate 19 19 Respiratory Effort / Characteristics Respiratory Depth Respiratory Pattern Blood Pressure 146/103 H Blood Pressure [Right Arm] Blood Pressure Mean 117 Blood Pressure Mean [Right Arm] Blood Pressure Position Blood Pressure Position [Right Arm] Pulse Oximetry 96 91 Oxygen Delivery Method Sepsis Recent Fever Within 48 Hours Sepsis New/Unexplained Change in Mental Status Sepsis Action Taken by Nursing 10/06/21 14:00 10/06/21 14:00 10/06/21 14:15 Temperature Temperature Source Pulse Rate 106 H 109 H Pulse Rate [Apical] Pulse Rate from SpO2 Sensor 110 H 110 H Pulse Rhythm [Apical] Respiratory Rate 23 21 Respiratory Effort / Characteristics Respiratory Depth Respiratory Pattern Blood Pressure 147/119 H Blood Pressure [Right Arm] Blood Pressure Mean 128 Blood Pressure Mean [Right Arm] Blood Pressure Position Blood Pressure Position [Right Arm] Pulse Oximetry 91 96 Oxygen Delivery Method Sepsis Recent Fever Within 48 Hours Sepsis New/Unexplained Change in Mental Status Sepsis Action Taken by Nursing 10/06/21 14:15 10/06/21 14:26 10/06/21 15:15 Temperature Temperature Source Pulse Rate Pulse Rate [Apical] 93 H 93 H Pulse Rate from SpO2 Sensor Pulse Rhythm [Apical] Respiratory Rate 18 Respiratory Effort / Characteristics Respiratory Depth Respiratory Pattern Blood Pressure 146/93 H Blood Pressure [Right Arm] 146/93 H 167/94 H Blood Pressure Mean 110 Blood Pressure Mean [Right Arm] 110 118 Blood Pressure Position Blood Pressure Position [Right Arm] Pulse Oximetry 98 Oxygen Delivery Method Room Air Sepsis Recent Fever Within 48 Hours Sepsis New/Unexplained Change in Mental Status Sepsis Action Taken by Nursing Laboratory Data Result diagrams: 10/06/21 13:05 10/06/21 13:05 Lab Results 10/06/21 10/06/21 10/06/21 Range/Units 13:05 13:05 13:05 WBC 8.69 (4.8-10.8) K/ul RBC 4.18 L (4.63-6.08) M/uL Hgb 12.6 L (14.0-18.0) g/dl Hct 37.0 L (40.1-51.0) % MCV 88.5 (80.0-100.0) fL MCH 30.1 (25.0-34.0) pg MCHC 34.1 (32.0-36.0) g/dL RDW Std Deviation 41.5 (36.4-46.3) fL RDW Coeff of Rossy 13.0 (11.5-14.5) % Plt Count 194 (130-400) K/uL MPV 10.6 (9.4-12.4) fL Immature Gran % (Auto) 0.5 % Neut % (Auto) 56.7 % Lymph % (Auto) 31.2 % Lee % (Auto) 8.7 % Eos % (Auto) 2.4 % Baso % (Auto) 0.5 % Neut # (Auto) 4.93 (1.4-6.5) K/uL Lymph # (Auto) 2.71 (1.2-3.4) K/uL Lee # (Auto) 0.76 (0.24-0.82) K/uL Eos # (Auto) 0.21 (0-0.50) K/uL Baso # (Auto) 0.04 (0-0.2) K/uL Immature Gran # (Auto) 0.04 H (0.00-0.02) K/uL PT 11.3 (9.0-12.0) Seconds INR 1.1 (0.9-1.1) APTT 28.5 (21.0-31.0) Seconds PTT Ratio 1.0 Sodium 136 (136-145) mmol/L Potassium 4.0 (3.5-5.1) mmol/L Chloride 103 (98-107) mmol/L Carbon Dioxide 25 (21-32) mmol/L Anion Gap 8 (3-11) BUN 16 (6-23) mg/dl Creatinine 0.89 (0.6-1.4) mg/dl Est Cr Clr Drug Dosing 106.1 ml/min Est GFR ( Amer) 113.1 ml/min Est GFR (Non-Af Amer) 97.6 ml/min BUN/Creatinine Ratio 18.0 (10-20) Glucose 267 H (70-99(Fasting)) mg/dl Calcium 9.0 (8.5-10.1) mg/dl Magnesium 1.9 (1.7-2.4) mg/dl Total Bilirubin 0.7 (0.2-1.0) mg/dl AST 21 (13-39) U/L ALT 32 (7-52) U/L Alkaline Phosphatase 76 (34-104) U/L Troponin I High Sens 9.4 (0-20) pg/ml B-Natriuretic Peptide (0-100) pg/ml Total Protein 7.2 (6.0-8.3) gm/dl Albumin 4.1 (3.4-5.0) gm/dl Globulin 3.1 (2.5-4.0) gm/dl Albumin/Globulin Ratio 1.3 (0.9-2) TSH (0.300-4.500) uIu/ml SARS-CoV-2, RNA, NAAT (NEGATIVE) 10/06/21 10/06/21 10/06/21 Range/Units 13:05 13:05 13:10 WBC (4.8-10.8) K/ul RBC (4.63-6.08) M/uL Hgb (14.0-18.0) g/dl Hct (40.1-51.0) % MCV (80.0-100.0) fL MCH (25.0-34.0) pg MCHC (32.0-36.0) g/dL RDW Std Deviation (36.4-46.3) fL RDW Coeff of Rossy (11.5-14.5) % Plt Count (130-400) K/uL MPV (9.4-12.4) fL Immature Gran % (Auto) % Neut % (Auto) % Lymph % (Auto) % Lee % (Auto) % Eos % (Auto) % Baso % (Auto) % Neut # (Auto) (1.4-6.5) K/uL Lymph # (Auto) (1.2-3.4) K/uL Lee # (Auto) (0.24-0.82) K/uL Eos # (Auto) (0-0.50) K/uL Baso # (Auto) (0-0.2) K/uL Immature Gran # (Auto) (0.00-0.02) K/uL PT (9.0-12.0) Seconds INR (0.9-1.1) APTT (21.0-31.0) Seconds PTT Ratio Sodium (136-145) mmol/L Potassium (3.5-5.1) mmol/L Chloride (98-107) mmol/L Carbon Dioxide (21-32) mmol/L Anion Gap (3-11) BUN (6-23) mg/dl Creatinine (0.6-1.4) mg/dl Est Cr Clr Drug Dosing ml/min Est GFR ( Amer) ml/min Est GFR (Non-Af Amer) ml/min BUN/Creatinine Ratio (10-20) Glucose (70-99(Fasting)) mg/dl Calcium (8.5-10.1) mg/dl Magnesium (1.7-2.4) mg/dl Total Bilirubin (0.2-1.0) mg/dl AST (13-39) U/L ALT (7-52) U/L Alkaline Phosphatase (34-104) U/L Troponin I High Sens (0-20) pg/ml B-Natriuretic Peptide 550 H (0-100) pg/ml Total Protein (6.0-8.3) gm/dl Albumin (3.4-5.0) gm/dl Globulin (2.5-4.0) gm/dl Albumin/Globulin Ratio (0.9-2) TSH 1.121 (0.300-4.500) uIu/ml SARS-CoV-2, RNA, NAAT NEGATIVE (NEGATIVE) Administered Medications Acetaminophen (Acetaminophen 325 Mg Tab) 650 mg PO Q4H PRN PRN Reason: Pain or Fever Stop: 11/05/21 16:39 Last Admin: 10/06/21 19:25 Dose: 650 mg Documented By: JORDY Diltiazem HCl (Diltiazem Hcl 30 Mg Tab) [address] [facility] Stop: 11/05/21 20:59 Last Admin: 10/06/21 21:11 Dose: 30 mg Documented By: JORDY Diltiazem HCl 125 mg/ Dextrose 125 mls @ 10 mls/hr IV .[id number] [facility]; Protocol Stop: 11/05/21 13:14 Last Titration: 10/06/21 19:04 Dose: 10 mg/hr, 10 mls/hr Documented By: JORDY Co-signed By: [id number] Titration: 10/06/21 14:52 Dose: 10 mg/hr, 10 mls/hr Documented By: GABRIEL Co-signed By: TRH Titration: 10/06/21 14:39 Dose: 10 mg/hr, 10 mls/hr Documented By: RONALD Co-signed By: GABRIEL Admin: 10/06/21 13:24 Dose: 5 mg/hr, 5 mls/hr Documented By: JAZZ Co-signed By: GABRIEL Insulin Aspart (Insulin Aspart Per Unit) [address] [facility] Stop: 11/05/21 16:39 Last Admin: 10/06/21 20:32 Dose: Not Given Documented By: Admin: 10/06/21 17:43 Dose: 2 units Documented By: SHANTEL Co-signed By: [id number] Metoprolol Tartrate (Metoprolol Tartrate 100 Mg Tab) [address] [facility] Stop: 11/05/21 20:59 Last Admin: 10/06/21 21:11 Dose: 100 mg Documented By: JORDY Mirtazapine (Mirtazapine Tab 15 Mg Tab) 15 mg PO HS FABIANO Stop: 11/05/21 20:59 Last Admin: 10/06/21 21:10 Dose: 15 mg Documented By: JORDY Rosuvastatin Calcium (Rosuvastatin Calcium 5 Mg Tab) [address] [facility] Stop: 11/05/21 20:59 Last Admin: 10/06/21 21:10 Dose: 5 mg Documented By: JORDY Tamsulosin HCl (Tamsulosin Hcl 0.4 Mg Cap) 0.[address] [facility] Stop: 11/05/21 20:59 Last Admin: 10/06/21 21:10 Dose: 0.8 mg Documented By: JORDY Discontinued Medications Diltiazem HCl (Diltiazem Hcl 5 Mg/Ml 5 Ml Vial) 10 mg IV NOW STA Stop: 10/06/21 13:08 Last Admin: 10/06/21 13:20 Dose: 10 mg Documented By: JAZZ Co-signed By: GABRIEL Furosemide (Furosemide Inj 20 Mg/2 Ml Vial) 20 mg IV ONE ONE Stop: 10/06/21 16:41 Last Admin: 10/06/21 17:44 Dose: 20 mg Documented By: SHANTEL Miscellaneous (Stat Iv Infusion Titration Per Protocol) 1 each N/A NOW STA Stop: 10/06/21 13:08 Last Admin: 10/06/21 13:25 Dose: Not Given Documented By: JAZZ Imaging Data Radiologist's Impression: Chest X-Ray 10/06/21 13:07 SINGLE VIEW CHEST CLINICAL HISTORY: Rapid atrial fibrillation FINDINGS: An AP, portable, upright chest radiograph is compared to study dated 10/05/2021 and correlated with chest CT dated 07/24/2021. The examination is degraded by portable technique and apical lordotic positioning. The heart is enlarged. There is pulmonary vascular congestion. Atelectasis is noted at the lung bases. Suspect trace pleural effusions. No pneumothorax is seen. The bony thorax is grossly intact. IMPRESSION: Cardiomegaly with pulmonary vascular congestion. This has modestly improved from yesterday. ACT 112: Negative or not required by law. Electronically signed by: Saman Huggins M.D. 10/06/2021 1:25 PM Discharge Plan Visit Data Chief Complaint: Arrhythmia/Palpitations Stated Complaint: A FIB ED Provider: Casa Deleon Discharge Problem: Atrial fibrillation with rapid ventricular response Patient Disposition: Admitted As Inpatient Discharge Instructions Interventions: ED Discharge Assessment Last Done: 10/06/21 16:07
--- NOTE | 2021-10-06 13:27 | XRay Report ---
SINGLE VIEW CHEST CLINICAL HISTORY: Rapid atrial fibrillation FINDINGS: An AP, portable, upright chest radiograph is compared to study dated 10/05/2021 and correlat ed with chest CT dated 07/24/2021. The examination is degraded by portable technique and apical lordoti c positioning. The heart is enlarged. There is pulmonary vascular congestion. Atelectasis is noted at the lung bases. Suspect trace pleural effusions. No pneumothorax is seen. The bony thorax is grossly intact. IMPRESSION: Cardiomegaly with pulmonary vascular congestion. This has modestly improved from yesterda y. ACT 112: Negative or not required by law. Electronically signed by: Saman Huggins M.D. 10/06/2021 1:25 PM
[2021-10-06 13:30] LABS: Basophils # (auto) 0.04 K/uL (0-0.2); Basophils % (auto) 0.5 %; Eosinophils # (auto) 0.21 K/uL (0-0.50); Eosinophils % (auto) 2.4 %; Hemoglobin 12.6 g/dl (14.0-18.0); Immature Granulocytes # (auto) 0.04 K/uL (0.00-0.02); Immature Granulocytes % (auto) 0.5 %; Lymphocytes # (auto) 2.71 K/uL (1.2-3.4); Lymphocytes % (auto) 31.2 %; Mean Corpuscular Hemoglobin 30.1 pg (25.0-34.0); Mean Corpuscular Hgb Conc 34.1 g/dL (32.0-36.0); Mean Corpuscular Volume 88.5 fL (80.0-100.0); Mean Platelet Volume 10.6 fL (9.4-12.4); Monocytes # (auto) 0.76 K/uL (0.24-0.82); Monocytes % (auto) 8.7 %; Neutrophils # (auto) 4.93 K/uL (1.4-6.5); Neutrophils % (auto) 56.7 %; Platelet Count 194 K/uL (130-400); RDW Standard Deviation 41.5 fL (36.4-46.3); Red Blood Count 4.18 M/uL (4.63-6.08); White Blood Count 8.69 K/ul (4.8-10.8)
[2021-10-06 13:44] LABS: INR 1.1 (0.9-1.1); Partial Thromboplastin Time 28.5 Seconds (21.0-31.0); Prothrombin Time 11.3 Seconds (9.0-12.0)
[2021-10-06 13:54] LABS: Troponin I High Sensitivity 9.4 pg/ml (0-20)
[2021-10-06 13:55] LABS: Albumin Globulin Ratio 1.3 (0.9-2); Albumin Level 4.1 gm/dl (3.4-5.0); Bilirubin,Total 0.7 mg/dl (0.2-1.0); Creatinine Clr Calc Pharmacy 106.1 ml/min; Est GFR (African American) 113.1 ml/min; Est GFR (Non-African American) 97.6 ml/min; Globulin 3.1 gm/dl (2.5-4.0); Magnesium 1.9 mg/dl (1.7-2.4); Total Protein 7.2 gm/dl (6.0-8.3)
--- NOTE | 2021-10-06 15:31 | History & Physical Report ---
Date of Service October 06, 2021 Assessment & Plan (1) Atrial fibrillation with RVR: Plan: - Initial HR 160s with secondary CHF likely from rapid HR. - K+ 4.0, Mg++ 1.9. TSH wnl. - Started on Cardizem gtt in ED, will continue this, add on PO Cardizem 30 mg TID in addition to Lopressor 100 mg BID. - Consult cardiology. - Echo in July showed hypertrophic cardiomyopathy with EF > 70% - No anticoagulation due to pelvic hematoma. (2) Congestive heart failure: Plan: - 2/2 afib RVR. - BNP 550. - 20 mg IV Lasix x1 now. - Monitor I/Os. (3) Prostate cancer: Plan: - Current tx includes Casodex 50 mg PO daily and Lupron SQ q3 months. - Continue Proscar, Flomax for retention. Also taking oxybutynin for incontinence. (4) Incontinence: Plan: - Continue oxybutynin. (5) Type 2 diabetes mellitus: Plan: - Accucheks ACHS with SSI. (6) Hypertension: Plan: - Previously on lisinopril and HCTZ, however BP was well controlled while off these medications during last admission, thus they were d/c'd - Continue on metoprolol 100 mg BID. (7) Dyslipidemia: Plan: - Continue rosuvastatin 5 mg HS. (8) CKD (chronic kidney disease) stage 2, GFR 60-89 ml/min: Plan: - Renal function at baseline. - Renally dose medications as able, avoid nephrotoxins. Plan - Admit to PCU. - SCDs for VTE ppx. - DNR/DNI. History of Present Illness Chief Complaint: palpitations, SOB x 3 days Primary Care Provider: LEE Yaa Hernández is a 51 y/o male with a PMH significant for prostate cancer, urinary incontinence, afib, hypertrophic cardiomyopathy, DM2, CKD, hypertension, and hyperlipidemia who presents today with palpitations and SOB. This began 3 days ago, but patient mentioned it to [facility] staff yesterday when he was significantly dyspneic. He was found to be in afib RVR at the [facility] and was tra nsported to the ED yesterday and had HR in 140s. He was treated with IV Lopressor, IV Cardizem, and IV Lasix and was then discharged back to [facility]. Despite this, palpitations have continued, he remains short of breath however it is somewhat better and is more noticeable with exertion. He was once again found to be in afib RVR at the [facility] today and was transported to ED for further evaluation. He is no longer on anticoagulation due to pelvic hematoma 2/2/ prostate cancer, but continue on metoprolol 100 mg BID. Today, he presents with RH 140-150s, moderately hypertensive. Labs significant for a stable anemia, Hgb 12.6, glucose elevated 267, BNP 550. CXR showed cardiomegaly with pulmonary vascular congestion which has modestly improved from yesterday. Allergies Allergy/AdvReac Type Severity Reaction Status Date / Time oxycodone AdvReac Mild ITCHING Verified 10/06/21 16:19 Home Medications Medication Instructions Recorded Confirmed Type rosuvastatin 5 mg tablet 5 mg PO HS 04/18/21 10/06/21 History tamsulosin 0.4 mg capsule 0.8 mg PO HS 04/18/21 10/06/21 History finasteride 5 mg tablet 5 mg PO DAILY 07/08/21 10/06/21 History metoprolol tartrate 100 mg tablet 100 mg PO BID 07/08/21 10/06/21 History acetaminophen 500 mg tablet 1,000 mg PO TID PRN mid-moderate 08/11/21 10/06/21 Rx pain #30 tabs bicalutamide 50 mg tablet (Casodex) 50 mg PO DAILY #30 tabs 08/11/21 10/06/21 Rx ammonium lactate 12 % topical cream 1 applic topical BID 10/05/21 10/06/21 History amoxicillin 875 mg-potassium 1 tab PO BID 10/05/21 10/06/21 History clavulanate 125 mg tablet glimepiride 1 mg tablet 1 mg PO QAM 10/05/21 10/06/21 History mirtazapine 15 mg tablet 15 mg PO HS 10/05/21 10/06/21 History multivitamin 1 tab PO QAM 10/05/21 10/06/21 History oxybutynin chloride 5 mg tablet 5 mg PO DAILY 10/05/21 10/06/21 History phenylephrine 0.25 %-mineral oil 1 applic TN BID PRN Hemorrhoids 10/05/21 10/06/21 History 14 %-petrolatm 74.9 % rectal ointment (Preparation H) polyethylene glycol 3350 17 17 g PO TID PRN Constipation 10/05/21 10/06/21 History gram/dose oral powder (Miralax) zinc oxide-cod liver oil topical 1 applic topical TID 10/05/21 10/06/21 History ointment Past Med/Surg History Medical History (Updated 10/06/21 @ 15:35 by Catherine Williamson PA-C) CKD (chronic kidney disease) stage 2, GFR 60-89 ml/min Constipation Current use of skilled nursing anticoagulation Dyslipidemia Hypertension Hyponatremia Pelvic mass Perirectal hematoma Persistent atrial fibrillation Sleep apnea Type 2 diabetes mellitus Social History Smoking Status: Former smoker Tobacco Type: Cigarettes Second Hand Exposure: No; Do You Dip or Chew Tobacco: No; Tobacco Cessation Education Requested by Patient: No Hx Alcohol Use: No Hx Substance Use: No Preferred Language: French Communication Ability: Effective 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 Beliefs That Will Affect Care: None Current Living Situation: Other Current Living Situation Comment: penitentiary Other Information That Helps Us Care for You: No Feels Safe at Home: No Is there a partner from a previous relationship who is making you feel unsafe now?: No Any Concerns about Your Family Situation: No Would You Like to Speak to Someone About Your Situation: No Safety Concerns: Feels Safe At This Time Assistive Devices: None Review of Systems Review of Systems: Constitutional: No fever/chills, weakness, fatigue, myalgias, anorexia, night sweats Eyes: No diplopia, no worsening or blurred vision ENT: normal hearing, no trouble swallowing Respiratory: SOB with exertion; no cough, sputum Cardiovascular: palpitations; No chest pain or tightness Abdomen: No pain, nausea, vomiting, diarrhea or constipation : Denies dysuria, hematuria, increased urgency/frequency, urinary retention Musculoskeletal: No joint pain, calf pain, swelling Neurologic: No weakness, numbness/tingling, or balance problems Psychiatric: No anxiety or depression Skin: No rash or itch Physical Exam Physical Exam: General: awake, alert, no apparent distress Head: Normocephalic, atraumatic ENT: PERRL, EOMI, no pharyngeal exudate, mucous membranes moist Chest: Clear to auscultation, on room air, no adventitious breath sounds Cardiac: irregular rhythm consistent with afib; no murmur, no JVD, normal peripheral pulses, good capillary refill Abdominal: NABS x 4 quadrants, soft, nontender to palpation, no rebound, guarding or tenderness Extremities: Normal inspection, no peripheral edema or erythema, calfs nontender to palpation Psych: Normal mood and affect Neuro: AAO x 3, strength intact bilaterally and rated 5/5, no motor deficits, speech is clear, no peripheral sensory deficits Skin: no rash or erythema Results & Data Results & Data ([facility]) Vital Signs (Past 12 Hours) Vital Signs Temp Pulse Pulse Resp BP BP Pulse Ox 10/06/21 14:26 93 H 18 146/93 H 98 10/06/21 14:15 146/93 H 10/06/21 14:15 109 H 21 96 10/06/21 14:00 106 H 23 91 10/06/21 14:00 147/119 H 10/06/21 13:45 146/103 H 10/06/21 13:45 129 H 19 91 10/06/21 13:30 108 H 19 96 10/06/21 13:30 142/111 H 10/06/21 13:21 170/111 H 10/06/21 13:21 129 H 23 96 10/06/21 13:08 152/115 H 10/06/21 13:08 139 H 24 10/06/21 13:00 132 H 22 10/06/21 12:58 165 H 18 10/06/21 13:13 153 H 20 152/115 H 96 10/06/21 12:45 36.2 C L 95 H 18 146/89 H 95 O2 Del Method 10/06/21 14:26 Room Air 10/06/21 14:15 10/06/21 14:15 10/06/21 14:00 10/06/21 14:00 10/06/21 13:45 10/06/21 13:45 10/06/21 13:30 10/06/21 13:30 10/06/21 13:21 10/06/21 13:21 10/06/21 13:08 10/06/21 13:08 10/06/21 13:00 10/06/21 12:58 10/06/21 13:13 Room Air 10/06/21 12:45 Room Air Laboratory Results Abnormal lab results 10/06/21 10/06/21 10/06/21 Range/Units 13:05 13:05 13:05 RBC 4.18 L (4.63-6.08) M/uL Hgb 12.6 L (14.0-18.0) g/dl Hct 37.0 L (40.1-51.0) % Immature Gran # (Auto) 0.04 H (0.00-0.02) K/uL Glucose 267 H (70-99(Fasting)) mg/dl B-Natriuretic Peptide 550 H (0-100) pg/ml Diagnostic Findings Chest X-Ray 10/06/21 13:07 SINGLE VIEW CHEST CLINICAL HISTORY: Rapid atrial fibrillation FINDINGS: An AP, portable, upright chest radiograph is compared to study dated 10/05/2021 and correlated with chest CT dated 07/24/2021. The examination is degraded by portable technique and apical lordotic positioning. The heart is enlarged. There is pulmonary vascular congestion. Atelectasis is noted at the lung bases. Suspect trace pleural effusions. No pneumothorax is seen. The bony thorax is grossly intact. IMPRESSION: Cardiomegaly with pulmonary vascular congestion. This has modestly improved from yesterday. ACT 112: Negative or not required by law. Electronically signed by: Saman Huggins M.D. 10/06/2021 1:25 PM ECG Additional Comments: Atrial fibrillation with rapid ventricular response Nonspecific T wave abnormality Abnormal ECG When compared with ECG of 05-OCT-2021 12:46 Code Status & VTE Plan Code Status DNR/DNI. Supervising Physician Co-Signing Physician Notes Patient seen and examined with BEAU, agree with her note above. Patient has returned the emergency room with atrial fibrillation after having RVR. Patient was here yesterday and was given altered medications are effective. I do suspect that the short acting medications had worn off this patient returned with a heart rate in the 160s. He was placed on a Cardizem drip by the ER physician heart rate was 801 10 at the time of our evaluation. Patient was having some palpitations that were definitely rate dependent. There is also concern from mild CHF which is also rate dependent. Exam as noted above. Plan to continue Cardizem drip as noted. I did add oral Cardizem, can be titrated up as the drip is weaned down. Anticoagulation held as the patient had a previous hematoma, may need clearance from urology prior to restarting. PG Care Time/CCT Total # of Minutes Spent Total Time Spent with Patient: Total time spent is greater than 50% in coordination of care (as documented) at patient's floor/unit and/or counseling patient: Coding Level of Care Code 05684 Initial Inpt Care Lvl 2 Diagnoses Atrial fibrillation with RVR I48.91 Congestive heart failure I50.9 Prostate cancer C61 Incontinence R32 Type 2 diabetes mellitus E11.9 Hypertension I10 Dyslipidemia E78.5 CKD (chronic kidney disease) stage 2, GFR 60-89 ml/min N18.2
[2021-10-06] MEDS ORDERED: GLUCOSE 10 TAB/TUBE PO PRN (16:40)
[2021-10-06] MEDS ORDERED: ONDANSETRON INJ 2 MG/ML 2 ML VIAL IV PRN (16:40)
[2021-10-06] MEDS ORDERED: GLUCAGON FOR INJ 1 MG VIAL SQ PRN (16:40)
[2021-10-06] MEDS ORDERED: FUROSEMIDE INJ 20 MG/2 ML VIAL IV ONE (16:40)
[2021-10-06] MEDS ORDERED: CARBOHYDRATES FOR HYPOGLYCEMIA PO PRN (16:40)
[2021-10-06] MEDS ORDERED: ACETAMINOPHEN 325 MG TAB PO PRN (16:40)
[2021-10-06] MEDS ORDERED: GLUCOSE 40% GEL 15 GM TUBE PO PRN (16:40)
[2021-10-06] MEDS ORDERED: DEXTROSE 50% 50 ML SYRINGE IV PRN (16:40)
[2021-10-06] MEDS: INSULIN ASPART PER UNIT SC SCH ×2 (17:43→20:32)
[2021-10-06] MEDS ORDERED: [UNRECOGNIZED DRUG - OTHER] TOP SCH (21:00)
[2021-10-06] MEDS: TAMSULOSIN HCL 0.4 MG CAP PO SCH (21:10)
[2021-10-06] MEDS: ROSUVASTATIN CALCIUM 5 MG TAB PO SCH (21:10)
[2021-10-06] MEDS: MIRTAZAPINE TAB 15 MG TAB PO SCH (21:10)
[2021-10-06] MEDS: dilTIAZem HCL 30 MG TAB PO SCH (21:11)
[2021-10-06] MEDS: METOPROLOL TARTRATE 100 MG TAB PO SCH (21:11)
[2021-10-07 07:31] LABS: Basophils # (auto) 0.04 K/uL (0-0.2); Basophils % (auto) 0.5 %; Eosinophils % (auto) 3.7 %; Hematocrit (blood only) 37.3 % (40.1-51.0); Hemoglobin 12.7 g/dl (14.0-18.0); Immature Granulocytes # (auto) 0.03 K/uL (0.00-0.02); Immature Granulocytes % (auto) 0.4 %; Lymphocytes # (auto) 2.94 K/uL (1.2-3.4); Lymphocytes % (auto) 35.8 %; Mean Corpuscular Hemoglobin 29.6 pg (25.0-34.0); Mean Corpuscular Volume 86.9 fL (80.0-100.0); Mean Platelet Volume 10.7 fL (9.4-12.4); Monocytes # (auto) 0.64 K/uL (0.24-0.82); Monocytes % (auto) 7.8 %; Neutrophils # (auto) 4.26 K/uL (1.4-6.5); Neutrophils % (auto) 51.8 %; Platelet Count 194 K/uL (130-400); RDW Coefficient of Variation 12.8 % (11.5-14.5); RDW Standard Deviation 39.8 fL (36.4-46.3); Red Blood Count 4.29 M/uL (4.63-6.08); White Blood Count 8.21 K/ul (4.8-10.8)
[2021-10-07 07:55] LABS: BUN Creatinine Ratio 16.9 (10-20); Calcium 9.2 mg/dl (8.5-10.1); Chol HDL Ratio 4.1 (0-5); Creatinine Clr Calc Pharmacy 105.5 ml/min; Est GFR (African American) 113.1 ml/min; Est GFR (Non-African American) 97.6 ml/min; Potassium 3.9 mmol/L (3.5-5.1)
--- NOTE | 2021-10-07 08:59 | Cardiology Consultation ---
Date of Consultation October 07, 2021 Assessment & Plan (1) Atrial fibrillation with RVR: (2) Hypertrophic cardiomyopathy: (3) Acute diastolic CHF (congestive heart failure): Mr. Hernández is a 51 year old male with a history of Hypertension, Dyslipidemia, Hypertrophic Cardiomyopathy, Atrial Fibrillation with RVR (Persistent), Type 2 Diabetes Mellitus, Stage 2 CKD, Sleep Apnea, Prostate Cancer, Moderate Pericardial Effusion (Echo 07/21/21), Mild to Moderate Mitral Regurgitation, Anemia, and a Right Pelvic Hematoma (which currently precludes anticoagulation) who presented to [facility] ER on 10/05/21 complaining of Palpitations and SOB x 2 which began 3 days prior to this ER visit. Patient reported significant SOB to the group home staff. He was seen at [facility] and found to be in A-Fib with RVR. He was transported to the ER and had HR in 140s. High sensitivity Troponin I was unremarkable, electrolytes were WNL, and he was noted to have a Hgb of 12.6 g/dL. CXR showed pulmonary vascular congestion and cardiomegaly. He was treated with IV Lopressor, IV Cardizem, and IV Lasix and was then released back to [facility]. On 10/06/21 patient had ongoing Palpitations and continued to experience Dyspnea which was predominantly on exertion. He was once again found to be in A-Fib with RVR at the [facility] and was transported to [facility] ER for further evaluation. He was previously anticoagulated with Warfarin but was diagnosed with pelvic mass in July 2021 that turned out to be an enlarging right pelvic hematoma (27 x 17 x 33 mm on Pelvic MRI 10/03/21) secondary to Prostate Cancer -- therefore his Warfarin was stopped sometime between July 2021 to early September 2021. Patient was maintained on Metoprolol Tartrate 100 mg b.i.d.. Upon presentation his heart rate was in the 140s-150s and he was moderately hypertensive. Labs showed a stable anemia with a Hgb 12.6, glucose was elevated 267 mg/dL, BNP was elevated at 550 pg/mL, and high sensitivity Troponin I remained normal. CXR 10/06/21 showed cardiomegaly with pulmonary vascular congestion which had modestly improved from 10/05/21. Decision was made to admit for rate controlling IV medication and ongoing diuresis. Patient placed ion Cardizem drip and given IV Lasix. He has negative fluid balance of 1329 mL total and is less SOB at the present time. He still note occasional palpitations and he remains in A-Fib with improved V rates (60's to 70's overnight, 80 and 90's this morning while at a state of rest -- but still tachycardic with low level exertion). IV Cardizem discontinued this morning and converting to oral Diltiazem 30 mg t.i.d. in addition to Metoprolol Tartrate 100 mg b.i.d.. Patient has not experienced any angina pectoris or anginal equivalent symptoms nor has he had any symptoms suggestive of stroke or mini stroke. We discussed what atrial fibrillation is, the natural history of atrial dysrhythmias, and the risks associated with atrial fibrillation including thromboembolic phenomena. We also discussed his hypertrophic cardiomyopathy and why this will predispose him to fluid retention/Diastolic CHF. Recommend the following: -- Convert to oral Diltiazem with a goal of rate control. -- If rate is not adequately controlled (70's to 80's at rest, low 100's with ambulation) would recommend increasing Metoprolol Tartrate to 150 mg b.i.d.. -- Resume anticoagulation (either Warfarin or DOAC) when no longer contraindicated. -- Use oral Lasix as needed at discharge based on body weight and symptoms. -- Monitor daily body weights, monitor I&O's. -- 2 gram low-sodium diet. -- We would NOT pursue cardioversion until he has been fully anticoagulated for a minimum of 3.5 to 4 weeks. -- Check limited Echocardiogram to assess pericardial effusion. (4) Hypertension: BP remains elevated. -- Adding oral Diltiazem today. -- Continue Metoprolol Tartrate. -- 2 gram low sodium diet. (5) Dyslipidemia: Cholesterol values as outlined in laboratory results. -- Continue Rosuvastatin 5 mg daily. (6) Prostate cancer: -- Management as per Urology and Oncology. -- Continue Casodex. (7) Haematoma of pelvis: -- Extends from right prostate into right perirectal space. -- Hgb is stable at 12.7 g/dL today. Thank you for asking us to see this patient in consultation. We will continue to follow along and we will follow up with him as an outpatient following discharge. All the patient's questions were answered to his satisfaction. History of Present Illness Reason for Consultation: 1. A-Fib with RVR. 2. Diastolic CHF. 3. Hypertrophic Cardiomyopathy. Requesting Physician: Jose Ríos Attending Physician: Prashanth Lemus MD History of Present Illness Mr. Hernández is a 51 year old male with a history of Hypertension, Dyslipidemia, Hypertrophic Cardiomyopathy, Atrial Fibrillation with RVR (Persistent), Type 2 Diabetes Mellitus, Stage 2 CKD, Sleep Apnea, Prostate Cancer, Moderate Pericardial Effusion (Echo 07/21/21), Mild to Moderate Mitral Regurgitation, Anemia, and a Right Pelvic Hematoma (which currently precludes anticoagulation) who presented to [facility] ER on 10/05/21 complaining of Palpitations and SOB x 2 which began 3 days prior to this ER visit. Patient reported significant SOB to the group home staff. He was seen at [facility] and found to be in A-Fib with RVR. He was transported to the ER and had HR in 140s. High sensitivity Troponin I was unremarkable, electrolytes were WNL, and he was noted to have a Hgb of 12.6 g/dL. CXR showed pulmonary vascular congestion and cardiomegaly. He was treated with IV Lopressor, IV Cardizem, and IV Lasix and was then released back to [facility]. On 10/06/21 patient had ongoing Palpitations and continued to experience Dyspnea which was predominantly on exertion. He was once again found to be in A-Fib with RVR at the [facility] and was transported to [facility] ER for further evaluation. He was previously anticoagulated with Warfarin but was diagnosed with pelvic mass in July 2021 that turned out to be an enlarging right pelvic hematoma (27 x 17 x 33 mm on Pelvic MRI 10/03/21) secondary to Prostate Cancer -- therefore his Warfarin was stopped sometime between July 2021 to early September 2021. Patient was maintained on Metoprolol Tartrate 100 mg b.i.d.. Upon presentation his heart rate was in the 140s-150s and he was moderately hypertensive. Labs showed a stable anemia with a Hgb 12.6, glucose was elevated 267 mg/dL, BNP was elevated at 550 pg/mL, and high sensitivity Troponin I remained normal. CXR 10/06/21 showed cardiomegaly with pulmonary vascular congestion which had modestly improved from 10/05/21. Decision was made to admit for rate controlling IV medication and ongoing diuresis. Patient placed ion Cardizem drip and given IV Lasix. He has negative fluid balance of 1329 mL total and is less SOB at the present time. He still note occasional palpitations and he remains in A-Fib with improved V rates (60's to 70's overnight, 80 and 90's this morning while at a state of rest -- but still tachycardic with low level exertion). IV Cardizem discontinued this morning and converting to oral Diltiazem 30 mg t.i.d. in addition to Metoprolol Tartrate 100 mg b.i.d.. Patient offers no other complaints. He specifically denies any chest pain, heaviness, tightness, pressure, or discomfort. He has not had any exertional neck, jaw, back, or arm pain. He denies any orthopnea or PND. He still notes occasional palpitations. He denies any syncope or near syncope. Patient has not had any symptoms suggestive of stroke or mini stroke. Allergies Allergy/AdvReac Type Severity Reaction Status Date / Time oxycodone AdvReac Mild ITCHING Verified 10/06/21 16:19 Home Medications Medication Instructions Recorded Confirmed Type rosuvastatin 5 mg tablet 5 mg PO HS 04/18/21 10/06/21 History tamsulosin 0.4 mg capsule 0.8 mg PO HS 04/18/21 10/06/21 History finasteride 5 mg tablet 5 mg PO DAILY 07/08/21 10/06/21 History metoprolol tartrate 100 mg tablet 100 mg PO BID 07/08/21 10/06/21 History acetaminophen 500 mg tablet 1,000 mg PO TID PRN mid-moderate 08/11/21 10/06/21 Rx pain #30 tabs bicalutamide 50 mg tablet (Casodex) 50 mg PO DAILY #30 tabs 08/11/21 10/06/21 Rx ammonium lactate 12 % topical cream 1 applic topical BID 10/05/21 10/06/21 Histo ry amoxicillin 875 mg-potassium 1 tab PO BID 10/05/21 10/06/21 History clavulanate 125 mg tablet glimepiride 1 mg tablet 1 mg PO QAM 10/05/21 10/06/21 History mirtazapine 15 mg tablet 15 mg PO HS 10/05/21 10/06/21 History multivitamin 1 tab PO QAM 10/05/21 10/06/21 History oxybutynin chloride 5 mg tablet 5 mg PO DAILY 10/05/21 10/06/21 History phenylephrine 0.25 %-mineral oil 1 applic [place] BID PRN Hemorrhoids 10/05/21 10/06/21 History 14 %-petrolatm 74.9 % rectal ointment (Preparation H) polyethylene glycol 3350 17 17 g PO TID PRN Constipation 10/05/21 10/06/21 Histo ry gram/dose oral powder (Miralax) zinc oxide-cod liver oil topical 1 applic topical TID 10/05/21 10/06/21 History ointment Patient History Medical History CKD (chronic kidney disease) stage 2, GFR 60-89 ml/min Constipation Current use of emt intermediate anticoagulation Dyslipidemia Hypertension Hyponatremia Pelvic mass Perirectal hematoma Persistent atrial fibrillation Sleep apnea Type 2 diabetes mellitus Social History Smoking Status: Former smoker Tobacco Type: Cigarettes Second Hand Exposure: No; Do You Dip or Chew Tobacco: No; Tobacco Cessation Education Requested by Patient: No Hx Alcohol Use: No Hx Substance Use: No Preferred Language: Cypriot Communication Ability: Effective 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 On hormone replacement therapy. Patient does have urinary incontinence. -- 10 point ROS completed and is negative with the exception of what is mentioned in the HPI. Physical Exam Physical Exam: GENERAL: Patient in no acute distress. HEENT: Head is atraumatic, normocephalic. EOM's intact. Facies symmetric. No perioral cyanosis. NECK: No JVD. JVP is just above the clavicle sitting upright. Kussmaul's sign is absent. Carotid upstrokes are + 2 bilaterally. No bruits are noted. CHEST/LUNGS: Mildly decreased breath sounds in bilateral bases, otherwise clear. No wheezes, rales, or crackles. CVS: S1 and S2 are irregularly irregular in the mid 90's. No obvious murmurs, gallops, or rubs. PMI is nondisplaced. No lifts, heaves, or thrills. No abdominal aortic or renal bruits. ABDOMINAL EXAM: Bowel sounds are present. No masses, organomegaly, or tenderness. EXTREMITIES: No clubbing or cyanosis. No edema. Intact posterior tibial and radial pulses bilaterally. NEUROLOGIC EXAM: Patient is awake, alert, and oriented. Pleasant and cooperative. Answers questions appropriately. Speech is clear. Gait pattern was not assessed. 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 Results & Data ([facility]) Vital Signs (Past 12 Hours) Vital Signs Temp Pulse Pulse Resp BP Pulse Ox O2 Del Method 10/07/21 08:22 36.9 C 105 H 18 143/86 H 93 Room Air 10/07/21 08:16 86 10/07/21 03:35 36.7 C 65 18 132/79 97 Room Air 10/06/21 22:58 37.1 C 62 18 129/81 98 Room Air Laboratory Results Laboratory Results - last 24 hr 10/06/21 10/06/21 10/06/21 13:05 13:05 13:05 WBC 8.69 RBC 4.18 L Hgb 12.6 L Hct 37.0 L MCV 88.5 MCH 30.1 MCHC 34.1 RDW Std Deviation 41.5 RDW Coeff of Rossy 13.0 Plt Count 194 MPV 10.6 Immature Gran % (Auto) 0.5 Neut % (Auto) 56.7 Lymph % (Auto) 31.2 Rains % (Auto) 8.7 Eos % (Auto) 2.4 Baso % (Auto) 0.5 Neut # (Auto) 4.93 Lymph # (Auto) 2.71 Rains # (Auto) 0.76 Eos # (Auto) 0.21 Baso # (Auto) 0.04 Immature Gran # (Auto) 0.04 H PT 11.3 INR 1.1 APTT 28.5 PTT Ratio 1.0 Sodium 136 Potassium 4.0 Chloride 103 Carbon Dioxide 25 Anion Gap 8 BUN 16 Creatinine 0.89 Est Cr Clr Drug Dosing 106.1 Est GFR ( Amer) 113.1 Est GFR (Non-Af Amer) 97.6 BUN/Creatinine Ratio 18.0 Glucose 267 H POC Glucose Calcium 9.0 Magnesium 1.9 Total Bilirubin 0.7 AST 21 ALT 32 Alkaline Phosphatase 76 Troponin I High Sens 9.4 B-Natriuretic Peptide Total Protein 7.2 Albumin 4.1 Globulin 3.1 Albumin/Globulin Ratio 1.3 Triglycerides Cholesterol LDL Cholesterol, Calc VLDL Cholesterol, Calc HDL Cholesterol Cholesterol/HDL Ratio TSH SARS-CoV-2, RNA, NAAT 10/06/21 10/06/21 10/06/21 13:05 13:05 13:10 WBC RBC Hgb Hct MCV MCH MCHC RDW Std Deviation RDW Coeff of Rossy Plt Count MPV Immature Gran % (Auto) Neut % (Auto) Lymph % (Auto) Rains % (Auto) Eos % (Auto) Baso % (Auto) Neut # (Auto) Lymph # (Auto) Rains # (Auto) Eos # (Auto) Baso # (Auto) Immature Gran # (Auto) PT INR APTT PTT Ratio Sodium Potassium Chloride Carbon Dioxide Anion Gap BUN Creatinine Est Cr Clr Drug Dosing Est GFR ( Amer) Est GFR (Non-Af Amer) BUN/Creatinine Ratio Glucose POC Glucose Calcium Magnesium Total Bilirubin AST ALT Alkaline Phosphatase Troponin I High Sens B-Natriuretic Peptide 550 H Total Protein Albumin Globulin Albumin/Globulin Ratio Triglycerides Cholesterol LDL Cholesterol, Calc VLDL Cholesterol, Calc HDL Cholesterol Cholesterol/HDL Ratio TSH 1.121 SARS-CoV-2, RNA, NAAT NEGATIVE 10/06/21 10/07/21 10/07/21 17:26 06:58 06:58 WBC 8.21 RBC 4.29 L Hgb 12.7 L Hct 37.3 L MCV 86.9 MCH 29.6 MCHC 34.0 RDW Std Deviation 39.8 RDW Coeff of Rossy 12.8 Plt Count 194 MPV 10.7 Immature Gran % (Auto) 0.4 Neut % (Auto) 51.8 Lymph % (Auto) 35.8 Rains % (Auto) 7.8 Eos % (Auto) 3.7 Baso % (Auto) 0.5 Neut # (Auto) 4.26 Lymph # (Auto) 2.94 Rains # (Auto) 0.64 Eos # (Auto) 0.30 Baso # (Auto) 0.04 Immature Gran # (Auto) 0.03 H PT INR APTT PTT Ratio Sodium 136 Potassium 3.9 Chloride 101 Carbon Dioxide 28 Anion Gap 7 BUN 15 Creatinine 0.89 Est Cr Clr Drug Dosing 105.5 Est GFR ( Amer) 113.1 Est GFR (Non-Af Amer) 97.6 BUN/Creatinine Ratio 16.9 Glucose 155 H POC Glucose 155 H Calcium 9.2 Magnesium Total Bilirubin AST ALT Alkaline Phosphatase Troponin I High Sens B-Natriuretic Peptide Total Protein Albumin Globulin Albumin/Globulin Ratio Triglycerides 90 Cholesterol 170 LDL Cholesterol, Calc 111 VLDL Cholesterol, Calc 18 HDL Cholesterol 41 Cholesterol/HDL Ratio 4.1 TSH SARS-CoV-2, RNA, NAAT 10/07/21 07:26 WBC RBC Hgb Hct MCV MCH MCHC RDW Std Deviation RDW Coeff of Rossy Plt Count MPV Immature Gran % (Auto) Neut % (Auto) Lymph % (Auto) Rains % (Auto) Eos % (Auto) Baso % (Auto) Neut # (Auto) Lymph # (Auto) Rains # (Auto) Eos # (Auto) Baso # (Auto) Immature Gran # (Auto) PT INR APTT PTT Ratio Sodium Potassium Chloride Carbon Dioxide Anion Gap BUN Creatinine Est Cr Clr Drug Dosing Est GFR ( Amer) Est GFR (Non-Af Amer) BUN/Creatinine Ratio Glucose POC Glucose 151 H Calcium Magnesium Total Bilirubin AST ALT Alkaline Phosphatase Troponin I High Sens B-Natriuretic Peptide Total Protein Albumin Globulin Albumin/Globulin Ratio Triglycerides Cholesterol LDL Cholesterol, Calc VLDL Cholesterol, Calc HDL Cholesterol Cholesterol/HDL Ratio TSH SARS-CoV-2, RNA, NAAT Diagnostic Findings CXR 10/06/21: FINDINGS: An AP, portable, upright chest radiograph is compared to study dated 10/05/2021 and correlated with chest CT dated 07/24/2021. The examination is degraded by portable technique and apical lordotic positioning. The heart is enlarged. There is pulmonary vascular congestion. Atelectasis is noted at the lung bases. Suspect trace pleural effusions. No pneumothorax is seen. The bony thorax is grossly intact. IMPRESSION: -- Cardiomegaly with pulmonary vascular congestion. This has modestly improved from yesterday. Medications Administered Medications rosuvastatin 5 mg tablet 5 mg PO HS 04/18/21 [History Confirmed 10/06/21] tamsulosin 0.4 mg capsule 0.8 mg PO HS 04/18/21 [History Confirmed 10/06/21] finasteride 5 mg tablet 5 mg PO DAILY 07/08/21 [History Confirmed 10/06/21] metoprolol tartrate 100 mg tablet 100 mg PO BID 07/08/21 [History Confirmed 10/06/21] acetaminophen 500 mg tablet 1,000 mg PO TID PRN mid-moderate pain #30 tabs 08/11/21 [Rx Confirmed 10/06/21] bicalutamide 50 mg tablet (Casodex) 50 mg PO DAILY #30 tabs 08/11/21 [Rx Confirmed 10/06/21] ammonium lactate 12 % topical cream 1 applic topical BID 10/05/21 [History Confirmed 10/06/21] amoxicillin 875 mg-potassium clavulanate 125 mg tablet 1 tab PO BID 10/05/21 [History Confirmed 10/06/21] glimepiride 1 mg tablet 1 mg PO QAM 10/05/21 [History Confirmed 10/06/21] mirtazapine 15 mg tablet 15 mg PO HS 10/05/21 [History Confirmed 10/06/21] multivitamin 1 tab PO QAM 10/05/21 [History Confirmed 10/06/21] oxybutynin chloride 5 mg tablet 5 mg PO DAILY 10/05/21 [History Confirmed 10/06/21] phenylephrine 0.25 %-mineral oil 14 %-petrolatm 74.9 % rectal ointment (Preparation H) 1 applic [place] BID PRN Hemorrhoids 10/05/21 [History Confirmed 10/06/21] polyethylene glycol 3350 17 gram/dose oral powder (Miralax) 17 g PO TID PRN Constipation 10/05/21 [History Confirmed 10/06/21] zinc oxide-cod liver oil topical ointment 1 applic topical TID 10/05/21 [History Confirmed 10/06/21] Home Medications Acetaminophen (Acetaminophen 325 Mg Tab) 650 mg PO Q4H PRN PRN Reason: Pain or Fever Stop: 11/05/21 16:39 Last Admin: 10/06/21 19:25 Dose: 650 mg Bicalutamide (Bicalutamide 50 Mg Tab) [address] [facility] Stop: 11/06/21 08:59 Dextrose (Dextrose 50% 50 Ml Syringe) 25 - 50 ml IV UD PRN; Protocol PRN Reason: Hypoglycemia Protocol Stop: 11/05/21 16:39 Diltiazem HCl (Diltiazem Hcl 30 Mg Tab) [address] [facility] Stop: 11/05/21 20:59 Last Admin: 10/06/21 21:11 Dose: 30 mg Finasteride (Finasteride 5 Mg Tab) 5 mg PO DAILY [facility] Stop: 11/06/21 08:59 Glimepiride (Glimepiride 2 Mg Tab) 1 mg PO QDB [facility] Stop: 11/06/21 07:29 Glucagon (Glucagon For Inj 1 Mg Vial) 1 mg SQ UD PRN; Protocol PRN Reason: Hypoglycemia Protocol Stop: 11/05/21 16:39 Glucose (Glucose 40% Gel 15 Gm Tube) 15 - 30 gm PO UD PRN; Protocol PRN Reason: Hypoglycemia Protocol Stop: 11/05/21 16:39 Glucose (Glucose 10 Tab/Tube) 4 - 8 tab PO UD PRN; Protocol PRN Reason: Hypoglycemia Treatment Stop: 11/05/21 16:39 Diltiazem HCl 125 mg/ Dextrose 125 mls @ 0 mls/hr IV .Q0M [facility]; Protocol Stop: 11/05/21 13:14 Last Titration: 10/06/21 23:21 Dose: 0 mg/hr, 0 mls/hr Insulin Aspart (Insulin Aspart Per Unit) [address] [facility] Stop: 11/05/21 16:39 Last Admin: 10/06/21 20:32 Dose: Not Given Metoprolol Tartrate (Metoprolol Tartrate 100 Mg Tab) [address] [facility] Stop: 11/05/21 20:59 Last Admin: 10/06/21 21:11 Dose: 100 mg Mirtazapine (Mirtazapine Tab 15 Mg Tab) [address] [facility] Stop: 11/05/21 20:59 Last Admin: 10/06/21 21:10 Dose: 15 mg Miscellaneous (Carbohydrates For Hypoglycemia ) 15 - 30 gm PO UD PRN PRN Reason: Hypoglycemia Protocol Stop: 11/05/21 16:39 Multivitamins (Multivitamin Tab) [address] [facility] Stop: 11/06/21 08:59 Ondansetron HCl (Ondansetron Inj 2 Mg/Ml 2 Ml Vial) 4 mg IV Q6H PRN PRN Reason: Nausea Stop: 11/05/21 16:39 Oxybutynin Chloride (Oxybutynin Chloride 5 Mg Tab) 5 mg PO DAILY [facility] Stop: 11/06/21 08:59 Rosuvastatin Calcium (Rosuvastatin Calcium 5 Mg Tab) 5 mg PO HS [facility] Stop: 11/05/21 20:59 Last Admin: 10/06/21 21:10 Dose: 5 mg Tamsulosin HCl (Tamsulosin Hcl 0.4 Mg Cap) 0.[address] [facility] Stop: 11/05/21 20:59 Last Admin: 10/06/21 21:10 Dose: 0.8 mg PG Care Time/CCT Total # of Minutes Spent Total Time Spent with Patient: Total time spent is greater than 50% in coordination of care (as documented) at patient's floor/unit and/or counseling patient:34 Coding Level of Care Code 50753 Inpt Consult Level 5 History Detailed Exam Detailed Medical Decision Making High Complexity Diagnoses Atrial fibrillation with RVR I48.91 Hypertrophic cardiomyopathy I42.2 Acute diastolic CHF (congestive heart failure) I50.31 Hypertension I10 Dyslipidemia E78.5 Prostate cancer C61 Haematoma of pelvis Time Spent (min) 62
[2021-10-07] MEDS: dilTIAZem HCL 30 MG TAB PO SCH ×4 (09:31→20:33)
[2021-10-07] MEDS: FINASTERIDE 5 MG TAB PO SCH (09:32)
[2021-10-07] MEDS: MULTIVITAMIN TAB PO SCH (09:32)
[2021-10-07] MEDS: GLIMEPIRIDE 2 MG TAB PO SCH (09:32)
[2021-10-07] MEDS: METOPROLOL TARTRATE 100 MG TAB PO SCH ×2 (09:32→20:33)
[2021-10-07] MEDS: INSULIN ASPART PER UNIT SC SCH ×4 (09:35→20:34)
[2021-10-07] MEDS: OXYBUTYNIN CHLORIDE 5 MG TAB PO SCH (09:35)
[2021-10-07] MEDS: BICALUTAMIDE 50 MG TAB PO SCH (09:35)
--- NOTE | 2021-10-07 16:57 | Electrocardiogram Report ---
Test Reason : Blood Pressure : / mmHG Vent. Rate : 130 BPM Atrial Rate : 120 BPM P-R Int : 000 ms QRS Dur : 074 ms QT Int : 312 ms P-R-T Axes : 000 -28 065 degrees QTc Int : 459 ms Atrial fibrillation with rapid ventricular response Nonspecific T wave abnormality Abnormal ECG When compared with ECG of 05-OCT-2021 12:46, No significant change was found Confirmed by Prashanth Lemus ([id number]) on 10/07/2021 4:57:38 PM Referred By: Yaa HOWARD Confirmed By:Prashanth eLmus
[2021-10-07] MEDS: MIRTAZAPINE TAB 15 MG TAB PO SCH (20:33)
[2021-10-07] MEDS: TAMSULOSIN HCL 0.4 MG CAP PO SCH (20:33)
[2021-10-07] MEDS: ROSUVASTATIN CALCIUM 5 MG TAB PO SCH (20:34)
--- NOTE | 2021-10-07 20:55 | Hospitalist Progress Note ---
Date of Service October 07, 2021 Assessment & Plan (1) Atrial fibrillation with RVR: Plan: - Initial HR 160s with secondary CHF likely from rapid HR. - K+ 4.0, Mg++ 1.9. TSH wnl. - Started on Cardizem gtt in ED, will continue this, add on PO Cardizem 30 mg TID in addition to Lopressor 100 mg BID. - Consult cardiology. - Echo in July showed hypertrophic cardiomyopathy with EF > 70% - No anticoagulation due to pelvic hematoma. -on 10/07 Patient's heart rate has improved, on dilitazem 30 mg PO TID. Patient also on metoprolol 100 mg PO BID. (2) Congestive heart failure: Plan: - 04/23 afib RVR. - BNP 550. - 20 mg IV Lasix x1 now. - Monitor I/Os. (3) Prostate cancer: Plan: - Current tx includes Casodex 50 mg PO daily and Lupron SQ q3 months. - Continue Proscar, Flomax for retention. Also taking oxybutynin for incontinence. (4) Incontinence: Plan: - Continue oxybutynin. (5) Type 2 diabetes mellitus: Plan: - Accucheks ACHS with SSI. (6) Hypertension: Plan: - Previously on lisinopril and HCTZ, however BP was well controlled while off these medications during last admission, thus they were d/c'd - Continue on metoprolol 100 mg BID. (7) Dyslipidemia: Plan: - Continue rosuvastatin 5 mg HS. (8) CKD (chronic kidney disease) stage 2, GFR 60-89 ml/min: Plan: - Renal function at baseline. - Renally dose medications as able, avoid nephrotoxins. Plan - Admit to PCU. - SCDs for VTE ppx. - DNR/DNI. Admission and Anticipated Discharge Date Admission Date: October 06, 2021 Subjective Patient reports feeling well. He has no new complaints. Review of Systems Review of Systems: All systems reviewed & are unremarkable except as noted in HPI & below Physical Exam Physical Exam: General: awake, alert, no apparent distress Head: Normocephalic, atraumatic ENT: PERRL, EOMI, no pharyngeal exudate, mucous membranes moist Chest: Clear to auscultation, on room air, no adventitious breath sounds Cardiac: irregular rhythm consistent with afib; regular rate, no murmur, no JVD, normal peripheral pulses, good capillary refill Abdominal: NABS x 4 quadrants, soft, nontender to palpation, no rebound, guarding or tenderness Extremities: Normal inspection, no peripheral edema or erythema, calfs nontender to palpation Psych: Normal mood and affect Neuro: AAO x 3, strength intact bilaterally and rated 5/5, no motor deficits, speech is clear, no peripheral sensory deficits Skin: no rash or erythema Results & Data Results & Data ([facility]) Vital Signs (Past 12 Hours) Vital Signs Temp Pulse Resp BP Pulse Ox O2 Del Method 10/07/21 18:57 36.6 C 85 18 125/78 95 Room Air 10/07/21 17:02 37 C 90 18 137/88 94 Room Air 10/07/21 12:32 36.9 C 79 18 113/77 97 Room Air PG Care Time/CCT Total # of Minutes Spent Total Time Spent with Patient: Total time spent is greater than 50% in coordination of care (as documented) at patient's floor/unit and/or counseling patient: Coding Level of Care Code 19613 Subseq Hosp Care Lvl 2 Diagnoses Atrial fibrillation with RVR I48.91 Congestive heart failure I50.9 Prostate cancer C61 Incontinence R32 Type 2 diabetes mellitus E11.9 Hypertension I10 Dyslipidemia E78.5 CKD (chronic kidney disease) stage 2, GFR 60-89 ml/min N18.2
[2021-10-08 07:40] LABS: Hematocrit (blood only) 40.7 % (40.1-51.0); Hemoglobin 14.2 g/dl (14.0-18.0); Mean Corpuscular Hemoglobin 30.3 pg (25.0-34.0); Mean Corpuscular Hgb Conc 34.9 g/dL (32.0-36.0); Mean Platelet Volume 10.4 fL (9.4-12.4); Platelet Count 192 K/uL (130-400); Red Blood Count 4.68 M/uL (4.63-6.08); White Blood Count 8.19 K/ul (4.8-10.8)
[2021-10-08] MEDS: BICALUTAMIDE 50 MG TAB PO SCH (07:57)
[2021-10-08] MEDS: MULTIVITAMIN TAB PO SCH (07:58)
[2021-10-08] MEDS: FINASTERIDE 5 MG TAB PO SCH (07:58)
[2021-10-08] MEDS: dilTIAZem HCL 30 MG TAB PO SCH ×3 (07:58→20:01)
[2021-10-08] MEDS: METOPROLOL TARTRATE 100 MG TAB PO SCH ×2 (07:58→20:01)
[2021-10-08] MEDS: GLIMEPIRIDE 2 MG TAB PO SCH (07:58)
[2021-10-08] MEDS: OXYBUTYNIN CHLORIDE 5 MG TAB PO SCH (07:58)
[2021-10-08] MEDS: INSULIN ASPART PER UNIT SC SCH ×3 (08:04→16:43)
[2021-10-08 08:13] LABS: BUN Creatinine Ratio 16.1 (10-20); Calcium 9.6 mg/dl (8.5-10.1); Creatinine Clr Calc Pharmacy 99.9 ml/min; Est GFR (African American) 108.2 ml/min; Est GFR (Non-African American) 93.4 ml/min; Potassium 4.2 mmol/L (3.5-5.1)
[2021-10-08 19:36] VITALS: PULSE 90; TEMP 98.2; O2SAT 97
[2021-10-08 20:00] VITALS: BP 135/96
[2021-10-08] MEDS: TAMSULOSIN HCL 0.4 MG CAP PO SCH (20:01)
[2021-10-08] MEDS: MIRTAZAPINE TAB 15 MG TAB PO SCH (20:01)
[2021-10-08] MEDS: ROSUVASTATIN CALCIUM 5 MG TAB PO SCH (20:02)
== END 2021-10-08 20:42 | disposition home or self-care (01) | DRG 291 ==
LOC: ED 12:41 → 2S 15:24 → SUATTDRO 15:24 → 2S 16:07

== ENCOUNTER 2022-10-15 12:46 | Observation (INO) ==
--- NOTE | 2022-10-12 11:45 | Anesthesiology Consultation ---
Date of Service October 12, 2022 Assessment & Plan (1) Encounter for pre-operative examination: Chart Review Chart Review: Acceptable Risk for Surgery (pending anesthesia evaluation DOS and anesthesia review of unconfirmed EKG DOS ) and Patient NOT seen in Pre Admission Testing - Discussed with Dr. Telles- unable to get patient scheduled with cardio prior to surgery and surgery otherwise would take months to reschedule- patient had negative stress test Mar 2022. Patient can proceed as scheduled at this time- will be reassessed DOS- if having any active/concerning cardiac symptoms- patient will need rescheduled- surgeon's office informed - Check BSG AM DOS -COVID screening: Per PAT nursing assessment on 10/06/22. Pt resides at [facility]. No current Covid in facility. No known COVID-19 positive contacts or current COVID-19 related symptoms. Travel screen negative. Unknown if patient vaccinated for Covid. Preop Covid testing 10/09/22= negative. Covid test will be 6 days old by DOS- Amaro ordered for DOS Pt last seen by cardio 04/28/22= Patient seen for cardiology follow-up. Since last appointment 1 year ago patient has been admitted several times for treatment of advanced prostate cancer metastatic to pelvis. This resulted in necrotic and hemorrhagic mass in the pelvistreated with radiation therapy and androgen deprivation therapydue to hemorrhagic massanticoagulation was discontinued. Stress test 04/20/2022 showed no evidence of myocardial ischemia by EKG or echo criteria. Does have hypertrophic cardiomyopathy. Evidence of LV outflow tract obstruction. If he walks 150 yards he becomes dyspneic and has associated mild lightheadedness. He also has dyspnea with quick strenuous exertion. Associated with the dyspnea is mild chest heaviness.Permanent atrial fibrillation with rapid ventricular response to exercise. Associated cardiac awareness. Hypertrophic cardiomyopathy with normal LVEF. DOErelated to hypertrophic cardiomyopathy and A-fib with RVR the RVR with decreased diastolic filling time. This would exacerbate elevated intracardiac pressures. Associated with the dyspnea is chest heaviness. Stress echo showed no evidence of stress-induced ischemia by EKG or echo criteria. Did have hypertensive response to exercise. From an atrial fibrillation standpoint anticoagulation therapy is indicated. If it is felt from a urologic cancer standpoint that he could resume anticoagulation therapy with then resume AC therapy. We will leave to urologist discretion. Increase diltiazem. Continue metoprolol. Follow-up in 6 months. History Surgery Operation Date: 10/15/22 11:10 Proposed Procedures p Transurethral Resection Prostate - Bassam Hernandez, Height/Weight Height: 5 ft 7 in Weight: 104.78 kg Allergies Allergy/AdvReac Type Severity Reaction Status Date / Time oxycodone AdvReac Mild no rxn Verified 10/06/22 13:24 observed to be listed on faxed info/rxn noted as mild Medications Home Medications Medication Instructions Recorded Confirmed Last Taken rosuvastatin 5 mg tablet 5 mg PO HS 04/18/21 10/06/22 08/01/21 tamsulosin 0.4 mg capsule 0.8 mg PO HS 04/18/21 10/06/22 08/01/21 finasteride 5 mg tablet 5 mg PO DAILY 07/08/21 10/06/22 08/03/21 metoprolol tartrate 100 mg tablet 100 mg PO BID 07/08/21 10/06/22 08/03/21 bicalutamide 50 mg tablet (Casodex) 50 mg PO DAILY #30 tabs 08/11/21 10/06/22 10/06/21 08:00 glimepiride 1 mg tablet 2 mg PO DAILY 10/05/21 10/06/22 10/06/21 08:00 multivitamin 1 tab PO DAILY 10/05/21 10/06/22 Unknown polyethylene glycol 3350 17 17 g PO TID PRN Constipation 10/05/21 10/06/22 Unknown gram/dose oral powder (Miralax) leuprolide (3 month) 22.5 mg (3 22.5 mg IM .Q3 months 11/10/21 10/06/22 Unknown month) intramuscular syringe kit (Lupron Depot) oxybutynin chloride 5 mg tablet 5 mg PO QID 11/25/21 10/06/22 Unknown apixaban 5 mg tablet (Eliquis) 5 mg PO BID 04/28/22 10/06/22 Unknown sennosides 8.6 mg-docusate sodium 2 tab PO DAILY 04/28/22 10/06/22 Unknown 50 mg tablet (Laxative Stool Softener With Senna) Vitamin E Lotion 1 dose topical BID 10/06/22 10/06/22 Unknown cranberry fruit concentrate 250 mg 250 mg PO DAILY 10/06/22 10/06/22 Unknown chewable tablet (Azo Cranberry) diltiazem HCl 30 mg tablet 60 mg PO TID 10/06/22 10/06/22 Unknown furosemide 40 mg tablet (Lasix) 10 mg PO DAILY 10/06/22 10/06/22 Unknown gluc ymti-iiqacqbmuiyq-[id number] 1 ea mucous membrane QID PRN as 10/06/22 10/06/22 Unknown mouthwash directed Past Medical History Medical History (Updated 10/12/22 @ 13:36 by Juliette Wilkins PA-C) Afib on Eliquis BPH (benign prostatic hyperplasia) Cellulitis Per [facility] records Congestive heart failure, unspecified Constipation Diabetes mellitus type 2, uncomplicated Heartburn Hemorrhoids HTN (hypertension), benign Hyperlipidemia Hypertrophic cardiomyopathy Normal LVEF per cardio records Prostate cancer s/p partial resection per records Sleep apnea, obstructive SOB (shortness of breath) GUEVARA- could be related to hypertrophic cardiomyopathy and a fib with RVR in response to exercise; recent stress ECHO showed no ischemia per cardio records Social History Smoking Status: Unknown if ever smoked tobacco type: cigarettes Do You Dip or Chew Tobacco: No Hx Alcohol Use: No Hx Substance Use: No Testing Laboratory Results 10/05/22= WBC: 6.49 H/H: 13.8/40.7 PLATELETS: 194 SODIUM: 138 POTASSIUM: 4.2 CHLORIDE: 102 CO2: 28 BUN: 11 CREATININE: 1.20 GLUCOSE: 280 Electrocardiogram Date: 10/04/22 Findings: + AFIB @ (62bpm ) Nonspecific T wave abnormality unconfirmed- will need reviewed by anesthesia DOS Chest X-Ray Date: 10/05/22 Findings: + NAD and + cardiomegaly Echocardiogram Date: 07/21/21 EF: >70% RWMA: + none Left ventricle is hyperdynamic. Echo findings are consistent with hypertrophic cardiomyopathy. Severe concentric LVH. Left atrium is severely dilated. Mild to moderate MR Systolic anterior motion of mitral valve. Moderate sized pericardial effusion. No echocardiographic indications of cardiac tamponade Stress Test Date: 04/20/22 Type: exercise (ECHO ) Resting EF: 65-70% Normal stress echocardiogram at 4.6 METS and peak heart rate of greater than 100% MPHR. No exercise-induced chest pain. No EKG changes. Baseline echocardiogram notes normal systolic function and severe LV hypertrophy. Mild MR
[~2022-10-15 12:46] MED LIST: LR 15ML/HR IV SCH
--- NOTE | 2022-10-15 13:39 | History & Physical Report ---
Date of Service October 15, 2022 Assessment & Plan (1) Prostate cancer: (2) Elevated PSA: (3) Haematoma of pelvis: (4) Pelvic mass: (5) CKD (chronic kidney disease) stage 2, GFR 60-89 ml/min: Plan Patient with history of significant metastatic and regionally invasive prostate cancer with bladder outlet obstruction secondary to pelvic mass. Patient had undergone resection found to have large necrotic mass with findings of prostate cancer. Patient subsequently underwent treatment. Is improving since out from the initial diagnosis and has been undergoing therapy and management of his ongoing issues related to the prostate cancer. Has been having worsening lower urinary tract issues. Patient underwent work-up and found to have considerable obstructive issues. The patient had previously had significant resection of the prostate on the left however due to the large mass and mass effect from the pelvic mass the remainder of the prostate was only minimally resected. Now that the issues have improved significantly the prostate was becoming more more obstructed secondary to the remaining tissue from the previous resection. Extensive conversation of options. Risks and benefits discussed at length for procedure. These include bleeding, infection, injury to surrounding tissues or organs, and risks associated with anesthesia. Patient states understanding and agrees to proceed. Will sign consent and schedule. Plan for cystoscopy with transurethral resection of prostate History of Present Illness Primary Care Provider: SYLVIA Montejo Patient here for procedure. No changes in medical issues. No major changes in urinary issues. Continued issues and concerns. No change in pain or discomfort. No severe fevers or chills. No chest pain or shortness of breath. Risks and benefits discussed at length for procedure. These include bleeding, infection, injury to surrounding tissues or organs, and risks associated with anesthesia. Patient and/or family states understanding and agrees to proceed. Consent and supporting information completed. Allergies Allergy/AdvReac Type Severity Reaction Status Date / Time oxycodone AdvReac Mild no rxn Verified 10/15/22 13:05 observed to be listed on faxed info/rxn noted as mild Home Medications Medication Instructions Recorded Confirmed Type rosuvastatin 5 mg tablet 5 mg PO HS 04/18/21 10/15/22 History tamsulosin 0.4 mg capsule 0.8 mg PO HS 04/18/21 10/15/22 History finasteride 5 mg tablet (Proscar) 5 mg PO DAILY 07/08/21 10/15/22 History metoprolol tartrate 100 mg tablet 100 mg PO BID 07/08/21 10/15/22 History bicalutamide 50 mg tablet (Casodex) 50 mg PO DAILY #30 tabs 08/11/21 10/15/22 Rx glimepiride 1 mg tablet 2 mg PO DAILY 10/05/21 10/15/22 History multivitamin 1 tab PO DAILY 10/05/21 10/15/22 History polyethylene glycol 3350 17 17 g PO TID PRN Constipation 10/05/21 10/15/22 History gram/dose oral powder (Miralax) leuprolide (3 month) 22.5 mg (3 22.5 mg IM .Q3 months 11/10/21 10/15/22 History month) intramuscular syringe kit (Lupron Depot) oxybutynin chloride 5 mg tablet 5 mg PO QID 11/25/21 10/15/22 History apixaban 5 mg tablet (Eliquis) 5 mg PO BID 04/28/22 10/15/22 History sennosides 8.6 mg-docusate sodium 2 tab PO DAILY 04/28/22 10/15/22 History 50 mg tablet (Laxative Stool Softener With Senna) Vitamin E Lotion 1 dose topical BID 10/06/22 10/15/22 History cranberry fruit concentrate 250 mg 250 mg PO BID 10/06/22 10/15/22 History chewable tablet (Azo Cranberry) diltiazem HCl 30 mg tablet 60 mg PO TID 10/06/22 10/15/22 History furosemide 40 mg tablet (Lasix) 10 mg PO DAILY 10/06/22 10/15/22 History gluc qtgo-rvtacqmoldqo-twtvong 1 ea mucous membrane QID PRN as 10/06/22 10/15/22 History mouthwash directed Past Med/Surg History Medical History Afib on Eliquis BPH (benign prostatic hyperplasia) Cellulitis Per [facility] Congestive heart failure, unspecified Constipation Diabetes mellitus type 2, uncomplicated Heartburn Hemorrhoids HTN (hypertension), benign Hyperlipidemia Hypertrophic cardiomyopathy Normal LVEF per cardio records Prostate cancer s/p partial resection per records Sleep apnea, obstructive SOB (shortness of breath) GUEVARA- could be related to hypertrophic cardiomyopathy and a fib with RVR in response to exercise; recent stress ECHO showed no ischemia per cardio records Social History Smoking Status: Unknown if ever smoked Tobacco Type: Cigarettes Second Hand Exposure: No; Do You Dip or Chew Tobacco: No; Hx Alcohol Use: No Hx Substance Use: No Preferred Language: Polish Communication Ability: Effective Nutrition Professor Required: No Beliefs That Will Affect Care: None marital status: Single Current Living Situation: Other Current Living Situation Comment: [facility] Feels Safe at Home: No Is there a partner from a previous relationship who is making you feel unsafe now?: No Assistive Devices: None Review of Systems All systems reviewed & are unremarkable except as noted in HPI & below Physical Exam Physical Exam: General: Alert/Arousable. No Acute illness. . HEENT: Inspection normal. Normal inspection of face. Normal inspection of neck. Psychologic: Normal affect/No change in mentation. Respiratory: No use of accessory muscles. No respiratory changes or exacerbation or changes with tachypnea or dyspnea. Cardiovascular: No tachycardia Skin: [place] and Dry. No new rashes or visible lesions. Abdomen: Normal inspection. No guarding. Results & Data Vital Signs (Past 12 Hours) Vital Signs Temp Pulse Resp BP Pulse Ox O2 Del Method 10/15/22 13:23 36.8 C 104 H 18 146/97 H 98 Room Air PG Care Time/CCT Total # of Minutes Spent Total Time Spent with Patient: Total time spent is greater than 50% in coordination of care (as documented) at patient's floor/unit and/or counseling patient: Coding Level of Care Code None Diagnoses Prostate cancer C61 Elevated PSA R97.20 Haematoma of pelvis Pelvic mass R19.00 CKD (chronic kidney disease) stage 2, GFR 60-89 ml/min N18.2
[2022-10-15] MEDS ORDERED: ONDANSETRON INJ 2 MG/ML 2 ML VIAL ONE (14:22)
[2022-10-15] MEDS ORDERED: MIDAZOLAM HCL 1 MG/ML 2ML VIAL ONE (14:22)
[2022-10-15] MEDS ORDERED: LIDOCAINE 2% 2 ML VIAL/AMP(20MG/ML) INFIL ONE (14:22)
[2022-10-15] MEDS ORDERED: PROPOFOL IV EMULSION 10 MG/ML 20 ML VIAL IV ONE (14:22)
[2022-10-15] MEDS ORDERED: fentaNYL citrate PF 100 MCG/2 ML VIAL ONE (14:22)
[2022-10-15] MEDS ORDERED: LABETALOL HCL IV 5 MG/ML 20ML IV PRN (14:24)
[2022-10-15] MEDS ORDERED: PROMETHAZINE HCL 6.25 MG in SODIUM CHLORIDE 0.9% 50 ML IV PRN (14:24)
[2022-10-15] MEDS ORDERED: ATROPINE SULFATE 0.1 MG/ML 10ML SYR IV PRN (14:24)
[2022-10-15] MEDS ORDERED: ONDANSETRON INJ 2 MG/ML 2 ML VIAL IV PRN ×2 (14:24→16:31)
[2022-10-15] MEDS ORDERED: fentaNYL citrate PF 100 MCG/2 ML VIAL IV PRN (14:24)
[2022-10-15] MEDS ORDERED: PHENYLEPHRINE 100MCG/ML 5ML SYR ONE (15:15)
[2022-10-15] MEDS ORDERED: ESMOLOL HCL INJ 10 MG/ML 10ML VIAL IV ONE (15:15)
[2022-10-15] MEDS ORDERED: METOPROLOL TARTRATE 1 MG/ML VIAL IV ONE (15:15)
[2022-10-15] MEDS ORDERED: KETOROLAC 30 MG/ML VIAL ONE (15:18)
--- NOTE | 2022-10-15 15:27 | Operative Report ---
PG Post Operative Report Pre & Post Diagnosis Operation Date: 10/15/22 14:25 Pre-Op Diagnosis: Elevated prostate specific antigen, Pelvic Mass, Prostate Cancer Post-Op Diagnosis: Elevated prostate specific antigen, Pelvic Mass, Prostate Cancer I identified the patient and participated in the time-out.: Yes Procedure Operation Date: 10/15/22 14:25 Actual Procedures p Transurethral Resection of Prostate(Not Applicable) - Bassam Hernandez DO Surgeon Bassam Hernandez, II, DO Engineering Inspection Assistant None Estimated Blood Loss 5 Findings Consistent with Post-Op Diagnosis Previous resection of large prostatic tumor/pelvic mass with obstruction with irregular regrowth. Specimens Prostate Resection Drains 22Fr [address] Catheter Anesthesia Type General Complications none Disposition Disposition: Recovery Room Indications Patient with obstruction due to irregular regrowth and prostate cancer. Risks and benefits discussed at length. Description of Procedure Patient was consented and brought back to the operating room. Patient was placed under anesthesia in the supine position and moved to the dorsal lithotomy posit ion. Patient was prepped and draped in the regular sterile fashion. A time out was completed. A 30degree Cystoscope was placed into the bladder and the entire bladder was examined. The UO's were identified as well as the bladder neck, trigone, dome, and the other important landmarks. The prostatic urethra and lobes/adenoma was assessed and the veru and bladder neck identified and area/size was assessed. Patient previously had a considerable resection of a large pelvic mass/prostatic tumor causing severe obstruction. Patient has subsequently undergone treatment for the prostate cancer but still has some irregular flow through the urethra with a considerable obstructive issue. A moderate amount of the residual tissue and regrowth on the right side and anterior portion causing obstructive issues and leakage. The resection scope was placed and the fine bipolar loop was selected. Starting at the 5 and 7 o'clock positions, a channel was created from bladder neck to the veru. Once this was resected resection began along the right lateral wall. The right lateral lobe was resected starting at the 11 o'clock position and moving down to the channel that was created. Across the 11 to 1 o'clock position a moderate amount of tissue remained and was causing obstruction as well. This was most prominent near the bladder neck. The resection scope was then used to resect this tissue as well. A small amount of scar tissue and mild narrowing of the left bladder neck was also observed. A mild amount of resection was completed on the left side. At this point the channel was assessed. The configuration of the channel had drastically improved with the resection of the excess tissue and irregular regrowth. The Veru was spared through the resection process. And was monitored the entire time The Specimen was removed and sent for analysis. The resection bed and any bleeding areas were fulgurated/cauterized and the entire area inspected. All bleeding was controlled. The bladder was inspected a final time. The bladder was emptied and irrigated. All specimen and debris was removed. The scope was removed with the bladder partially full. A catheter was placed and balloon elevated. This was easily irrigated. The patient was cleaned, aroused from anesthesia, and transferred to the pacu in stable condition having tolerated the procedure well with no complications. I was present and participated in all aspects of the procedure. The patient will be monitored in the PACU until transferred. We will plan to observe overnight with CBI. We will plan for discharge likely tomorrow with plans to maintain catheter for approximately 2 weeks for full healing. Catheter can be removed at the facility. We will plan to follow-up in approximately 3 to 4 months for reevaluation I attest to the content of the Intraoperative Record and any orders documented therein. Any exceptions are noted below.
--- NOTE | 2022-10-15 15:56 | Anesthesiology Progress Note ---
Date of Service October 15, 2022 Anesthesia Post Procedure Vital Signs Vital Signs: Temp Pulse Resp BP Pulse Ox O2 Del Method O2 Flow Rate 10/15/22 15:50 75 14 127/94 93 Room Air 10/15/22 15:40 73 12 114/66 96 Room Air 10/15/22 15:31 96.8 F L 76 12 118/78 97 Oxymask 97 10/15/22 13:23 98.2 F 104 H 18 146/97 H 98 Room Air Transfer of Care Handoff Completed per policy Notes Mental Status: alert / awake / arousable and participated in evaluation Patient Amnestic to Procedure: Yes Nausea / Vomiting: adequately controlled Pain: adequately controlled Airway Patency, RR, SpO2: stable & adequate BP & HR: stable & adequate Hydration State: stable & adequate Anesthetic Complications: no major complications apparent and Pt Satisfied with anesthetic care
[2022-10-15] MEDS ORDERED: POLYETHYLENE (MIRALAX) 17 GM PACK PO PRN (16:31)
[2022-10-15] MEDS ORDERED: MoRPHine SULFATE 2 MG/ML CARP IV PRN (16:31)
[2022-10-15] MEDS ORDERED: PHENAZOPYRIDINE HCL 200 MG TAB PO PRN (16:31)
[2022-10-15] MEDS: SODIUM CHLORIDE 0.9% 1000ML 1,000 ML IV SCH (16:44)
[2022-10-15] MEDS ORDERED: GLUCAGON FOR INJ 1 MG VIAL SQ PRN (16:54)
[2022-10-15] MEDS ORDERED: DEXTROSE 50% 50 ML SYRINGE IV PRN (16:54)
[2022-10-15] MEDS ORDERED: CARBOHYDRATES FOR HYPOGLYCEMIA PO PRN (16:54)
[2022-10-15] MEDS ORDERED: GLUCOSE 10 TAB/TUBE PO PRN (16:54)
[2022-10-15] MEDS ORDERED: GLUCOSE 40% GEL 15 GM TUBE PO PRN (16:54)
--- NOTE | 2022-10-15 16:54 | Hospitalist Consultation ---
Date of Consultation October 15, 2022 Assessment & Plan (1) Prostate cancer: s/p Transurethral Resection of Prostate(Not Applicable) - Bassam Hernandez, . EBL 5cc. For prostate ca, has been maintained on Casodex daily, Leuprolide Q3M injections. Per Dr Valles, last PSA undetectable. Last value in system <0.008 in July 2022 and doing well on this regimen. Also s/p radiation completed in Dec 2021 (PSA had been 103 when I had him w/ suspected new dx in July 2021). Ancef IV abx per primary service, fluid judicious use recommended if taking PO would stop Bowen management per primary service Pain control/bowel regimen as needed - RN to give dose pain medication post-op, also giving Pyridium and will monitor response. IV/PO opiates available if needed -rec aggressive bowel regimen post op given prior issues w/ such. +BS on exam -changed prn miralax to SCHEDULED -encouraged ambulation in room with guards at present DVT prophylaxis -SCDs for now -Eliquis BID for hx permanent afib on hold (patient states has been off this for ~2 days for current procedure) -Defer to primary on timing to resume Eliquis BID. Post-op labs pending as ordered by primary service -- WBC wnl, hgb stable at 14.6. BMP pending for review Monitor blood counts/chemistries in AM (2) Hypertrophic cardiomyopathy: follows with Dr He, recent stress testing negative On diltiazem 60mg TID, metoprolol 100mg BID Eliquis 5mg BID for permanent afib currently on hold -- defer timing to resume to Urology No CP/SOB at present EKG w/ CP (3) Type 2 diabetes mellitus: A1c 8.1 last year, will repeat A1c w/ AM labs On glimepiride 2mg daily -- hold while inpatient and utilize sliding scale insulin monitor BSGs (4) Permanent atrial fibrillation: continue rate control with dilt/metoprolol, eliquis when ok to resume by primary service keep K/mag replete (5) Hypertension: continue metoprolol, diltiazem will hold lasix post-op, likely able to resume in AM if no issues w/ hypotension/Reuben (6) Dyslipidemia: continue statin (7) CKD (chronic kidney disease) stage 2, GFR 60-89 ml/min: renal dose meds/avoid nephrotoxins as able lasix on hold for AM, resume as able BMP in AM Plan Thank you for allowing hospitalist service to participate in the care of Mr Hernández. Hospitalist service will follow along. Please call with any questions/concerns. Supervising Physician Co-Signing Physician Notes I personally saw and examined the patient. I verified all lemons points and agree with Mary Cabezas PA-C with the following exceptions and/or additions: 52 year old male POD#0 TURP. EBL 5ml. No current concerns or questions from the patient. O/E A&Ox3, HS irregular rhythm, regular rate, no murmurs, Chest CTAB, Abdo mild suprapubic tenderness, no CVA tenderness A/P Agree with plan as above. Lasix temporarily on hold pending BP overnight and AM labs. FABIANO Miralax ordered. History of Present Illness Reason for Consultation: medical management, prostate ca w/ mets, diabetes Requesting Physician: Dr Hernandez Attending Physician: Bassam Hernandez, II, DO History of Present Illness 52yo male with PMHx significant for metastatic prostate cancer, permanent afib, hypertrophic cardiomyopathy, DM 2, CKD, HTN, HLD with prior resection of large necrotic mass on the LEFT however due to large mass/mass effect from pelvic mass remainder of prostate only minimally resected. Presented with worsening obstructive issues secondary to remaining tissue from previous resection. Is s/p TURP with Dr Hernandez this morning. Patient evaluated this afternoon in room 361, guards at bedside. Reporting suprapubic discomfort/burning. Bowen draining yellow urine at present, slight blood tinged in tubing. Reports has been off his Eliquis for about 2 days -- discussed will defer to Urology about timing to resume. Reports need for something for pain - asked RN to provide, currently awaiting medications to be verified by pharmacy. No fever/chills, chest pain, shortness of breath reported. NO palpitations/lightheadedness or other issues outside of discomfort from procedure at this time. +BS on exam and discussed heavy bowel regimen to prevent constipation. Also encouraged ambulation in room this evening with guards to prevent issues. Had completed course of radiation in December [address] Valles, believes most recent PSA testing undetectable and remains on Casodex daily as well as Leuprolide Q3M. Allergies Allergy/AdvReac Type Severity Reaction Status Date / Time oxycodone AdvReac Mild no rxn Verified 10/15/22 13:05 observed to be listed on faxed info/rxn noted as mild Home Medications Medication Instructions Recorded Confirmed Type rosuvastatin 5 mg tablet 5 mg PO HS 04/18/21 10/15/22 History tamsulosin 0.4 mg capsule 0.8 mg PO HS 04/18/21 10/15/22 History finasteride 5 mg tablet (Proscar) 5 mg PO DAILY 07/08/21 10/15/22 History metoprolol tartrate 100 mg tablet 100 mg PO BID 07/08/21 10/15/22 History bicalutamide 50 mg tablet (Casodex) 50 mg PO DAILY #30 tabs 08/11/21 10/15/22 Rx glimepiride 1 mg tablet 2 mg PO DAILY 10/05/21 10/15/22 History multivitamin 1 tab PO DAILY 10/05/21 10/15/22 History polyethylene glycol 3350 17 17 g PO TID PRN Constipation 10/05/21 10/15/22 History gram/dose oral powder (Miralax) leuprolide (3 month) 22.5 mg (3 22.5 mg IM .Q3 months 11/10/21 10/15/22 History month) intramuscular syringe kit (Lupron Depot) oxybutynin chloride 5 mg tablet 5 mg PO QID 11/25/21 10/15/22 History apixaban 5 mg tablet (Eliquis) 5 mg PO BID 04/28/22 10/15/22 History sennosides 8.6 mg-docusate sodium 2 tab PO DAILY 04/28/22 10/15/22 History 50 mg tablet (Laxative Stool Softener With Senna) Vitamin E Lotion 1 dose topical BID 10/06/22 10/15/22 History cranberry fruit concentrate 250 mg 250 mg PO BID 10/06/22 10/15/22 History chewable tablet (Azo Cranberry) diltiazem HCl 30 mg tablet 60 mg PO TID 10/06/22 10/15/22 History furosemide 40 mg tablet (Lasix) 10 mg PO DAILY 10/06/22 10/15/22 History gluc xcuj-vrywdalszvoj-dolawvq 1 ea mucous membrane QID PRN as 10/06/22 10/15/22 History mouthwash directed Patient History Medical History Afib on Eliquis BPH (benign prostatic hyperplasia) Cellulitis Per [facility] records Congestive heart failure, unspecified Constipation Diabetes mellitus type 2, uncomplicated Heartburn Hemorrhoids HTN (hypertension), benign Hyperlipidemia Hypertrophic cardiomyopathy Normal LVEF per cardio records Prostate cancer s/p partial resection per records Sleep apnea, obstructive SOB (shortness of breath) GUEVARA- could be related to hypertrophic cardiomyopathy and a fib with RVR in response to exercise; recent stress ECHO showed no ischemia per cardio records Surgical History (Updated 10/15/22 @ 17:13 by Mary Cabezas PA-C) S/P TURP Family History (Updated 10/15/22 @ 17:13 by Mary Cabezas PA-C) Family/Other Cancer prostate cancer, 40-50s Social History (Updated 10/15/22 @ 17:15 by Mary Cabezas PA-C) Smoking Status: Former smoker Tobacco Type: Cigarettes Second Hand Exposure: No; Do You Dip or Chew Tobacco: No; Hx Alcohol Use: No Hx Substance Use: No Preferred Language: Hungarian Communication Ability: Effective Pipe Chipper Required: No Beliefs That Will Affect Care: None marital status: Single Current Living Situation: Other Current Living Situation Comment: [facility] Feels Safe at Home: No Is there a partner from a previous relationship who is making you feel unsafe now?: No Assistive Devices: None Review of Systems Review of Systems: All systems reviewed & are unremarkable except as noted in HPI & below Physical Exam Physical Exam: General: WD/WN male sitting up in bed, guards at bedside, NAD but mildly uncomfortable appearing HEENT: head normocephalic, atraumatic, mm slightly dry, trachea midline Resp: CTA, slightly diminished in the bases, no w/c, on room air CV: irregularly irregular, rates controlled, no pitting edema/calf tenderness, pulses palpable GI: +BS, +distension, no rigidity/guarding, +suprapubic tenderness : bowen draining yellow urine, pink tinge in tubing MSK/Neuro: no focal deficits, speech clear, answering questions appropriately and following commands Psych: AOx3, pleasant and cooperative with exam Skin: no obvious rashes, multiple tattoos noted Results & Data Results & Data Vital Signs (Past 12 Hours) Vital Signs Temp Pulse Resp BP Pulse Ox O2 Del Method O2 Flow Rate 10/15/22 16:10 86 16 148/88 H 95 Nasal Cannula 3 10/15/22 16:00 36.4 C L 80 14 147/85 H 96 Nasal Cannula 3 10/15/22 15:50 75 14 127/94 93 Room Air 10/15/22 15:40 73 12 114/66 96 Room Air 10/15/22 15:31 36.0 C L 76 12 118/78 97 Oxymask 97 10/15/22 13:23 36.8 C 104 H 18 146/97 H 98 Room Air Laboratory Results 10/15/22 10/15/22 10/15/22 Range/Units Unknown 17:05 16:53 WBC 5.39 (4.8-10.8) K/ul RBC 4.82 (4.70-6.10) M/uL Hgb 14.6 (14.0-18.0) g/dl Hct 42.5 (42.0-52.0) % MCV 88.2 (80.0-100.0) fL MCH 30.3 (25.0-34.0) pg MCHC 34.4 (32.0-36.0) g/dL RDW Std Deviation 41.7 (36.4-46.3) fL RDW Coeff of Rossy 12.9 (11.5-14.5) % Plt Count 189 (130-400) K/uL MPV 10.4 (9.4-12.4) fL Immature Gran % (Auto) 0.4 % Neut % (Auto) 62.1 % Lymph % (Auto) 26.3 % [place] % (Auto) 9.1 % Eos % (Auto) 1.5 % Baso % (Auto) 0.6 % Neut # (Auto) 3.35 (1.40-6.50) K/uL Lymph # (Auto) 1.42 (1.2-3.4) K/uL [place] # (Auto) 0.49 (0.11-0.59) K/uL Eos # (Auto) 0.08 (0-0.50) K/uL Baso # (Auto) 0.03 (0-0.2) K/uL Immature Gran # (Auto) 0.02 (0.01-0.20) K/uL Sodium Potassium Chloride Carbon Dioxide Anion Gap BUN Creatinine Est Cr Clr Drug Dosing Est GFR ( Amer) Est GFR (Non-Af Amer) BUN/Creatinine Ratio Glucose POC Glucose 132 H (70-99) mg/dl Calcium SARS-CoV-2, RNA, NAAT NEGATIVE (NEGATIVE) 10/15/22 10/15/22 Range/Units 16:53 13:06 WBC (4.8-10.8) K/ul RBC (4.70-6.10) M/uL Hgb (14.0-18.0) g/dl Hct (42.0-52.0) % MCV (80.0-100.0) fL MCH (25.0-34.0) pg MCHC (32.0-36.0) g/dL RDW Std Deviation (36.4-46.3) fL RDW Coeff of Rossy (11.5-14.5) % Plt Count (130-400) K/uL MPV (9.4-12.4) fL Immature Gran % (Auto) % Neut % (Auto) % Lymph % (Auto) % [place] % (Auto) % Eos % (Auto) % Baso % (Auto) % Neut # (Auto) (1.40-6.50) K/uL Lymph # (Auto) (1.2-3.4) K/uL [place] # (Auto) (0.11-0.59) K/uL Eos # (Auto) (0-0.50) K/uL Baso # (Auto) (0-0.2) K/uL Immature Gran # (Auto) (0.01-0.20) K/uL Sodium Pending Potassium Pending Chloride Pending Carbon Dioxide Pending Anion Gap Pending BUN Pending Creatinine Pending Est Cr Clr Drug Dosing Pending Est GFR ( Amer) Pending Est GFR (Non-Af Amer) Pending BUN/Creatinine Ratio Pending Glucose Pending POC Glucose 159 H (70-99) mg/dl Calcium Pending SARS-CoV-2, RNA, NAAT (NEGATIVE) PG Care Time/CCT Total # of Minutes Spent Total Time Spent with Patient: Total time spent is greater than 50% in coordination of care (as documented) at patient's floor/unit and/or counseling patient: Coding Level of Care Code 32801 IN/OBS CONSULT LVL 3,45M Diagnoses Prostate cancer C61 Hypertrophic cardiomyopathy I42.2 Type 2 diabetes mellitus E11.9 Permanent atrial fibrillation I48.21 Hypertension I10 Dyslipidemia E78.5 CKD (chronic kidney disease) stage 2, GFR 60-89 ml/min N18.2
[2022-10-15] MEDS: dilTIAZem HCl 60 MG TAB PO SCH ×2 (17:11→21:10)
[2022-10-15] MEDS: oxyBUTYnin chloride 5 MG TAB PO SCH ×2 (17:11→21:10)
[2022-10-15] MEDS: oxyCODONE/ACETAMINOPHEN 5mg/325mg TAB PO PRN ×2 (17:13→21:09)
[2022-10-15 17:21] LABS: Basophils # (auto) 0.03 K/uL (0-0.2); Basophils % (auto) 0.6 %; Eosinophils # (auto) 0.08 K/uL (0-0.50); Eosinophils % (auto) 1.5 %; Hematocrit (blood only) 42.5 % (42.0-52.0); Hemoglobin 14.6 g/dl (14.0-18.0); Immature Granulocytes # (auto) 0.02 K/uL (0.01-0.20); Immature Granulocytes % (auto) 0.4 %; Lymphocytes # (auto) 1.42 K/uL (1.2-3.4); Lymphocytes % (auto) 26.3 %; Mean Corpuscular Hemoglobin 30.3 pg (25.0-34.0); Mean Corpuscular Hgb Conc 34.4 g/dL (32.0-36.0); Mean Corpuscular Volume 88.2 fL (80.0-100.0); Mean Platelet Volume 10.4 fL (9.4-12.4); Monocytes # (auto) 0.49 K/uL (0.11-0.59); Monocytes % (auto) 9.1 %; Neutrophils # (auto) 3.35 K/uL (1.40-6.50); Neutrophils % (auto) 62.1 %; Platelet Count 189 K/uL (130-400); RDW Coefficient of Variation 12.9 % (11.5-14.5); RDW Standard Deviation 41.7 fL (36.4-46.3); Red Blood Count 4.82 M/uL (4.70-6.10); White Blood Count 5.39 K/ul (4.8-10.8)
[2022-10-15 17:28] LABS: BUN Creatinine Ratio 10.9 (10-20); Calcium 9.8 mg/dl (8.6-10.3); Creatinine Clr Calc Pharmacy 87.6 ml/min; Est GFR (African American) 87.7 ml/min; Est GFR (Non-African American) 75.7 ml/min; Potassium 4.1 mmol/L (3.5-5.1)
[2022-10-15 17:59] LABS: Magnesium 1.9 mg/dl (1.7-2.4)
[2022-10-15] MEDS ORDERED: TAMSULOSIN HCL 0.4 MG CAP PO SCH (21:00)
[2022-10-15] MEDS ORDERED: ROSUVASTATIN CALCIUM 5 MG TAB PO SCH (21:00)
[2022-10-15] MEDS: INSULIN ASPART PER UNIT CHARGE SC SCH (21:07)
[2022-10-15] MEDS: METOPROLOL TARTRATE 100 MG TAB PO SCH (21:10)
[2022-10-15] MEDS: POLYETHYLENE (MIRALAX) 17 GM PACK PO SCH (21:21)
[2022-10-15] MEDS: ceFAZolin 2000MG 2,000 MG/15 ML SYR IV SCH (22:12)
[2022-10-16] MEDS: ceFAZolin 2000MG 2,000 MG/15 ML SYR IV SCH ×2 (05:46→12:20)
[2022-10-16 07:45] LABS: Estimated Average Glucose 217 mg/dl; Hemoglobin A1C 9.2 % (4.5-5.6)
[2022-10-16] MEDS: oxyCODONE/ACETAMINOPHEN 5mg/325mg TAB PO PRN ×2 (08:07→16:31)
[2022-10-16] MEDS: dilTIAZem HCl 60 MG TAB PO SCH ×2 (08:07→12:20)
[2022-10-16] MEDS: oxyBUTYnin chloride 5 MG TAB PO SCH ×3 (08:08→16:30)
[2022-10-16] MEDS: METOPROLOL TARTRATE 100 MG TAB PO SCH (08:08)
[2022-10-16] MEDS: POLYETHYLENE (MIRALAX) 17 GM PACK PO SCH ×2 (08:09→12:20)
[2022-10-16] MEDS: INSULIN ASPART PER UNIT CHARGE SC SCH ×2 (08:19→12:24)
--- NOTE | 2022-10-16 08:31 | Hospitalist Progress Note ---
Date of Service October 16, 2022 Assessment & Plan (1) Prostate cancer: Plan: POD# 1s/p Transurethral Resection of Prostate(Not Applicable) - Bassam Hernandez DO. EBL 5cc. For prostate ca, has been maintained on Casodex daily, Leuprolide Q3M injections. Last PSA undetectable <0.008, s/p XRT Dec 2021 WBC wnl, afebrile Ancef IV abx per primary service Had been on continuous IVF, repeat hgb drop to 12.6, acute blood loss anemia from surgery, catheter draining clear yellow urine Pain control/bowel regimen per primary service Rec to continue miralax scheduled at discharge to prevent issues with constipation on pain medications DVT prophylaxis: Eliquis to be resumed when safe by primary service (had been off ~2 days prior to procedure, hx permanent afib) Possible discharge later today if no issues w/ clamping catheter Dispo per primary. Will follow along if remaining inpatient but can otherwise sign off. (2) Hypertrophic cardiomyopathy: Plan: Follows with Dr He, recent stress testing negative On diltiazem 60mg TID, metoprolol 100mg BID Eliquis 5mg BID for permanent afib currently on hold -- defer timing to resume to Urology No CP/SOB at present (3) Type 2 diabetes mellitus: Plan: A1c 8.1 last year, will repeat A1c w/ AM labs --> elevated to 9.2 On glimepiride 2mg daily -- hold while inpatient and utilize sliding scale insulin. BSG 150s post-op but A1c elevated to 9.2 on AM labs and SSI tightened. Would rec for patient to start metformin at [facility] if possible vs other formulary As A1c >9, also appropriate to start once daily long acting insulin if patient agreeable (4) Permanent atrial fibrillation: Plan: continue rate control with dilt/metoprolol, eliquis when ok to resume by primary service keep K/mag replete (5) Hypertension: Plan: continue metoprolol, diltiazem lasix resumed for this morning, renal function at baseline, BP stable (6) Dyslipidemia: Plan: continue statin (7) CKD (chronic kidney disease) stage 2, GFR 60-89 ml/min: Plan: Renal function stable, at baseline Plan Thank you for allowing hospitalist service to participate in the care of Mr Hernández. Hospitalist service will follow along if remains inpatient however appears stable for discharge. Please call with any questions/concerns. Admission and Anticipated Discharge Date Admission Date: October 15, 2022 Supervising Physician Co-Signing Physician Notes The patient was not seen by me. The chart was reviewed. Case discussed with VINICIUS Eckert. Agree with assessment and plan Subjective Patient evaluated this morning, pain controlled with ordered medications. On scheduled miralax, passing gas but no BM. Discussed continuing bowel regimen at discharge to prevent constipation. Per Urology, planning to clamp CBI/follow up with this afternoon and possible discharge. No fever/chills, chest pain, shortness of breath, nausea , vomiting or other concern at present. Questions/concerns addressed at this time. Physical Exam Physical Exam: General: WD/WN male sitting up in bed, guards at bedside, NAD , just medicated for pain HEENT: head normocephalic, atraumatic, mm slightly dry, trachea midline Resp: CTA, slightly diminished in the bases, no w/c, on room air CV: irregularly irregular, rates controlled, no pitting edema/calf tenderness, pulses palpable GI: +BS throughout, +distension, no rigidity/guarding, +decreased suprapubic discomfort : bowen draining yellow urine MSK/Neuro: no focal deficits, speech clear, answering questions appropriately and following commands Psych: AOx3, pleasant and cooperative with exam Skin: no obvious rashes, multiple tattoos noted Results & Data Results & Data Vital Signs (Past 12 Hours) Vital Signs Temp Pulse Resp BP Pulse Ox O2 Del Method 10/16/22 07:35 36.8 C 71 16 136/86 97 Room Air 10/16/22 02:57 36.6 C 78 18 107/69 96 Room Air 10/15/22 23:36 36.6 C 76 18 112/71 97 Room Air Laboratory Results 10/16/22 10/16/22 10/16/22 Range/Units 08:13 06:57 06:57 WBC 5.06 (4.8-10.8) K/ul RBC 4.11 L (4.70-6.10) M/uL Hgb 12.6 L (14.0-18.0) g/dl Hct 36.6 L (42.0-52.0) % MCV 89.1 (80.0-100.0) fL MCH 30.7 (25.0-34.0) pg MCHC 34.4 (32.0-36.0) g/dL RDW Std Deviation 42.1 (36.4-46.3) fL RDW Coeff of Rossy 12.9 (11.5-14.5) % Plt Count 176 (130-400) K/uL MPV 11.0 (9.4-12.4) fL Immature Gran % (Auto) % Neut % (Auto) % Lymph % (Auto) % [place] % (Auto) % Eos % (Auto) % Baso % (Auto) % Neut # (Auto) (1.40-6.50) K/uL Lymph # (Auto) (1.2-3.4) K/uL [place] # (Auto) (0.11-0.59) K/uL Eos # (Auto) (0-0.50) K/uL Baso # (Auto) (0-0.2) K/uL Immature Gran # (Auto) (0.01-0.20) K/uL Sodium 135 L (136-145) mmol/L Potassium 4.3 (3.5-5.1) mmol/L Chloride 102 (98-107) mmol/L Carbon Dioxide 28 (21-32) mmol/L Anion Gap 5 (3-11) BUN 12 (6-23) mg/dl Creatinine 1.12 (0.6-1.4) mg/dl Est Cr Clr Drug Dosing 86.1 ml/min Est GFR ( Amer) 85.9 ml/min Est GFR (Non-Af Amer) 74.1 ml/min BUN/Creatinine Ratio 10.7 (10-20) Glucose 146 H (70-99(Fasting)) mg/dl POC Glucose 147 H (70-99) mg/dl Estimat Average Glucose mg/dl Hemoglobin A1c (4.5-5.6) % Calcium 8.8 (8.6-10.3) mg/dl Magnesium 1.9 (1.7-2.4) mg/dl Nasal Screen MRSA (PCR) (Negative) SARS-CoV-2, RNA, NAAT (NEGATIVE) 10/16/22 10/15/22 10/15/22 Range/Units 06:57 Unknown 20:26 WBC (4.8-10.8) K/ul RBC (4.70-6.10) M/uL Hgb (14.0-18.0) g/dl Hct (42.0-52.0) % MCV (80.0-100.0) fL MCH (25.0-34.0) pg MCHC (32.0-36.0) g/dL RDW Std Deviation (36.4-46.3) fL RDW Coeff of Rossy (11.5-14.5) % Plt Count (130-400) K/uL MPV (9.4-12.4) fL Immature Gran % (Auto) % Neut % (Auto) % Lymph % (Auto) % [place] % (Auto) % Eos % (Auto) % Baso % (Auto) % Neut # (Auto) (1.40-6.50) K/uL Lymph # (Auto) (1.2-3.4) K/uL [place] # (Auto) (0.11-0.59) K/uL Eos # (Auto) (0-0.50) K/uL Baso # (Auto) (0-0.2) K/uL Immature Gran # (Auto) (0.01-0.20) K/uL Sodium (136-145) mmol/L Potassium (3.5-5.1) mmol/L Chloride (98-107) mmol/L Carbon Dioxide (21-32) mmol/L Anion Gap (3-11) BUN (6-23) mg/dl Creatinine (0.6-1.4) mg/dl Est Cr Clr Drug Dosing ml/min Est GFR ( Amer) ml/min Est GFR (Non-Af Amer) ml/min BUN/Creatinine Ratio (10-20) Glucose (70-99(Fasting)) mg/dl POC Glucose 216 H (70-99) mg/dl Estimat Average Glucose 217 mg/dl Hemoglobin A1c 9.2 H (4.5-5.6) % Calcium (8.6-10.3) mg/dl Magnesium (1.7-2.4) mg/dl Nasal Screen MRSA (PCR) (Negative) SARS-CoV-2, RNA, NAAT NEGATIVE (NEGATIVE) 10/15/22 10/15/22 10/15/22 Range/Units 20:24 17:20 17:05 WBC (4.8-10.8) K/ul RBC (4.70-6.10) M/uL Hgb (14.0-18.0) g/dl Hct (42.0-52.0) % MCV (80.0-100.0) fL MCH (25.0-34.0) pg MCHC (32.0-36.0) g/dL RDW Std Deviation (36.4-46.3) fL RDW Coeff of Rossy (11.5-14.5) % Plt Count (130-400) K/uL MPV (9.4-12.4) fL Immature Gran % (Auto) % Neut % (Auto) % Lymph % (Auto) % [place] % (Auto) % Eos % (Auto) % Baso % (Auto) % Neut # (Auto) (1.40-6.50) K/uL Lymph # (Auto) (1.2-3.4) K/uL [place] # (Auto) (0.11-0.59) K/uL Eos # (Auto) (0-0.50) K/uL Baso # (Auto) (0-0.2) K/uL Immature Gran # (Auto) (0.01-0.20) K/uL Sodium (136-145) mmol/L Potassium (3.5-5.1) mmol/L Chloride (98-107) mmol/L Carbon Dioxide (21-32) mmol/L Anion Gap (3-11) BUN (6-23) mg/dl Creatinine (0.6-1.4) mg/dl Est Cr Clr Drug Dosing ml/min Est GFR ( Amer) ml/min Est GFR (Non-Af Amer) ml/min BUN/Creatinine Ratio (10-20) Glucose (70-99(Fasting)) mg/dl POC Glucose 223 H 132 H (70-99) mg/dl Estimat Average Glucose mg/dl Hemoglobin A1c (4.5-5.6) % Calcium (8.6-10.3) mg/dl Magnesium (1.7-2.4) mg/dl Nasal Screen MRSA (PCR) Negative (Negative) SARS-CoV-2, RNA, NAAT (NEGATIVE) 07/27/23 07/27/23 07/27/23 Range/Units 16:53 16:53 13:06 WBC 5.39 (4.8-10.8) K/ul RBC 4.82 (4.70-6.10) M/uL Hgb 14.6 (14.0-18.0) g/dl Hct 42.5 (42.0-52.0) % MCV 88.2 (80.0-100.0) fL MCH 30.3 (25.0-34.0) pg MCHC 34.4 (32.0-36.0) g/dL RDW Std Deviation 41.7 (36.4-46.3) fL RDW Coeff of Rossy 12.9 (11.5-14.5) % Plt Count 189 (130-400) K/uL MPV 10.4 (9.4-12.4) fL Immature Gran % (Auto) 0.4 % Neut % (Auto) 62.1 % Lymph % (Auto) 26.3 % [place] % (Auto) 9.1 % Eos % (Auto) 1.5 % Baso % (Auto) 0.6 % Neut # (Auto) 3.35 (1.40-6.50) K/uL Lymph # (Auto) 1.42 (1.2-3.4) K/uL [place] # (Auto) 0.49 (0.11-0.59) K/uL Eos # (Auto) 0.08 (0-0.50) K/uL Baso # (Auto) 0.03 (0-0.2) K/uL Immature Gran # (Auto) 0.02 (0.01-0.20) K/uL Sodium 137 (136-145) mmol/L Potassium 4.1 (3.5-5.1) mmol/L Chloride 105 (98-107) mmol/L Carbon Dioxide 25 (21-32) mmol/L Anion Gap 7 (3-11) BUN 12 (6-23) mg/dl Creatinine 1.10 (0.6-1.4) mg/dl Est Cr Clr Drug Dosing 87.6 ml/min Est GFR ( Amer) 87.7 ml/min Est GFR (Non-Af Amer) 75.7 ml/min BUN/Creatinine Ratio 10.9 (10-20) Glucose 145 H (70-99(Fasting)) mg/dl POC Glucose 159 H (70-99) mg/dl Estimat Average Glucose mg/dl Hemoglobin A1c (4.5-5.6) % Calcium 9.8 (8.6-10.3) mg/dl Magnesium 1.9 (1.7-2.4) mg/dl Nasal Screen MRSA (PCR) (Negative) SARS-CoV-2, RNA, NAAT (NEGATIVE) PG Care Time/CCT Total # of Minutes Spent Total Time Spent with Patient: Total time spent is greater than 50% in coordination of care (as documented) at patient's floor/unit and/or counseling patient: Coding Level of Care Code 04619 SUB INP/OBS CARE 2/35MIN Diagnoses Prostate cancer C61 Hypertrophic cardiomyopathy I42.2 Type 2 diabetes mellitus E11.9 Permanent atrial fibrillation I48.21 Hypertension I10 Dyslipidemia E78.5 CKD (chronic kidney disease) stage 2, GFR 60-89 ml/min N18.2
[2022-10-16 08:39] LABS: BUN Creatinine Ratio 10.7 (10-20); Calcium 8.8 mg/dl (8.6-10.3); Creatinine Clr Calc Pharmacy 86.1 ml/min; Est GFR (African American) 85.9 ml/min; Est GFR (Non-African American) 74.1 ml/min; Magnesium 1.9 mg/dl (1.7-2.4); Potassium 4.3 mmol/L (3.5-5.1)
[2022-10-16] MEDS ORDERED: BICALUTAMIDE 50 MG TAB PO SCH (09:00)
[2022-10-16] MEDS ORDERED: DOCUSATE SODIUM/SENNA 50/8.6MG TAB PO SCH (09:00)
[2022-10-16] MEDS ORDERED: FUROSEMIDE 40 MG TAB PO SCH (09:00)
[2022-10-16 09:38] LABS: Hematocrit (blood only) 36.6 % (42.0-52.0); Hemoglobin 12.6 g/dl (14.0-18.0); Mean Corpuscular Hemoglobin 30.7 pg (25.0-34.0); Mean Corpuscular Hgb Conc 34.4 g/dL (32.0-36.0); Mean Corpuscular Volume 89.1 fL (80.0-100.0); Platelet Count 176 K/uL (130-400); RDW Coefficient of Variation 12.9 % (11.5-14.5); RDW Standard Deviation 42.1 fL (36.4-46.3); Red Blood Count 4.11 M/uL (4.70-6.10); White Blood Count 5.06 K/ul (4.8-10.8)
[2022-10-16] MEDS: SODIUM CHLORIDE 0.9% 1000ML 1,000 ML IV SCH (09:46)
[2022-10-16 11:08] VITALS: BP 107/70; PULSE 79; TEMP 98.1; O2SAT 96
--- NOTE | 2022-10-16 11:35 | Urology Progress Note ---
Date of Service October 16, 2022 Assessment & Plan (1) Prostate cancer: (2) Pelvic mass: (3) Elevated PSA: Plan - Pt POD#1 s/p TURP with Dr. Hernandez. - Doing well, progressing as expected. - Afebrile and hemodynamically stable. - Lab work reviewed - No leukocytosis and normal renal function. Hemoglobin 12.6. - 3 way Campos catheter intact, patent and draining clear urine with CBI on slow. - CBI clamped @0930, nursing aware - will reassess later today. - Maintain Campos catheter - Hospital medicine consulted postoperatively due to comorbidities. Appreciate recommendations. - We will reassess later today. - Anticipate discharge with Campos catheter later today presuming urine appropriate and he continues to progress as expected. -Patient reassessed this afternoon. -Overall feeling well. -Urine remains clear off CBI. -Discussed with hospital team-stable for discharge from their perspective. -Patient is stable for [facility] back to [facility] with Campos catheter in place. -Will arrange outpatient follow-up with our service. Plan of care discussed with Dr. Hernandez. Admission and Anticipated Discharge Date Admission Date: October 15, 2022 Subjective Patient examined at bedside this AM. Awake, resting in bed on arrival. No acute distress. No acute issues overnight. Overall feeling well. Campos intact, draining clear yellow urine with CBI on slow. He denies is any significant pain or discomfort. Denies fevers, chills, nausea, vomiting. Review of Systems Constitutional: as per Subjective / HPI Gastrointestinal: as per Subjective / HPI Genitourinary: + as per Subjective / HPI Physical Exam Constitutional: well developed and well nourished; no acute distress Respiratory: normal respiratory effort; no respiratory distress and no labored breathing Musculoskeletal: Head/Neck/Chest: normocephalic Skin: No visible rashes or lesions to exposed skin areas Neurologic: awake Psychiatric: A+Ox3, euthymic affect Genitourinary: Campos intact, urine is clear yellow on CBI Results & Data Vital Signs (Past 12 Hours) Vital Signs Temp Pulse Resp BP Pulse Ox O2 Del Method 10/16/22 11:06 36.7 C 79 16 107/70 96 Room Air 10/16/22 07:35 36.8 C 71 16 136/86 97 Room Air 10/16/22 02:57 36.6 C 78 18 107/69 96 Room Air 10/15/22 23:36 36.6 C 76 18 112/71 97 Room Air PG Care Time/CCT Total # of Minutes Spent Total Time Spent with Patient: Total time spent is greater than 50% in coordination of care (as documented) at patient's floor/unit and/or counseling patient: Coding Level of Care Code None Diagnoses Prostate cancer C61 Pelvic mass R19.00 Elevated PSA R97.20
--- NOTE | 2022-10-16 20:39 | Discharge Summary ---
Date of Service October 16, 2022 Admission HPI Per Admitting Provider 52 year old incarcerated male with history of significant metastatic and regionally invasive prostate cancer with bladder outlet obstruction secondary to pelvic mass. Patient had undergone resection found to have large necrotic mass with findings of prostate cancer. He presents for TURP procedure. Admission Exam Per Admitting Provider General: Alert/Arousable. No Acute illness. . HEENT: Inspection normal. Normal inspection of face. Normal inspection of neck. Psychologic: Normal affect/No change in mentation. Respiratory: No use of accessory muscles. No respiratory changes or exacerbation or changes with tachypnea or dyspnea. Cardiovascular: No tachycardia Skin: [place] and Dry. No new rashes or visible lesions. Abdomen: Normal inspection. No guarding. Principal Diagnosis Prostate Cancer, Pelvic Mass, Elevated PSA Discharge Exam Constitutional well developed and well nourished; no acute distress Respiratory normal respiratory effort; no respiratory distress and no labored breathing Musculoskeletal Head/Neck/Chest: normocephalic Neurologic awake Psychiatric A+Ox3, euthymic affect Genitourinary Campos intact, urine is clear yellow Discharge Data Allergies Allergy/AdvReac Type Severity Reaction Status Date / Time oxycodone AdvReac Mild no rxn Verified 10/15/22 13:05 observed to be listed on faxed info/rxn noted as mild Consultations 10/15/22 16:31 Consult Hospitalist Routine Procedures Performed Operation Date: 10/15/22 14:25 Actual Procedures p Transurethral Resection Prostate(Not Applicable) - Bassam Hernandez, DO Diabetes Follow up Diabetes Follow-up Needed for HgbA1c >9% Hospital Course (1) Prostate cancer: (2) Pelvic mass: (3) Elevated PSA: Plan - Pt POD#1 s/p TURP with Dr. Hernandez. - Doing well, progressing as expected. - Afebrile and hemodynamically stable. - Lab work reviewed - No leukocytosis and normal renal function. Hemoglobin 12.6. - 3 way Campos catheter intact, patent and draining clear urine with CBI on slow. - CBI clamped @0930, nursing aware - will reassess later today. - Maintain Campos catheter - Hospital medicine consulted postoperatively due to comorbidities. Appreciate recommendations. - We will reassess later today. - Anticipate discharge with Campos catheter later today presuming urine appropriate and he continues to progress as expected. -Patient reassessed this afternoon. -Overall feeling well. -Urine remains clear off CBI. -Discussed with hospital team-stable for discharge from their perspective. -Patient is stable for discharge back to correctional facility with Campos catheter in place. -Will arrange outpatient follow-up with our service. Total Time Total Time Spent Total Time Spent (In Minutes): 15 Discharge Plan Discharge Items Patient Disposition: Correctional Facility Reason For Visit: Elevate PSA, Pelvic Mass, Prostate Cancer, Urinary Discharge Diagnosis: Elevated PSA, Pelvic Mass, Prostate Cancer Activity: Per Instructions section Bathing Comment: OK to shower. Non-emergency contact: Surgeon and Urologist Call non-emergency contact if: you have any medication questions, your pain is worsening and you have a fever Follow-up/Referrals: Bassam Hernandez DO [Physician] - Kirsten Ferreira CRNP [Primary Care Provider] - Diet: Regular Addtl Attending Provider Instructions: Please call the urology office at [phone] with any questions, concerns or need to reschedule appointments for any reason. We are happy to assist you. -The Campos catheter should remain in place for approximately 2 weeks. This can be removed at the correctional facility. -Recommend ciprofloxacin 500 mg twice daily for 5 days. -Can use Tylenol as needed for pain. -Can also use Pyridium or Azo and Oxybutynin as needed for bladder pain and spasms. -He may resume anticoagulation tomorrow 10/17 if urine remains clear to light pink. Tips for your recovery - Dont be alarmed by brownish or reddish blood or clots in your urine. This is a result of the procedure. This may occur off and on for weeks to months after the procedure but should continue to improve. Drink plenty of fluids during the day (enough to keep your urine very light colored). This will help keep a healthy flow of urine. Do not lift >25 lbs until your followup Avoid constipation. Please use a stool softener (Colace) if needed for the first two weeks after your procedure Be sure to finish the antibiotics as prescribed. If you go home with a catheter, please wash tubing where it enters your body twice daily with mild soap (Dove or Dial). Once your catheter is removed, expect some blood in your urine and some burning when you urinate. You should have an appointment to have this removed, if you do not please call our office to arrange. When to call [facility] at [phone]: Your urine contains heavy blood clots or your catheter is not draining You are constantly leaking urine Fever of 101F or higher, chills, nausea, or vomiting Your pain is not relieved with medication Addtl Parts Designer Provider Instructions: Your A1c was checked due to history of diabetes and was elevated to 9.2 from prior level in the 8s. You are only on one oral agent and we are recommending you follow up with intermediate provider to see about possibly starting AT LEAST metformin TWICE daily 500mg and titrate up to 1000mg twice daily to obtain better control. Given your A1c is >9, it is possible that you may benefit from once daily insulin to obtain better control as well. We would recommend checking your blood sugars a couple times a day and if consistently elevated despite medical treatment, would consider adding once daily insulin vs sliding scale insulin pending availability at the intermediate. It has been a pleasure seeing you while you have been in the hospital and I wish you the best! Pending Studies at Discharge: Yes Skilled Items Patient informed of condition?: Yes DNR: No Discharge Level of Care: Other Communicable Disease: No Discharge Prognosis: Stable Lines: None Urinary Catheter: Yes Medications and DC Order Prescriptions: Continued Lupron Depot (3 month) 22.5 mg syringe kit 22.5 mg IM .Q3 months tamsulosin 0.4 mg capsule 0.8 mg PO HS Rx Instructions: keep on person rosuvastatin 5 mg tablet 5 mg PO HS Rx Instructions: keep on person sennosides-docusate sodium [Lax Stool Softener With Senna] 8.6-50 mg tablet 2 tab PO DAILY Eliquis 5 mg tablet 5 mg PO BID metoprolol tartrate 100 mg Tablet 100 mg PO BID Rx Instructions: keep on person finasteride [Proscar] 5 mg Tablet 5 mg PO DAILY Rx Instructions: keep on person bicalutamide [Casodex] 50 mg tablet 50 mg PO DAILY Qty: 30 0RF multivitamin Tablet 1 tab PO DAILY glimepiride 1 mg Tablet 2 mg PO DAILY Rx Instructions: administer with breakfast polyethylene glycol 3350 [Miralax] 17 gram/dose Powder 17 g PO TID PRN (Reason: Constipation) oxybutynin chloride 5 mg tablet 5 mg PO QID furosemide [Lasix] 40 mg tablet 10 mg PO DAILY diltiazem HCl 30 mg tablet 60 mg PO TID gluc vmdi-tzunmsoxyzab-cytlakk Mouthwash 1 ea MUCOUS MEMBRANE QID PRN (Reason: as directed) Azo Cranberry 250 mg Tablet,Chewable 250 mg PO BID Vitamin E Lotion 1 dose topical BID Krames/Other Patient Handouts: A1C, Managing Type 2 Diabetes Admission Data Admit Date/Time: 10/15/22 13:45 Attending Provider: Bassam Hernandez Admit Provider: Bassam Hernandez Primary Care Provider: Kirsten Ferreira Other Providers: Chad Caal ; Mary Cabezas ; Florin Masters ; Claude Ralph ; Lauri Ellington ; Jadiel Galarza ; Saman Salter ; Sara Nava ; Criselda Morales ; Bernardo Sawyer ; Sherrie Boyd ; Anthony Cohn ; Laila Sosa ; Hayden Vann ; Steve Luke ; Mary Cleveland ; Aleena Mccabe ; Tay Arana ; Florin Aburto ; Daily Talley ; Kin Alford ; Jose Ríos ; Ruel Del Rio ; Nikki Martínez ; Adelia Butler ; Warren Tavarez ; Aura Peterson ; Rommel Gordillo ; Claude De La Torre ; Lauri Rodriguez Other Interventions: Discharge Summary Assessment (RN) Last Done: 10/16/22 14:12 Coding Level of Care Code 29774 IN/OBS DISCH 30 MIN/LESS Diagnoses Prostate cancer C61 Pelvic mass R19.00 Elevated PSA R97.20
== END 2022-10-16 17:01 ==
LOC: 3W 12:46 → ASU 12:46

== ENCOUNTER 2024-12-13 19:38 | Inpatient (IN) ==
[2024-12-13 20:29] LABS: Hematocrit (blood only) 32.4 % (42.0-52.0); Hemoglobin 11.1 g/dl (14.0-18.0); Immature Granulocytes # (auto) 0.03 K/uL (0.01-0.20); Immature Granulocytes % (auto) 0.4 %; Mean Corpuscular Hemoglobin 30.2 pg (25.0-34.0); Mean Corpuscular Volume 88.3 fL (80.0-100.0); Platelet Count 247 K/uL (130-400); RDW Standard Deviation 44.5 fL (36.4-46.3); Red Blood Count 3.67 M/uL (4.70-6.10); White Blood Count 7.98 K/ul (4.8-10.8)
--- NOTE | 2024-12-13 20:37 | Emergency Department Note ---
Impression & Plan Dyspnea, Atrial fibrillation, CHF (congestive heart failure) ED Provider Note ED Provider Note NAME: AMEYA [id number] SHAHID AGE:54 SEX: Male : 1970 ARRIVES VIA: EMS INFORMANT: Patient ED PROVIDER(s): Emily Spence DO CHIEF COMPLAINT: Palpitations, shortness of breath with exertion, fatigue HPI: This is a 54-year-old male who presents to the emergency department due to concern for 3 to 4 days of this is a 54-year-old male who presents to the emergency department due to concern for 3 to 4 days of intermittent palpitations, increased shortness of breath with on exertion, and increased fatigue. Patient does have a history of atrial fibrillation and states about a week ago his medications for this were changed. He is anticoagulated. He is uncertain how long he has had atrial fibrillation. He believes he has had an echo within the last year. He states over the last 4 days his symptoms have been worse and he finally presented to the [facility] today. He was noted to have a slower heart rate but suspects that is due to the recent medication changes. He denies any recent lower extremity swelling. He denies any fevers, chills, URI symptoms. No change in bowel or bladder function, no bleeding from any source. PAST MEDICAL HISTORY:See Below PAST SURGICAL HISTORY:See Below FAMILY HISTORY:See Below SOCIAL HISTORY:See Below HOME MEDICATIONS:See Below ALLERGIES:See Below VITALS:See Below PHYSICAL EXAMINATION: GENERAL: alert, well appearing, well nourished, no distress, non-toxic EYE EXAM: normal conjunctiva, PERRL and EOM's grossly intact OROPHARYNX: no exudate, no erythema, lips, buccal mucosa, and tongue normal and mucous membranes are moist NECK: supple, no nuchal rigidity, no adenopathy, non-tender LUNGS: Clear to auscultation. Normal chest wall mechanics, no w/r/r HEART: no murmurs, S1 normal and S2 normal ABDOMEN: abdomen soft, non-tender, normo-active bowel sounds, no masses, no rebound or guarding. SKIN: no rashes, petechiae, orbruising UPPER EXTREMITIES: upper extremities are grossly normal. FROM, nml pulses b/l. LOWER EXTREMITIES: Trace b/l pitting edema. FROM, nml pulses b/l. NEURO EXAM: Normal sensorium, cranial nerves II-XII grossly intact, normal speech, no facial droop,nogross weakness of arms, no gross weakness of legs. Gross sensation intact. No ataxia. Vital Signs: reviewed and remarkable Differential Diagnosis: pneumonia, bronchitis, COPD/Asthma exacerbation, pneumothorax, pulmonary embolism, congestive heart failure, acute coronary syndrome, as well as others were considered MEDICAL DECISION MAKING: This is a 54 yo male who presents to the ER due to concern for increased dyspnea, palpitations, and fatigue. He was afebrile and VS stable, he was noted to be a slow a.fib. He had no complaints at rest. Labs drawn and sent, IV established, EKG and CXR performed and interpreted at bedside, and patient placed on telemetry. I was able to speak with staff at the residential to review recent med changes and prior echo. Patient was given an additional dose of lasix here. We did attempt an ambulatory trial here and patient had increased dyspnea, tachypnea, and hypoxia. After further discussion with the patient at bedside, we discussed further inpatient evaluation. CAse discussed with the hospitalist team for additional mgmt. Consultation(s): 2142: Discussed with ELLIOTT Kam at [facility]. She confirms patient had an appoint with cardiology on the . At that time his Cardizem was increased from 360 mg to 420 mg. His metoprolol was increased from 200 mg once a day to 200 mg 2 times a day. She was able to find in his records he did have a prior diagnosis of CHF. His last echocardiogram was on June 01, 2024 which showed normal left ventricle and mild concentric LVH, LVEF of 65 to 70%. Patient had a severely dilated left atrium and a dilated right atrium, patient was examined aortic root and no pericardial effusion. He does have a known diagnosis of atrial fibrillation. 2339: Discussed with Dr. Caal, [place] hospitalist team, for additional evaluation and mgmt. ER Treatment Provided: See below Diagnostics Interpreted By Me: -ECG: a.fib at 49, left axis, nml intervals, no acute ST/T wave changes, low voltage throughout -Cardiac Monitoring: An order was placed for continuous cardiac monitoring. The monitor shows a rate of 52 with a.fib rhythm. -Laboratory studies: As stated above and show below. -Imaging studies: X-ray Chest: A single view study of the chest was reviewed and was negative for cardiomegaly, focal infiltrate, effusion, or wide mediastinum. Appearance of b/l increased interstitial markings. Triage Nursing Note Reviewed Prior/Outside Records Reviewed Past Med/Surg History Problem List (Updated 12/14/24 @ 12:19 by Sara Nava MD) Mediastinal lymphadenopathy Acute on chronic heart failure with preserved ejection fraction (HFpEF) Acute respiratory failure with hypoxia Atypical pneumonia Bradycardia CHF (congestive heart failure) (Acute) Atrial fibrillation (Acute) Dyspnea (Acute) Necrosis of prostate Bladder stone Chronic diarrhea Permanent atrial fibrillation Incontinence Balanitis Urinary retention Anemia Prostate cancer (Chronic) Elevated PSA Pain in rectum (Acute) Pelvic mass (Acute) Normal left ventricular systolic function Dyslipidemia Type 2 diabetes mellitus Hypertension Hemorrhoids Medical History Urinary retention Xerosis cutis Hypertrophic cardiomyopathy CKD (chronic kidney disease) stage 2, GFR 60-89 ml/min Inmate in correctional facility Chronic cystitis with hematuria Congestive heart failure, unspecified BPH (benign prostatic hyperplasia) Prostate cancer Sleep apnea, obstructive SOB (shortness of breath) HTN (hypertension), benign Diabetes mellitus type 2, uncomplicated Hyperlipidemia Cellulitis Afib Heartburn Constipation Surgical History S/P TURP Family History Family/Other Cancer Other Family history unobtainable Social History Smoking Status: Never smoker Tobacco Type: Cigarettes Do You Dip or Chew Tobacco: No; Hx Alcohol Use: No Hx Substance Use: No Preferred Language: Syriac Communication Ability: Unable Atm Manager Required: No Beliefs That Will Affect Care: None marital status: Single Current Living Situation: Other Current Living Situation Comment: [facility] Other Information That Helps Us Care for You: No Feels Safe at Home: Yes Safety Concerns: Feels Safe At This Time Assistive Devices: None Allergies Allergies Allergy/AdvReac Type Severity Reaction Status Date / Time oxycodone AdvReac Mild per [facility] Verified 12/07/24 10:23 [facility] Medical Record Home Meds Home Medications Medication Instructions Recorded Confirmed multivitamin 1 tab PO QAM 10/05/21 12/13/24 apixaban 5 mg tablet (Eliquis) 5 mg PO BID 04/28/22 12/13/24 sennosides 8.6 mg-docusate sodium 2 tab PO QAM 04/28/22 12/13/24 50 mg tablet (Laxative Stool Softener With Senna) metoprolol succinate 200 mg 200 mg PO BID 01/18/23 12/13/24 tablet,extended release 24 hr (Toprol XL) amitriptyline 75 mg tablet 75 mg PO HS 03/31/23 12/13/24 bicalutamide 50 mg tablet (Casodex) 50 mg PO DAILY 03/31/23 12/13/24 glimepiride 4 mg tablet 4 mg PO QAM 03/31/23 12/13/24 metformin 850 mg tablet 850 mg PO BID 03/31/23 12/13/24 cranberry fruit concentrate 250 mg 250 mg PO DAILY 09/06/23 12/13/24 chewable tablet (Azo Cranberry) leuprolide (3 month) 22.5 mg (3 22.5 mg IM DIRECTED 09/06/23 12/13/24 month) intramuscular syringe kit (Lupron Depot) alendronate 70 mg tablet 70 mg PO WK 12/07/24 12/13/24 calcium 600 mg-D3 800 unit-mag11 1 tab PO BID 12/07/24 12/13/24 50 qx-gcuf-abpscg-christian-s.borat tablet (Caltrate 600-D Plus Minerals) furosemide 20 mg tablet 20 mg PO QAM 12/07/24 12/13/24 diltiazem HCl 420 mg capsule,24 420 mg PO DAILY 12/13/24 12/13/24 hr,extended release (Tiadylt ER) dorzolamide-timolol (PF) 2 %-0.5 % 1 drp OPB BID 12/13/24 12/13/24 eye drops in a dropperette (Cosopt (PF)) miconazole nitrate 2 % topical 1 applic topical BID 12/13/24 12/13/24 powder (Desenex) pramoxine 1 % lotion (Sarna 1 applic topical BID PRN as 12/13/24 12/13/24 Sensitive) directed rosuvastatin 40 mg tablet 40 mg PO DAILY 12/13/24 12/13/24 solifenacin 10 mg tablet 10 mg PO DAILY 12/13/24 12/13/24 zinc oxide 13 % topical cream 1 applic topical TID 12/13/24 12/13/24 (Desitin Daily Defense) Results & Data (ED) Vital Signs Vital Signs - 24 hr 12/13/24 19:46 12/13/24 19:46 12/13/24 19:46 Temperature 37.3 C Temperature Source Oral Pulse Rate 47 L Pulse Rate [Apical] Pulse Rate [Exercises] Respiratory Rate 18 Respiratory Rate [Exercises] Respiratory Effort / Characteristics Spontaneous Short of Breath Non-Labored Spontaneous Respiratory Depth Respiratory Pattern Blood Pressure 107/67 Blood Pressure [Left Arm] Blood Pressure Mean 80 Blood Pressure Mean [Left Arm] Pulse Oximetry 97 97 Pulse Oximetry [Exercises] Oxygen Delivery Method Room Air Room Air Sepsis Recent Fever Within 48 Hours No Sepsis New/Unexplained Change in Mental Status No Sepsis Action Taken by Nursing No Action Required 12/13/24 19:46 12/13/24 21:10 12/13/24 21:32 Temperature Temperature Source Pulse Rate 47 L Pulse Rate [Apical] 47 L 47 L Pulse Rate [Exercises] Respiratory Rate 18 Respiratory Rate [Exercises] Respiratory Effort / Characteristics Respiratory Depth Respiratory Pattern Blood Pressure Blood Pressure [Left Arm] 107/75 Blood Pressure Mean Blood Pressure Mean [Left Arm] 85 Pulse Oximetry 92 Pulse Oximetry [Exercises] Oxygen Delivery Method Room Air Sepsis Recent Fever Within 48 Hours Sepsis New/Unexplained Change in Mental Status Sepsis Action Taken by Nursing 12/13/24 22:48 12/13/24 23:00 Temperature Temperature Source Pulse Rate Pulse Rate [Apical] 49 L Pulse Rate [Exercises] 61 Respiratory Rate 18 Respiratory Rate [Exercises] 22 Respiratory Effort / Characteristics Non-Labored Spontaneous Respiratory Depth Normal Respiratory Pattern Regular Blood Pressure Blood Pressure [Left Arm] 121/89 Blood Pressure Mean Blood Pressure Mean [Left Arm] 99 Pulse Oximetry 92 Pulse Oximetry [Exercises] 88 L Oxygen Delivery Method Room Air Room Air Sepsis Recent Fever Within 48 Hours Sepsis New/Unexplained Change in Mental Status Sepsis Action Taken by Nursing Laboratory Data 12/14/24 07:56 12/14/24 07:56 Lab Results 12/13/24 12/13/24 Range/Units 19:55 20:25 WBC 7.98 (4.8-10.8) K/ul RBC 3.67 L (4.70-6.10) M/uL Hgb 11.1 L (14.0-18.0) g/dl Hct 32.4 L (42.0-52.0) % MCV 88.3 (80.0-100.0) fL MCH 30.2 (25.0-34.0) pg MCHC 34.3 (32.0-36.0) g/dL RDW Std Deviation 44.5 (36.4-46.3) fL RDW Coeff of Rossy 14.0 (11.5-14.5) % Plt Count 247 (130-400) K/uL MPV 9.8 (9.4-12.4) fL Immature Gran % (Auto) 0.4 % Neut % (Auto) 58.3 % Lymph % (Auto) 25.6 % [place] % (Auto) 12.5 % Eos % (Auto) 2.4 % Baso % (Auto) 0.8 % Neut # (Auto) 4.66 (1.40-6.50) K/uL Lymph # (Auto) 2.04 (1.20-3.40) K/uL [place] # (Auto) 1.00 H (0.11-0.59) K/uL Eos # (Auto) 0.19 (0.00-0.50) K/uL Baso # (Auto) 0.06 (0.00-0.20) K/uL Immature Gran # (Auto) 0.03 (0.01-0.20) K/uL Absolute Nucleated RBC 0.02 (0.00-0.12) K/uL Nucleated RBC % (auto) 0.3 % PT 11.4 (9.0-12.0) Seconds INR 1.1 (0.9-1.1) Sodium 135 L (136-145) mmol/L Potassium 3.9 (3.5-5.1) mmol/L Chloride 102 (98-107) mmol/L Carbon Dioxide 24 (21-32) mmol/L Anion Gap 9 (3-11) BUN 19 (6-23) mg/dl Creatinine 1.12 (0.6-1.4) mg/dl Est Cr Clr Drug Dosing 85.3 ml/min eGFR 77.10 BUN/Creatinine Ratio 17.0 (10-20) Glucose 170 H (70-99(Fasting)) mg/dl Calcium 10.0 (8.6-10.3) mg/dl Magnesium 1.8 (1.7-2.4) mg/dl Total Bilirubin 0.5 (0.2-1.0) mg/dl AST 22 (13-39) U/L ALT 16 (7-52) U/L Alkaline Phosphatase 79 (34-104) U/L Troponin I High Sens 9.3 (0-20) pg/ml B-Natriuretic Peptide 877 H (0-100) pg/ml Total Protein 7.0 (6.0-8.3) gm/dl Albumin 3.8 (3.4-5.0) gm/dl Globulin 3.2 (2.5-4.0) gm/dl Albumin/Globulin Ratio 1.2 (0.9-2) Lipase 26 (11-82) U/L Prostate Specific Ag < 0.008 (0-4) ng/ml TSH 3.801 (0.300-4.500) uIu/ml Administered Medications Apixaban (Apixaban 5 Mg Tablet) 5 mg PO BID FABIANO Stop: 01/13/25 08:59 Last Admin: 12/14/24 08:50 Dose: 5 mg Documented By: RNC Bicalutamide (Bicalutamide 50 Mg Tab) 50 mg PO DAILY FABIANO Stop: 01/13/25 08:59 Last Admin: 12/14/24 08:50 Dose: 50 mg Documented By: ANAHY Co-signed By: ALIRIO Furosemide (Furosemide Inj 20 Mg/2 Ml Vial) 20 mg IV BID17 FABIANO Stop: 01/13/25 11:14 Last Admin: 12/14/24 11:57 Dose: 20 mg Documented By: RNC Azithromycin (Zithromax) 500 mg in 255 mls @ 127.5 mls/hr IV Q24H FABIANO Stop: 12/19/24 03:59 Last Infusion: 12/14/24 06:10 Dose: Infused Documented By: Admin: 12/14/24 04:10 Dose: 127.5 mls/hr Documented By: JORDY Insulin Aspart (Insulin Aspart Per Unit Charge) 0 units SC ACHS FABIANO Stop: 01/13/25 07:29 Last Admin: 12/14/24 11:47 Dose: Not Given Documented By: Admin: 12/14/24 08:34 Dose: Not Given Documented By: RNC Oxybutynin Chloride (Oxybutynin Chloride Xl 5 Mg Tabcr) 10 mg PO DAILY FABIANO Stop: 01/13/25 08:59 Last Admin: 12/14/24 08:50 Dose: 10 mg Documented By: RNC Rosuvastatin Calcium (Rosuvastatin Calcium 20 Mg Tab) 40 mg PO DAILY FABIANO Stop: 01/13/25 08:59 Last Admin: 12/14/24 08:50 Dose: 40 mg Documented By: RNC Timolol Maleate (Timolol Maleate 0.5% Op Soln 5 Ml Btl) 1 drops OP BID FABIANO Stop: 01/13/25 08:59 Last Admin: 12/14/24 08:51 Dose: 1 drops Documented By: RNC Discontinued Medications Apixaban (Apixaban 5 Mg Tablet) 5 mg PO ONE ONE Stop: 12/13/24 23:50 Last Admin: 12/14/24 01:12 Dose: 5 mg Documented By: JORDY Furosemide (Furosemide Inj 20 Mg/2 Ml Vial) 20 mg IV ONE ONE Stop: 12/13/24 21:41 Last Admin: 12/13/24 21:54 Dose: 20 mg Documented By: JOSE ANTONIO Magnesium Sulfate/Dextrose (Magnesium Sulfate / D5w) 1 gm in 100 mls @ 50 mls/hr IV ONE ONE Stop: 12/14/24 01:45 Last Infusion: 12/14/24 02:14 Dose: Infused Documented By: Admin: 12/14/24 00:14 Dose: 50 mls/hr Documented By: DLNona Magnesium Sulfate/Dextrose (Magnesium Sulfate / D5w) 1 gm in 100 mls @ 50 mls/hr IV ONE ONE Stop: 12/14/24 10:53 Last Infusion: 12/14/24 11:19 Dose: Infused Documented By: Admin: 12/14/24 09:19 Dose: 50 mls/hr Documented By: RNC Ioversol (Optiray 320 100ml) 95 ml IV ONCE ONE Stop: 12/14/24 10:19 Last Admin: 12/14/24 10:18 Dose: 1 ml Documented By: ABS Potassium Chloride (Potassium Chloride Crtab 20 Meq Tabcr) 20 meq PO NOW STA Stop: 12/13/24 23:47 Last Admin: 12/14/24 00:14 Dose: 20 meq Documented By: [facility] Discharge Plan Visit Data Chief Complaint: Cardiac Assessment Stated Complaint: Cardiac Assessment ED Provider: Emily Spence Discharge Problem: Dyspnea, Atrial fibrillation, CHF (congestive heart failure) Patient Disposition: Admitted As Inpatient Condition: Fair Discharge Instructions Interventions: ED Discharge Assessment Last Done: 12/14/24 00:22
[2024-12-13 20:46] LABS: Alanine Aminotransferase 16.0 U/L (7-52); Albumin Globulin Ratio 1.2 (0.9-2); Albumin Level 3.8 gm/dl (3.4-5.0); Alkaline Phosphatase 79.0 U/L (34-104); Anion Gap 9.0 (3-11); Bilirubin,Total 0.5 mg/dl (0.2-1.0); Blood Urea Nitrogen 19.0 mg/dl (6-23); Calcium 10.0 mg/dl (8.6-10.3); Carbon Dioxide 24.0 mmol/L (21-32); Chloride 102.0 mmol/L (98-107); Creatinine Clr Calc Pharmacy 85.3 ml/min; Globulin 3.2 gm/dl (2.5-4.0); Glucose 170.0 mg/dl (70-99(Fasting)); Lipase 26.0 U/L (11-82); Magnesium 1.8 mg/dl (1.7-2.4); Potassium 3.9 mmol/L (3.5-5.1); Sodium 135.0 mmol/L (136-145); Total Protein 7.0 gm/dl (6.0-8.3)
[2024-12-13 21:01] LABS: Thyroid Stimulating Hormone 3.801 uIu/ml (0.300-4.500)
[2024-12-13 21:03] LABS: INR 1.1 (0.9-1.1); Prothrombin Time 11.4 Seconds (9.0-12.0)
[2024-12-13] MEDS: FUROSEMIDE INJ 20 MG/2 ML VIAL IV ONE (21:54)
--- NOTE | 2024-12-13 23:46 | History & Physical Report ---
Date of Service December 13, 2024 Assessment & Plan (1) Bradycardia: (2) Dyspnea: (3) Atypical pneumonia: (4) Atrial fibrillation: Plan Patient is a 54 y/o male with a pmhx including HFpEF, prostate CA, JEANNINE, HTN, t2dm, afib. Patient present due to an episode of bradycardia (HR 40s) after having diltiazem and metoprolol increased. He has had dyspnea on exertion for 3- 4 days. He is being admitted for further cardiac workup. #Bradycardiabradycardia noted after increase in patient's diltiazem and metoprolol made on 12/07. 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 No leukocytosis, afebrile, non-hypoxic. - CXR was pending at time of admission however later return showing concern for atypical pneumonia, cardiomegaly without evidence of CHF Will start azithromycin 500 mg IV every 24 hours given Lasix 20 Mg IV in ED - Holding further diuresis with hypotension, low suspicion for CHF exacerbation Will repeat echocardiogram as most recent 03/2022 revealed EF 65 to 70%, normal stress echo COVID/flu/RSV swab ordered negative Will optimize electrolytes for K+ 4.0, Mg 2.0 1 G IV magnesium ordered and 20 mEq p.o. KCl ordered - O2 prn for O2 < 92% - incentive spirometry #HFpEFBNP elevated however low concern for acute exacerbation given clinically appears euvolemic. Given Lasix 20 Mg IV in the ED resulting in hypotension Holding home p.o. Lasix #A-fibholding diltiazem and metoprolol with bradycardia, continue Eliquis #OSACPAP at bedtime #Type II DMholding metformin and glimepiride, SSI ordered #Prostate cancerfollows with Dr. Hernandez. Recent cystoscopy 01/17 revealed residual necrotic tissue. Continue Casodex, Flomax, solifenacin. VTE ppx: continue home Eliquis Dispo: PCU Admission and Anticipated Discharge Date Admission Date: 12/13/24 - note that admission orders were placed prior to midnight History of Present Illness Chief Complaint: cardiac assessment Primary Care Provider: [facility] Patient is a 54 y/o male with a pmhx including HFpEF, prostate CA, JEANNINE, HTN, t2dm, afib. Patient present due to an episode of bradycardia (HR 40s) after having diltiazem and metoprolol increased. He has had dyspnea on exertion for 3- 4 days. He is being admitted for further cardiac workup. Patient seen at bedside with [facility] guards present. He stated on his diltiazem was increased from 360 mg daily to 420 mg daily as well as metoprolol succinate increased from 200 daily to BID. After that, he started to develop worsening dyspnea with minimal exertion. He denies any cough, congestion, rhinorrhea, orthopnea. He does endorse a mild cramping chest pain this afternoon which was relieved on its own. He was noted to have a heart rate in the 40s and EMS was called. He denies any dizziness, lightheadedness, nausea, vomiting, diarrhea, lower extermity edema. He denies previous nicotine use. He follows a low sodium diet. He uses CPAP hs, no oxygen use at baseline. He wishes to be full code. Note BP dropped to 107/75 after IV lasix 20mg in ED. Allergies Allergy/AdvReac Type Severity Reaction Status Date / Time oxycodone AdvReac Mild per [facility] Verified 12/07/24 10:23 [facility] Medical Record Home Medications Medication Instructions Recorded Confirmed Type multivitamin 1 tab PO QAM 10/05/21 12/13/24 History apixaban 5 mg tablet (Eliquis) 5 mg PO BID 04/28/22 12/13/24 History sennosides 8.6 mg-docusate sodium 2 tab PO QAM 04/28/22 12/13/24 History 50 mg tablet (Laxative Stool Softener With Senna) metoprolol succinate 200 mg 200 mg PO BID 01/18/23 12/13/24 History tablet,extended release 24 hr (Toprol XL) amitriptyline 75 mg tablet 75 mg PO HS 03/31/23 12/13/24 History bicalutamide 50 mg tablet (Casodex) 50 mg PO DAILY 03/31/23 12/13/24 History glimepiride 4 mg tablet 4 mg PO QAM 03/31/23 12/13/24 History metformin 850 mg tablet 850 mg PO BID 03/31/23 12/13/24 History cranberry fruit concentrate 250 mg 250 mg PO DAILY 09/06/23 12/13/24 History chewable tablet (Azo Cranberry) leuprolide (3 month) 22.5 mg (3 22.5 mg IM DIRECTED 09/06/23 12/13/24 History month) intramuscular syringe kit (Lupron Depot) alendronate 70 mg tablet 70 mg PO WK 12/07/24 12/13/24 History calcium 600 mg-D3 800 unit-mag11 1 tab PO BID 12/07/24 12/13/24 History 50 ll-cmyn-uqkdte-christian-s.borat tablet (Caltrate 600-D Plus Minerals) furosemide 20 mg tablet 20 mg PO QAM 12/07/24 12/13/24 History diltiazem HCl 420 mg capsule,24 420 mg PO DAILY 12/13/24 12/13/24 History hr,extended release (Tiadylt ER) dorzolamide-timolol (PF) 2 %-0.5 % 1 drp OPB BID 12/13/24 12/13/24 History eye drops in a dropperette (Cosopt (PF)) miconazole nitrate 2 % topical 1 applic topical BID 12/13/24 12/13/24 History powder (Desenex) pramoxine 1 % lotion (Sarna 1 applic topical BID PRN as 12/13/24 12/13/24 History Sensitive) directed rosuvastatin 40 mg tablet 40 mg PO DAILY 12/13/24 12/13/24 History solifenacin 10 mg tablet 10 mg PO DAILY 12/13/24 12/13/24 History zinc oxide 13 % topical cream 1 applic topical TID 12/13/24 12/13/24 History (Desitin Daily Defense) Past Med/Surg History Problem List (Updated 12/14/24 @ 19:38 by Carroll De Jesus MD) Coronary artery calcification Mediastinal lymphadenopathy Acute on chronic heart failure with preserved ejection fraction (HFpEF) Acute respiratory failure with hypoxia Atypical pneumonia Bradycardia CHF (congestive heart failure) (Acute) Atrial fibrillation (Acute) Dyspnea (Acute) Necrosis of prostate Bladder stone Chronic diarrhea Permanent atrial fibrillation Incontinence Balanitis Urinary retention Anemia Prostate cancer (Chronic) Elevated PSA Pain in rectum (Acute) Pelvic mass (Acute) Normal left ventricular systolic function Dyslipidemia Type 2 diabetes mellitus Hypertension Hemorrhoids Medical History Urinary retention Xerosis cutis Hypertrophic cardiomyopathy Severe cLVH. Normal LVEF per cardio records CKD (chronic kidney disease) stage 2, GFR 60-89 ml/min Inmate in [facility] facility [facility] Chronic cystitis with hematuria Congestive heart failure, unspecified EF >70% on 2021 ECHO BPH (benign prostatic hyperplasia) Prostate cancer s/p partial resection per records Sleep apnea, obstructive SOB (shortness of breath) Per 07/2023 cardio note- patient's breathing at baseline- exercising 3 days week- little more exertional dyspnea in hot and humid weather HTN (hypertension), benign Diabetes mellitus type 2, uncomplicated Hyperlipidemia Cellulitis 2020 per [facility] records Afib on Eliquis Heartburn Constipation Surgical History S/P TURP Family History Family/Other Cancer Other Family history unobtainable Social History Smoking Status: Never smoker Tobacco Type: Cigarettes Do You Dip or Chew Tobacco: No; Hx Alcohol Use: No Hx Substance Use: No Preferred Language: Welsh Communication Ability: Unable Design Intern Required: No Beliefs That Will Affect Care: None marital status: Single Current Living Situation: Other Current Living Situation Comment: [facility] Other Information That Helps Us Care for You: No Feels Safe at Home: Yes Safety Concerns: Feels Safe At This Time Assistive Devices: None Review of Systems Review of Systems: see HPI Physical Exam Physical Exam: The patient is awake, alert and oriented 3, well developed and well nourished, normocephalic and atraumatic, in no acute distress. Non-toxic appearing. HEENT- EOMI, mucous membranes moist. Hearing grossly intact. Heart-normal S1 and S2. No murmurs, rubs or gallops. Lungs-clear bilaterally, no respiratory distress, no accessory muscle use. Abdomen-normal bowel sounds and soft. No ascites noted. Non-tender. Extremities- no clubbing, cyanosis, or edema. Rheumatologic-normal range of motion. Psychiatric-normal affect. Results & Data Results & Data Vital Signs (Past 12 Hours) Vital Signs Temp Pulse Pulse Pulse Resp Resp BP 12/13/24 23:00 49 L 18 12/13/24 22:48 61 22 12/13/24 21:32 47 L 12/13/24 21:10 47 L 12/13/24 19:46 47 L 18 12/13/24 19:46 12/13/24 19:46 37.3 C 47 L 18 107/67 BP Pulse Ox Pulse Ox O2 Del Method 12/13/24 23:00 121/89 92 Room Air 12/13/24 22:48 88 L Room Air 12/13/24 21:32 107/75 92 Room Air 12/13/24 21:10 12/13/24 19:46 12/13/24 19:46 97 Room Air 12/13/24 19:46 97 Room Air Laboratory Results Abnormal lab results 12/13/24 12/13/24 Range/Units 19:55 20:25 RBC 3.67 L (4.70-6.10) M/uL Hgb 11.1 L (14.0-18.0) g/dl Hct 32.4 L (42.0-52.0) % [place] # (Auto) 1.00 H (0.11-0.59) K/uL Sodium 135 L (136-145) mmol/L Glucose 170 H (70-99(Fasting)) mg/dl B-Natriuretic Peptide 877 H (0-100) pg/ml Diagnostic Findings CXR pending at time of admission Medications Administered ed - lasix 20 mg IV ECG Additional Comments: a fib, rate 49 qtc 390 Code Status & VTE Plan Code Status full code VTE Prophylaxis Plan VTE Prophylaxis will be ordered: Yes Supervising Physician Co-Signing Physician Notes Attending addendum: I have physically seen this patient, have supervised the IJEOMA's activities, and agree with the H&P unless as otherwise noted. Assessment and Plan: The patient is a 54-year-old male with past medical history including HFpEF, prostate cancer, JEANNINE, hypertension, diabetes mellitus type 2, and atrial fibrillation. He presents to the emergency department due to an episode of bradycardia with heart rate in the 40s, after recent increase in diltiazem and metoprolol. He has had dyspnea on exertion for 3 to 4 days. He is being admitted to the [facility] service for further evaluation and treatment. Bradycardia/atrial fibrillation- Bradycardia occurred after diltiazem and metoprolol were increased on 12/07 to control atrial fibrillation heart rate. The patient will be admitted to telemetry for serial cardiac enzymes, serial EKG's, cardiac rhythm monitoring and a 2-D echocardiogram with Dopplers. Consult cardiology to determine if tachybradycardia syndrome, and whether dosing can be adjusted to metoprolol and Cardizem to control heart rate without causing bradycardia Atypical pneumonia- Azithromycin 500 mg IV daily COVID/flu/RSV negative Incentive spirometry HFpEF- Given Lasix 20 mg IV in ED resulted in hypotension Holding any further Lasix IV or oral for now JEANNINE- CPAP at bedtime Remaining orders and notations as noted PG Care Time/CCT Total # of Minutes Spent Total Time Spent with Patient: Total time spent is greater than 50% in coordination of care (as documented) at patient's floor/unit and/or counseling patient: Coding Level of Care Code 05463 INT INP/OBS CARE 3/75MIN Diagnoses Bradycardia R00.1 Dyspnea R06.00 Atypical pneumonia J18.9 Atrial fibrillation I48.91
[2024-12-14] MEDS: POTASSIUM CHLORIDE CRTAB 20 MEQ TABCR PO STA (00:14)
[2024-12-14] MEDS: MAGNESIUM SULFATE / D5W 1 GM/100 ML BAG IV ONE ×2 (00:14→09:19)
--- NOTE | 2024-12-14 00:24 | XRay Report ---
Exam(s): XR CXR 1 VIEW EXAM: XR Chest, 1 View CLINICAL HISTORY: Reason for exam: sob. TECHNIQUE: Frontal view of the chest. COMPARISON: Prior chest x-ray from October 06, 2021. FINDINGS: Lungs: Moderate to heavy peribronchial thickening of the central and peripheral bronchi with increased interstitial opacities throughout the lungs. Pleural space: Unremarkable. No pneumothorax. Heart: Mild cardiomegaly. Mediastinum: Unremarkable. Normal mediastinal contour. Bones/joints: Unremarkable. No acute fracture. IMPRESSION: Findings concerning for atypical pneumonia. No consolidation or pleural effusion. Cardiomegaly without evidence of CHF. Communications: Verify Receipt Electronically signed by: Catherine Sauceda MD 12/14/24 00:24 AM
[2024-12-14] MEDS ORDERED: ACETAMINOPHEN 325 MG TAB PO PRN (00:44)
[2024-12-14] MEDS ORDERED: GLUCOSE 10 TAB/TUBE PO PRN (00:44)
[2024-12-14] MEDS ORDERED: GLUCOSE 40% GEL 15 GM TUBE PO PRN (00:44)
[2024-12-14] MEDS ORDERED: ONDANSETRON INJ 2 MG/ML 2 ML VIAL IV PRN (00:44)
[2024-12-14] MEDS ORDERED: CARBOHYDRATES FOR HYPOGLYCEMIA PO PRN (00:44)
[2024-12-14] MEDS ORDERED: GLUCAGON FOR INJ 1 MG VIAL SQ PRN (00:44)
[2024-12-14] MEDS ORDERED: DEXTROSE 50% 50 ML SYRINGE IV PRN (00:44)
[2024-12-14] MEDS ORDERED: MELATONIN 3 MG TAB PO PRN (00:44)
[2024-12-14] MEDS ORDERED: DOCUSATE SODIUM 100 MG CAP PO PRN (00:44)
[2024-12-14 01:12] LABS: Influenza A virus by PCR Negative (Neg); Influenza B virus by PCR Negative (Neg); SARS CoV2 RNA(COVID-19) Ceph NEGATIVE (Negative)
[2024-12-14] MEDS: APIXABAN 5 MG TABLET PO ONE (01:12)
[2024-12-14] MEDS: AZITHROMYCIN 500 MG/255 ML BAG IV SCH (04:10)
[2024-12-14 08:19] LABS: Anion Gap 5.0 (3-11); Calcium 9.6 mg/dl (8.6-10.3); Carbon Dioxide 27.0 mmol/L (21-32); Chloride 103.0 mmol/L (98-107); Magnesium 1.9 mg/dl (1.7-2.4); Potassium 4.4 mmol/L (3.5-5.1); Sodium 135.0 mmol/L (136-145)
[2024-12-14 08:24] LABS: Blood Urea Nitrogen 17.0 mg/dl (6-23); Creatinine Clr Calc Pharmacy 86.4 ml/min; Glucose 101.0 mg/dl (70-99(Fasting))
[2024-12-14 08:26] LABS: Hematocrit (blood only) 35.8 % (42.0-52.0); Hemoglobin 12.1 g/dl (14.0-18.0); Immature Granulocytes # (auto) 0.02 K/uL (0.01-0.20); Immature Granulocytes % (auto) 0.3 %; Mean Corpuscular Hemoglobin 30.5 pg (25.0-34.0); Mean Corpuscular Volume 90.2 fL (80.0-100.0); Platelet Count 233 K/uL (130-400); RDW Standard Deviation 46.2 fL (36.4-46.3); Red Blood Count 3.97 M/uL (4.70-6.10); White Blood Count 7.00 K/ul (4.8-10.8)
[2024-12-14] MEDS: INSULIN ASPART PER UNIT CHARGE SC SCH (08:34)
[2024-12-14] MEDS: BICALUTAMIDE 50 MG TAB PO SCH (08:50)
[2024-12-14] MEDS: APIXABAN 5 MG TABLET PO SCH (08:50)
[2024-12-14] MEDS: ROSUVASTATIN CALCIUM 20 MG TAB PO SCH (08:50)
[2024-12-14] MEDS: OXYBUTYNIN CHLORIDE XL 5 MG TABCR PO SCH (08:50)
[2024-12-14] MEDS: TIMOLOL MALEATE 0.5% OP SOLN 5 ML BTL OP SCH (08:51)
--- NOTE | 2024-12-14 09:59 | Cardiology Consultation ---
Date of Consultation December 14, 2024 Assessment & Plan (1) Acute on chronic heart failure with preserved ejection fraction (HFpEF): (2) Permanent atrial fibrillation: (3) Bradycardia: (4) Hypertension: (5) Coronary artery calcification: Plan ASSESSMENT/PLAN: 1. Atrial fibrillation: Presented with bradycardia after recent titration of outpatient beta-bora and calcium channel bora. Heart rate has since increased. Given his propensity for rapid ventricular response in the past per records, recommend resuming metoprolol succinate 200 mg daily and diltiazem 360 mg daily. This was his chronic dose which was recently adjusted on 12/07/2024. Can then make further adjustment with one of the medications as necessary to achieve adequate heart rate control. Continue anticoagulation for stroke risk reduction. Monitor blood counts. 2. Acute heart failure with preserved EF: He has diuresed significantly and is feeling much better. Monitor renal function and electrolytes closely. Receiving Lasix 20 mg IV twice daily. Consider SGLT2 inhibitor if no contr aindication. Low-sodium diet, less than 2000 mg daily. Strict I's and O's while hospitalized. Daily weights. 3. Bradycardia: Plan as above. 4. Hypertrophic cardiomyopathy: History of hypertrophic cardiomyopathy reported in the chart. 5. Hypertension: Blood pressure elevated as the day progressed but his rate controlling/antihypertensive agents have been held. Will resume as above. 6. Supplemental oxygen: Uses supplemental oxygen at his correctional institution chronically. Unclear underlying pulmonary process. 7. Coronary artery calcifications: Noted on CT imaging. Continue high intensity statin therapy. Continue beta-bora. No angina. Had atypical chest discomfort in the setting of heart failure exacerbation and also with negative high-sensitivity troponin level despite 30 minutes of pain. 8. Disposition: Cardiology will continue to follow. Upon discharge, follow-up with Dr. He, his primary rn support services. Patient care has been communicated with Dr. Nava of the primary hospitalist service. Thank you for allowing me to participate in the care of your patient. Please call for any other questions or concerns. Sincerely, Levi De Jesus M.D. History of Present Illness Reason for Consultation: atrial fibrillation and bradycardia Requesting Physician: Carline Tobar Attending Physician: Sara Nava MD History of Present Illness Mr. Hernández is a very pleasant 54-year-old gentleman with a history significant for permanent atrial fibrillation, possible hypertrophic cardiomyopathy, hypertension, dyslipidemia, type 2 diabetes, and use of supplemental oxygen. His primary rn support services is Dr. He. He was last seen by Dr. He on 12/07/2024 at which time he was noted to be tachycardic. Metoprolol succinate was increased from 200 mg daily to 200 mg twice daily and diltiazem increased from 360 mg up to 420 mg daily. Shortly thereafter, he noted dyspnea on exertion and even an episode of orthopnea. On the day of presentation, he had left lower chest discomfort lasting 30 minutes while sitting. He denies syncope, near syncope, palpitations, edema, or bleeding such as melena, hematochezia, or hematuria. He was noted to be bradycardic on presentation with heart rates in the 40s. His AV rajesh blocking agents were held and since then his heart rate has increased, more recently in the 80s to 90s. He was felt to be hypervolemic on presentation and placed on intravenous diuretics. He admits that his breathing has significantly improved. He is also being treated for possible atypical pulmonary infection. While incarcerated, he states that he has been using supplemental oxygen for the past 3 years ago. It is not portable but when he returns to his cell, he typically uses the oxygen at the "highest setting." Review of systems: As above. Family history: No known premature CAD. Social history: Denies significant smoking history, alcohol, or drug abuse. Not . 7 children (6 daughters and 1 son). 4 children live in [place] and the other 2 in [place]. He is originally from [place]. He is currently incarcerated at [facility]. He was accompanied by 2 retirement guards. Allergies Allergy/AdvReac Type Severity Reaction Status Date / Time oxycodone AdvReac Mild per [facility] Verified 12/07/24 10:23 [facility] Medical Record Home Medications Medication Instructions Recorded Confirmed Type multivitamin 1 tab PO QAM 10/05/21 12/13/24 History apixaban 5 mg tablet (Eliquis) 5 mg PO BID 04/28/22 12/13/24 History sennosides 8.6 mg-docusate sodium 2 tab PO QAM 04/28/22 12/13/24 History 50 mg tablet (Laxative Stool Softener With Senna) metoprolol succinate 200 mg 200 mg PO BID 01/18/23 12/13/24 History tablet,extended release 24 hr (Toprol XL) amitriptyline 75 mg tablet 75 mg PO HS 03/31/23 12/13/24 History bicalutamide 50 mg tablet (Casodex) 50 mg PO DAILY 03/31/23 12/13/24 History glimepiride 4 mg tablet 4 mg PO QAM 03/31/23 12/13/24 History metformin 850 mg tablet 850 mg PO BID 03/31/23 12/13/24 History cranberry fruit concentrate 250 mg 250 mg PO DAILY 09/06/23 12/13/24 History chewable tablet (Azo Cranberry) leuprolide (3 month) 22.5 mg (3 22.5 mg IM DIRECTED 09/06/23 12/13/24 History month) intramuscular syringe kit (Lupron Depot) alendronate 70 mg tablet 70 mg PO WK 12/07/24 12/13/24 History calcium 600 mg-D3 800 unit-mag11 1 tab PO BID 12/07/24 12/13/24 History 50 oj-qirx-xorcsd-christian-s.borat tablet (Caltrate 600-D Plus Minerals) furosemide 20 mg tablet 20 mg PO QAM 12/07/24 12/13/24 History diltiazem HCl 420 mg capsule,24 420 mg PO DAILY 12/13/24 12/13/24 History hr,extended release (Tiadylt ER) dorzolamide-timolol (PF) 2 %-0.5 % 1 drp OPB BID 12/13/24 12/13/24 History eye drops in a dropperette (Cosopt (PF)) miconazole nitrate 2 % topical 1 applic topical BID 12/13/24 12/13/24 History powder (Desenex) pramoxine 1 % lotion (Sarna 1 applic topical BID PRN as 12/13/24 12/13/24 History Sensitive) directed rosuvastatin 40 mg tablet 40 mg PO DAILY 12/13/24 12/13/24 History solifenacin 10 mg tablet 10 mg PO DAILY 12/13/24 12/13/24 History zinc oxide 13 % topical cream 1 applic topical TID 12/13/24 12/13/24 History (Desitin Daily Defense) Patient History Medical History Urinary retention Xerosis cutis Hypertrophic cardiomyopathy Severe cLVH. Normal LVEF per cardio records CKD (chronic kidney disease) stage 2, GFR 60-89 ml/min Inmate in [facility]al facility [facility] Chronic cystitis with hematuria Congestive heart failure, unspecified EF >70% on 2021 ECHO BPH (benign prostatic hyperplasia) Prostate cancer s/p partial resection per records Sleep apnea, obstructive SOB (shortness of breath) Per 07/2023 cardio note- patient's breathing at baseline- exercising 3 days week- little more exertional dyspnea in hot and humid weather HTN (hypertension), benign Diabetes mellitus type 2, uncomplicated Hyperlipidemia Cellulitis 2020 per [facility] records Afib on Eliquis Heartburn Constipation Surgical History S/P TURP Family History Family/Other Cancer Other Family history unobtainable Social History Smoking Status: Never smoker Tobacco Type: Cigarettes Do You Dip or Chew Tobacco: No; Hx Alcohol Use: No Hx Substance Use: No Preferred Language: Botswanan Communication Ability: Unable Value Stream Manager Required: No Beliefs That Will Affect Care: None marital status: Single Current Living Situation: Other Current Living Situation Comment: [facility] Other Information That Helps Us Care for You: No Feels Safe at Home: Yes Safety Concerns: Feels Safe At This Time Assistive Devices: None Physical Exam Physical Exam: Gen.: No acute distress. Alert and oriented. HEENT: Anicteric sclera. Neck: Thick neck. Hepatojugular reflux noted. Normal carotid upstrokes bilaterally. Cardiac: Irregularly irregular. Normal rate. Normal S1-S2. No murmurs, rubs, or gallops. Pulmonary: Clear to auscultation bilaterally without wheezes, rales, or rhonchi. Abdomen: Soft, nontender, nondistended, with normoactive bowel sounds. No bruits noted. Extremities: 2+ radial pulses bilaterally. 2+ posterior tibialis pulses bilaterally. Trace bilateral pedal edema. No cyanosis. Results & Data Vital Signs (Past 12 Hours) Vital Signs Temp Pulse Pulse Pulse Resp Resp BP 12/14/24 07:58 36.5 C 61 20 12/14/24 03:56 64 15 12/14/24 03:53 36.6 C 59 L 18 12/14/24 01:41 58 L 24 12/14/24 01:00 12/14/24 00:44 36.9 C 56 L 22 12/14/24 00:43 61 12/14/24 00:22 58 L 18 120/88 12/13/24 23:00 49 L 18 12/13/24 22:48 61 22 BP Pulse Ox Pulse Ox O2 Del Method O2 Flow Rate 12/14/24 07:58 154/87 H 96 CPAP 12/14/24 03:56 98 4 12/14/24 03:53 161/94 H 98 CPAP 12/14/24 01:41 95 4 12/14/24 01:00 Nasal Cannula 4 12/14/24 00:44 112/81 93 Nasal Cannula 4 12/14/24 00:43 12/14/24 00:22 92 Room Air 12/13/24 23:00 121/89 92 Room Air 12/13/24 22:48 88 L Room Air Intake & Output 12/12/24 12/13/24 12/14/24 12/15/24 06:59 06:59 06:59 06:59 Intake Total 355 / 355 100 / 100 Output Total 775 / 775 4100 / 4100 Balance -420 / -420 -4000 / -4000 Weight 213 lb 13.574 oz Laboratory Results Laboratory Results - last 24 hr 12/13/24 12/13/24 12/14/24 19:55 20:25 00:15 WBC 7.98 RBC 3.67 L Hgb 11.1 L Hct 32.4 L MCV 88.3 MCH 30.2 MCHC 34.3 RDW Std Deviation 44.5 RDW Coeff of Rossy 14.0 Plt Count 247 MPV 9.8 Immature Gran % (Auto) 0.4 Neut % (Auto) 58.3 Lymph % (Auto) 25.6 [place] % (Auto) 12.5 Eos % (Auto) 2.4 Baso % (Auto) 0.8 Neut # (Auto) 4.66 Lymph # (Auto) 2.04 [place] # (Auto) 1.00 H Eos # (Auto) 0.19 Baso # (Auto) 0.06 Immature Gran # (Auto) 0.03 Absolute Nucleated RBC 0.02 Nucleated RBC % (auto) 0.3 PT 11.4 INR 1.1 Sodium 135 L Potassium 3.9 Chloride 102 Carbon Dioxide 24 Anion Gap 9 BUN 19 Creatinine 1.12 Est Cr Clr Drug Dosing 85.3 eGFR 77.10 BUN/Creatinine Ratio 17.0 Glucose 170 H POC Glucose Calcium 10.0 Magnesium 1.8 Total Bilirubin 0.5 AST 22 ALT 16 Alkaline Phosphatase 79 Troponin I High Sens 9.3 B-Natriuretic Peptide 877 H Total Protein 7.0 Albumin 3.8 Globulin 3.2 Albumin/Globulin Ratio 1.2 Lipase 26 TSH 3.801 Nasal Screen MRSA (PCR) SARS-CoV-2 (PCR) NEGATIVE Influenza Type A (PCR) Negative Influenza Type B (PCR) Negative RSV (RT-PCR) Negative 12/14/24 12/14/24 12/14/24 01:00 05:58 07:30 WBC RBC Hgb Hct MCV MCH MCHC RDW Std Deviation RDW Coeff of Rossy Plt Count MPV Immature Gran % (Auto) Neut % (Auto) Lymph % (Auto) [place] % (Auto) Eos % (Auto) Baso % (Auto) Neut # (Auto) Lymph # (Auto) [place] # (Auto) Eos # (Auto) Baso # (Auto) Immature Gran # (Auto) Absolute Nucleated RBC Nucleated RBC % (auto) PT INR Sodium Cancelled Potassium Cancelled Chloride Cancelled Carbon Dioxide Cancelled Anion Gap Cancelled BUN Cancelled Creatinine Cancelled Est Cr Clr Drug Dosing Cancelled eGFR Cancelled BUN/Creatinine Ratio Cancelled Glucose Cancelled POC Glucose 97 Calcium Cancelled Magnesium Cancelled Total Bilirubin AST ALT Alkaline Phosphatase Troponin I High Sens B-Natriuretic Peptide Total Protein Albumin Globulin Albumin/Globulin Ratio Lipase TSH Nasal Screen MRSA (PCR) Negative SARS-CoV-2 (PCR) Influenza Type A (PCR) Influenza Type B (PCR) RSV (RT-PCR) 12/14/24 12/14/24 07:48 07:56 WBC 7.00 RBC 3.97 L Hgb 12.1 L Hct 35.8 L MCV 90.2 MCH 30.5 MCHC 33.8 RDW Std Deviation 46.2 RDW Coeff of Rossy 14.2 Plt Count 233 MPV 9.3 L Immature Gran % (Auto) 0.3 Neut % (Auto) 58.4 Lymph % (Auto) 24.7 [place] % (Auto) 13.0 Eos % (Auto) 2.9 Baso % (Auto) 0.7 Neut # (Auto) 4.09 Lymph # (Auto) 1.73 [place] # (Auto) 0.91 H Eos # (Auto) 0.20 Baso # (Auto) 0.05 Immature Gran # (Auto) 0.02 Absolute Nucleated RBC Nucleated RBC % (auto) PT INR Sodium 135 L Potassium 4.4 Chloride 103 Carbon Dioxide 27 Anion Gap 5 BUN 17 Creatinine 1.06 Est Cr Clr Drug Dosing 86.4 eGFR 82.37 BUN/Creatinine Ratio 16.0 Glucose 101 H POC Glucose 334 H* Calcium 9.6 Magnesium 1.9 Total Bilirubin AST ALT Alkaline Phosphatase Troponin I High Sens B-Natriuretic Peptide Total Protein Albumin Globulin Albumin/Globulin Ratio Lipase TSH Nasal Screen MRSA (PCR) SARS-CoV-2 (PCR) Influenza Type A (PCR) Influenza Type B (PCR) RSV (RT-PCR) Diagnostic Findings Labs reviewed and notable for elevated BNP (chronically elevated but higher than usual), mild hyponatremia, normal potassium, stable renal function, normal transaminase levels, normal TSH, mild but stable anemia. History and physical report reviewed. ECG personally reviewed from 12/13/2024 at 1946: Atrial fibrillation 49 bpm. Nonspecific T wave abnormality. Poor R wave progression. Echo report reviewed from 07/21/2021: Hyperdynamic LV. EF > 70%. LVH. Severe left atrial dilation. Mild to moderate MR. Systolic anterior motion of the mitral leaflet. Moderate pericardial effusion. Chest x-ray report reviewed from 12/13/2024: Findings concerning for atypical pneumonia per radiology. Upon personal review, no pleural effusion. ECHO 12/14/24: 1. Normal left ventricular size and systolic function. EF 55-60%. No regional wall motion abnormalities. Moderate concentric left ventricular hypertrophy. 2. Grossly normal right ventricular size with mildly reduced systolic function. 3. Severe left atrial dilation. 4. Sclerotic aortic valve without significant stenosis. 5. Mild to moderate mitral regurgitation. 6. Normal estimated right ventricular systolic pressure. Telemetry personally reviewed: Atrial fibrillation. Heart rate has increased throughout the day, most notably in the 80s to 90s. CTA chest 12/14/2024: Cardiomegaly with evidence of congestive failure per radiology. Small pleural effusions. Nonspecific mediastinal, hilar, and right supraclavicular lymphadenopathy reported by radiology. Densely calcified coronary arteries. Diffuse intralobular septal thickening. Medications Administered Current Inpatient Medications Acetaminophen (Acetaminophen 325 Mg Tab) 650 mg PO Q4H PRN PRN Reason: Pain or Fever Stop: 01/13/25 00:43 Amitriptyline HCl (Amitriptyline Hcl 25 Mg Tab) 75 mg PO HS FABIANO Stop: 01/13/25 20:59 Apixaban (Apixaban 5 Mg Tablet) 5 mg PO BID FABIANO Stop: 01/13/25 08:59 Last Admin: 12/14/24 08:50 Dose: 5 mg Bicalutamide (Bicalutamide 50 Mg Tab) 50 mg PO DAILY FABIANO Stop: 01/13/25 08:59 Last Admin: 12/14/24 08:50 Dose: 50 mg Dextrose (Dextrose 50% 50 Ml Syringe) 25 - 50 ml IV UD PRN; Protocol PRN Reason: Hypoglycemia Protocol Stop: 01/13/25 00:43 Docusate Sodium (Docusate Sodium 100 Mg Cap) 100 mg PO BID PRN PRN Reason: Constipation Stop: 01/13/25 00:43 Glucagon (Glucagon For Inj 1 Mg Vial) 1 mg SQ UD PRN; Protocol PRN Reason: Hypoglycemia Protocol Stop: 01/13/25 00:43 Glucose (Glucose 40% Gel 15 Gm Tube) 15 - 30 gm PO UD PRN; Protocol PRN Reason: Hypoglycemia Protocol Stop: 01/13/25 00:43 Glucose (Glucose 10 Tab/Tube) 4 - 8 tab PO UD PRN; Protocol PRN Reason: Hypoglycemia Protocol Stop: 01/13/25 00:43 Azithromycin (Zithromax) 500 mg in 255 mls @ 127.5 mls/hr IV Q24H FABIANO Stop: 12/19/24 03:59 Last Infusion: 12/14/24 06:10 Dose: Infused Magnesium Sulfate/Dextrose (Magnesium Sulfate / D5w) 1 gm in 100 mls @ 50 mls/hr IV ONE ONE Stop: 12/14/24 10:53 Last Admin: 12/14/24 09:19 Dose: 50 mls/hr Insulin Aspart (Insulin Aspart Per Unit Charge) 0 units SC ACHS FABIANO Stop: 01/13/25 07:29 Last Admin: 12/14/24 08:34 Dose: Not Given Melatonin (Melatonin 3 Mg Tab) 3 mg PO HS PRN PRN Reason: Sleep Stop: 01/13/25 00:43 Miscellaneous (Carbohydrates For Hypoglycemia ) 15 - 30 gm PO UD PRN PRN Reason: Hypoglycemia Protocol Stop: 01/13/25 00:43 Ondansetron HCl (Ondansetron Inj 2 Mg/Ml 2 Ml Vial) 4 mg IV Q6H PRN PRN Reason: Nausea And Vomiting Stop: 01/13/25 00:43 Oxybutynin Chloride (Oxybutynin Chloride Xl 5 Mg Tabcr) 10 mg PO DAILY FABIANO Stop: 01/13/25 08:59 Last Admin: 12/14/24 08:50 Dose: 10 mg Rosuvastatin Calcium (Rosuvastatin Calcium 20 Mg Tab) 40 mg PO DAILY FABIANO Stop: 01/13/25 08:59 Last Admin: 12/14/24 08:50 Dose: 40 mg Timolol Maleate (Timolol Maleate 0.5% Op Soln 5 Ml Btl) 1 drops OP BID FABIANO Stop: 01/13/25 08:59 Last Admin: 12/14/24 08:51 Dose: 1 drops PG Care Time/CCT Total # of Minutes Spent Total Time Spent with Patient: Total time spent is greater than 50% in coordination of care (as documented) at patient's floor/unit and/or counseling patient: Coding Level of Care Code 88485 INT INP/OBS CARE 3/75MIN Diagnoses Acute on chronic heart failure with preserved ejection fraction (HFpEF) I50.33 Permanent atrial fibrillation I48.21 Bradycardia R00.1 Hypertension, unspecified type I10 Hypertension type: unspecified Coronary artery calcification I25.10 (4) Hypertension Hypertension type: unspecified Qualified Code(s): I10 - Essential (primary) hypertension
[2024-12-14] MEDS: OPTIRAY 320 100ml IV ONE (10:18)
--- NOTE | 2024-12-14 10:46 | CT Scan Report ---
CT SCAN OF THE CHEST WITH IV CONTRAST CLINICAL HISTORY: Hypoxia. Abnormal chest x-ray. COMPARISON STUDY: Chest x-ray dated 12/13/2024. Chest CT dated 07/24/2021 TECHNIQUE: Following the IV administration of 95 cc of Optiray 320, CT scan of the thorax was perform ed from the thoracic inlet to the upper abdomen. Images are reviewed in the axial, sagittal, and yoon nal planes. IV contrast was administered without complication. A dose lowering technique was utilize d adhering to the principles of ALARA. CT DOSE: 1045.87 mGy.cm FINDINGS: Thyroid: Mildly enlarged and heterogeneous. Thoracic aorta: There is mild atherosclerotic calcification of the thoracic aorta, which is normal in caliber and demonstrates bovine variant arch anatomy. No dissection is seen. Pulmonary vasculature: The pulmonary trunk is normal in caliber. There are no filling defects identif ied in the central pulmonary vessels to indicate pulmonary embolus. Note that this examination was no t protocoled for evaluation of the pulmonary arteries. Heart: The heart is enlarged noting a small pericardial effusion. The coronary arteries are densely c alcified. Lungs and pleural spaces: There are small pleural effusions with dependent atelectasis. No airspace c onsolidation is seen typical for pneumonia. Diffuse intralobular septal thickening is consistent with fluid overload/congestive change. The trachea and central airways are clear. Diffuse peribronchial t hickening is observed. A 3 mm right upper lobe pulmonary nodule is seen on image #72. Lower neck: There are enlarged right supraclavicular nodes. The largest is seen on image #6 and measu res 1.8 x 1.3 cm. Mediastinum: There are enlarged adjacent lymph nodes. There are 2.8 x 1.8 cm and 2.4 x 2.0 cm right p aratracheal nodes. A prevascular node measures 2.5 x 1.1 cm and a subcarinal node measures 3.3 x 2.4 cm. Lia: There is bilateral hilar adenopathy, right side larger than left. A right hilar node on image # 110 measures approximately 4 x 2 cm. Axillae: There is no axillary lymphadenopathy. Upper abdomen: There is a small hiatal hernia. Right upper pole renal cysts measure up to 3.6 cm. Skeletal structures: The skeletal structures are osteopenic. No lytic or blastic bony lesions are see n. IMPRESSION: 1. Cardiomegaly with evidence of congestive failure. 2. Small pleural effusions. 3. There is nonspecific mediastinal, hilar, and right supraclavicular lymphadenopathy as above. This may be reactive, but supraclavicular adenopathy is atypical and this has increased from 07/24/2021. A f ollow-up contrast-enhanced chest CT in 3-4 months time is recommended for reassessment. 4. Additional findings as above. ACT 112: Positive. There are findings on this exam that require communication between the performing entity and the patient following Patient Test Result Information Act ([place] Act 112) guidelines. Electronically signed by: Saman Huggins M.D. 12/14/2024 10:44 AM
--- NOTE | 2024-12-14 11:34 | Hospitalist Progress Note ---
Date of Service December 14, 2024 Assessment & Plan (1) Acute on chronic heart failure with preserved ejection fraction (HFpEF): (2) Bradycardia: (3) Acute respiratory failure with hypoxia: (4) Mediastinal lymphadenopathy: Plan Patient is a 54 y/o male with a pmhx including HFpEF, prostate CA, JEANNINE, HTN, t2dm, afib. Patient present due to an episode of bradycardia (HR 40s) after having diltiazem and metoprolol increased. He has had dyspnea on exertion for 3- 4 days. Also found to be hypoxic and with abnormal chest x-ray. #Bradycardia/permanent atrial fibrillation/HTNbradycardia in the 40s noted after increase in patient's diltiazem and metoprolol made on 12/07. Causing fatigue and generalized weakness. Noted that diltiazem was increased from 360 mg daily to 420 mg daily and metoprolol from 200 mg daily to 200 mg twice daily. TSH normal. BPs here are now elevated - Continue to hold diltiazem and metoprolol but will likely need to restart at lower doses in the near future for blood pressure and rate control Cardiology consulted-appreciate recommendations - Continue Eliquis - Continue telemetry monitoring - Keep electrolytes replete-give 1 g IV magnesium and follow BMP, magnesium in the morning #Acute on chronic HFpEF/acute respiratory failure with hypoxia/abnormal CXR - reported dyspnea on exertion for 3 to 4 days since increasing doses of AV rajesh blockers. BNP 877, troponin 9.3, no ischemic changes on ECG but with bradycardia in the 40s. No leukocytosis, afebrile, and pulse ox was 88% on room air in the ED. CXR with cardiomegaly and moderate to heavy peribronchial thickening with increased interstitial opacities throughout the lungs. Initially suspected to have atypical pneumonia - Checked CT chest noncontrast-with likely congestive changes, with pleural effusions, and mediastinal, hilar lymphadenopathy as well as right sided supraclavicular lymphadenopathy - Start Lasix 20 mg IV twice daily - Await echo - Consult pulmonology for lymphadenopathy - Check DCIKSON level and vitamin 1, 25-OH vitamin D to assess for sarcoidosis Continue azithromycin 500 mg IV every 24 hours for now in case of atypical infection Will repeat echocardiogram as most recent 03/2022 revealed EF 65 to 70%, normal stress echo COVID/flu/RSV swab ordered negative but will now check full respiratory BioFire panel -Continue supplemental O2 to keep pulse ox greater than 90% - Will need a two-step walk test prior to discharge given that he frequently feels dyspneic on exertion which improves with using his CPAP while awake at the present #OSAcontinue CPAP at bedtime #Type II DMholding metformin and glimepiride, SSI ordered - Check HgbA1c in the a.m. #Prostate cancerfollows with Dr. Hernandez. Recent cystoscopy 01/17 revealed residual necrotic tissue. He had radiation to the pelvis. Continue Casodex, Flomax, solifenacin, and gets shots of Lupron every 3 months - Check PSA in the a.m. in light of enlarged lymph nodes in the chest although most likely not related to prostate cancer DVT prophylaxis-Eliquis Disposition-continued stay in PCU Admission and Anticipated Discharge Date Admission Date: December 13, 2024 Subjective Patient still feels short of breath and is requiring O2. He reports that ever since he has been in A-fib for the last 10+ years he has felt some dyspnea. However, it got much worse to the point where he could barely walk 10 feet since increasing the doses of his metoprolol and diltiazem. He also reports on a regular basis, he puts his CPAP on after he walks back from the medication line at the group home and this helps him feel less short of breath. He denies history of smoking or vaping. No history of autoimmune disorders in him or his family, specifically sarcoidosis. I discussed his case with the pulmonology nurse practitioner. Telemetry with atrial fibrillation with rates in the 60s to 70s Physical Exam Constitutional: WD/WN, vitals as above Eyes: + anicteric sclerae Respiratory: normal respiratory effort; no cough Auscultation: + diminished lung sounds (Diminished breath sounds throughout) Cardiovascular: Rate/Rhythm: regular rate and + irregularly irregular Heart Sounds: no murmur Extremities: + edema (Trace pitting edema of the legs bilaterally to the knees) Gastrointestinal (Abdomen): normal bowel sounds, soft, nontender, no hepatosplenomegaly Psychiatric: A+Ox3, euthymic affect Results & Data Results & Data Vital Signs (Past 12 Hours) Vital Signs Temp Pulse Pulse Resp BP BP Pulse Ox 12/14/24 11:30 58 L 12/14/24 11:00 36.6 C 75 21 145/76 H 98 12/14/24 07:58 36.5 C 61 20 154/87 H 96 12/14/24 03:56 64 15 98 12/14/24 03:53 36.6 C 59 L 18 161/94 H 98 12/14/24 01:41 58 L 24 95 12/14/24 01:00 12/14/24 00:44 36.9 C 56 L 22 112/81 93 12/14/24 00:43 61 12/14/24 00:22 58 L 18 120/88 92 O2 Del Method O2 Flow Rate 12/14/24 11:30 12/14/24 11:00 CPAP 12/14/24 07:58 CPAP 12/14/24 03:56 4 12/14/24 03:53 CPAP 12/14/24 01:41 4 12/14/24 01:00 Nasal Cannula 4 12/14/24 00:44 Nasal Cannula 4 12/14/24 00:43 12/14/24 00:22 Room Air Laboratory Results CBC, BMP, magnesium, TSH, troponin, BNP reviewed Diagnostic Findings CT chest reviewed PG Care Time/CCT Total # of Minutes Spent Total Time Spent with Patient: Total time spent is greater than 50% in coordination of care (as documented) at patient's floor/unit and/or counseling patient: Coding Level of Care Code 90538 SUB INP/OBS CARE 3/50MIN Diagnoses Acute on chronic heart failure with preserved ejection fraction (HFpEF) I50.33 Bradycardia R00.1 Acute respiratory failure with hypoxia J96.01 Mediastinal lymphadenopathy R59.0
[2024-12-14] MEDS: FUROSEMIDE INJ 20 MG/2 ML VIAL IV SCH (11:57)
[2024-12-14 13:33] LABS: Chlamydia pneumoniae PCR Not Detected (NotDetected); Coronavirus 229E PCR Not Detected (NotDetected); Coronavirus CoV-2 (COVID19)PCR Not Detected (NotDetected); Coronavirus HKU1 PCR Not Detected (NotDetected); Coronavirus NL63 PCR Not Detected (NotDetected); Coronavirus OC43PCR Not Detected (NotDetected); Human Metapneumovirus PCR Not Detected (NotDetected); Parainfluenza Virus 1 PCR Not Detected (NotDetected); Parainfluenza Virus 2 PCR Not Detected (NotDetected); Parainfluenza Virus 3 PCR Not Detected (NotDetected); Parainfluenza Virus 4 PCR Not Detected (NotDetected); Respiratory Syncytial VirusPCR Not Detected (NotDetected); Rhinovirus/Enterovirus PCR Not Detected (NotDetected)
--- NOTE | 2024-12-14 17:04 | XCELERA ---
[id number]
[2024-12-14] MEDS: AMITRIPTYLINE HCL 25 MG TAB PO SCH (20:48)
[2024-12-14] MEDS: METOPROLOL SUCC 50MG EXT REL TAB PO SCH (20:48)
--- NOTE | 2024-12-14 22:50 | Pulmonary Consultation ---
<Statement entered by Humberto Raman MD - 12/15/24 14:18> I, Humberto Raman MD, supervised and reviewed the physical exam, assessment, plan, and management as documented by the Advanced Care Provider for this patient encounter. I discussed the case with them, confirmed the findings, and I concur with the proposed plan of care. I was available for consultation throughout the encounter and provided guidance as needed. Date of Consultation December 14, 2024 Assessment & Plan (1) Mediastinal lymphadenopathy: (2) Dyspnea: (3) Sleep apnea, obstructive: Plan Ramesh Hernández is a 54-year-old with past medical history of urinary retention, hypertrophic cardiomyopathy, CKD stage II, HFrEF, BPH, prostate cancer s/p TURP, Sleep apnea, HTN, Diabetes Mellitus, HLD, Atrial fibrillation; who presented to [facility] on 12/14/24 with dyspnea on exertion for 3-[address] chest showed nonspecific mediastinal, hilar, and right supraclavicular lymphadenopathy noted. Patient was admitted to the hospitalist service and pulmonary was consulted for lymphadenopathy concerning for reactivity v. sarcoidosis v. malignancy. Hilar, mediastinal, and supraclavicular lymphadenopathy possibly reactive v. sarcoidosis v. malignancy -Will ask IR to see if supraclavicular lymph node is amendable to biopsy. -If IR can not biopsy will plan for CT scan 4 weeks to evaluate progression or resolution. -If the same or larger would recommend EBUS biopsy of lymph nodes. -DICKSON level pending. Calcium WNL -Procal 0.18. Chest imaging less concerning for pneumonia. -No current treatment indicated. Will await diagnosis. Shortness of breath; dyspnea related to likely heart failure -Cont diuresis -Cards consulted -Can continue azithromycin in case there is some underlying pneumonia. Obstructive sleep apnea -Continue CPAP Thank you for allowing us to participate in this patient's care. Please feel free to reach out with questions or concerns. 58 minutes was the time spent reviewing the chart, obtaining history, performing the physical exam, collaborating with consultants, and updating the patient and bedside nurse. History of Present Illness Reason for Consultation: Hilar, mediastinal, and right supraclavicular lymphadenopathy Attending Physician: Sara Nava MD History of Present Illness Ramesh Hernández is a 54-year-old with past medical history of urinary retention, hypertrophic cardiomyopathy, CKD stage II, HFrEF, BPH, prostate cancer s/p TURP, Sleep apnea, HTN, Diabetes Mellitus, HLD, Atrial fibrillation; who presented to [facility] on 12/14/24 with dyspnea on exertion for 3-4 days. Of note the patient had his diltiazem and metoprolol recently increased for his atrial fibrillation. Upon arrival to the [place] ED patient was found to be bradycardic. Chest x-ray showed some bronchial thickening and interstitial opacities. CT chest showed cardiomegaly evidence of heart failure, small pleural effusions. There was also nonspecific mediastinal, hilar, and right supraclavicular lymphadenopathy noted. Patient was admitted to the hospitalist service and pulmoanry was consulted for lymphadenopathy concerning for reactivity v. sarcoidosis v. malignancy. Patient denies fever, chills, night sweats. Endorses cough with occasional sputum production which is clear. Patient is currently incarcerated. No known exposure history. Former smoker smoker quit 7 years ago with < 1 pack per week history. No family history of lung cancer, sarcoidosis, or other autoimmune diseases. Allergies Allergy/AdvReac Type Severity Reaction Status Date / Time oxycodone AdvReac Mild per [facility] Verified 12/07/24 10:23 [facility] Medical Record Home Medications Medication Instructions Recorded Confirmed Type multivitamin 1 tab PO QAM 10/05/21 12/13/24 History apixaban 5 mg tablet (Eliquis) 5 mg PO BID 04/28/22 12/13/24 History sennosides 8.6 mg-docusate sodium 2 tab PO QAM 04/28/22 12/13/24 History 50 mg tablet (Laxative Stool Softener With Senna) metoprolol succinate 200 mg 200 mg PO BID 01/18/23 12/13/24 History tablet,extended release 24 hr (Toprol XL) amitriptyline 75 mg tablet 75 mg PO HS 03/31/23 12/13/24 History bicalutamide 50 mg tablet (Casodex) 50 mg PO DAILY 03/31/23 12/13/24 History glimepiride 4 mg tablet 4 mg PO QAM 03/31/23 12/13/24 History metformin 850 mg tablet 850 mg PO BID 03/31/23 12/13/24 History cranberry fruit concentrate 250 mg 250 mg PO DAILY 09/06/23 12/13/24 History chewable tablet (Azo Cranberry) leuprolide (3 month) 22.5 mg (3 22.5 mg IM DIRECTED 09/06/23 12/13/24 History month) intramuscular syringe kit (Lupron Depot) alendronate 70 mg tablet 70 mg PO WK 12/07/24 12/13/24 History calcium 600 mg-D3 800 unit-mag11 1 tab PO BID 12/07/24 12/13/24 History 50 nf-afoz-rffnbs-christian-s.borat tablet (Caltrate 600-D Plus Minerals) furosemide 20 mg tablet 20 mg PO QAM 12/07/24 12/13/24 History diltiazem HCl 420 mg capsule,24 420 mg PO DAILY 12/13/24 12/13/24 History hr,extended release (Tiadylt ER) dorzolamide-timolol (PF) 2 %-0.5 % 1 drp OPB BID 12/13/24 12/13/24 History eye drops in a dropperette (Cosopt (PF)) miconazole nitrate 2 % topical 1 applic topical BID 12/13/24 12/13/24 History powder (Desenex) pramoxine 1 % lotion (Sarna 1 applic topical BID PRN as 12/13/24 12/13/24 History Sensitive) directed rosuvastatin 40 mg tablet 40 mg PO DAILY 12/13/24 12/13/24 History solifenacin 10 mg tablet 10 mg PO DAILY 12/13/24 12/13/24 History zinc oxide 13 % topical cream 1 applic topical TID 12/13/24 12/13/24 History (Desitin Daily Defense) Patient History Medical History Urinary retention Xerosis cutis Hypertrophic cardiomyopathy Severe cLVH. Normal LVEF per cardio records CKD (chronic kidney disease) stage 2, GFR 60-89 ml/min Inmate in correctional facility [facility] Chronic cystitis with hematuria Congestive heart failure, unspecified EF >70% on 2021 ECHO BPH (benign prostatic hyperplasia) Prostate cancer s/p partial resection per records Sleep apnea, obstructive SOB (shortness of breath) Per 07/2023 cardio note- patient's breathing at baseline- exercising 3 days week- little more exertional dyspnea in hot and humid weather HTN (hypertension), benign Diabetes mellitus type 2, uncomplicated Hyperlipidemia Cellulitis 2020 per [facility] records Afib on Eliquis Heartburn Constipation Surgical History S/P TURP Family History Family/Other Cancer Other Family history unobtainable Social History Smoking Status: Never smoker Tobacco Type: Cigarettes Do You Dip or Chew Tobacco: No; Hx Alcohol Use: No Hx Substance Use: No Preferred Language: Thai Communication Ability: Unable Commanding [employer] Required: No Beliefs That Will Affect Care: None marital status: Single Current Living Situation: Other Current Living Situation Comment: [facility] Other Information That Helps Us Care for You: No Feels Safe at Home: Yes Safety Concerns: Feels Safe At This Time Assistive Devices: None Review of Systems 2 Review of Systems: All systems reviewed & are unremarkable except as noted in HPI & below Physical Exam 2 Physical Exam: VITALS: Reviewed. WEIGHT/BMI reviewed. GEN: Stated age appearing, well-developed, NAD. PSYCH: Good Judgment. AOx3. Normal memory, mood, and affect. HEENT -Head: NC/AT; -Eyes: PERRL, EOMI. No discharge or redn ess; -Ears: External ears are normal. -Nose: Normal nares. NECK: Supple, with no masses. CV: RRR, no m/r/g. LUNGS: CTAB, no w/r/c. ABD: N/A : N/A SKIN: Warm, well perfused. No skin rashes or abnormal lesions. MSK: No deformities, Normal gait. EXT: No clubbing, cyanosis, or edema. NEURO: Normal muscle strength and tone. No focal deficits. Results & Data Results & Data Vital Signs (Past 12 Hours) Vital Signs Temp Pulse Pulse Resp BP Pulse Ox O2 Del Method 12/14/24 19:15 36.7 C 94 H 18 133/104 H 100 Nasal Cannula 12/14/24 16:59 36.7 C 80 20 145/101 H 97 Room Air 12/14/24 13:29 80 12/14/24 11:30 58 L 12/14/24 11:00 36.6 C 75 21 145/76 H 98 CPAP O2 Flow Rate 12/14/24 19:15 3 12/14/24 16:59 12/14/24 13:29 12/14/24 11:30 12/14/24 11:00 Laboratory Results 12/14/24 07:56 12/14/24 07:56 Abnormal Lab Results 12/13/24 12/14/24 12/14/24 19:55 00:15 01:00 WBC RBC Hgb Hct MCV MCH MCHC RDW Std Deviation RDW Coeff of Rossy Plt Count MPV Immature Gran % (Auto) Neut % (Auto) Lymph % (Auto) Hartley % (Auto) Eos % (Auto) Baso % (Auto) Neut # (Auto) Lymph # (Auto) Hartley # (Auto) Eos # (Auto) Baso # (Auto) Immature Gran # (Auto) Sodium Potassium Chloride Carbon Dioxide Anion Gap BUN Creatinine Est Cr Clr Drug Dosing eGFR BUN/Creatinine Ratio Glucose POC Glucose Calcium Magnesium Prostate Specific Ag < 0.008 Nasal Screen MRSA (PCR) Negative Adenovirus (PCR) B. pertussis DNA (PCR) B.parapertussis DNA PCR C. pneumoniae DNA (PCR) Coronavirus OC43 (PCR) Coronavirus HKU1 (PCR) Coronavirus 229E (PCR) SARS-CoV-2 (PCR) NEGATIVE Coronavirus NL63 (PCR) Human Metapneumovir PCR Influenza Type A (PCR) Negative Influenza Type B (PCR) Negative M. pneumoniae (PCR) Parainfluenza 1 (PCR) Parainfluenza 2 (PCR) Parainfluenza 3 (PCR) Parainfluenza 4 (PCR) RSV (RT-PCR) Negative RSV (PCR) Entero/Rhino (PCR) 12/14/24 12/14/24 12/14/24 05:58 07:30 07:48 WBC RBC Hgb Hct MCV MCH MCHC RDW Std Deviation RDW Coeff of Rossy Plt Count MPV Immature Gran % (Auto) Neut % (Auto) Lymph % (Auto) Hartley % (Auto) Eos % (Auto) Baso % (Auto) Neut # (Auto) Lymph # (Auto) Hartley # (Auto) Eos # (Auto) Baso # (Auto) Immature Gran # (Auto) Sodium Cancelled Potassium Cancelled Chloride Cancelled Carbon Dioxide Cancelled Anion Gap Cancelled BUN Cancelled Creatinine Cancelled Est Cr Clr Drug Dosing Cancelled eGFR Cancelled BUN/Creatinine Ratio Cancelled Glucose Cancelled POC Glucose 97 334 H* Calcium Cancelled Magnesium Cancelled Prostate Specific Ag Nasal Screen MRSA (PCR) Adenovirus (PCR) B. pertussis DNA (PCR) B.parapertussis DNA PCR C. pneumoniae DNA (PCR) Coronavirus OC43 (PCR) Coronavirus HKU1 (PCR) Coronavirus 229E (PCR) SARS-CoV-2 (PCR) Coronavirus NL63 (PCR) Human Metapneumovir PCR Influenza Type A (PCR) Influenza Type B (PCR) M. pneumoniae (PCR) Parainfluenza 1 (PCR) Parainfluenza 2 (PCR) Parainfluenza 3 (PCR) Parainfluenza 4 (PCR) RSV (RT-PCR) RSV (PCR) Entero/Rhino (PCR) 12/14/24 12/14/24 12/14/24 07:56 11:26 12:20 WBC 7.00 RBC 3.97 L Hgb 12.1 L Hct 35.8 L MCV 90.2 MCH 30.5 MCHC 33.8 RDW Std Deviation 46.2 RDW Coeff of Rossy 14.2 Plt Count 233 MPV 9.3 L Immature Gran % (Auto) 0.3 Neut % (Auto) 58.4 Lymph % (Auto) 24.7 Hartley % (Auto) 13.0 Eos % (Auto) 2.9 Baso % (Auto) 0.7 Neut # (Auto) 4.09 Lymph # (Auto) 1.73 Hartley # (Auto) 0.91 H Eos # (Auto) 0.20 Baso # (Auto) 0.05 Immature Gran # (Auto) 0.02 Sodium 135 L Potassium 4.4 Chloride 103 Carbon Dioxide 27 Anion Gap 5 BUN 17 Creatinine 1.06 Est Cr Clr Drug Dosing 86.4 eGFR 82.37 BUN/Creatinine Ratio 16.0 Glucose 101 H POC Glucose 118 H Calcium 9.6 Magnesium 1.9 Prostate Specific Ag Nasal Screen MRSA (PCR) Adenovirus (PCR) Not Detected B. pertussis DNA (PCR) Not Detected B.parapertussis DNA PCR Not Detected C. pneumoniae DNA (PCR) Not Detected Coronavirus OC43 (PCR) Not Detected Coronavirus HKU1 (PCR) Not Detected Coronavirus 229E (PCR) Not Detected SARS-CoV-2 (PCR) Not Detected Coronavirus NL63 (PCR) Not Detected Human Metapneumovir PCR Not Detected Influenza Type A (PCR) Not Detected Influenza Type B (PCR) Not Detected M. pneumoniae (PCR) Not Detected Parainfluenza 1 (PCR) Not Detected Parainfluenza 2 (PCR) Not Detected Parainfluenza 3 (PCR) Not Detected Parainfluenza 4 (PCR) Not Detected RSV (RT-PCR) RSV (PCR) Not Detected Entero/Rhino (PCR) Not Detected 12/14/24 12/14/24 16:33 20:08 WBC RBC Hgb Hct MCV MCH MCHC RDW Std Deviation RDW Coeff of Rossy Plt Count MPV Immature Gran % (Auto) Neut % (Auto) Lymph % (Auto) Hartley % (Auto) Eos % (Auto) Baso % (Auto) Neut # (Auto) Lymph # (Auto) Hartley # (Auto) Eos # (Auto) Baso # (Auto) Immature Gran # (Auto) Sodium Potassium Chloride Carbon Dioxide Anion Gap BUN Creatinine Est Cr Clr Drug Dosing eGFR BUN/Creatinine Ratio Glucose POC Glucose 96 142 H Calcium Magnesium Prostate Specific Ag Nasal Screen MRSA (PCR) Adenovirus (PCR) B. pertussis DNA (PCR) B.parapertussis DNA PCR C. pneumoniae DNA (PCR) Coronavirus OC43 (PCR) Coronavirus HKU1 (PCR) Coronavirus 229E (PCR) SARS-CoV-2 (PCR) Coronavirus NL63 (PCR) Human Metapneumovir PCR Influenza Type A (PCR) Influenza Type B (PCR) M. pneumoniae (PCR) Parainfluenza 1 (PCR) Parainfluenza 2 (PCR) Parainfluenza 3 (PCR) Parainfluenza 4 (PCR) RSV (RT-PCR) RSV (PCR) Entero/Rhino (PCR) Diagnostic Findings Chest X-Ray 12/13/24 21:11 CR Exam(s): XR CXR 1 VIEW EXAM: XR Chest, 1 View CLINICAL HISTORY: Reason for exam: sob. TECHNIQUE: Frontal view of the chest. COMPARISON: Prior chest x-ray from October 06, 2021. FINDINGS: Lungs: Moderate to heavy peribronchial thickening of the central and peripheral bronchi with increased interstitial opacities throughout the lungs. Pleural space: Unremarkable. No pneumothorax. Heart: Mild cardiomegaly. Mediastinum: Unremarkable. Normal mediastinal contour. Bones/joints: Unremarkable. No acute fracture. IMPRESSION: Findings concerning for atypical pneumonia. No consolidation or pleural effusion. Cardiomegaly without evidence of CHF. Communications: Verify Receipt Electronically signed by: Catherine Sauceda MD 12/14/24 00:[address] 12/14/24 08:07 CT SCAN OF THE CHEST WITH IV CONTRAST CLINICAL HISTORY: Hypoxia. Abnormal chest x-ray. COMPARISON STUDY: Chest x-ray dated 12/13/2024. Chest CT dated 07/24/2021 TECHNIQUE: Following the IV administration of 95 cc of Optiray 320, CT scan of the thorax was performed from the thoracic inlet to the upper abdomen. Images are reviewed in the axial, sagittal, and coronal planes. IV contrast was administered without complication. A dose lowering technique was utilized adhering to the principles of ALARA. CT DOSE: 1045.87 mGy.cm FINDINGS: Thyroid: Mildly enlarged and heterogeneous. Thoracic aorta: There is mild atherosclerotic calcification of the thoracic aorta, which is normal in caliber and demonstrates bovine variant arch anatomy. No dissection is seen. Pulmonary vasculature: The pulmonary trunk is normal in caliber. There are no filling defects identified in the central pulmonary vessels to indicate pulmonary embolus. Note that this examination was not protocoled for evaluation of the pulmonary arteries. Heart: The heart is enlarged noting a small pericardial effusion. The coronary arteries are densely calcified. Lungs and pleural spaces: There are small pleural effusions with dependent atelectasis. No airspace consolidation is seen typical for pneumonia. Diffuse intralobular septal thickening is consistent with fluid overload/congestive change. The trachea and central airways are clear. Diffuse peribronchial thickening is observed. A 3 mm right upper lobe pulmonary nodule is seen on image #72. Lower neck: There are enlarged right supraclavicular nodes. The largest is seen on image #6 and measures 1.8 x 1.3 cm. Mediastinum: There are enlarged adjacent lymph nodes. There are 2.8 x 1.8 cm and 2.4 x 2.0 cm right paratracheal nodes. A prevascular node measures 2.5 x 1.1 cm and a subcarinal node measures 3.3 x 2.4 cm. Lia: There is bilateral hilar adenopathy, right side larger than left. A right hilar node on image #110 measures approximately 4 x 2 cm. Axillae: There is no axillary lymphadenopathy. Upper abdomen: There is a small hiatal hernia. Right upper pole renal cysts measure up to 3.6 cm. Skeletal structures: The skeletal structures are osteopenic. No lytic or blastic bony lesions are seen. IMPRESSION: 1. Cardiomegaly with evidence of congestive failure. 2. Small pleural effusions. 3. There is nonspecific mediastinal, hilar, and right supraclavicular lymphadenopathy as above. This may be reactive, but supraclavicular adenopathy is atypical and this has increased from 07/24/2021. A follow-up contrast-enhanced chest CT in 3-4 months time is recommended for reassessment. 4. Additional findings as above. ACT 112: Positive. There are findings on this exam that require communication between the performing entity and the patient following Patient Test Result Information Act ([place] Act 112) guidelines. Electronically signed by: Saman Huggins M.D. 12/14/2024 10:44 AM PG Care Time/CCT Total # of Minutes Spent Total Time Spent with Patient: Total time spent is greater than 50% in coordination of care (as documented) at patient's floor/unit and/or counseling patient: Coding Level of Care Code 30525 INT INP/OBS CARE 2/55MIN Diagnoses Mediastinal lymphadenopathy R59.0 Dyspnea R06.00 Sleep apnea, obstructive G47.33
[2024-12-15] MEDS: GABAPENTIN 100 MG CAP PO ONE (00:13)
[2024-12-15 06:03] LABS: Hematocrit (blood only) 37.8 % (42.0-52.0); Hemoglobin 12.8 g/dl (14.0-18.0); Immature Granulocytes # (auto) 0.02 K/uL (0.01-0.20); Immature Granulocytes % (auto) 0.3 %; Mean Corpuscular Hemoglobin 30.0 pg (25.0-34.0); Mean Corpuscular Volume 88.5 fL (80.0-100.0); Platelet Count 242 K/uL (130-400); RDW Standard Deviation 44.8 fL (36.4-46.3); Red Blood Count 4.27 M/uL (4.70-6.10); White Blood Count 6.37 K/ul (4.8-10.8)
[2024-12-15 06:21] LABS: Anion Gap 7.0 (3-11); Blood Urea Nitrogen 19.0 mg/dl (6-23); Calcium 9.0 mg/dl (8.6-10.3); Carbon Dioxide 25.0 mmol/L (21-32); Chloride 104.0 mmol/L (98-107); Creatinine Clr Calc Pharmacy 84.0 ml/min; Glucose 130.0 mg/dl (70-99(Fasting)); Magnesium 2.0 mg/dl (1.7-2.4); Potassium 4.4 mmol/L (3.5-5.1); Sodium 136.0 mmol/L (136-145)
--- NOTE | 2024-12-15 06:26 | Electrocardiogram Report ---
Test Reason : Blood Pressure : */* mmHG Vent. Rate : 49 BPM Atrial Rate : * BPM P-R Int : * ms QRS Dur : 88 ms QT Int : 432 ms P-R-T Axes : * -31 -29 degrees QTcB Int : 390 ms Atrial fibrillation with slow ventricular response Left axis deviation Low voltage QRS Cannot rule out Anterior infarct , age undetermined Nonspecific T wave abnormality Abnormal ECG When compared with ECG of 06-Oct-2021 12:53, Vent. rate has decreased by 81 bpm Confirmed by Carroll De Jesus ([id number]) on 12/15/2024 6:25:55 AM Referred By: Yaa HOWARD Confirmed By: Carroll De Jesus
--- NOTE | 2024-12-15 08:28 | Cardiology Progress Note ---
Date of Service December 15, 2024 Assessment & Plan (1) Acute on chronic heart failure with preserved ejection fraction (HFpEF): (2) Permanent atrial fibrillation: (3) Bradycardia: (4) Hypertension: (5) Coronary artery calcification: Plan ASSESSMENT/PLAN: 1. Atrial fibrillation: Presented with bradycardia after recent titration of outpatient beta-bora and calcium channel bora. Heart rate has continued to trend upward despite resuming his more chronic outpatient rate controlling medications. Increase metoprolol succinate to a total of 300 mg/day (was 400 mg daily on presentation) and maintain diltiazem CD3 160 mg daily (was 420 mg on presentation). Continue anticoagulation for stroke risk reduction. Monitor blood counts. 2. Acute heart failure with preserved EF: He has diuresed significantly and is feeling much better. Monitor renal function and electrolytes closely. Clinically much improved. Can consider replacing intravenous Lasix with Lasix 40 mg p.o. daily tomorrow. SGLT2 inhibitor has been initiated this hospital stay. Low-sodium diet, less than 2000 mg daily. Strict I's and O's while hospitalized. Daily weights. 3. Bradycardia: Resolved. AV rajesh blockers have overall been reduced in dose compared to presentation. 4. Hypertrophic cardiomyopathy: History of hypertrophic cardiomyopathy reported in the chart. 5. Hypertension: Blood pressure has improved. Continue regimen as above. 6. Supplemental oxygen: He reported to me using supplemental oxygen as an outpatient however he reported to Dr. Nava that he uses CPAP. 7. Coronary artery calcifications: Noted on CT imaging. Continue high intensity statin therapy. Continue beta-bora. No angina. Had atypical chest discomfort in the setting of heart failure exacerbation and also with negative high-sensitivity troponin level despite 30 minutes of pain. 8. Disposition: Cardiology will continue to follow. Upon discharge, follow-up with Dr. He, his primary filler sifter helper. Patient care has been communicated with Dr. Nava of the primary hospitalist service. Admission and Anticipated Discharge Date Admission Date: December 13, 2024 Subjective Patient seen this morning. He denies chest pain, shortness of breath, syncope, near syncope, palpitations, edema, or bleeding. He believes his breathing to be baseline but he was on CPAP at the time of today's visit as he was sleeping before I entered the room. Physical Exam Physical Exam: Gen.: No acute distress. Alert and oriented. HEENT: Anicteric sclera. Neck: Thick neck. Cardiac: Irregularly irregular. Normal S1-S2. No murmurs, rubs, or gallops. Pulmonary: Clear to auscultation bilaterally without wheezes, rales, or rhonchi. Abdomen: Soft, nontender, nondistended, with normoactive bowel sounds. No bruits noted. Extremities: 2+ radial pulses bilaterally. 2+ posterior tibialis pulses bilaterally. No significant edema. No cyanosis. Results & Data Vital Signs (Past 12 Hours) Vital Signs Temp Pulse Pulse Resp BP Pulse Ox O2 Del Method 12/15/24 08:03 36.7 C 93 H 18 151/103 H 95 Room Air 12/15/24 07:31 87 12/15/24 02:25 36.8 C 88 18 152/94 H 98 Nasal Cannula 12/15/24 01:47 Nasal Cannula 12/14/24 22:38 36.7 C 90 20 133/103 H 99 CPAP 12/14/24 22:13 93 H 12/14/24 21:00 88 17 100 O2 Flow Rate 12/15/24 08:03 12/15/24 07:31 12/15/24 02:25 2 12/15/24 01:47 3 12/14/24 22:38 12/14/24 22:13 12/14/24 21:00 4 Intake & Output 12/13/24 12/14/24 12/15/24 12/16/24 06:59 06:59 06:59 06:59 Intake Total 355 / 355 300 / 300 655 / 655 Output Total 775 / 775 4500 / 4500 950 / 950 Balance -420 / -420 -4200 / -4200 -295 / -295 Weight 213 lb 13.574 oz 214 lb 1.102 oz Laboratory Results Laboratory Results - last 24 hr 12/13/24 12/14/24 12/14/24 19:55 05:58 07:56 WBC 7.00 RBC Hgb 12.1 L Hct MCV 90.2 MCH MCHC 33.8 RDW Std Deviation RDW Coeff of Rossy Plt Count 233 MPV Immature Gran % (Auto) Neut % (Auto) Lymph % (Auto) [place] % (Auto) Eos % (Auto) Baso % (Auto) Neut # (Auto) Lymph # (Auto) [place] # (Auto) Eos # (Auto) Baso # (Auto) Immature Gran # (Auto) Sodium Potassium Chloride Carbon Dioxide Anion Gap BUN Creatinine Est Cr Clr Drug Dosing eGFR BUN/Creatinine Ratio Glucose POC Glucose Calcium Magnesium Angiotensin Convert Enz Pending Prostate Specific Ag < 0.008 Vit D 1,25-Dihyd Total Pending 1,25 Dihydroxy Vit D2 Pending 1,25 Dihydroxy Vit D3 Pending Adenovirus (PCR) B. pertussis DNA (PCR) B.parapertussis DNA PCR C. pneumoniae DNA (PCR) Coronavirus OC43 (PCR) Coronavirus HKU1 (PCR) Coronavirus 229E (PCR) SARS-CoV-2 (PCR) Coronavirus NL63 (PCR) Human Metapneumovir PCR Influenza Type A (PCR) Influenza Type B (PCR) M. pneumoniae (PCR) Parainfluenza 1 (PCR) Parainfluenza 2 (PCR) Parainfluenza 3 (PCR) Parainfluenza 4 (PCR) RSV (PCR) Entero/Rhino (PCR) 12/14/24 12/14/24 12/14/24 11:26 12:20 16:33 WBC RBC Hgb Hct MCV MCH MCHC RDW Std Deviation RDW Coeff of Rossy Plt Count MPV Immature Gran % (Auto) Neut % (Auto) Lymph % (Auto) [place] % (Auto) Eos % (Auto) Baso % (Auto) Neut # (Auto) Lymph # (Auto) [place] # (Auto) Eos # (Auto) Baso # (Auto) Immature Gran # (Auto) Sodium Potassium Chloride Carbon Dioxide Anion Gap BUN Creatinine Est Cr Clr Drug Dosing eGFR BUN/Creatinine Ratio Glucose POC Glucose 118 H 96 Calcium Magnesium Angiotensin Convert Enz Prostate Specific Ag Vit D 1,25-Dihyd Total 1,25 Dihydroxy Vit D2 1,25 Dihydroxy Vit D3 Adenovirus (PCR) Not Detected B. pertussis DNA (PCR) Not Detected B.parapertussis DNA PCR Not Detected C. pneumoniae DNA (PCR) Not Detected Coronavirus OC43 (PCR) Not Detected Coronavirus HKU1 (PCR) Not Detected Coronavirus 229E (PCR) Not Detected SARS-CoV-2 (PCR) Not Detected Coronavirus NL63 (PCR) Not Detected Human Metapneumovir PCR Not Detected Influenza Type A (PCR) Not Detected Influenza Type B (PCR) Not Detected M. pneumoniae (PCR) Not Detected Parainfluenza 1 (PCR) Not Detected Parainfluenza 2 (PCR) Not Detected Parainfluenza 3 (PCR) Not Detected Parainfluenza 4 (PCR) Not Detected RSV (PCR) Not Detected Entero/Rhino (PCR) Not Detected 12/14/24 12/15/24 12/15/24 20:08 05:17 07:35 WBC 6.37 RBC 4.27 L Hgb 12.8 L Hct 37.8 L MCV 88.5 MCH 30.0 MCHC 33.9 RDW Std Deviation 44.8 RDW Coeff of Rossy 14.0 Plt Count 242 MPV 9.7 Immature Gran % (Auto) 0.3 Neut % (Auto) 58.0 Lymph % (Auto) 23.4 [place] % (Auto) 14.1 Eos % (Auto) 3.3 Baso % (Auto) 0.9 Neut # (Auto) 3.69 Lymph # (Auto) 1.49 [place] # (Auto) 0.90 H Eos # (Auto) 0.21 Baso # (Auto) 0.06 Immature Gran # (Auto) 0.02 Sodium 136 Potassium 4.4 Chloride 104 Carbon Dioxide 25 Anion Gap 7 BUN 19 Creatinine 1.09 Est Cr Clr Drug Dosing 84.0 eGFR 79.65 BUN/Creatinine Ratio 17.4 Glucose 130 H POC Glucose 142 H 150 H Calcium 9.0 Magnesium 2.0 Angiotensin Convert Enz Prostate Specific Ag Vit D 1,25-Dihyd Total 1,25 Dihydroxy Vit D2 1,25 Dihydroxy Vit D3 Adenovirus (PCR) B. pertussis DNA (PCR) B.parapertussis DNA PCR C. pneumoniae DNA (PCR) Coronavirus OC43 (PCR) Coronavirus HKU1 (PCR) Coronavirus 229E (PCR) SARS-CoV-2 (PCR) Coronavirus NL63 (PCR) Human Metapneumovir PCR Influenza Type A (PCR) Influenza Type B (PCR) M. pneumoniae (PCR) Parainfluenza 1 (PCR) Parainfluenza 2 (PCR) Parainfluenza 3 (PCR) Parainfluenza 4 (PCR) RSV (PCR) Entero/Rhino (PCR) Diagnostic Findings Labs reviewed from 12/15/2024: Stable renal function, normal potassium, stable hemoglobin. Telemetry personally reviewed: Atrial fibrillation with heart rate in the 90s to low 100s when evaluated this morning. Medications Administered Current Inpatient Medications Acetaminophen (Acetaminophen 325 Mg Tab) 650 mg PO Q4H PRN PRN Reason: Pain or Fever Stop: 01/13/25 00:43 Amitriptyline HCl (Amitriptyline Hcl 25 Mg Tab) 75 mg PO HS FABIANO Stop: 01/13/25 20:59 Last Admin: 12/14/24 20:48 Dose: 75 mg Apixaban (Apixaban 5 Mg Tablet) 5 mg PO BID FABIANO Stop: 01/13/25 08:59 Last Admin: 12/15/24 08:10 Dose: 5 mg Bicalutamide (Bicalutamide 50 Mg Tab) 50 mg PO DAILY FABIANO Stop: 01/13/25 08:59 Last Admin: 12/15/24 08:06 Dose: 50 mg Dextrose (Dextrose 50% 50 Ml Syringe) 25 - 50 ml IV UD PRN; Protocol PRN Reason: Hypoglycemia Protocol Stop: 01/13/25 00:43 Diltiazem HCl (Diltiazem Hcl 180 Mg Capcr) 360 mg PO QAM FABIANO Stop: 01/14/25 08:59 Last Admin: 12/15/24 08:08 Dose: 360 mg Docusate Sodium (Docusate Sodium 100 Mg Cap) 100 mg PO BID PRN PRN Reason: Constipation Stop: 01/13/25 00:43 Empagliflozin (Empagliflozin 10 Mg Tab) 10 mg PO DAILY FABIANO Stop: 01/14/25 08:59 Furosemide (Furosemide Inj 20 Mg/2 Ml Vial) 20 mg IV BID17 FABIANO Stop: 01/13/25 11:14 Last Admin: 12/15/24 08:15 Dose: 20 mg Glucagon (Glucagon For Inj 1 Mg Vial) 1 mg SQ UD PRN; Protocol PRN Reason: Hypoglycemia Protocol Stop: 01/13/25 00:43 Glucose (Glucose 40% Gel 15 Gm Tube) 15 - 30 gm PO UD PRN; Protocol PRN Reason: Hypoglycemia Protocol Stop: 01/13/25 00:43 Glucose (Glucose 10 Tab/Tube) 4 - 8 tab PO UD PRN; Protocol PRN Reason: Hypoglycemia Protocol Stop: 01/13/25 00:43 Azithromycin (Zithromax) 500 mg in 255 mls @ 127.5 mls/hr IV Q24H FABIANO Stop: 12/19/24 03:59 Last Infusion: 12/15/24 07:06 Dose: Infused Insulin Aspart (Insulin Aspart Per Unit Charge) 0 units SC ACHS FABIANO Stop: 01/13/25 07:29 Last Admin: 12/15/24 08:13 Dose: 1 units Melatonin (Melatonin 3 Mg Tab) 3 mg PO HS PRN PRN Reason: Sleep Stop: 01/13/25 00:43 Metoprolol Succinate (Metoprolol Succ 50mg Ext Rel Tab) 100 mg PO BID FABIANO Stop: 01/13/25 20:59 Last Admin: 12/15/24 08:08 Dose: 100 mg Miscellaneous (Carbohydrates For Hypoglycemia ) 15 - 30 gm PO UD PRN PRN Reason: Hypoglycemia Protocol Stop: 01/13/25 00:43 Ondansetron HCl (Ondansetron Inj 2 Mg/Ml 2 Ml Vial) 4 mg IV Q6H PRN PRN Reason: Nausea And Vomiting Stop: 01/13/25 00:43 Oxybutynin Chloride (Oxybutynin Chloride Xl 5 Mg Tabcr) 10 mg PO DAILY FABIANO Stop: 01/13/25 08:59 Last Admin: 12/15/24 08:07 Dose: 10 mg Rosuvastatin Calcium (Rosuvastatin Calcium 20 Mg Tab) 40 mg PO DAILY FABIANO Stop: 01/13/25 08:59 Last Admin: 12/15/24 08:06 Dose: Not Given Timolol Maleate (Timolol Maleate 0.5% Op Soln 5 Ml Btl) 1 drops OP BID FABIANO Stop: 01/13/25 08:59 Last Admin: 12/15/24 08:09 Dose: 1 drops PG Care Time/CCT Total # of Minutes Spent Total Time Spent with Patient: Total time spent is greater than 50% in coordination of care (as documented) at patient's floor/unit and/or counseling patient: Coding Level of Care Code 74553 SUB INP/OBS CARE 3/50MIN Diagnoses Acute on chronic heart failure with preserved ejection fraction (HFpEF) I50.33 Permanent atrial fibrillation I48.21 Bradycardia R00.1 Hypertension, unspecified type I10 Hypertension type: unspecified Coronary artery calcification I25.10 (4) Hypertension Hypertension type: unspecified Qualified Code(s): I10 - Essential (primary) hypertension
[2024-12-15] MEDS: EMPAGLIFLOZIN 10 MG TAB PO SCH (11:51)
--- NOTE | 2024-12-15 12:46 | Pulmonology Progress Note ---
<Statement entered by Humberto Raman MD - 12/15/24 14:06> I, Humberto Raman MD, supervised and reviewed the physical exam, assessment, plan, and management as documented by the Advanced Care Provider for this patient encounter. I discussed the case with them, confirmed the findings, and I concur with the proposed plan of care. I was available for consultation throughout the encounter and provided guidance as needed. Date of Service December 15, 2024 Assessment & Plan (1) Mediastinal lymphadenopathy: (2) Dyspnea: (3) Sleep apnea, obstructive: Plan Ramesh Hernández is a 54-year-old with past medical history of urinary retention, hypertrophic cardiomyopathy, CKD stage II, HFrEF, BPH, prostate cancer s/p TURP, Sleep apnea, HTN, Diabetes Mellitus, HLD, Atrial fibrillation; who presented to [facility] on 12/14/24 with dyspnea on exertion for 3-[address] chest showed nonspecific mediastinal, hilar, and right supraclavicular lymphadenopathy noted. Patient was admitted to the hospitalist service and pulmonary was consulted for lymphadenopathy concerning for reactivity v. sarcoidosis v. malignancy. Hilar, mediastinal, and supraclavicular lymphadenopathy possibly reactive v. sarcoidosis v. malignancy -IR on board for biopsy of right supraclavicular lymph node. Will schedule as outpatient. Will need to be off Eliquis for 3 days prior to core biopsy. -Plan for CT scan 4 weeks to evaluate progression or resolution of lymphadenopathy w/ pulm clinic follow up.. -If the same or larger would recommend EBUS biopsy of lymph nodes. -DICKSON level pending. Calcium WNL -Procal 0.18. Chest imaging less concerning for pneumonia. -No current treatment indicated. Will await diagnosis. Shortness of breath; dyspnea related to likely heart failure -Cont diuresis -Cards consulted -Can continue azithromycin in case there is some underlying pneumonia. Obstructive sleep apnea -Continue CPAP Thank you for allowing us to participate in this patient's care. Please feel free to reach out with questions or concerns. 38 minutes was the time spent reviewing the chart, obtaining history, performing the physical exam, collaborating with consultants, and updating the patient and bedside nurse. Admission and Anticipated Discharge Date Admission Date: December 13, 2024 Subjective Patient breathing improved and oxygenating well on room air. Discussed with patient doing a biopsy of right supraclavicular lymph node. Patient on board. Will schedule as an outpatient. Will need to be off Eliquis 3 days prior to core biopsy. Pulmonary will follow up in clinic. DICKSON level pending. Review of Systems 2 Review of Systems: All systems reviewed & are unremarkable except as noted in HPI & below Physical Exam 2 Physical Exam: VITALS: Reviewed. WEIGHT/BMI reviewed. GEN: Stated age appearing, well-developed, NAD. PSYCH: Good Judgment. AOx3. Normal memory, mood, and affect. HEENT -Head: NC/AT; -Eyes: PERRL, EOMI. No discharge or redn ess; -Ears: External ears are normal. -Nose: Normal nares. NECK: Supple, with no masses. CV: RRR, no m/r/g. LUNGS: CTAB, no w/r/c. ABD: N/A : N/A SKIN: Warm, well perfused. No skin rashes or abnormal lesions. MSK: No deformities, Normal gait. EXT: No clubbing, cyanosis, or edema. NEURO: Normal muscle strength and tone. No focal deficits. Results & Data Results & Data Vital Signs (Past 12 Hours) Vital Signs Temp Pulse Pulse Resp BP Pulse Ox O2 Del Method 12/15/24 10:54 36.7 C 97 H 22 139/97 97 BiPAP 12/15/24 10:41 Room Air 12/15/24 08:03 36.7 C 93 H 18 151/103 H 95 Room Air 12/15/24 07:31 87 12/15/24 02:25 36.8 C 88 18 152/94 H 98 Nasal Cannula 12/15/24 01:47 Nasal Cannula O2 Flow Rate 12/15/24 10:54 12/15/24 10:41 12/15/24 08:03 12/15/24 07:31 12/15/24 02:25 2 12/15/24 01:47 3 Laboratory Results 12/15/24 05:17 12/15/24 05:17 Abnormal Lab Results 12/13/24 12/14/24 12/14/24 19:55 12:20 16:33 WBC RBC Hgb Hct MCV MCH MCHC RDW Std Deviation RDW Coeff of Rossy Plt Count MPV Immature Gran % (Auto) Neut % (Auto) Lymph % (Auto) [place] % (Auto) Eos % (Auto) Baso % (Auto) Neut # (Auto) Lymph # (Auto) [place] # (Auto) Eos # (Auto) Baso # (Auto) Immature Gran # (Auto) Sodium Potassium Chloride Carbon Dioxide Anion Gap BUN Creatinine Est Cr Clr Drug Dosing eGFR BUN/Creatinine Ratio Glucose POC Glucose 96 Calcium Magnesium Prostate Specific Ag < 0.008 Adenovirus (PCR) Not Detected B. pertussis DNA (PCR) Not Detected B.parapertussis DNA PCR Not Detected C. pneumoniae DNA (PCR) Not Detected Coronavirus OC43 (PCR) Not Detected Coronavirus HKU1 (PCR) Not Detected Coronavirus 229E (PCR) Not Detected SARS-CoV-2 (PCR) Not Detected Coronavirus NL63 (PCR) Not Detected Human Metapneumovir PCR Not Detected Influenza Type A (PCR) Not Detected Influenza Type B (PCR) Not Detected M. pneumoniae (PCR) Not Detected Parainfluenza 1 (PCR) Not Detected Parainfluenza 2 (PCR) Not Detected Parainfluenza 3 (PCR) Not Detected Parainfluenza 4 (PCR) Not Detected RSV (PCR) Not Detected Entero/Rhino (PCR) Not Detected 12/14/24 12/15/24 12/15/24 20:08 05:17 07:35 WBC 6.37 RBC 4.27 L Hgb 12.8 L Hct 37.8 L MCV 88.5 MCH 30.0 MCHC 33.9 RDW Std Deviation 44.8 RDW Coeff of Rossy 14.0 Plt Count 242 MPV 9.7 Immature Gran % (Auto) 0.3 Neut % (Auto) 58.0 Lymph % (Auto) 23.4 [place] % (Auto) 14.1 Eos % (Auto) 3.3 Baso % (Auto) 0.9 Neut # (Auto) 3.69 Lymph # (Auto) 1.49 [place] # (Auto) 0.90 H Eos # (Auto) 0.21 Baso # (Auto) 0.06 Immature Gran # (Auto) 0.02 Sodium 136 Potassium 4.4 Chloride 104 Carbon Dioxide 25 Anion Gap 7 BUN 19 Creatinine 1.09 Est Cr Clr Drug Dosing 84.0 eGFR 79.65 BUN/Creatinine Ratio 17.4 Glucose 130 H POC Glucose 142 H 150 H Calcium 9.0 Magnesium 2.0 Prostate Specific Ag Adenovirus (PCR) B. pertussis DNA (PCR) B.parapertussis DNA PCR C. pneumoniae DNA (PCR) Coronavirus OC43 (PCR) Coronavirus HKU1 (PCR) Coronavirus 229E (PCR) SARS-CoV-2 (PCR) Coronavirus NL63 (PCR) Human Metapneumovir PCR Influenza Type A (PCR) Influenza Type B (PCR) M. pneumoniae (PCR) Parainfluenza 1 (PCR) Parainfluenza 2 (PCR) Parainfluenza 3 (PCR) Parainfluenza 4 (PCR) RSV (PCR) Entero/Rhino (PCR) 12/15/24 11:44 WBC RBC Hgb Hct MCV MCH MCHC RDW Std Deviation RDW Coeff of Rossy Plt Count MPV Immature Gran % (Auto) Neut % (Auto) Lymph % (Auto) [place] % (Auto) Eos % (Auto) Baso % (Auto) Neut # (Auto) Lymph # (Auto) [place] # (Auto) Eos # (Auto) Baso # (Auto) Immature Gran # (Auto) Sodium Potassium Chloride Carbon Dioxide Anion Gap BUN Creatinine Est Cr Clr Drug Dosing eGFR BUN/Creatinine Ratio Glucose POC Glucose 130 H Calcium Magnesium Prostate Specific Ag Adenovirus (PCR) B. pertussis DNA (PCR) B.parapertussis DNA PCR C. pneumoniae DNA (PCR) Coronavirus OC43 (PCR) Coronavirus HKU1 (PCR) Coronavirus 229E (PCR) SARS-CoV-2 (PCR) Coronavirus NL63 (PCR) Human Metapneumovir PCR Influenza Type A (PCR) Influenza Type B (PCR) M. pneumoniae (PCR) Parainfluenza 1 (PCR) Parainfluenza 2 (PCR) Parainfluenza 3 (PCR) Parainfluenza 4 (PCR) RSV (PCR) Entero/Rhino (PCR) Diagnostic Findings No recent imaging. PG Care Time/CCT Total # of Minutes Spent Total Time Spent with Patient: Total time spent is greater than 50% in coordination of care (as documented) at patient's floor/unit and/or counseling patient: Coding Level of Care Code 68123 SUB INP/OBS CARE 2/35MIN Diagnoses Mediastinal lymphadenopathy R59.0 Dyspnea R06.00 Sleep apnea, obstructive G47.33
--- NOTE | 2024-12-15 13:09 | Hospitalist Progress Note ---
Date of Service December 15, 2024 Assessment & Plan (1) Bradycardia: (2) Dyspnea: (3) Atypical pneumonia: (4) Atrial fibrillation: Plan Patient is a 54 y/o male with a history of chronic HFpEF, prostate CA, JEANNINE, HTN, t2dm, afib who presented with dyspnea on exertion and severe fatigue x 3 to 4 days. He is admitted with acute on chronic HFpEF and bradycardia (HR 40s) after having diltiazem and metoprolol increased. He was found to be hypoxic and with abnormal chest x-ray. #Bradycardia/permanent atrial fibrillation/HTNbradycardia in the 40s noted after increase in patient's diltiazem and metoprolol made on 12/07. Causing fatigue and generalized weakness. Noted that diltiazem was increased from 360 mg daily to 480 mg daily and metoprolol from 200 mg daily to 200 mg twice daily. TSH normal. Diltiazem and metoprolol held for 1 day and heart rate started to increase to the 80s-90s. They were restarted at lower doses. - Continue diltiazem 360 mg daily - Increase Toprol-XL to 100 mg in the morning and 200 mg at night for improved rate control - Continue to monitor on telemetry for bradycardia or tachycardia Cardiology consulted-appreciate recommendations - Continue Eliquis 5 5 mg p.o. twice daily - Keep electrolytes replete/optimized-no replacement needed #Acute on chronic HFpEF/acute respiratory failure with hypoxia/abnormal CXR - reported dyspnea on exertion for 3 to 4 days since increasing doses of AV rajesh blockers. BNP 877, troponin 9.3, no ischemic changes on ECG but with bradycardia in the 40s. No leukocytosis, afebrile, and pulse ox was 88% on room air in the ED. CXR with cardiomegaly and moderate to heavy peribronchial thickening with increased interstitial opacities throughout the lungs. Initially suspected to have atypical pneumonia and was started on azithromycin. Checked CT chest noncontrast-with likely congestive changes, with pleural effusions, and mediastinal, hilar lymphadenopathy as well as right sided supraclavicular lymphadenopathy. Started diuresis with IV Lasix and he is now significantly improved, weaned to room air at rest, and is net -4.3 L of fluid. Dyspnea is now resolved. Echo here with LVEF 55-60%, moderate LVH, mild-moderate MR - Continue Lasix 20 mg IV twice daily and plan to switch to Lasix 40 mg p.o. once daily on 12/16 -Start Jardiance 10 mg p.o. daily - Improve rate control by increasing metoprolol dose as noted above - Continue supplemental O2 to keep pulse ox greater than 90% - Will need a two-step walk test prior to discharge given that he frequently feels dyspneic on exertion which improves with using his CPAP while awake - Continue daily weights, strict I's and O's, low-sodium diet #Hilar, mediastinal, and supraclavicular lymphadenopathy-CT chest noncontrast- with likely congestive changes, with pleural effusions, and mediastinal, hilar lymphadenopathy as well as right sided supraclavicular lymphadenopathy. Consult pulmonology for lymphadenopathy appreciated. PSA checked and is undetectable so not likely to be metastatic prostate cancer. Could be reactive lymphadenopathy versus sarcoidosis versus other malignancy such as lymphoma or adenocarcinoma - Check DICKSON level and vitamin 1, 25-OH vitamin D to assess for sarcoidosis- pending Continue azithromycin 500 mg IV/p.o. daily x 3 days in case of atypical infection - Will need repeat CT chest in 4 weeks and outpatient follow-up with pulmonology -needs IR biopsy of the right supraclavicular lymph node and if nondiagnostic, could proceed with EBUS as an outpatient - Getting him scheduled for IR biopsy of right supraclavicular lymph node in the near future-he will need to hold his Eliquis for 3 days prior to the procedure #OSAcontinue CPAP at bedtime #Type II DMholding metformin and glimepiride, SSI ordered. HgbA1c pending - Follow-up HgbA1c -Continue NovoLog and BSG's #Prostate cancerfollows with Dr. Hernandez. Recent cystoscopy 01/17 revealed residual necrotic tissue. He had radiation to the pelvis. Continue Casodex, Flomax, solifenacin, and gets shots of Lupron every 3 months - Check PSA in the a.m. in light of enlarged lymph nodes in the chest although most likely not related to prostate cancer DVT prophylaxis-Eliquis Disposition-continued stay in PCU, but improving, likely discharge back to the halfway in 1-2 days. Will need a two-step oxygen test prior to discharge Admission and Anticipated Discharge Date Admission Date: December 13, 2024 Subjective Patient feeling much better today. He is weaned off oxygen to room air. Less short of breath with ambulating to the toilet and back in his room. Denies chest pains. He is having significant pins and needle sensation especially at nighttime in his distal legs and feet he says is from neuropathy. He received gabapentin last night which really helped and would like to stay on that. Telemetry with atrial fibrillation with rates in the 80s to 90s and some PVCs I discussed his care with the pulmonology CHARRER and I also discussed his care with the slat pickler. Physical Exam Constitutional: WD/WN, vitals as above Eyes: + anicteric sclerae Respiratory: normal respiratory effort; no cough Auscultation: + diminished lung sounds (Diminished breath sounds throughout) Cardiovascular: Rate/Rhythm: regular rate and + irregularly irregular Heart Sounds: no murmur Extremities: no edema Gastrointestinal (Abdomen): normal bowel sounds, soft, nontender, no hepatosplenomegaly Psychiatric: A+Ox3, euthymic affect Results & Data Results & Data Vital Signs (Past 12 Hours) Vital Signs Temp Pulse Pulse Resp BP Pulse Ox O2 Del Method 12/15/24 10:54 36.7 C 97 H 22 139/97 97 BiPAP 12/15/24 10:41 Room Air 12/15/24 08:03 36.7 C 93 H 18 151/103 H 95 Room Air 12/15/24 07:31 87 12/15/24 02:25 36.8 C 88 18 152/94 H 98 Nasal Cannula 12/15/24 01:47 Nasal Cannula O2 Flow Rate 12/15/24 10:54 12/15/24 10:41 12/15/24 08:03 12/15/24 07:31 12/15/24 02:25 2 12/15/24 01:47 3 Laboratory Results CBC, BMP, magnesium, respiratory BioFire, PSA reviewed PG Care Time/CCT Total # of Minutes Spent Total Time Spent with Patient: Total time spent is greater than 50% in coordination of care (as documented) at patient's floor/unit and/or counseling patient: Coding Level of Care Code 49894 SUB INP/OBS CARE 3/50MIN Diagnoses Bradycardia R00.1 Dyspnea R06.00 Atypical pneumonia J18.9 Atrial fibrillation I48.91
[2024-12-15] MEDS: GABAPENTIN 100 MG CAP PO SCH (21:09)
[2024-12-15] MEDS: METOPROLOL SUCC 50MG EXT REL TAB PO SCH (21:10)
[2024-12-16 07:32] LABS: Anion Gap 7.0 (3-11); Blood Urea Nitrogen 21.0 mg/dl (6-23); Calcium 9.4 mg/dl (8.6-10.3); Carbon Dioxide 25.0 mmol/L (21-32); Chloride 103.0 mmol/L (98-107); Creatinine Clr Calc Pharmacy 73.9 ml/min; Glucose 139.0 mg/dl (70-99(Fasting)); Magnesium 2.1 mg/dl (1.7-2.4); Potassium 4.2 mmol/L (3.5-5.1); Sodium 135.0 mmol/L (136-145)
[2024-12-16] MEDS: AZITHROMYCIN 250 MG TAB PO SCH (08:41)
[2024-12-16] MEDS: METOPROLOL SUCC 50MG EXT REL TAB PO SCH (08:41)
[2024-12-16] MEDS: FUROSEMIDE 20 MG TAB PO SCH (11:24)
--- NOTE | 2024-12-16 14:42 | Cardiology Progress Note ---
Date of Service December 16, 2024 Assessment & Plan (1) Acute on chronic heart failure with preserved ejection fraction (HFpEF): (2) Permanent atrial fibrillation: (3) Bradycardia: (4) Hypertension: (5) Coronary artery calcification: Plan ASSESSMENT/PLAN: 1. Atrial fibrillation: Presented with bradycardia after recent titration of outpatient beta-bora and calcium channel bora. Heart rate now well- controlled on current regimen after further adjustments. Continue metoprolol succinate 300 mg/day (was 400 mg daily on presentation) and diltiazem CD 360 mg daily (was 420 mg on presentation). Continue anticoagulation for stroke risk reduction. Monitor blood counts. 2. Acute heart failure with preserved EF: He has diuresed significantly and is feeling much better. Monitor renal function and electrolytes closely. Clinically much improved. Start Lasix 40 mg p.o. daily tomorrow in place of intravenous Lasix. SGLT2 inhibitor has been initiated this hospital stay. Low- sodium diet, less than 2000 mg daily. Strict I's and O's while hospitalized. Daily weights. Recommend ambulation in the hallway to evaluate for symptoms. 3. Bradycardia: Resolved. AV rajesh blockers have overall been reduced in dose compared to presentation. 4. Hypertrophic cardiomyopathy: History of hypertrophic cardiomyopathy reported in the chart. 5. Hypertension: Blood pressure has improved and intermittently mildly hypertensive. Continue regimen as above as diuretic dose has changed. Further adjustments can be made in the outpatient setting if necessary. 6. Coronary artery calcifications: Noted on CT imaging. Continue high intensity statin therapy. Continue beta-bora. No angina. Had atypical chest discomfort in the setting of heart failure exacerbation and also with negative high-sensitivity troponin level despite 30 minutes of pain. 7. Disposition: Can be discharged home from a cardiology perspective. If he remains hospitalized, cardiology will sign off at this time. Upon discharge, follow-up with Dr. He, his primary wig sales consultant. Patient care has been communicated with Dr. Vincent of the primary hospitalist service. Heart failure program if able to participate at his correctional institution. Admission and Anticipated Discharge Date Admission Date: December 13, 2024 Subjective Patient was seen earlier today. He denies shortness of breath and orthopnea. He admits that he has not yet ambulated. He denies chest pain, syncope, near syncope, palpitations, or edema. He was accompanied by 2 half-way guards. Physical Exam Physical Exam: Gen.: No acute distress. Alert and oriented. HEENT: Anicteric sclera. Neck: Thick neck. Cardiac: Irregularly irregular. Normal rate. Normal S1-S2. No murmurs, rubs, or gallops. Pulmonary: Clear to auscultation bilaterally without wheezes, rales, or rhonchi. Abdomen: Soft, nontender, nondistended, with normoactive bowel sounds. No bruits noted. Extremities: 2+ radial pulses bilaterally. 2+ posterior tibialis pulses bilaterally. No edema. No cyanosis. Results & Data Vital Signs (Past 12 Hours) Vital Signs Temp Pulse Pulse Resp BP Pulse Ox O2 Del Method 12/16/24 14:04 Room Air 12/16/24 12:56 36.6 C 84 19 143/85 H 96 Room Air 12/16/24 09: 77 12/16/24 08:14 36.2 C L 75 20 149/84 H 96 Room Air 12/16/24 03:09 37.1 C 89 18 114/89 99 Room Air Intake & Output 12/14/24 12/15/24 12/16/24 12/17/24 06:59 06:59 06:59 06:59 Intake Total 355 / 355 300 / 300 1155 / 1155 Output Total 775 / 775 4500 / 4500 1300 / 1300 400 / 400 Balance -420 / -420 -4200 / -4200 -145 / -145 -400 / -400 Weight 213 lb 13.574 oz 214 lb 1.102 oz 214 lb 1.102 oz 204 lb 2.369 oz Laboratory Results Laboratory Results - last 24 hr 12/15/24 12/15/24 12/16/24 15:44 20:45 06:51 Sodium 135 L Potassium 4.2 Chloride 103 Carbon Dioxide 25 Anion Gap 7 BUN 21 Creatinine 1.24 Est Cr Clr Drug Dosing 73.9 eGFR 68.24 BUN/Creatinine Ratio 16.9 Glucose 139 H POC Glucose 200 H 111 H Lactate Calcium 9.4 Magnesium 2.1 Procalcitonin 12/16/24 12/16/24 12/16/24 06:55 07:33 08:13 Sodium Potassium Chloride Carbon Dioxide Anion Gap BUN Creatinine Est Cr Clr Drug Dosing eGFR BUN/Creatinine Ratio Glucose POC Glucose 164 H Lactate 1.5 Calcium Magnesium Procalcitonin 0.16 Cancelled 12/16/24 11:38 Sodium Potassium Chloride Carbon Dioxide Anion Gap BUN Creatinine Est Cr Clr Drug Dosing eGFR BUN/Creatinine Ratio Glucose POC Glucose 108 H Lactate Calcium Magnesium Procalcitonin Diagnostic Findings Telemetry personally reviewed: Rate controlled atrial fibrillation. Labs reviewed and notable for normal potassium, stable renal function, normal magnesium. Medications Administered Current Inpatient Medications Acetaminophen (Acetaminophen 325 Mg Tab) 650 mg PO Q4H PRN PRN Reason: Pain or Fever Stop: 01/13/25 00:43 Amitriptyline HCl (Amitriptyline Hcl 25 Mg Tab) 75 mg PO HS FABIANO Stop: 01/13/25 20:59 Last Admin: 12/15/24 21:09 Dose: 75 mg Apixaban (Apixaban 5 Mg Tablet) 5 mg PO BID FABIANO Stop: 01/13/25 08:59 Last Admin: 12/16/24 08:43 Dose: 5 mg Bicalutamide (Bicalutamide 50 Mg Tab) 50 mg PO DAILY FABIANO Stop: 01/13/25 08:59 Last Admin: 12/16/24 08:40 Dose: 50 mg Dextrose (Dextrose 50% 50 Ml Syringe) 25 - 50 ml IV UD PRN; Protocol PRN Reason: Hypoglycemia Protocol Stop: 01/13/25 00:43 Diltiazem HCl (Diltiazem Hcl 180 Mg Capcr) 360 mg PO QAM FABIANO Stop: 01/14/25 08:59 Last Admin: 12/16/24 08:42 Dose: 360 mg Docusate Sodium (Docusate Sodium 100 Mg Cap) 100 mg PO BID PRN PRN Reason: Constipation Stop: 01/13/25 00:43 Empagliflozin (Empagliflozin 10 Mg Tab) 10 mg PO DAILY FABIANO Stop: 01/14/25 08:59 Last Admin: 12/16/24 08:40 Dose: 10 mg Furosemide (Furosemide 20 Mg Tab) 20 mg PO BID17 FABIANO Stop: 01/15/25 09:59 Last Admin: 12/16/24 11:24 Dose: 20 mg Gabapentin (Gabapentin 100 Mg Cap) 100 mg PO HS FABIANO Stop: 01/14/25 20:59 Last Admin: 12/15/24 21:09 Dose: 100 mg Glucagon (Glucagon For Inj 1 Mg Vial) 1 mg SQ UD PRN; Protocol PRN Reason: Hypoglycemia Protocol Stop: 01/13/25 00:43 Glucose (Glucose 40% Gel 15 Gm Tube) 15 - 30 gm PO UD PRN; Protocol PRN Reason: Hypoglycemia Protocol Stop: 01/13/25 00:43 Glucose (Glucose 10 Tab/Tube) 4 - 8 tab PO UD PRN; Protocol PRN Reason: Hypoglycemia Protocol Stop: 01/13/25 00:43 Insulin Aspart (Insulin Aspart Per Unit Charge) 0 units SC ACHS FABIANO Stop: 01/13/25 07:29 Last Admin: 12/16/24 12:51 Dose: Not Given Melatonin (Melatonin 3 Mg Tab) 3 mg PO HS PRN PRN Reason: Sleep Stop: 01/13/25 00:43 Metoprolol Succinate (Metoprolol Succ 50mg Ext Rel Tab) 100 mg PO QAM FABIANO Stop: 01/15/25 08:59 Last Admin: 12/16/24 08:41 Dose: 100 mg Metoprolol Succinate (Metoprolol Succ 50mg Ext Rel Tab) 200 mg PO HS [facility] Stop: 01/14/25 20:59 Last Admin: 12/15/24 21:10 Dose: 200 mg Miscellaneous (Carbohydrates For Hypoglycemia ) 15 - 30 gm PO UD PRN PRN Reason: Hypoglycemia Protocol Stop: 01/13/25 00:43 Ondansetron HCl (Ondansetron Inj 2 Mg/Ml 2 Ml Vial) 4 mg IV Q6H PRN PRN Reason: Nausea And Vomiting Stop: 01/13/25 00:43 Oxybutynin Chloride (Oxybutynin Chloride Xl 5 Mg Tabcr) 10 mg PO DAILY [facility] Stop: 01/13/25 08:59 Last Admin: 12/16/24 08:40 Dose: 10 mg Rosuvastatin Calcium (Rosuvastatin Calcium 20 Mg Tab) 40 mg PO DAILY FABIANO Stop: 01/13/25 08:59 Last Admin: 12/16/24 08:39 Dose: Not Given Timolol Maleate (Timolol Maleate 0.5% Op Soln 5 Ml Btl) 1 drops OP BID [facility] Stop: 01/13/25 08:59 Last Admin: 12/16/24 08:43 Dose: 1 drops PG Care Time/CCT Total # of Minutes Spent Total Time Spent with Patient: Total time spent is greater than 50% in coordination of care (as documented) at patient's floor/unit and/or counseling patient: Coding Level of Care Code 27911 SUB INP/OBS CARE 3/50MIN Diagnoses Acute on chronic heart failure with preserved ejection fraction (HFpEF) I50.33 Permanent atrial fibrillation I48.21 Bradycardia R00.1 Hypertension, unspecified type I10 Hypertension type: unspecified Coronary artery calcification I25.10 (4) Hypertension Hypertension type: unspecified Qualified Code(s): I10 - Essential (primary) hypertension
--- NOTE | 2024-12-16 18:11 | Hospitalist Progress Note ---
Date of Service December 16, 2024 Assessment & Plan (1) Bradycardia: Plan: RESOLVED with HR 59 bpm (last recorded on 12/14/2024, 3:53am) or greater since 12/14/2024, 3:53am. (2) Dyspnea: Plan: RESOLVED on lasix 20mg IV bid x 5 doses (12/14/2024, 11:57am, 4:36pm; 12/15/2024, 8:15am, 3:59pm; 12/16/2024, 10:04am). Transitioned to lasix 20mg PO bid x 2 doses (12/16/2024, 11:24am, 5:43pm), followed by D/C back to intermediate on 12/17/2024 on lasix 40mg PO daily on 12/17/2024 am. (3) Atypical pneumonia: Plan: Patient remains afebrile with normal procalcitonin #1 0.16 ng/mL (12/16/2024, 6:55am) and normal lactic acid 1.5 mmol/L (12/16/2024, 8:13am). s/p azithromycin 500mg IV daily x 2 doses (12/14/2024, 4:10am; 12/15/2024, 5:01a m). s/p azithromycin 500mg PO daily x 1 dose (12/16/2024, 8:41am). Observe off further empiric antibiotics. Given CTA chest (12/14/2024, 8:07am) findings below in this middle-aged - [place] male with a history of prostate CA, concern for lung metastases and/or non-caseating granulomatous disease such as sarcoidosis. 1. No PE. 2. 3 mm right upper lobe pulmonary nodule is seen on image #72. 3. Lower neck: There are enlarged right supraclavicular nodes. The largest is seen on image #6 and measures 1.8 x 1.3 cm. 4. Mediastinum: There are enlarged adjacent lymph nodes. There are 2.8 x 1.8 cm and 2.4 x 2.0 cm right paratracheal nodes. A prevascular node measures 2.5 x 1.1 cm and a subcarinal node measures 3.3 x 2.4 cm. 5. Lia: There is bilateral hilar adenopathy, right side larger than left. A right hilar node on image #110 measures approximately 4 x 2 cm. Hence, I have advised patient to undergo outpatient, repeat CT chest with IV contrast in 2-3 months. I have also advised patient to follow up on screening DICKSON level test (12/14/2024, 11:10am) within 5 days of hospital discharge. Patient reports that he will comply with these recommendations. (4) Atrial fibrillation: Plan: Rate-controlled with diltiazem 360mg PO daily, metoprolol 100mg PO qam, and metoprolol 200mg PO qhs. Continue long-term, orally active anticoagulation utilizing apixaban 5mg PO bid. Plan Patient is a 54 y/o male with a history of chronic HFpEF, prostate CA, JEANNINE, HTN, t2dm, afib who presented with dyspnea on exertion and severe fatigue x 3 to 4 days. He is admitted with acute on chronic HFpEF and bradycardia (HR 40s) after having diltiazem and metoprolol increased. He was found to be hypoxic and with abnormal chest x-ray. #Bradycardia/permanent atrial fibrillation/HTNbradycardia in the 40s noted after increase in patient's diltiazem and metoprolol made on 12/07. Causing fatigue and generalized weakness. Noted that diltiazem was increased from 360 mg daily to 480 mg daily and metoprolol from 200 mg daily to 200 mg twice daily. TSH normal. Diltiazem and metoprolol held for 1 day and heart rate started to increase to the 80s-90s. They were restarted at lower doses. - Continue diltiazem 360 mg daily - Increase Toprol-XL to 100 mg in the morning and 200 mg at night for improved rate control - Continue to monitor on telemetry for bradycardia or tachycardia Cardiology consulted-appreciate recommendations - Continue Eliquis 5 5 mg p.o. twice daily - Keep electrolytes replete/optimized-no replacement needed #Acute on chronic HFpEF/acute respiratory failure with hypoxia/abnormal CXR -reported dyspnea on exertion for 3 to 4 days since increasing doses of AV rajesh blockers. BNP 877, troponin 9.3, no ischemic changes on ECG but with bradycardia in the 40s. No leukocytosis, afebrile, and pulse ox was 88% on room air in the ED. CXR with cardiomegaly and moderate to heavy peribronchial thickening with increased interstitial opacities throughout the lungs. Initially suspected to have atypical pneumonia and was started on azithromycin. Checked CT chest noncontrast-with likely congestive changes, with pleural effusions, and mediastinal, hilar lymphadenopathy as well as right sided supraclavicular lymphadenopathy. Started diuresis with IV Lasix and he is now significantly improved, weaned to room air at rest, and is net -4.3 L of fluid. Dyspnea is now resolved. Echo here with LVEF 55-60%, moderate LVH, mild-moderate MR - Continue Lasix 20 mg IV twice daily and plan to switch to Lasix 40 mg p.o. once daily on 12/16 -Start Jardiance 10 mg p.o. daily - Improve rate control by increasing metoprolol dose as noted above - Continue supplemental O2 to keep pulse ox greater than 90% - Will need a two-step walk test prior to discharge given that he frequently feels dyspneic on exertion which improves with using his CPAP while awake - Continue daily weights, strict I's and O's, low-sodium diet #Hilar, mediastinal, and supraclavicular lymphadenopathy-CT chest noncontrast- with likely congestive changes, with pleural effusions, and mediastinal, hilar lymphadenopathy as well as right sided supraclavicular lymphadenopathy. Consult pulmonology for lymphadenopathy appreciated. PSA checked and is undetectable so not likely to be metastatic prostate cancer. Could be reactive lymphadenopathy versus sarcoidosis versus other malignancy such as lymphoma or adenocarcinoma - Check DICKSON level and vitamin 1, 25-OH vitamin D to assess for sarcoidosis- pending Continue azithromycin 500 mg IV/p.o. daily x 3 days in case of atypical infection - Will need repeat CT chest in 4 weeks and outpatient follow-up with pulmonology -needs IR biopsy of the right supraclavicular lymph node and if nondiagnostic, could proceed with EBUS as an outpatient - Getting him scheduled for IR biopsy of right supraclavicular lymph node in the near future-he will need to hold his Eliquis for 3 days prior to the procedure #OSAcontinue CPAP at bedtime #Type II DMholding metformin and glimepiride, SSI ordered. HgbA1c pending - Follow-up HgbA1c -Continue NovoLog and BSG's #Prostate cancerfollows with Dr. Hernandez. Recent cystoscopy 01/17 revealed residual necrotic tissue. He had radiation to the pelvis. Continue Casodex, Flomax, solifenacin, and gets shots of Lupron every 3 months - Check PSA in the a.m. in light of enlarged lymph nodes in the chest although most likely not related to prostate cancer DVT prophylaxis-Eliquis Disposition-continued stay in PCU, but improving, likely discharge back to the intermediate in 1-2 days. Will need a two-step oxygen test prior to discharge Admission and Anticipated Discharge Date Admission Date: December 13, 2024 Subjective "I am breathing 80% better today (12/16/2024) than when I came into the hospital on 12/13/2024. I have been working out, and normally, I weigh about 206 pounds on a good day. Today, they said I weigh 203.7 pounds." Review of Systems Constitutional: Negative for antecedent/coincident fevers, chills, diaphoresis, cough, wheeze, sore throat, hemoptysis, chest pains, palpitations, pleurisy, nausea, vomiting, diarrhea, abdominal pain, pelvic pain, hematemesis, hematochezia, melena, hematuria, dysuria, frequency, urgency, headaches, dizziness, lightheadedness, visual changes, hearing changes, weakness, falls, syncope, trauma, travel history, sick contacts, or food/drug ingestions novel or new. All other review of systems are reported as negative by the patient on 12/16/2024. Physical Exam Constitutional: General: Comfortable, cooperative, coherent. Wide awake and alert. Not confused, lethargic, or obtunded. Patient speaks in complete, fluent, and articulate sentences without pause, interruption, cough, or wheeze. HEENT: Normocephalic, atraumatic. Extra-ocular muscles intact. Pupils equally round and reactive to light. No nystagmus, gaze paresis, anisocoria, miosis, mydriasis, hyphema, chemosis, scleral injection, conjunctivitis, or pterygium. No otorrhea or rhinorrhea. No pharyngeal discharge or exudate. Neck: Supple, no stridor or bruit. Jugular venous pressure is estimated to be 3 cm above the sternal angle of [place], which is, by definition, 5 cm above the level of the right atrium. Hence, jugular venous pressure of 8 cm is not elevated on 12/16/2024. Lymphatics: No anterior/posterior cervical, infraclavicular, supraclavicular, axillary, epitrochlear, or inguinal adenopathy. Chest: Symmetric rise and fall with respirations. Non-tender to palpation. Lungs: Clear to auscultation and percussion. No audible expiratory wheeze, egophony, pectoriloquy, increase in tactile fremitus, or flatness/dullness to percussion at the bases. Heart: Regular rate and rhythm. S1 and S2 noted. No S3 or S4 summation gallop. No tripartite friction rub. Grade II/ early systolic murmur at left lower sternal border without radiation to the carotids, axilla, or back, and which remains invariant in regards to the respiratory cycle. Abdomen: Soft, non-tender, non-distended. No rebound, guarding, Carreon's sign, or organomegaly. Bowel sounds auscultated in all 4 quadrants. Extremities: No clubbing, cyanosis, or edema. 2+ pedal pulses bilaterally. Skin: No decubitus ulcer, exanthem, or enanthem. Urology: No bowen catheter. No purewick. No urethral discharge. Neurology: Alert and oriented in regards to person, place, time, and situation. DTR+. 5/5 motor strength in all 4 extremities, both proximally and distally. Psychiatry: No flat affect. No monotone voice. Smiles appropriately. Results & Data Results & Data Vital Signs (Past 12 Hours) Vital Signs Temp Pulse Pulse Resp BP Pulse Ox O2 Del Method 12/16/24 16:56 36.6 C 80 20 132/84 95 Room Air 12/16/24 14:04 Room Air 12/16/24 12:56 36.6 C 84 19 143/85 H 96 Room Air 12/16/24 09:25 77 12/16/24 08:14 36.2 C L 75 20 149/84 H 96 Room Air Laboratory Results Abnormal lab results 12/15/24 12/16/24 12/16/24 Range/Units 20:45 06:51 07:33 Sodium 135 L (136-145) mmol/L Glucose 139 H (70-99(Fasting)) mg/dl POC Glucose 111 H 164 H (70-99) mg/dl 12/16/24 12/16/24 Range/Units 11:38 16:29 Sodium (136-145) mmol/L Glucose (70-99(Fasting)) mg/dl POC Glucose 108 H 109 H (70-99) mg/dl Diagnostic Findings TTE (12/14/2024, 5:04pm): 1. LVEF 55-60%; no regional wall motion abnormalities. Moderate concentric LVH. Indeterminate LV diastolic function. 2. Grossly normal RV size with mildly reduced RV systolic function. 3. Mild-moderate MR. (as per [facility] Dr. Carroll De Jesus). CTA chest (12/14/2024, 8:07am): 1. No PE. 2. 3 mm right upper lobe pulmonary nodule is seen on image #72. 3. Lower neck: There are enlarged right supraclavicular nodes. The largest is seen on image #6 and measures 1.8 x 1.3 cm. 4. Mediastinum: There are enlarged adjacent lymph nodes. There are 2.8 x 1.8 cm and 2.4 x 2.0 cm right paratracheal nodes. A prevascular node measures 2.5 x 1.1 cm and a subcarinal node measures 3.3 x 2.4 cm. 5. Lia: There is bilateral hilar adenopathy, right side larger than left. A right hilar node on image #110 measures approximately 4 x 2 cm. PG Care Time/CCT Total # of Minutes Spent Total Time Spent with Patient: Total time spent is greater than 50% in coordination of care (as documented) at patient's floor/unit and/or counseling patient: Coding Level of Care Code 41075 SUB INP/OBS CARE 3/50MIN Diagnoses Bradycardia R00.1 Dyspnea R06.00 Atypical pneumonia J18.9 Atrial fibrillation I48.91
[2024-12-17] MEDS: FUROSEMIDE 40 MG TAB PO SCH (08:11)
[2024-12-17 08:45] VITALS: BP 105/72; PULSE 81; RESP 20; TEMP 97.5; O2SAT 94
--- NOTE | 2024-12-17 10:10 | Discharge Summary ---
Discharge Summary Date of Service December 17, 2024 Principal Dx & Hospital Course #1 = Principal Diagnosis (1) Bradycardia: RESOLVED with HR 59 bpm (last recorded on 12/14/2024, 3:53am) or greater since 12/14/2024, 3:53am. cf., discharge HR 81 bpm (, 9:04am) on diltiazem 360mg PO daily, metoprolol XL 100mg PO qam, and metoprolol XL 200mg PO qhs. Patient will continue all 3 medications on hospital discharge back to [facility] today, 12/17/2024, 10:05am. To this end, patient's [facility] received electronic prescriptions on 12/17/2024 for the following 3 medications: a. diltiazem 360mg PO daily, #30 tablets, no refills. b. metoprolol XL 100mg PO qam, #30 tablets, no refills. c. metoprolol XL 200mg PO qhs, #30 tablets, no refills. (2) Dyspnea: RESOLVED on lasix 20mg IV bid x 5 doses (12/14/2024, 11:57am, 4:36pm; 12/15/2024, 8:15am, 3:59pm; 12/16/2024, 10:04am). Transitioned to lasix 20mg PO bid x 2 doses (12/16/2024, 11:24am, 5:43pm), followed by transition to lasix 40mg PO daily x 1 dose (12/17/2024, 8:11am). Patient will continue lasix 40mg PO daily on hospital discharge back to [facility] today, 12/17/2024, 10:05am. To this end, patient's [facility] received electronic prescription on 12/17/2024 for the following 3 medications: a. lasix 40mg PO daily, #30 tablets, no refills. (3) Atypical pneumonia: Patient remains afebrile with normal procalcitonin #1 0.16 ng/mL (12/16/2024, 6:55am) and normal lactic acid 1.5 mmol/L (12/16/2024, 8:13am). s/p azithromycin 500mg IV daily x 2 doses (12/14/2024, 4:10am; 12/15/2024, 5:01am). s/p azithromycin 500mg PO daily x 1 dose (12/16/2024, 8:41am). Observe off further empiric antibiotics. Given CTA chest (12/14/2024, 8:07am) findings below in this middle-aged - Nepalese male with a history of prostate CA, concern for lung metastases and/or non-caseating granulomatous disease such as sarcoidosis. 1. No PE. 2. 3 mm right upper lobe pulmonary nodule is seen on image #72. 3. Lower neck: There are enlarged right supraclavicular nodes. The largest is seen on image #6 and measures 1.8 x 1.3 cm. 4. Mediastinum: There are enlarged adjacent lymph nodes. There are 2.8 x 1.8 cm and 2.4 x 2.0 cm right paratracheal nodes. A prevascular node measures 2.5 x 1.1 cm and a subcarinal node measures 3.3 x 2.4 cm. 5. Lia: There is bilateral hilar adenopathy, right side larger than left. A right hilar node on image #110 measures approximately 4 x 2 cm. Hence, I have advised patient to undergo outpatient, repeat CT chest with IV contrast in 2-3 months. I have also advised patient to follow up on screening DICKSON level test (12/14/2024, 11:10am) within 5 days of hospital discharge. Patient reports that he will comply with these recommendations. (4) Atrial fibrillation: Rate-controlled with diltiazem 360mg PO daily, metoprolol 100mg PO qam, and metoprolol 200mg PO qhs. Patient will continue all 3 medications above on hospital discharge back to [facility] on 12/17/2024, 10:05am. Patient also received long-term, orally active anticoagulation utilizing apixaban 5mg PO bid while in [facility] from admission date 12/13/2024 to discharge date 12/17/2024, given CHADS2-VASC score = 3 points (e.g., 1 point for CHF, 1 point for HTN, and 1 point for DM). Plan 54 years old male with a PMH of FULL CODE @ [facility], obesity with BMI 32.2 (height 170.18 cm; weight 93.3 kg), chronic HFpEF, prostate CA, JEANNINE, HTN, DM2, afib who presented with dyspnea on exertion and severe fatigue x 3 to 4 days. He is admitted with acute on chronic HFpEF and bradycardia (HR 40s) after having diltiazem and metoprolol increased. He was found to be hypoxic and with abnormal chest x-ray. #Bradycardia/permanent atrial fibrillation/HTNbradycardia in the 40s noted after increase in patient's diltiazem and metoprolol made on 12/07. Causing fatigue and generalized weakness. Noted that diltiazem was increased from 360 mg daily to 480 mg daily and metoprolol from 200 mg daily to 200 mg twice daily. TSH normal. Diltiazem and metoprolol held for 1 day and heart rate started to increase to the 80s-90s. They were restarted at lower doses. - Continue diltiazem 360 mg daily - Increase Toprol-XL to 100 mg in the morning and 200 mg at night for improved rate control - Continue to monitor on telemetry for bradycardia or tachycardia Cardiology consulted-appreciate recommendations - Continue Eliquis 5 5 mg p.o. twice daily - Keep electrolytes replete/optimized-no replacement needed #Acute on chronic HFpEF/acute respiratory failure with hypoxia/abnormal CXR -re ported dyspnea on exertion for 3 to 4 days since increasing doses of AV rajesh blockers. BNP 877, troponin 9.3, no ischemic changes on ECG but with bradycardia in the 40s. No leukocytosis, afebrile, and pulse ox was 88% on room air in the ED. CXR with cardiomegaly and moderate to heavy peribronchial thickening with increased interstitial opacities throughout the lungs. Initially suspected to have atypical pneumonia and was started on azithromycin. Checked CT chest noncontrast-with likely congestive changes, with pleural effusions, and mediastinal, hilar lymphadenopathy as well as right sided supraclavicular lymphadenopathy. Started diuresis with IV Lasix and he is now significantly improved, weaned to room air at rest, and is net -4.3 L of fluid. Dyspnea is now resolved. Echo here with LVEF 55-60%, moderate LVH, mild-moderate MR - Continue Lasix 20 mg IV twice daily and plan to switch to Lasix 40 mg p.o. once daily on 12/16 -Start Jardiance 10 mg p.o. daily - Improve rate control by increasing metoprolol dose as noted above - Continue supplemental O2 to keep pulse ox greater than 90% - Will need a two-step walk test prior to discharge given that he frequently feels dyspneic on exertion which improves with using his CPAP while awake - Continue daily weights, strict I's and O's, low-sodium diet #Hilar, mediastinal, and supraclavicular lymphadenopathy-CT chest noncontrast- with likely congestive changes, with pleural effusions, and mediastinal, hilar lymphadenopathy as well as right sided supraclavicular lymphadenopathy. Consult pulmonology for lymphadenopathy appreciated. PSA checked and is undetectable so not likely to be metastatic prostate cancer. Could be reactive lymphadenopathy versus sarcoidosis versus other malignancy such as lymphoma or adenocarcinoma - Check DICKSON level and vitamin 1, 25-OH vitamin D to assess for sarcoidosis- pending Continue azithromycin 500 mg IV/p.o. daily x 3 days in case of atypical infection - Will need repeat CT chest in 4 weeks and outpatient follow-up with pulmonology -needs IR biopsy of the right supraclavicular lymph node and if nondiagnostic, could proceed with EBUS as an outpatient - Getting him scheduled for IR biopsy of right supraclavicular lymph node in the near future-he will need to hold his Eliquis for 3 days prior to the procedure #OSAcontinue CPAP at bedtime #Type II DMholding metformin and glimepiride, SSI ordered. HgbA1c pending - Follow-up HgbA1c -Continue NovoLog and BSG's #Prostate cancerfollows with Dr. Hernandez. Recent cystoscopy 01/17 revealed residual necrotic tissue. He had radiation to the pelvis. Continue Casodex, Flomax, solifenacin, and gets shots of Lupron every 3 months - Check PSA in the a.m. in light of enlarged lymph nodes in the chest although most likely not related to prostate cancer DVT prophylaxis-Eliquis Disposition-continued stay in PCU, but improving, likely discharge back to the [facility] in 1-2 days. Will need a two-step oxygen test prior to discharge Admission HPI Per Admitting Provider Patient is a 54 y/o male with a pmhx including HFpEF, prostate CA, JEANNINE, HTN, DM2, afib. Patient present due to an episode of bradycardia (HR 40s) after having diltiazem and metoprolol increased. He has had dyspnea on exertion for 3- 4 days. He is being admitted for further cardiac workup. Patient seen at bedside with [facility] guards present. He stated on his diltiazem was increased from 360 mg daily to 420 mg daily as well as metoprolol succinate increased from 200 daily to BID. After that, he started to develop wo rsening dyspnea with minimal exertion. He denies any cough, congestion, rhinorrhea, orthopnea. He does endorse a mild cramping chest pain this afternoon which was relieved on its own. He was noted to have a heart rate in the 40s and EMS was called. He denies any dizziness, lightheadedness, nausea, vomiting, diarrhea, lower extermity edema. He denies previous nicotine use. He follows a low sodium diet. He uses CPAP hs, no oxygen use at baseline. He wishes to be full code. Note BP dropped to 107/75 after IV lasix 20mg in ED. Discharge Exam Constitutional General: Comfortable, cooperative, coherent. Wide awake and alert. Not confused, lethargic, or obtunded. Patient speaks in complete, fluent, and articulate sentences without pause, interruption, cough, or wheeze. HEENT: Normocephalic, atraumatic. Extra-ocular muscles intact. Pupils equally round and reactive to light. No nystagmus, gaze paresis, anisocoria, miosis, mydriasis, hyphema, chemosis, scleral injection, conjunctivitis, or pterygium. No otorrhea or rhinorrhea. No pharyngeal discharge or exudate. Neck: Supple, no stridor or bruit. Jugular venous pressure is estimated to be 3 cm above the sternal angle of [place], which is, by definition, 5 cm above the level of the right atrium. Hence, jugular venous pressure of 8 cm is not amee vated on discharge date 12/17/2024. Lymphatics: No anterior/posterior cervical, infraclavicular, supraclavicular, axillary, epitrochlear, or inguinal adenopathy. Chest: Symmetric rise and fall with respirations. Non-tender to palpation. Lungs: Clear to auscultation and percussion. No audible expiratory wheeze, egophony, pectoriloquy, increase in tactile fremitus, or flatness/dullness to percussion at the bases. Heart: Regular rate and rhythm. S1 and S2 noted. No S3 or S4 summation gallop. No tripartite friction rub. Grade II/ early systolic murmur at left lower sternal border without radiation to the carotids, axilla, or back, and which remains invariant in regards to the respiratory cycle. Abdomen: Soft, non-tender, non-distended. No rebound, guarding, Carreon's sign, or organomegaly. Bowel sounds auscultated in all 4 quadrants. Extremities: No clubbing, cyanosis, or edema. 2+ pedal pulses bilaterally. Skin: No decubitus ulcer, exanthem, or enanthem. Urology: No bowen catheter. No purewick. No urethral discharge. Neurology: Alert and oriented in regards to person, place, time, and situation. DTR+. 5/5 motor strength in all 4 extremities, both proximally and distally. Psychiatry: No flat affect. No monotone voice. Smiles appropriately. Discharge Plan Discharge Items [facility] Reason For Visit: BRADYCARDIA, CHF, HYPOXIA Discharge Diagnosis: 1. Asymptomatic bradycardia with admission HR 47 bpm (12/13/2024, 7:46pm) with last bradycardic episode with repeat HR 59 bpm (12/14/2024, 3:43am), RESOLVED with discharge HR 81 bpm (12/17/2024, 9:04am). 2. Acute RV systolic CHF exacerbation with preserved LVEF 55-60% (as noted on 12/14/2024, 5:04pm TTE, CARDS Dr. Carroll De Jesus) with admission weight of 105.5 kg = 232.1 pounds (12/13/2024, 7:46pm). cf., dry baseline weight of 205- 206 pounds @ [facility]. RESOLVED with discharge weight of 93.3 kg = 205.3 pounds (12/17/2024, 3:10am). 3. Acute hypoxic respiratory failure with admission O2 saturation 88% on room air (12/13/2024, 10:48pm), RESOLVED with discharge O2 saturation 94% on room air (12/17/2024, 9:04am). 4. Incidental CTA chest (12/14/2024, 8:07am) findings (see below) in this middle-aged -[place] male with a history of prostate CA, concern for lung metastases and/or non-caseating granulomatous disease such as sarcoidosis: 1. No PE. 2. 3 mm right upper lobe pulmonary nodule is seen on image #72. 3. Lower neck: Enlarged right supraclavicular nodes; largest seen on image #6 and measures 1.8 x 1.3 cm. 4. Mediastinum: Enlarged adjacent lymph nodes. 2.8 x 1.8 cm and 2.4 x 2.0 cm right paratracheal nodes. Prevascular node measures 2.5 x 1.1 cm and a subcarinal node measures 3.3 x 2.4 cm. 5. Lia: Bilateral hilar adenopathy, right side larger than left. A right hilar node on image #110 measures approximately 4 x 2 cm. While lymphadenopathy can be reactive to any infectious process, 5 of the nodes above are greater than 2 cm in size and are concerning for chronic inflammation (e.g., sarcoidosis) and/or chronic inflammation (e.g., lung carcinoma). Condition on Discharge: Fair Activity: Resume your previous activity Lifting: Gradually increase as tolerated Bathing: No limitations Exercise/Sports: Gradually increase as tolerated Weightbearing: Full weightbearing Non-emergency contact: Primary Care Provider Call non-emergency contact if: you have any medication questions Follow-up/Referrals: Yaa HOWARD [Primary Care Provider] - Diet: Carb Consistent or DM2 and Heart Healthy Addtl Attending Provider Instructions: See your PCP @ [facility] to follow up DICKSON level test (12/14/2024, 11:10am) result as it is a screening test for the presence or absence of sarcoidosis. See your PCP @ [facility] to arrange for outpatient, repeat CT chest with IV contrast in 2-3 months, to follow up incidental findings below: CTA chest (12/14/2024, 8:07am) findings (see below) in this middle-aged - [place] male with a history of prostate CA, concern for lung metastases and/or non-caseating granulomatous disease such as sarcoidosis: 1. No PE. 2. 3 mm right upper lobe pulmonary nodule is seen on image #72. 3. Lower neck: Enlarged right supraclavicular nodes; largest seen on image #6 and measures 1.8 x 1.3 cm. 4. Mediastinum: Enlarged adjacent lymph nodes. 2.8 x 1.8 cm and 2.4 x 2.0 cm right paratracheal nodes. Prevascular node measures 2.5 x 1.1 cm and a subcarinal node measures 3.3 x 2.4 cm. 5. Lia: Bilateral hilar adenopathy, right side larger than left. A right hilar node on image #110 measures approximately 4 x 2 cm. While lymphadenopathy can be reactive to any infectious process, 5 of the nodes above are greater than 2 cm in size and are concerning for chronic inflammation (e.g., sarcoidosis) and/or chronic inflammation (e.g., lung carcinoma). Pending Studies at Discharge: Yes Studies:: See your PCP @ [facility] to follow up DICKSON level test (12/14/2024, 11:10am) result as it is a screening test for the presence or absence of sarcoidosis. See your PCP @ [facility] to arrange for outpatient, repeat CT chest with IV contrast in 2-3 months, to follow up incidental findings below: CTA chest (12/14/2024, 8:07am) findings (see below) in this middle-aged - [place] male with a history of prostate CA, concern for lung metastases and/or non-caseating granulomatous disease such as sarcoidosis: 1. No PE. 2. 3 mm right upper lobe pulmonary nodule is seen on image #72. 3. Lower neck: Enlarged right supraclavicular nodes; largest seen on image #6 and measures 1.8 x 1.3 cm. 4. Mediastinum: Enlarged adjacent lymph nodes. 2.8 x 1.8 cm and 2.4 x 2.0 cm right paratracheal nodes. Prevascular node measures 2.5 x 1.1 cm and a subcarinal node measures 3.3 x 2.4 cm. 5. Lia: Bilateral hilar adenopathy, right side larger than left. A right hilar node on image #110 measures approximately 4 x 2 cm. While lymphadenopathy can be reactive to any infectious process, 5 of the nodes above are greater than 2 cm in size and are concerning for chronic inflammation (e.g., sarcoidosis) and/or chronic inflammation (e.g., lung carcinoma). Stand-Alone Forms: My [facility] Skilled Items Patient informed of condition?: Yes Discharge Level of Care: Other Communicable Disease: No Discharge Prognosis: Stable Lines: None Urinary Catheter: No Medications and DC Order Prescriptions: New furosemide 40 mg Tablet 40 mg PO QAM Qty: 30 0RF diltiazem HCl 180 mg Capsule,Extended Release 24hr 360 mg PO QAM Qty: 30 0RF metoprolol succinate 50 mg Tablet Extended Release 24 Hr 200 mg PO HS Qty: 30 0RF metoprolol succinate 50 mg Tablet Extended Release 24 Hr 100 mg PO QAM Qty: 30 0RF gabapentin 100 mg Capsule 100 mg PO HS Qty: 30 0RF Jardiance 10 mg Tablet 10 mg PO DAILY Qty: 30 0RF Continued sennosides-docusate sodium [Lax Stool Softener With Senna] 8.6-50 mg tablet 2 tab PO QAM Eliquis 5 mg tablet 5 mg PO BID alendronate 70 mg tablet 70 mg PO WK Rx Instructions: on Fridays Caltrate 600-D Plus Minerals 600 mg calcium- 800 unit-50 mg tablet 1 tab PO BID multivitamin Tablet 1 tab PO QAM amitriptyline 75 mg Tablet 75 mg PO HS metformin 850 mg Tablet 850 mg PO BID glimepiride 4 mg Tablet 4 mg PO QAM bicalutamide [Casodex] 50 mg tablet 50 mg PO DAILY Azo Cranberry 250 mg Tablet,Chewable 250 mg PO DAILY Lupron Depot (3 month) 22.5 mg Syringe Kit 22.5 mg IM DIRECTED Rx Instructions: every 3 months on day 13 rosuvastatin 40 mg Tablet 40 mg PO DAILY miconazole nitrate [Desenex] 2 % Powder 1 applic TOPICAL BID dorzolamide-timolol (PF) [Cosopt (PF)] 2-0.5 % Dropperette 1 drp OPB BID Desitin Daily Defense 13 % Cream 1 applic TOPICAL TID pramoxine [Sarna Sensitive] 1 % Lotion 1 applic TOPICAL BID PRN (Reason: as directed) Discontinued metoprolol succinate [Toprol XL] 200 mg Tablet Extended Release 24 Hr 200 mg PO BID furosemide 20 mg tablet 20 mg PO QAM solifenacin 10 mg Tablet 10 mg PO DAILY diltiazem HCl [Tiadylt ER] 420 mg Capsule,Extended Release 24hr 420 mg PO DAILY Discharge Orders: Discharge Order (Routine); Ordered 12/17/24 Ordered By: Chinmay Vincent Discharge Order- CHF (Routine); Ordered 12/17/24 Ordered By: Chinmay Vincent Admission Data Admit Date/Time: 12/13/24 23:55 Attending Provider: Chinmay Vincent Admit Provider: Chad Caal Primary Care Provider: Yaa HOWARD Other Providers: Chad Caal; Wes He Jr; Humberto Raman; Glenys Mares Hospital Stay Data Consultations 12/13/24 23:23 ED Decision to Admit Stat 12/14/24 00:44 Consult Cardiology Routine 12/14/24 11:13 Consult Pulmonology Routine 12/16/24 14:49 [facility]F Program Referral Routine Diagnostic Imagining Performed 12/14/24 08:07 CT chest diagnostic w con Urgent Pending Results Patient Have Any Pending Studies at Discharge: Yes Discharge Instructions Given to Patient (Per Discharging Provider) See your PCP @ [facility] to follow up DICKSON level test (12/14/2024, 11:10am) result as it is a screening test for the presence or absence of sarcoidosis. See your PCP @ [facility] to arrange for outpatient, repeat CT chest with IV contrast in 2-3 months, to follow up incidental findings below: CTA chest (12/14/2024, 8:07am) findings (see below) in this middle-aged - [place]e male with a history of prostate CA, concern for lung metastases and/or non-caseating granulomatous disease such as sarcoidosis: 1. No PE. 2. 3 mm right upper lobe pulmonary nodule is seen on image #72. 3. Lower neck: Enlarged right supraclavicular nodes; largest seen on image #6 and measures 1.8 x 1.3 cm. 4. Mediastinum: Enlarged adjacent lymph nodes. 2.8 x 1.8 cm and 2.4 x 2.0 cm right paratracheal nodes. Prevascular node measures 2.5 x 1.1 cm and a subcarinal node measures 3.3 x 2.4 cm. 5. Lia: Bilateral hilar adenopathy, right side larger than left. A right hilar node on image #110 measures approximately 4 x 2 cm. While lymphadenopathy can be reactive to any infectious process, 5 of the nodes above are greater than 2 cm in size and are concerning for chronic inflammation (e.g., sarcoidosis) and/or chronic inflammation (e.g., lung carcinoma). Total Time Total Time Spent Total Time Spent (In Minutes): 35 minutes. Of this time period, 19 minutes were spent in coordinating patient's discharge. Coding Level of Care Code 36034 INP/OBS DISCH >30 MIN Diagnoses Bradycardia R00.1 Dyspnea R06.00 Atypical pneumonia J18.9 Atrial fibrillation I48.91
== END 2024-12-17 16:49 | DRG 308 ==
LOC: ED 19:38 → SUATTDRO 23:55 → 2E 23:55